=== PATIENT | male | born 1950 | race Caucasian/White ===

== ENCOUNTER 2017-02-09 13:36 | Inpatient (IN) | payer OTHER ==
[~2017-02-09] VITALS: Ht 177.8 cm; Wt 126.1 kg
[~2017-02-09 13:36] MED LIST changes: -ALBU2.5V4 IH; -AMLO10TA2 PO; -AZIT250T5 PO; -BENZ100C23 PO; -BUDE10.2 IH; -CYAN10006 PO; -DEXA0.5T PO; -FAMO20TA5 PO; -FLUT1DIS26 IH; -GUAI473L29 PO; -HYDR-3584 PO; -HYDR473S34 PO; -LORA10TA7 PO; -MONT10TA24 PO; -UMEC62.5 IH
[2017-02-09] MEDS ORDERED: RT-BUDESONIDE NEBS 0.5 MG/2ML (PULMICORT) AMP INH SCH (13:45)
[2017-02-09] MEDS ORDERED: inSUlin ASPART (NovoLOG) 1 UNIT/0.01 ML (CHARGE PER UNIT) SC PRN (13:45)
[2017-02-09] MEDS ORDERED: guaiFENesin/CODEINE (ROBITUSSIN AC) 10ML UDC PO PRN (13:45)
[2017-02-09] MEDS ORDERED: RT-ALBUTEROL/IPRATROPIUM 3 ML (DUONEB) VIAL INH SCH ×2 (13:45→21:00)
[2017-02-09] MEDS ORDERED: AMLO10TA2 PO (15:20)
[2017-02-09] MEDS ORDERED: MONT10TA24 PO (15:20)
[2017-02-09] MEDS ORDERED: CYAN10006 PO (15:20)
[2017-02-09] MEDS ORDERED: PRD10T PO (15:39)
[2017-02-09] MEDS ORDERED: GUAI473L29 PO (15:39)
[2017-02-09] MEDS ORDERED: ALBU2.5V4 IH (15:41)
[2017-02-09] MEDS ORDERED: FLUT1DIS26 IH (15:41)
[2017-02-09 15:44] VITALS: BP 174/80
[2017-02-09] MEDS ORDERED: IOHEXOL 350 MG/ML 150 ML (OMNIPAQUE 350) VIAL IV ONE (15:45)
[2017-02-09] MEDS ORDERED: NS 100 ML (IVPB) BAG IV ONE (15:45)
[2017-02-09] MEDS ORDERED: CATHETER FLUSH 10 ML SYR IV PRN (15:45)
[2017-02-09 16:11] LABS: BASOPHILS # (AUTO) 0.1 10^3/uL (0.0-0.1); BASOPHILS % (AUTO) 1 % (0-10); EOSINOPHILS % (AUTO) 0 % (0-10); LYMPHOCYTES % (AUTO) 15 % (12-44); MEAN CORPUSCULAR HEMOGLOBIN 32 PG (25-34); MEAN CORPUSCULAR HGB CONC 35 G/DL (32-36); MEAN CORPUSCULAR VOLUME 92 FL (80-99); MEAN PLATELET VOLUME 9.8 FL (7.4-10.4); MONOCYTES # (AUTO) 1.3 X 10^3 (0.0-1.0); MONOCYTES % (AUTO) 10 % (0-12); NEUTROPHILS # (AUTO) 9.8 X 10^3 (1.8-7.8); NEUTROPHILS % (AUTO) 75 % (42-75); PLATELET COUNT 269 10^3/uL (130-400); RED BLOOD COUNT 4.39 10^6/uL (4.35-5.85); RED CELL DISTRIBUTION WIDTH 12.9 % (10.0-14.5); WHITE BLOOD COUNT 13.1 10^3/uL (4.3-11.0)
--- NOTE | 2017-02-09 16:15 | Diagnostic Imaging Report ---
PROCEDURE: CT angiography of the chest with contrast. TECHNIQUE: Multiple contiguous axial images were obtained through the chest after uneventful bolus administration of intravenous contrast. Reconstructed CTA MIP acquisitions were also performed. INDICATION: Wheezing. Cough. 125 mL of Omnipaque 350 is administered intravenously. FINDINGS: The pulmonary arteries demonstrate moderate opacification with no filling defects to suggest pulmonary embolism. The thoracic aorta is normal in caliber. No mediastinal, hilar or axillary significantly enlarged lymph nodes are seen. The cardiac size is normal. No pericardial or pleural effusion seen. There are subcentimeter nodular densities with groundglass opacities noted in the left lower lobe. These are favored to be related to pneumonitis or atelectasis. No significant consolidation. No lung mass or suspicious dominant nodule. Low density 6 mm nodule is also seen in the posterior mid aspect of the left upper lobe, image 53. Sections in the upper abdomen demonstrate cholecystectomy clips. The adrenal glands appear unremarkable. Posterior fusion hardware in the upper lumbar and lower thoracic spine is seen. Mild degenerative changes in the thoracic spine noted. IMPRESSION: 1. No evidence of pulmonary embolism or aortic dissection. 2. A few nonspecific subcentimeter nodular densities mostly in the left lower lobe is favored to be related to pneumonitis or atelectasis. No significant consolidation or suspicious nodule. A followup study in 4 months with a low-dose unenhanced CT chest to document resolution is recommended. Dictated by: Dictated on workstation # [id number]
[2017-02-09] MEDS: ENOXAPARIN 40 MG/0.4 ML (LOVENOX) SYR SC SCH (16:27)
[2017-02-09] MEDS: inSUlin ASPART (NovoLOG) 1 UNIT/0.01 ML (CHARGE PER UNIT) SC SCH ×2 (16:27→22:07)
[2017-02-09] MEDS: cefTRIAXone INJECTION 1,000 MG in NS (IVPB) 50 ML IV SCH (16:28)
[2017-02-09] MEDS: methylPREDNISolone 40 MG/ML (Solu-MEDROL) VIAL IV SCH (16:28)
[2017-02-09 16:29] LABS: ALANINE AMINOTRANSFERASE 59 U/L (0-55); ALBUMIN 3.8 G/DL (3.2-4.5); ANION GAP 11 MMOL/L (5-14); ASPARTATE AMINO TRANSFERASE 43 U/L (5-34); BILIRUBIN,TOTAL 0.5 MG/DL (0.1-1.0); BLOOD UREA NITROGEN 24 MG/DL (7-18); BUN/CREATININE RATIO 20; CALCIUM 8.9 MG/DL (8.5-10.1); CARBON DIOXIDE 23 MMOL/L (21-32); CHLORIDE 104 MMOL/L (98-107); CREATININE SERUM 1.19 MG/DL (0.60-1.30); GFR ESTIMATED > 60; GLUCOSE 184 MG/DL (70-105); POTASSIUM 3.8 MMOL/L (3.6-5.0); SODIUM 138 MMOL/L (135-145); TOTAL PROTEIN 6.9 G/DL (6.4-8.2)
[2017-02-09] MEDS ORDERED: RT-ALBUTEROL/IPRATROPIUM 3 ML (DUONEB) VIAL INH PRN (17:00)
[2017-02-09] MEDS ORDERED: hydrALAZINE (APRESOLINE) 25 MG TAB PO PRN (17:30)
[2017-02-09] MEDS: RT-BUDESONIDE NEBS 0.5 MG/2ML (PULMICORT) AMP INH SCH (18:37)
[2017-02-09] MEDS: RT-ALBUTEROL/IPRATROPIUM 3 ML (DUONEB) VIAL INH SCH (18:37)
[2017-02-09 20:03] VITALS: BP 126/74
[2017-02-09] MEDS: CATHETER FLUSH 10 ML SYR IV SCH (20:21)
[2017-02-09] MEDS: BENZONATATE 100 MG (TESSALON) CAPSULE PO SCH (20:21)
[2017-02-09] MEDS: MONTELUKAST 10 MG (SINGULAIR) TAB PO SCH (20:21)
[2017-02-09 23:49] VITALS: BP 130/65
[2017-02-10] MEDS: methylPREDNISolone 40 MG/ML (Solu-MEDROL) VIAL IV SCH ×5 (00:09→23:50)
[2017-02-10 04:05] VITALS: BP 145/72
[2017-02-10 05:01] LABS: BASOPHILS % (AUTO) 0 % (0-10); EOSINOPHILS % (AUTO) 0 % (0-10); LYMPHOCYTES % (AUTO) 12 % (12-44); MEAN CORPUSCULAR HEMOGLOBIN 32 PG (25-34); MEAN CORPUSCULAR HGB CONC 35 G/DL (32-36); MEAN CORPUSCULAR VOLUME 92 FL (80-99); MONOCYTES # (AUTO) 0.5 X 10^3 (0.0-1.0); MONOCYTES % (AUTO) 3 % (0-12); NEUTROPHILS # (AUTO) 14.3 X 10^3 (1.8-7.8); NEUTROPHILS % (AUTO) 85 % (42-75); PLATELET COUNT 248 10^3/uL (130-400); RED BLOOD COUNT 4.46 10^6/uL (4.35-5.85); RED CELL DISTRIBUTION WIDTH 12.6 % (10.0-14.5); WHITE BLOOD COUNT 16.7 10^3/uL (4.3-11.0)
[2017-02-10 05:22] LABS: ALANINE AMINOTRANSFERASE 57 U/L (0-55); ANION GAP 14 MMOL/L (5-14); ASPARTATE AMINO TRANSFERASE 32 U/L (5-34); BILIRUBIN,TOTAL 0.4 MG/DL (0.1-1.0); BLOOD UREA NITROGEN 25 MG/DL (7-18); BUN/CREATININE RATIO 23; CALCIUM 9.2 MG/DL (8.5-10.1); CARBON DIOXIDE 19 MMOL/L (21-32); CHLORIDE 105 MMOL/L (98-107); GFR ESTIMATED > 60; GLUCOSE 170 MG/DL (70-105); POTASSIUM 4.3 MMOL/L (3.6-5.0); SODIUM 138 MMOL/L (135-145); TOTAL PROTEIN 7.1 G/DL (6.4-8.2)
[2017-02-10] MEDS: CATHETER FLUSH 10 ML SYR IV SCH ×3 (05:44→20:32)
[2017-02-10] MEDS: inSUlin ASPART (NovoLOG) 1 UNIT/0.01 ML (CHARGE PER UNIT) SC SCH ×3 (05:46→16:12)
[2017-02-10] MEDS: RT-BUDESONIDE NEBS 0.5 MG/2ML (PULMICORT) AMP INH SCH ×2 (07:24→20:03)
[2017-02-10] MEDS: RT-ALBUTEROL/IPRATROPIUM 3 ML (DUONEB) VIAL INH SCH ×4 (07:24→20:03)
[2017-02-10 08:00] VITALS: BP 144/83
[2017-02-10] MEDS: ASPIRIN E.C. 81 MG (ECOTRIN) TAB PO SCH (08:46)
[2017-02-10] MEDS: BENZONATATE 100 MG (TESSALON) CAPSULE PO SCH ×3 (08:46→20:30)
[2017-02-10] MEDS: amLODIPine 10 MG (NORVASC) TAB PO SCH (08:46)
[2017-02-10] MEDS: LOSARTAN 50 MG (COZAAR) TAB PO SCH (08:46)
--- NOTE | 2017-02-10 10:19 | History & Physical-Hospitalist ---
HPI History of Present Illness: HPI/Chief Complaint CC: Wheezing HPI: This is a 66yoWM clinic pt of mine for past 10 yrs with hx of HTN, HLP and DEBORAH noncompliant with CPAP that presents with the 3rd episode of wheezing and SOB unresolved with antibiotics and prednisone regimen, so he was admitted for IV steroids and further workup. CT angio of chest showed no PE but resolving remnants of pneumonia. Dr. Bowman has set up out-pt clinic appointment for pulmonary management. WBC 16 due to steroids CMP normal Patient Interview: Dr. Cassidy discusses pts lab and CT results with pt. Pt states that he feels well today, but feels similar to how he did yesterday. Pt feels that he could safely DC. Pt still has breathing treatment supplies. Dr. Cassidy discusses plans for long-term steroid taper, and informs pt that symptoms may persist for some time. Pt states that current cough syrup does not seem to help. Physical exam reveals wheezing. Dr. Cassidy also discusses staying an additional day to continue IV treatment. Pt agrees with this plan and would like to stay. Pt would also like his heart to be checked by Dr. Pryor. Scribed by Remberto Petty under the direct supervision of Dr. Cassidy. Source: patient Exam Limitations: no limitations Date Seen 02/10/17 Attending Physician Betzaida Cassidy DO PCP Betzaida Cassidy DO Referring Physician Date of Admission Feb 09, 2017 at 15:10 Home Medications & Allergies Home Medications Reviewed patient Home Medication Reconciliation Form Allergies Allergies Coded Allergies desipramine (Verified Allergy, Mild, RASH, 02/09/17) Past Eztgtvl-Diesdu-Ynkkxe Hx Patient Social History Marrital Status: single Employed/Student: employed ([employer]) Alcohol Use: Denies Use Recreational Drug Use: No Smoking Status: Never a Smoker Physical Abuse Screen: No Sexual Abuse: No Recent Foreign Travel: No Contact w/other who traveled: No Recent Hopitalizations: Yes (CHOLY, TONSILLECTOMY, 5 BACK SURGERIES, 2 CARPAL TUNNEL SURGERIES) Recent Infectious Disease Expo: No Immunizations Up To Date Date of Influenza Vaccine: Sep 20, 2016 Seasonal Allergies Seasonal Allergies: No Surgeries HX Surgeries: Yes Surgeries: Adenoidectomy, Cardiac, Coronary Stent, Eye Surgery, Gallbladder, Neurological, Orthopedic, Renal, Tonsillectomy Respiratory Hx Respiratory Disorders: Yes Respiratory Disorders: Sleep Apnea (Non-compliant with CPAP) Cardiovascular Hx Cardiovascular Disorders: Yes (HEART CATH/STENTS X2 2010) Cardiac Disorders: Chronic Edema/Swelling, Coronary Artery Disease, Hypertension Neurological Hx Neurological Disorders: Yes (BILATERAL PERIPHERAL NEUROPATHY) Neurological Disorders: Neuropathy Reproductive System Hx Reproductive Disorders: No Sexually Transmitted Disease: No HIV/AIDS: No Genitourinary Hx Genitourinary Disorders: Yes (LEFT URETERAL STONE) Genitourinary Disorders: Benign Prostatic Hyperpl Gastrointestinal Hx Gastrointestinal Disorders: No Musculoskeletal Hx Musculoskeletal Disorders: Yes Musculoskeletal Disorders: Degenerate Disk Disease, Chronic Back Pain Endocrine Hx Endocrine Disorders: No HEENT HX ENT Disorders: Yes HEENT Disorders: Cataract Loss of Vision: Denies Hearing Impairment: Denies Cancer Hx Cancer: No Psychosocial Hx Psychiatric Problems: No Integumentary HX Skin/Integumentary Disorder: No Blood Transfusions Hx Blood Disorders: No Review of Systems Constitutional: see HPI EENTM: no symptoms reported Respiratory: cough, dyspnea on exertion, short of breath, wheezing Cardiovascular: chest pain Gastrointestinal: no symptoms reported Genitourinary: no symptoms reported Musculoskeletal: back pain Skin: no symptoms reported Psychiatric/Neurological: Depressed All Other Systems Reviewed Negative Unless Noted: Yes Physical Exam Physical Exam Vital Signs Vital Sign - Last 12Hours 02/09/17 02/09/17 15:30 15:44 Temp 99.4 Pulse 94 Resp 20 B/P (MAP) 174/80 Pulse Ox 95 O2 Delivery Room Air Capillary Refill : Less Than 3 Seconds General Appearance: No Apparent Distress, WD/WN, Chronically ill, Obese Eyes: Bilateral Eye Normal Inspection, Bilateral Eye PERRL HEENT: PERRL/EOMI, Normal ENT Inspection, Pharynx Normal Neck: Full Range of Motion, Normal Inspection, Non Tender, Supple, Carotid Bruit Respiratory: Chest Non Tender, No Accessory Muscle Use, No Respiratory Distress , Decreased Breath Sounds, Wheezing Cardiovascular: Regular Rate, Rhythm, No Edema, No Gallop, No JVD, No Murmur, Normal Peripheral Pulses Gastrointestinal: Normal Bowel Sounds, No Organomegaly, No Pulsatile Mass, Non Tender, Soft Back: Normal Inspection, No CVA Tenderness, No Vertebral Tenderness Extremity: Normal Capillary Refill, Normal Inspection, Normal Range of Motion, Non Tender, No Calf Tenderness, No Pedal Edema Neurologic/Psychiatric: Alert, Oriented x3, No Motor/Sensory Deficits, Normal Mood/Affect Skin: Normal Color, Warm/Dry Lymphatic: No Adenopathy Results Results/Procedures Lab Laboratory Tests 02/09/17 16:00 02/10/17 04:40 Assessment/Plan Admission Diagnosis Assessment: Recurrent wheezing unresolved with 2 rounds of antibiotics and steroid tapers with residual of early pneumonia treated [address] angiogram no evidence of PE History of CAD previous stents placed by Dr. Schulte evaluating echocardiogram and BNP for source of wheezing and overall subtle chest pain but is occurred on occasion Hypertension Hyperlipidemia Hyperglycemia chronic in nature but elevated due to steroids Obstructive sleep apnea noncompliant with CPAP Chronic muscle and joint pain etiology unknown after extensive workup in the past Leukocytosis likely due to steroid effect Mild elevation in liver enzymes likely due to PERSAUD Assessment and Plan Plan: Case management review to switch to in-pt status Overnight O2 sat eval Maintain IV antibiotics and steroids Switch to Hydrocodone cough syrup Consult Dr. Pryor Consult Dr. Bowman Check BNP Check Troponin Check EKG Check Echo Likely DC tomorrow with close pulmonary follow-up with Dr. Bowman and long steroid taper Clinical Quality Measures DVT/VTE Risk/Contraindication: Risk Factor Score Per Nursin RFS Level Per Nursing on Admit: 4+=Very High BETZAIDA CASSIDY DO Feb 10, 2017 10:19
[2017-02-10] MEDS: HYDROCODONE/CHLOR 10MG/5 ML (TUSSIONEX SUSP) 5ML UDC PO SCH ×2 (10:37→20:30)
[2017-02-10 12:00] VITALS: BP 152/74
--- NOTE | 2017-02-10 13:35 | Consultation-Cardiology ---
HPI-Cardiology Cardiology Consultation: Date of Consultation 02/10/17 Date of Admission 02-09-17 Attending Physician Betzaida Cassidy DO Admitting Physician Betzaida Cassidy DO Consulting Physician Lucius Pryor MD FACP [facility] HPI: Chief Complaint: Wheezing Dyspnea Mr. Bobo is a 66 year old male admitted to [facility]. He states he has been having increasing shortness of breath with associated wheezing and cough. He states he has had 2 rounds of antibiotics and steroids and continued to feel unwell. He states he is feeling better at this moment. He does not report any chest pain, palpitations, syncope or near syncope. He reports chronic intermittent bilat LE edema which is least upon awakening in the morning and worse as the day goes on. He states he wears compression stockings. He states he has increasing shortness of breath with fatigue over the last week. Review of Systems-Cardiology Review of Systems Constitutional: As described under HPI Eyes: No blurred vision, No drainage, No pain, No vision change Ears/Nose/Throat: No ear discharge, No ear pain, No nasal drainage, No ulcerations Respiratory: As described under HPI Cardiovascular: As described under HPI Gastrointestinal: No constipation, No diarrhea, No nausea, No vomiting, No stool coloration changes Genitourinary: No dysuria, No discharge, No frequency, No hematuria, No urgency Skin: No rash, No skin related problems, No ulcerations Psychiatric/Neurological: No anxiety, No depression, No focal weakness, No seizure, No syncope Hematologic: No bleeding abnormalities All Other Systems Reviewed Negative Unless Noted: Yes MLV-Sympxa-Kvgsyx Hx Patient Social History Marrital Status: single Employed/Student: employed ([employer]) Alcohol Use: Denies Use Recreational Drug Use: No Smoking Status: Never a Smoker Recent Foreign Travel: No Recent Infectious Disease Expo: No Hospitalization with Isolation: Denies Physical Abuse Screen: No Sexual Abuse: No Immunizations Up To Date Date of Influenza Vaccine: Sep 20, 2016 Past Medical History PMH As described under Assessment. Allergies and Home Medications Allergies Coded Allergies: desipramine (Verified Allergy, Mild, RASH, 02/09/17) Home Medications Albuterol Sulfate 2.5 Mg/3 Ml Vial.neb, 2.5 MG IH TID, (Reported) Amlodipine Besylate 10 Mg Tablet, 10 MG PO DAILY, (Reported) Aspirin 81 Mg Tabec, 81 MG PO DAILY, (Reported) Cyanocobalamin (Vitamin B-12) 1,000 Mcg Tablet, 1,000 MCG PO DAILY, (Reported) Fluticasone/Salmeterol 1 Each Blst.w.dev, 1 PUFF IH BID, (Reported) Guaifenesin/Codeine Phosphate 473 Ml Liquid, 5 ML PO Q4H PRN for COUGH, ( Reported) Lisinopril 20 Mg Tablet, 20 MG PO DAILY, (Reported) LAST FILLED 11/27/16 #30 Losartan Potassium 100 Mg Tablet, 100 MG PO DAILY, (Reported) Montelukast Sodium 10 Mg Tablet, 10 MG PO HS, (Reported) Prednisone 10 Mg Tab, PO UD, (Reported) FILLED 02/06/17 #30 FOR A TAPER DOSING 4 TABS PO QD X 3 DAYS 3 TABS PO QD X 3 DAYS 2 TABS PO QD X 2 DAYS 1 TAB PO QD X 1 DAY Triamterene/Hydrochlorothiazid 1 Each Capsule, 1 TAB PO DAILY, (Reported) LAST FILLED 11/27/16 #30 Physical Exam-Cardiology Physical Exam Vital Signs/I&O Vital Sign - Last 12Hours 02/10/17 02/10/17 02/10/17 02/10/17 04:05 07:24 07:24 08:00 Temp 96.3 97.4 Pulse 74 102 Resp 14 20 B/P (MAP) 145/72 144/83 Pulse Ox 94 93 93 93 O2 Delivery Room Air Room Air 02/10/17 02/10/17 08:20 12:00 Temp 98.6 Pulse 92 Resp 20 B/P (MAP) 152/74 Pulse Ox 93 O2 Delivery Room Air Room Air Intake and Output 02/10/17 00:00 Intake Total 850 ml Balance 850 ml Capillary Refill : Less Than 3 Seconds Constitutional: appears stated age, No apparent distress, well-developed, well- nourished HEENT: PERRL, No discharge, hearing is well preserved, oral hygience is good, No ulceration, No xanthelasmas are seen Neck: No carotid bruit, carotid pulses are 2 + bilaterally Respiratory: No accessory muscle use, No respiratory distress, chest expansion is symmetric, wheezing (scattered over large airways), other (diminished bases bilat) Cardiovascular: regular rate-rhythm, No JVD, S1 and S2 Gastrointestinal: No tender, soft, round, No spleenomegaly Extremities: No clubbing, No cyanosis, No significant edema Neurologic/Psychiatric: alert, oriented x 3, power is 5/5 both on sides Skin: No rash, No ulcerations Data Review Labs Laboratory Tests 02/09/17 15:54: Glucometer 196H 02/09/17 16:00: White Blood Count 13.1H, Red Blood Count 4.39, Hemoglobin 14.2, Hematocrit 40, Mean Corpuscular Volume 92, Mean Corpuscular Hemoglobin 32, Mean Corpuscular Hemoglobin Concent 35, Red Cell Distribution Width 12.9, Platelet Count 269, Mean Platelet Volume 9.8, Neutrophils (%) (Auto) 75, Lymphocytes (%) (Auto) 15, Monocytes (%) (Auto) 10, Eosinophils (%) (Auto) 0, Basophils (%) (Auto) 1, Neutrophils # (Auto) 9.8H, Lymphocytes # (Auto) 2.0, Monocytes # (Auto) 1.3H, Eosinophils # (Auto) 0.0, Basophils # (Auto) 0.1, Sodium Level 138, Potassium Level 3.8, Chloride Level 104, Carbon Dioxide Level 23, Anion Gap 11, Blood Urea Nitrogen 24H, Creatinine 1.19, Estimat Glomerular Filtration Rate > 60, BUN /Creatinine Ratio 20, Glucose Level 184H, Calcium Level 8.9, Total Bilirubin 0.5 , Aspartate Amino Transf (AST/SGOT) 43H, Alanine Aminotransferase (ALT/SGPT) 59H , Alkaline Phosphatase 61, B-Type Natriuretic Peptide 14.5, Total Protein 6.9, Albumin 3.8 02/09/17 21:20: Glucometer 266H 02/10/17 04:40: White Blood Count 16.7H, Red Blood Count 4.46, Hemoglobin 14.4, Hematocrit 41, Mean Corpuscular Volume 92, Mean Corpuscular Hemoglobin 32, Mean Corpuscular Hemoglobin Concent 35, Red Cell Distribution Width 12.6, Platelet Count 248, Mean Platelet Volume 10.0, Neutrophils (%) (Auto) 85H, Lymphocytes (%) (Auto) 12 , Monocytes (%) (Auto) 3, Eosinophils (%) (Auto) 0, Basophils (%) (Auto) 0, Neutrophils # (Auto) 14.3H, Lymphocytes # (Auto) 2.0, Monocytes # (Auto) 0.5, Eosinophils # (Auto) 0.0, Basophils # (Auto) 0.0, Sodium Level 138, Potassium Level 4.3, Chloride Level 105, Carbon Dioxide Level 19L, Anion Gap 14, Blood Urea Nitrogen 25H, Creatinine 1.10, Estimat Glomerular Filtration Rate > 60, BUN /Creatinine Ratio 23, Glucose Level 170H, Calcium Level 9.2, Total Bilirubin 0.4 , Aspartate Amino Transf (AST/SGOT) 32, Alanine Aminotransferase (ALT/SGPT) 57H , Alkaline Phosphatase 56, Total Protein 7.1, Albumin 4.0 02/10/17 05:46: Glucometer 155H 02/10/17 09:55: Troponin I < 0.30, B-Type Natriuretic Peptide 22.5 02/10/17 11:01: Glucometer 238H Radiology NAME: NAUN BOBO [facility] REC#: [id number] PT STATUS: ADM Poppy : 1950 PHYSICIAN: BETZAIDA CASSIDY DO ADMIT DATE: 02/09/17 Signed Date of Exam: 02/09/17 CT ANGIO CHEST W PROCEDURE: CT angiography of the chest with contrast. TECHNIQUE: Multiple contiguous axial images were obtained through the chest after uneventful bolus administration of intravenous contrast. Reconstructed CTA MIP acquisitions were also performed. INDICATION: Wheezing. Cough. 125 mL of Omnipaque 350 is administered intravenously. FINDINGS: The pulmonary arteries demonstrate moderate opacification with no filling defects to suggest pulmonary embolism. The thoracic aorta is normal in caliber. No mediastinal, hilar or axillary significantly enlarged lymph nodes are seen. The cardiac size is normal. No pericardial or pleural effusion seen. There are subcentimeter nodular densities with groundglass opacities noted in the left lower lobe. These are favored to be related to pneumonitis or atelectasis. No significant consolidation. No lung mass or suspicious dominant nodule. Low density 6 mm nodule is also seen in the posterior mid aspect of the left upper lobe, image 53. Sections in the upper abdomen demonstrate cholecystectomy clips. The adrenal glands appear unremarkable. Posterior fusion hardware in the upper lumbar and lower thoracic spine is seen. Mild degenerative changes in the thoracic spine noted. IMPRESSION: 1. No evidence of pulmonary embolism or aortic dissection. 2. A few nonspecific subcentimeter nodular densities mostly in the left lower lobe is favored to be related to pneumonitis or atelectasis. No significant consolidation or suspicious nodule. A followup study in 4 months with a low-dose unenhanced CT chest to document resolution is recommended. Dictated by: Dictated on workstation # [id number] Dict: 02/09/17 1601 Trans: 02/09/17 1659 STEFANIE [id number] Interpreted by: AMARI NOLAND MD Electronically signed by:AMARI NOLAND MD 02/09/17 1659 ECG Impression ECG Initial ECG Rhythm: Normal Sinus A/P-Cardiology Assessment/Admission Diagnosis Dyspnea likely secondary to pneumonia Pneumonia - management per medical and pulmonary services Echo on 02/10/17: LVEF 65%, no RWMA, mild conc LVH, mild diastolic dysfunction of LV, no significant valvular regurg or stenosis Coronary artery disease with a history of stenting of the proximal and mid left circumflex artery in April 2010 (Promus 2.5 x 23-mm taken to 2.8 mm). Most recently, on 07/15/10 he underwent stenting of the left anterior descending artery (Promus 3.0 x 12-mm taken to 3.4 mm diameter). The previously placed stent, at the time of cardiac catheterization of June 2010 was free of significant disease. The patient has 50 to 60% mid right coronary artery disease, which was not intervened on. Normal global left ventricular systolic function with an ejection fraction of 60 to 65% and mild to moderate elevation of left ventricular end-diastolic pressure on cardiac catheterization of 05/15/10. Myocardial perfusion imaging from 06/27/11 showed no evidence of any significant myocardial ischemia or infarction. Normal global left ventricular systolic function with an ejection fraction of 62%. Hypertension, currently controlled. Degenerative joint disease and inflammatory arthritis. Prednisone therapy for inflammatory arthritis. Hyperlipidemia which is followed by Dr. Cassidy. Hypothyroidism. Chronic insomnia. History of cholecystectomy. History of carpal tunnel surgery and back fusion. Obesity mass index of approximately 40. Diabetes mellitus being managed by Dr. Cassidy. DEBORAH for which he is non-compliant with sleep apnea treatment - followed by Dr. Bowman Discussion and Recomendations Dyspnea is likely d/t exacerbation of pneumonia which is being managed by medical and pulmonary services. Echocardiogram to evaluate structure and LVEF has been done. No clinical evidence of CHF. Continue current regimen including ASA and ARB. His home medication list is showing that he is on LUPE and ARB. Advise discontinuation of LUPE and continuation of ARB. He is not on statin tx. Will check lipid panel. Monitor lab. Coronary risk stratification advised since it has been more than 5 years since last stent placement. We will see as an outpatient once he has recovered from this acute illness. We would like to thank Dr. Cassidy for this consult. Further recommendations will be based on his hospital course. This consult is being scribed by Tomasa Parker APRN on behalf of Dr. Pryor after discussion regarding plan of care. Clinical Quality Measures DVT/VTE Risk/Contraindication: Risk Factor Score Per Nursin RFS Level Per Nursing on Admit: 4+=Very High Physician Assessment Physician Assessment Lungs: fair to good bilat air entry, some exp wheezes Cor: reg A&R * As documented in our note above that updated and amended at the time of this writing * I had a detailed discussion with him regarding his CV issues * I reviewed his lab work, his ECG from today, and also his echo that was done today * I discussed cardiac risk factor modification with him REJI PARKER Feb 10, 2017 13:35 LUCIUS PRYOR MD FACP [facility] Feb 10, 2017 15:55
[2017-02-10 15:50] VITALS: BP 131/72
[2017-02-10] MEDS: ENOXAPARIN 40 MG/0.4 ML (LOVENOX) SYR SC SCH (16:12)
[2017-02-10] MEDS: cefTRIAXone INJECTION 1,000 MG in NS (IVPB) 50 ML IV SCH (16:13)
--- NOTE | 2017-02-10 17:50 | Pulmonary Consultation ---
History of Present Illness History of Present Illness Date of Consultation 02/10/17 17:48 Date of Admission History of Present Illness 66 year old male admitted secondary to increasing shortness of breath with associated wheezing and cough. failed out patient tx with steroids and Abx. He states he is feeling better at this moment. no chest pain, palpitations, syncope or near syncope. increasing shortness of breath with fatigue over the last week. Allergies and Home Medications Allergies Coded Allergies: desipramine (Verified Allergy, Mild, RASH, 02/09/17) Home Medications Albuterol Sulfate 2.5 Mg/3 Ml Vial.neb, 2.5 MG IH TID, (Reported) Amlodipine Besylate 10 Mg Tablet, 10 MG PO DAILY, (Reported) Aspirin 81 Mg Tabec, 81 MG PO DAILY, (Reported) Azithromycin 250 Mg Tablet, 500 MG PO DAILY, #4 Prescribed by: RAIMUNDO CASSIDY on 02/13/17829 Benzonatate 100 Mg Capsule, 200 MG PO TID, #30 Prescribed by: RAIMUNDO CASSIDY on 02/13/17829 Budesonide/Formoterol Fumarate 10.2 Gm Hfa.aer.ad, 2 PUFF IH BID, #1 Prescribed by: RAIMUNDO CASSIDY on 02/13/17829 Cyanocobalamin (Vitamin B-12) 1,000 Mcg Tablet, 1,000 MCG PO DAILY, (Reported) Dexamethasone 0.5 Mg Tablet, 0.5 MG PO Q12H, #14 Prescribed by: RAIMUNDO CASSIDY on 02/13/17829 Famotidine 20 Mg Tablet, 20 MG PO BID, #60 Prescribed by: RAIMUNDO CASSIDY on 02/13/17829 Hydrocodone/Chlorphen P-Stirex 473 Ml Kathi.er.12h, 5 ML PO Q12HR, #6 Prescribed by: RAIMUNDO CASSIDY on 02/13/17829 Hydroxyzine HCl 10 Mg Tablet, 10 MG PO TID, #60 Prescribed by: RAIMUNDO CASSIDY on 02/13/17829 Loratadine 10 Mg Tablet, 10 MG PO BID, #60 Prescribed by: RAIMUNDO CASSIDY on 02/13/17829 Losartan Potassium 100 Mg Tablet, 100 MG PO DAILY, (Reported) Montelukast Sodium 10 Mg Tablet, 10 MG PO HS, (Reported) Triamterene/Hydrochlorothiazid 1 Each Capsule, 1 TAB PO DAILY, (Reported) LAST FILLED 11/27/16 #30 Umeclidinium [place] 62.5 Mcg Blst.w.dev, 0 INH IH DAILY@0800, #30 Prescribed by: RAIMUNDO CASSIDY on 02/13/17 0830 Past Bpeukdi-Ookzlz-Lirkuy Hx Patient Social History Alcohol Use: Denies Use Recreational Drug Use: No Smoking Status: Never a Smoker Recent Foreign Travel: No Contact w/Someone Who Travel: No Recent Infectious Disease Expo: No Recent Hopitalizations: Yes (CHOLY, TONSILLECTOMY, 5 BACK SURGERIES, 2 CARPAL TUNNEL SURGERIES) Physical Abuse Screen: No Sexual Abuse: No Immunizations Up To Date Date of Influenza Vaccine: Sep 20, 2016 Seasonal Allergies Seasonal Allergies: No Surgeries HX Surgeries: Yes Surgeries: Adenoidectomy, Cardiac, Coronary Stent, Eye Surgery, Gallbladder, Neurological, Orthopedic, Renal, Tonsillectomy Respiratory Hx Respiratory Disorders: Yes Cardiovascular Hx Cardiac Disorders: Yes (HEART CATH/STENTS X2 2009) Cardiac Disorders: Chronic Edema/Swelling, Coronary Artery Disease, Hypertension Neurological Hx Neurological Disorders: Yes (BILATERAL PERIPHERAL NEUROPATHY) Neurological Disorders: Neuropathy Reproductive System Hx Reproductive Disorders: No Sexually Transmitted Disease: No HIV/AIDS: No Genitourinary Hx Genitourinary Disorders: Yes (LEFT URETERAL STONE) Genitourinary Disorders: Benign Prostatic Hyperpl Gastrointestinal Hx Gastrointestinal Disorders: No Musculoskeletal Hx Musculoskeletal Disorders: Yes Musculoskeletal Disorders: Degenerate Disk Disease, Chronic Back Pain Endocrine Hx Endocrine Disorders: No HEENT HX ENT Disorders: Yes HEENT Disorders: Cataract Loss of Vision: Denies Hearing Impairment: Denies Cancer Hx Cancer: No Psychosocial Hx Psychiatric Problems: No Integumentary HX Skin/Integumentary Disorder: No Blood Transfusions Hx Blood Disorders: No Exam Exam Vital Signs Date Time Temp Pulse Resp B/P (MAP) Pulse Ox O2 Delivery O2 Flow Rate FiO2 02/10/17 15:50 98.5 97 20 131/72 94 Room Air 02/10/17 12:00 98.6 92 20 152/74 93 Room Air 02/10/17 08:20 Room Air 02/10/17 08:00 97.4 102 20 144/83 93 Room Air 02/10/17 07:24 93 02/10/17 07:24 93 02/10/17 04:05 96.3 74 14 145/72 94 Room Air 02/09/17 23:49 97.1 86 14 130/65 95 Room Air 02/09/17 21:00 Room Air 02/09/17 20:03 98.8 96 20 126/74 96 Room Air 02/09/17 18:37 95 I & O 02/10/17 07:00 Intake Total 1350 ml Balance 1350 ml General Appearance: No Apparent Distress, WD/WN, Chronically ill, Obese HEENT: PERRL/EOMI, Normal ENT Inspection, Pharynx Normal Neck: Full Range of Motion, Normal Inspection, Non Tender, Supple, Carotid Bruit Respiratory: Chest Non Tender, No Accessory Muscle Use, No Respiratory Distress , Decreased Breath Sounds, Wheezing Cardiovascular: Regular Rate, Rhythm, No Edema, No Gallop, No JVD, No Murmur, Normal Peripheral Pulses Extremity: Normal Capillary Refill, Normal Inspection, Normal Range of Motion, Non Tender, No Calf Tenderness, No Pedal Edema Neurologic/Psychiatric: Alert, Oriented x3, No Motor/Sensory Deficits, Normal Mood/Affect Skin: Normal Color, Warm/Dry Lymphatic: No Adenopathy Results Lab Laboratory Tests 02/09/17 16:00 02/10/17 04:40 Assessment/Plan Assessment/Plan Acute bronchitis r/o asthma -Solumedrol -SVNs\ -Singulair CAD DEBORAH - non compliant with CPAP therapy Clinical Quality Measures DVT/VTE Risk/Contraindication: Risk Factor Score Per Nursin RFS Level Per Nursing on Admit: 4+=Very High FREDA SIDDIQUI DO Feb 10, 2017 17:50
[2017-02-10 20:25] VITALS: BP 149/69
[2017-02-10] MEDS: MONTELUKAST 10 MG (SINGULAIR) TAB PO SCH (20:30)
[2017-02-11] VITALS: BP 107/60
[2017-02-11 04:00] VITALS: BP 151/75
[2017-02-11 04:40] LABS: BASOPHILS % (AUTO) 0 % (0-10); EOSINOPHILS % (AUTO) 0 % (0-10); LYMPHOCYTES # (AUTO) 2.2 X 10^3 (1.0-4.0); LYMPHOCYTES % (AUTO) 9 % (12-44); MEAN CORPUSCULAR HEMOGLOBIN 32 PG (25-34); MEAN CORPUSCULAR HGB CONC 34 G/DL (32-36); MEAN CORPUSCULAR VOLUME 94 FL (80-99); MONOCYTES # (AUTO) 1.6 X 10^3 (0.0-1.0); MONOCYTES % (AUTO) 6 % (0-12); NEUTROPHILS # (AUTO) 21.3 X 10^3 (1.8-7.8); NEUTROPHILS % (AUTO) 85 % (42-75); PLATELET COUNT 287 10^3/uL (130-400); RED BLOOD COUNT 4.28 10^6/uL (4.35-5.85); RED CELL DISTRIBUTION WIDTH 12.9 % (10.0-14.5); WHITE BLOOD COUNT 25.1 10^3/uL (4.3-11.0)
[2017-02-11 05:16] LABS: ALANINE AMINOTRANSFERASE 44 U/L (0-55); ALBUMIN 3.8 G/DL (3.2-4.5); ANION GAP 12 MMOL/L (5-14); ASPARTATE AMINO TRANSFERASE 22 U/L (5-34); BILIRUBIN,TOTAL 0.3 MG/DL (0.1-1.0); BLOOD UREA NITROGEN 30 MG/DL (7-18); BUN/CREATININE RATIO 26; CALCIUM 8.8 MG/DL (8.5-10.1); CARBON DIOXIDE 19 MMOL/L (21-32); CHLORIDE 106 MMOL/L (98-107); CHOLESTEROL 194 MG/DL (< 200); CREATININE SERUM 1.15 MG/DL (0.60-1.30); DIRECT LDL 136 MG/DL (1-129); GFR ESTIMATED > 60; GLUCOSE 232 MG/DL (70-105); MAGNESIUM 2.5 MG/DL (1.8-2.4); POTASSIUM 4.4 MMOL/L (3.6-5.0); SODIUM 137 MMOL/L (135-145); TOTAL PROTEIN 6.8 G/DL (6.4-8.2); TRIGLYCERIDES 222 MG/DL (<150); VLDL CHOLESTEROL 44 MG/DL (5-40)
[2017-02-11 05:23] LABS: BAND NEUTROPHILS 7 %; LYMPHOCYTES % (MANUAL) 13 %; NEUTROPHILS % (MANUAL) 74 %
[2017-02-11] MEDS: methylPREDNISolone 40 MG/ML (Solu-MEDROL) VIAL IV SCH (06:25)
[2017-02-11] MEDS: CATHETER FLUSH 10 ML SYR IV SCH ×3 (06:26→22:08)
[2017-02-11] MEDS: RT-ALBUTEROL/IPRATROPIUM 3 ML (DUONEB) VIAL INH SCH ×4 (07:15→19:10)
[2017-02-11] MEDS: RT-BUDESONIDE NEBS 0.5 MG/2ML (PULMICORT) AMP INH SCH (07:16)
[2017-02-11 08:00] VITALS: BP 118/65
[2017-02-11] MEDS: HYDROCODONE/CHLOR 10MG/5 ML (TUSSIONEX SUSP) 5ML UDC PO SCH ×2 (08:13→20:28)
[2017-02-11] MEDS: inSUlin ASPART (NovoLOG) 1 UNIT/0.01 ML (CHARGE PER UNIT) SC SCH ×3 (08:13→15:43)
[2017-02-11] MEDS: LOSARTAN 50 MG (COZAAR) TAB PO SCH (08:13)
[2017-02-11] MEDS: amLODIPine 10 MG (NORVASC) TAB PO SCH (08:14)
[2017-02-11] MEDS: ASPIRIN E.C. 81 MG (ECOTRIN) TAB PO SCH (08:14)
[2017-02-11] MEDS: BENZONATATE 100 MG (TESSALON) CAPSULE PO SCH ×3 (08:14→20:27)
--- NOTE | 2017-02-11 09:01 | ECHOCARDIOGRAPHY REPORT ---
PROCEDURE PHYSICIAN: MILENA PRYOR DATE OF PROCEDURE: 02/10/2017 TWO DIMENSIONAL ECHOCARDIOGRAM REPORT PRIMARY PHYSICIAN: Dr. Adames OTHER PHYSICIAN: Dr. Pryor REFERRING PHYSICIAN: ORDERING PHYSICIAN: Dr. Adames INDICATION FOR THE PROCEDURE: Shortness of breath MEASUREMENTS DERIVED VALUES LV DIAMETER (LAX) NORMALS NORMALS Diastolic 4.8 (3.6-5.2) Eject. Fract. (60%+/-6%) Systolic (2.3-3.9) Diastolic Vol. % Shortening (0.22-0.42) Systolic Vol. Aortic Root 3.8 IVS THICKNESS Diastolic 1.4 (0.6-1.1) LVPW THICKNESS Diastolic 1.4 (0.6-1.1) LA DIAMETER Systolic 3.8 (2.1-3.7) DESCRIPTION: Two-dimensional echocardiography shows normal global left ventricular systolic function with normal regional wall motion. No significant pericardial effusion. There is mild concentric left ventricular hypertrophy. No distinct regional wall motion abnormalities are seen. Aortic, mitral and tricuspid valve leaflets show good excursion. Doppler imaging does not indicate any significant valvular stenosis. It appears to be trivial tricuspid regurgitation. Pulmonary artery systolic pressure is estimated to be within normal limits. Mitral inflow is consistent with grade 1 diastolic dysfunction of the left ventricle. There is no evidence of any significant intracardiac shunt on this transthoracic echocardiographic study. Inferior vena cava does not appear to be significantly dilated. CONCLUSION: 1. Normal global left ventricular systolic function with an ejection fraction of 65 to 70%. 2. Trivial tricuspid regurgitation. 3. Pulmonary artery systolic pressure is estimated to be within normal limits. 4. Mild concentric left ventricular hypertrophy. 5. Mild diastolic dysfunction of the left ventricle. Job ID: [id number] Dictated Date: 02/10/2017 15:11:45 [employer] Date: 02/11/2017 08:56:04 / camila
[2017-02-11] MEDS: TIOTROPIUM BROMIDE (SPIRIVA) 5'S INHALER IH SCH (10:45)
[2017-02-11] MEDS: RT-ADVAIR HFA 115/21 MCG PER PUFF IH SCH ×2 (10:55→19:10)
--- NOTE | 2017-02-11 10:55 | Progress Note-Hospitalist ---
Progress Note HPI/CC on Admission CC: Wheezing HPI: This is a 66yoWM clinic pt of [facility] for past 10 yrs with hx of HTN, HLP and DEBORAH noncompliant with CPAP that presents with the 3rd episode of wheezing and SOB unresolved with antibiotics and prednisone regimen, so he was admitted for IV steroids and further workup. CT angio of chest showed no PE but resolving remnants of pneumonia. Dr. Bowman has set up out-pt clinic appointment for pulmonary management. WBC 16 due to steroids CMP normal Patient Interview: Dr. Cassidy discusses pts lab and CT results with pt. Pt states that he feels well today, but feels similar to how he did yesterday. Pt feels that he could safely DC. Pt still has breathing treatment supplies. Dr. Cassidy discusses plans for long-term steroid taper, and informs pt that symptoms may persist for some time. Pt states that current cough syrup does not seem to help. Physical exam reveals wheezing. Dr. Cassidy also discusses staying an additional day to continue IV treatment. Pt agrees with this plan and would like to stay. Pt would also like his heart to be checked by Dr. Pryor. Scribed by Remberto Petty under the direct supervision of Dr. Cassidy. Progress Notes/Assess & Plan Date Seen 02/11/17 Admission Dx/Process Assessment: Recurrent wheezing unresolved with 2 rounds of antibiotics and steroid tapers with residual of early pneumonia treated [address] angiogram no evidence of PE History of CAD previous stents placed by Dr. Schulte evaluating echocardiogram and BNP for source of wheezing and overall subtle chest pain but is occurred on occasion Hypertension Hyperlipidemia Hyperglycemia chronic in nature but elevated due to steroids Obstructive sleep apnea noncompliant with CPAP Chronic muscle and joint pain etiology unknown after extensive workup in the past Leukocytosis likely due to steroid effect Mild elevation in liver enzymes likely due to PERSAUD Diagonsis/Assessment & Plan Patient doing well except the cough has increased and wheezing is noted on exam Updated patient on the plantar overhaul medication and will add multiple meds to help with the cough Patient didn't cough a lot last night but once he got up and around it was a problem Bowel movement normal and urinating normal Blood sugars elevated due to steroids No pain is reported Appreciate cardiology and pulmonology workup. No fever, vital signs stable, pleasant, oriented 3, in chair Regular rate and rhythm, wheezing throughout all gandara on end expiratory phase especially but no tachypnea No edema Laboratory Tests 02/11/17 04:15 Assessment: Recurrent wheezing unresolved with 2 rounds of antibiotics and steroid tapers with residual of early pneumonia treated [address] angiogram no evidence of PE now w/severe cough so will add Zmax IV and add multiple meds anticholinergic to help resolve the disturbing cough History of CAD previous stents placed by Dr. Pryor evaluating echocardiogram and BNP for source of wheezing and overall subtle chest pain but is occurred on occasion and negative w/u and Dr Pryor's advice appreciated Hypertension Hyperlipidemia Hyperglycemia chronic in nature but elevated due to steroids Obstructive sleep apnea noncompliant with CPAP Chronic muscle and joint pain etiology unknown after extensive workup in the past Leukocytosis likely due to steroid effect Mild elevation in liver enzymes likely due to PERSAUD Plan: Overhaul the meds for the cough by adding Zmax, Spiriva, Hydroxyzine for anti- cholinergic effect for cough and changing to Decadron from Solu-medrol Give scheduled insulin before meals Check labs tomorrow Scheduled codeine Difficult case RAIMUNDO CASSIDY DO Feb 11, 2017 10:55
[2017-02-11] MEDS: hydrOXYzine (ATARAX) 10 MG TAB PO SCH ×3 (11:16→20:27)
[2017-02-11] MEDS: AZITHROMYCIN INJECTION 500 MG in NS (IVPB) 250 ML IV SCH (11:16)
[2017-02-11] MEDS: DEXAMETHASONE 4 MG/ML SDV (DECADRON) IV SCH ×3 (11:17→22:08)
[2017-02-11] MEDS: FAMOTIDINE 20 MG (PEPCID) TABLET PO SCH ×2 (11:19→20:27)
[2017-02-11] MEDS: LORATADINE (CLARITIN) 10 MG TAB PO SCH ×2 (11:19→20:27)
[2017-02-11 12:00] VITALS: BP 133/75
[2017-02-11] MEDS: guaiFENesin/CODEINE (ROBITUSSIN AC) 10ML UDC PO SCH ×3 (13:48→22:08)
[2017-02-11] MEDS: UMECLIDINIUM BROMIDE (INCRUSE ELLIPTA) 7'S IH SCH (14:47)
[2017-02-11] MEDS: ENOXAPARIN 40 MG/0.4 ML (LOVENOX) SYR SC SCH (15:44)
[2017-02-11] MEDS: cefTRIAXone INJECTION 1,000 MG in NS (IVPB) 50 ML IV SCH (15:44)
--- NOTE | 2017-02-11 15:45 | Progress Note-Cardiology ---
Cardiology SOAP Progress Note Subjective: Still feels short of breath and congested in the chest. Has a cough, mostly dry. Denies cp or palp or syncope Objective: I&O/Vital Signs Vital Sign - Last 12Hours 02/11/17 02/11/17 02/11/17 02/11/17 04:00 07:15 07:16 08:00 Temp 97.2 98.0 Pulse 87 114 Resp 20 20 B/P (MAP) 151/75 118/65 Pulse Ox 94 95 95 94 O2 Delivery Room Air Room Air 02/11/17 02/11/17 02/11/17 02/11/17 08:00 10:47 10:55 12:00 Temp 98.1 Pulse 101 Resp 20 B/P (MAP) 133/75 Pulse Ox 94 94 94 93 O2 Delivery Room Air Room Air 02/11/17 14:51 Pulse Ox 94 Intake and Output 02/11/17 00:00 Intake Total 3110 ml Balance 3110 ml Weight (Pounds): 278 Weight (Ounces): 0.0 Weight (Calculated Kilograms): [phone] Constitutional: appears stated age, No apparent distress, well-developed, well- nourished Respiratory: No accessory muscle use, No respiratory distress, chest expansion is symmetric, wheezing (scattered over large airways), other (diminished bases bilat) Cardiovascular: regular rate-rhythm, No JVD, S1 and S2 Gastrointestional: No tender, soft, round, No spleenomegaly Extremities: No clubbing, No cyanosis, No significant edema Neurologic/Psychiatric: alert, oriented x 3, power is 5/5 both on sides Skin: No rash, No ulcerations Results/Procedures: Labs Laboratory Tests 02/10/17 16:02: Glucometer 250H 02/10/17 21:18: Glucometer 335H 02/11/17 04:15: White Blood Count 25.1H, Red Blood Count 4.28L, Hemoglobin 13.7, Hematocrit 40, Mean Corpuscular Volume 94, Mean Corpuscular Hemoglobin 32, Mean Corpuscular Hemoglobin Concent 34, Red Cell Distribution Width 12.9, Platelet Count 287, Mean Platelet Volume 10.0, Neutrophils (%) (Auto) 85H, Lymphocytes (%) (Auto) 9L , Monocytes (%) (Auto) 6, Eosinophils (%) (Auto) 0, Basophils (%) (Auto) 0, Neutrophils # (Auto) 21.3H, Lymphocytes # (Auto) 2.2, Monocytes # (Auto) 1.6H, Eosinophils # (Auto) 0.0, Basophils # (Auto) 0.0, Neutrophils % (Manual) 74, Lymphocytes % (Manual) 13, Monocytes % (Manual) 6, Band Neutrophils 7, Blood Morphology Comment NORMAL, Sodium Level 137, Potassium Level 4.4, Chloride Level 106, Carbon Dioxide Level 19L, Anion Gap 12, Blood Urea Nitrogen 30H, Creatinine 1.15, Estimat Glomerular Filtration Rate > 60, BUN/Creatinine Ratio 26, Glucose Level 232H, Calcium Level 8.8, Magnesium Level 2.5H, Total Bilirubin 0.3, Aspartate Amino Transf (AST/SGOT) 22, Alanine Aminotransferase ( ALT/SGPT) 44, Alkaline Phosphatase 59, Total Protein 6.8, Albumin 3.8, Triglycerides Level 222H, Cholesterol Level 194, LDL Cholesterol Direct 136H, VLDL Cholesterol 44H, HDL Cholesterol 37L 02/11/17 10:51: Glucometer 293H Laboratory Tests 02/09/17 16:00 02/10/17 04:40 02/11/17 04:15 A/P: Assessment: Dyspnea likely secondary to pneumonia Pneumonia - management per medical and pulmonary services Echo on 02/10/17: LVEF 65%, no RWMA, mild conc LVH, mild diastolic dysfunction of LV, no significant valvular regurg or stenosis Coronary artery disease with a history of stenting of the proximal and mid left circumflex artery in April 2010 (Promus 2.5 x 23-mm taken to 2.8 mm). Most recently, on 07/15/10 he underwent stenting of the left anterior descending artery (Promus 3.0 x 12-mm taken to 3.4 mm diameter). The previously placed stent, at the time of cardiac catheterization of June 2010 was free of significant disease. The patient has 50 to 60% mid right coronary artery disease, which was not intervened on. Normal global left ventricular systolic function with an ejection fraction of 60 to 65% and mild to moderate elevation of left ventricular end-diastolic pressure on cardiac catheterization of 05/15/10. Myocardial perfusion imaging from 06/27/11 showed no evidence of any significant myocardial ischemia or infarction. Normal global left ventricular systolic function with an ejection fraction of 62%. Hypertension, currently controlled. Degenerative joint disease and inflammatory arthritis. Prednisone therapy for inflammatory arthritis. Hyperlipidemia which is followed by Dr. Adames. Hypothyroidism. Chronic insomnia. History of cholecystectomy. History of carpal tunnel surgery and back fusion. Obesity mass index of approximately 40. Diabetes mellitus being managed by Dr. Adames. DEBORAH for which he is non-compliant with sleep apnea treatment - followed by Dr. Bowman Plan: Dyspnea is likely d/t exacerbation of pneumonia which is being managed by medical and pulmonary services Continue current regimen I spoke with him and answered CV-related questions MILENA DAVIDSON MD FACP FACC CCDS Feb 11, 2017 15:45
[2017-02-11 16:44] VITALS: BP 140/69
[2017-02-11] MEDS: MONTELUKAST 10 MG (SINGULAIR) TAB PO SCH (20:27)
[2017-02-11] MEDS ORDERED: methylPREDNISolone 40 MG/ML (Solu-MEDROL) VIAL IV SCH (21:00)
[2017-02-12 00:04] VITALS: BP 163/73
[2017-02-12] MEDS: guaiFENesin/CODEINE (ROBITUSSIN AC) 10ML UDC PO SCH ×6 (02:07→22:21)
[2017-02-12 04:56] LABS: BASOPHILS % (AUTO) 0 % (0-10); EOSINOPHILS % (AUTO) 0 % (0-10); LYMPHOCYTES # (AUTO) 2.2 X 10^3 (1.0-4.0); LYMPHOCYTES % (AUTO) 11 % (12-44); MEAN CORPUSCULAR HEMOGLOBIN 32 PG (25-34); MEAN CORPUSCULAR HGB CONC 34 G/DL (32-36); MEAN CORPUSCULAR VOLUME 94 FL (80-99); MONOCYTES % (AUTO) 9 % (0-12); NEUTROPHILS # (AUTO) 16.6 X 10^3 (1.8-7.8); NEUTROPHILS % (AUTO) 80 % (42-75); PLATELET COUNT 256 10^3/uL (130-400); RED BLOOD COUNT 4.01 10^6/uL (4.35-5.85); RED CELL DISTRIBUTION WIDTH 12.7 % (10.0-14.5); WHITE BLOOD COUNT 20.8 10^3/uL (4.3-11.0)
[2017-02-12 05:16] LABS: ALANINE AMINOTRANSFERASE 37 U/L (0-55); ALBUMIN 3.6 G/DL (3.2-4.5); ANION GAP 11 MMOL/L (5-14); ASPARTATE AMINO TRANSFERASE 20 U/L (5-34); BILIRUBIN,TOTAL 0.4 MG/DL (0.1-1.0); BLOOD UREA NITROGEN 25 MG/DL (7-18); BUN/CREATININE RATIO 26; CALCIUM 8.3 MG/DL (8.5-10.1); CARBON DIOXIDE 22 MMOL/L (21-32); CHLORIDE 106 MMOL/L (98-107); CREATININE SERUM 0.98 MG/DL (0.60-1.30); GFR ESTIMATED > 60; GLUCOSE 159 MG/DL (70-105); SODIUM 139 MMOL/L (135-145); TOTAL PROTEIN 6.3 G/DL (6.4-8.2)
[2017-02-12] MEDS: CATHETER FLUSH 10 ML SYR IV SCH ×3 (06:27→22:22)
[2017-02-12] MEDS: DEXAMETHASONE 4 MG/ML SDV (DECADRON) IV SCH ×3 (06:27→22:22)
[2017-02-12] MEDS: inSUlin ASPART (NovoLOG) 1 UNIT/0.01 ML (CHARGE PER UNIT) SC SCH ×3 (06:31→16:57)
[2017-02-12] MEDS: RT-ADVAIR HFA 115/21 MCG PER PUFF IH SCH ×2 (07:07→19:44)
[2017-02-12] MEDS: RT-ALBUTEROL/IPRATROPIUM 3 ML (DUONEB) VIAL INH SCH (07:07)
[2017-02-12] MEDS: UMECLIDINIUM BROMIDE (INCRUSE ELLIPTA) 7'S IH SCH (07:08)
[2017-02-12] MEDS: RT-ALBUTEROL SULF 2.5 MG/3 ML PRE-MIX VIAL IH SCH ×3 (07:09→19:44)
[2017-02-12] MEDS ORDERED: RT-ALBUTEROL SULF 2.5 MG/3 ML PRE-MIX VIAL IH PRN (07:45)
[2017-02-12 08:00] VITALS: BP 151/80
[2017-02-12] MEDS: BENZONATATE 100 MG (TESSALON) CAPSULE PO SCH ×3 (08:13→20:40)
[2017-02-12] MEDS: LOSARTAN 50 MG (COZAAR) TAB PO SCH (08:13)
[2017-02-12] MEDS: LORATADINE (CLARITIN) 10 MG TAB PO SCH ×2 (08:13→20:40)
[2017-02-12] MEDS: ASPIRIN E.C. 81 MG (ECOTRIN) TAB PO SCH (08:13)
[2017-02-12] MEDS: hydrOXYzine (ATARAX) 10 MG TAB PO SCH ×3 (08:13→20:40)
[2017-02-12] MEDS: HYDROCODONE/CHLOR 10MG/5 ML (TUSSIONEX SUSP) 5ML UDC PO SCH ×2 (08:14→20:40)
[2017-02-12] MEDS: amLODIPine 10 MG (NORVASC) TAB PO SCH (08:14)
[2017-02-12] MEDS: FAMOTIDINE 20 MG (PEPCID) TABLET PO SCH ×2 (08:14→20:40)
[2017-02-12] MEDS: AZITHROMYCIN INJECTION 500 MG in NS (IVPB) 250 ML IV SCH (08:22)
--- OUTSIDE RECORDS SUMMARY | 2017-02-12 10:12 | XMS REPORT | Clinical Summary ---
Author Author User, OMAR Organization [facility] Address Unknown Phone Allergies, Adverse Reactions, Alerts Allergy Name Reaction Description Start Date Severity Status Provider PERCOCET itch Critical Active Betzaida Adames Conditions or Problems Problem Name Problem Code Onset Date Status Entry Date Provider Comment Standard Description Annotate MUSCLE PAIN 729.1 Resolved Betzaida Adames Myalgia and myositis, unspecified HYPERCHOLESTEROLEMIA 272.0 Active Betzaida Adames Pure hypercholesterolemia BACK PAIN 724.5 Resolved Betzaida Adames Backache, unspecified HYPERGLYCEMIA, MILD 790.6 Resolved Betzaida Adames Other abnormal blood chemistry ANEMIA NOS 285.9 Resolved Betzaida Adames Anemia, unspecified MUSCLE CRAMPS 729.82 Resolved Betzaida Adames Cramp of limb NEUROPATHY, IDIOPATHIC PERIPHERAL 356.9 Active Betzaida Adames Unspecified idiopathic peripheral neuropathy HYPERTENSION 401.1 Active Betzaida Adames Benign essential hypertension METABOLIC SYNDROME X 277.7 Resolved Betzaida Adames Dysmetabolic syndrome X GLUCOSE INTOLERANCE 271.3 Resolved Betzaida Adames Intestinal disaccharidase deficiencies and disaccharide malabsorption ELBOW PAIN 719.42 Resolved Betzaida Adames Pain in joint involving upper arm HIP PAIN 719.45 Resolved Betzaida Adames Pain in joint involving pelvic region and thigh UNSTABLE ANGINA 411.1 Resolved Betzaida Adames Intermediate coronary syndrome CORONARY ATHEROSCLEROSIS, [place] VESSEL 414.01 Active Betzaida Adames Coronary atherosclerosis of [place] coronary artery POSTSURG PERCUT TRANSLUMINAL COR ANGPLSTY STS V45.82 Resolved Betzaida Adames Percutaneous transluminal coronary angioplasty, postsurgical status DIABETES MELLITUS, NONINSULIN DEPENDENT (NIDDM) 250.02 Active Betzaida Adames Diabetes mellitus without mention of complication, type II or unspecified type, uncontrolled UNSPECIFIED DEMYELINATING DISEASE CNTRL NERV SYS 341.9 Resolved Betzaida Adames Demyelinating disease of central nervous system, unspecified WHEEZING 786.07 Resolved Betzaida Adames Wheezing BRONCHITIS 490 Resolved Betzaida Adames Bronchitis, not specified as acute or chronic SHOULDER PAIN 719.41 Resolved Betzaida Adames Pain in joint involving shoulder region Right COUGH 786.2 Resolved Betzaida Adames Cough CELLULITIS 682.9 Resolved Betzaida Adames Cellulitis and abscess of unspecified sites SQUAMOUS CELL CARCINOMA OF SKIN SITE UNSPECIFIED 173.92 Resolved Betzaida Adames Squamous cell carcinoma of skin, site unspecified DRY EYE SYNDROME 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 Betzaida Adames Tear film insufficiency, unspecified SICK SINUS SYNDROME 427.81 Resolved Betzaida Adames Sinoatrial node dysfunction HEALTH SCREENING V70.0 Inactive Betzaida Adames Routine general medical examination at a health care facility HEALTH SCREENING V70.0 Active Betzaida Adames Routine general medical examination at a health care facility Medication List Medication Instructions Start Date Stop Date Generic Name NDC Status Provider Patient Instruction BACLOF 2%, CYCLOBENAZ 2%,LIDOCAINE 2%,DICLOF 2%,GABAPENT 6% APPLY Q 6HRS PRN BACLOF 2%, CYCLOBENAZ 2%,LIDOCAINE 2%,DICLOF 2%,GABAPENT 6% Active Betzaidagypsy Adames LISINOPRIL 20 MG TABS 1 po daily LISINOPRIL 70785870579 Active Deena Magallanes COZAAR 100 MG TAB 1 PO daily LOSARTAN POTASSIUM 54317304849 No Longer Active Betzaida Wendy Adames DYAZIDE 37.5-25 MG CAP 1 po daily TRIAMTERENE-HCTZ 88707658705 Active Betzaida Wendy Adames NORVASC 10 MG TAB 1 PO QD AMLODIPINE BESYLATE 46733035907 Active Betzaida Wendy Adames MOBIC 15 MG TABS 1 PO daily MELOXICAM 82163346318 No Longer Active Betzaidagypsy Adames AMITRIPTYLINE HCL 50 MG TABS 1 PO QHS AMITRIPTYLINE HCL 63915968038 No Longer Active Betzaidagypsy Adames PREDNISONE 10 MG TAB 2 po daily for 3 days then 1 po daily for 3 days PREDNISONE 53892889154 No Longer Active Monica Vaughn HYDROCODONE-ACETAMINOPHEN 10-325 MG TABS 1 PO BID prn HYDROCODONE- ACETAMINOPHEN 58571720298 Active Betzaida Wendy Adames VITAMIN B-12 1000 MCG TABS 1 PO daily CYANOCOBALAMIN 26984047012 Active Betzaidagypsy Adames VALIUM 2 MG TAB 1-2 PO one hour before MRI and may repeat if necassary 08/23 DIAZEPAM 69134184255 No Longer Active Betzaida Wendy Adames PERCOCET 10-325 MG TABS 1 PO Q6hrs prn OXYCODONE- ACETAMINOPHEN 05278518317 No Longer Active Betzaida Wendy Adames UROCIT-K 10 10 MEQ (1080 MG) CR-TABS 1 PO TID POTASSIUM CITRATE 65912546114 No Longer Active Betzaida Wendy Adames HYDROCHLOROTHIAZIDE 25 MG TAB 1 PO QD HYDROCHLOROTHIAZIDE 27926798586 No Longer Active Betzaida Wendy Adames ALLOPURINOL 100 MG TAB 1 PO daily ALLOPURINOL 16354076813 No Longer Active Betzaida Wendy Adames NOVA MAX PLUS TEST STRIPS TEST BS BID DX: DIABETES NOVA MAX PLUS TEST STRIPS No Longer Active Betzaida Wendy Adames FLEXERIL 10 MG TAB 2 PO QHS CYCLOBENZAPRINE HCL 64046782894 No Longer Active Betzaida Wendy Adames LOTRISONE 0.05-1 % CREAM Apply to affected area twice daily for 7 days then prn. CLOTRIMAZOLE-BETAMETHASONE 01633759542 No Longer Active Betzaida Wendy Adames LASIX 20 MG TAB 1 PO every day prn swelling FUROSEMIDE 55250807716 No Longer Active Betzaida Wendy Adames PREDNISONE 10 MG TAB 1 PO BID PREDNISONE 42909791051 No Longer Active Betzaida Wendy Adames FISH OIL 1000 MG CAPS 2 PO daily OMEGA-3 FATTY ACIDS 77504294012 No Longer Active Betzaida Wendy Adames MULTIVITAMINS TABS 1 po daily MULTIPLE VITAMIN 89560317293 No Longer Active Betzaida Wendy Adames K-TABS 10 MEQ TBCR 1 PO BID POTASSIUM CHLORIDE 57702310245 No Longer Active Betzaida Wendy Adames MAGNESIUM OXIDE 400 MG CAPS 1 PO BID MAGNESIUM OXIDE 48484687155 No Longer Active Betzaida Wendy Adames SPORANOX 100 MG CAPS 1 po daily ITRACONAZOLE 82897031644 No Longer Active Betzaida Wendy Adames LEVOTHYROXINE SODIUM 50 MCG TABS 1 po daily LEVOTHYROXINE SODIUM 83865797354 No Longer Active Betzaida Wendy Adames COZAAR 100 MG TAB 1 PO daily LOSARTAN POTASSIUM 21190715196 No Longer Active Betzaida Wendy Adames TOPROL XL 25 MG TB24 1 PO daily METOPROLOL SUCCINATE 45561946974 No Longer Active Betzaida Wendy Adames ZOCOR 40 MG TABS 1 PO daily SIMVASTATIN 07166226607 No Longer Active Betzaida Wendy Adames METFORMIN HCL 1000 MG TABS 1 PO BID METFORMIN HCL 17095127991 No Longer Active Betzaida Wendy Adames DIABETA 2.5 MG TABS 1 PO BID GLYBURIDE 02823227926 No Longer Active Betzaida Wendy Adames ZOSTAVAX 71938 UNT/0.65ML SOLR 1 injection once to prevent Shingles ZOSTER VACCINE LIVE 18755637118 No Longer Active Betzaida Wendy Adames HYDROCODONE-ACETAMINOPHEN 10-325 MG TABS 1 PO Q6hrs prn pain 2011 HYDROCODONE-ACETAMINOPHEN 61035543652 No Longer Active Betzaida Wendy Adames PLAVIX 75 MG TABS 1 PO every other day CLOPIDOGREL BISULFATE 13886177224 No Longer Active Betzaida Wendy Adames KEFLEX 500 MG CAP 1 PO BID CEPHALEXIN 45510972842 No Longer Active Betzaida Wendy Adames BIAXIN XL PAC 500 MG TB24 2 pills at same time daily for 7 days CLARITHROMYCIN 53478721660 No Longer Active Betzaida Wendy Adames ASPIRIN 81 MG TAB 1 PO daily ASPIRIN 80458726151 Active Betzaida Wendy Adames AEROCHAMBER MAX W/FLOW-VU MISC use with ProAir inhaler SPACER/AERO-HOLDING CHAMBERS 46213416679 No Longer Active Betzaida Wendy Adames PROAIR HFA 108 (90 BASE) MCG/ACT AERS 2 puff Q4 hrs prn wheezing ALBUTEROL SULFATE 39328367233 No Longer Active Betzaida Wendy Zacarias ADVAIR DISKUS 100-50 MCG/DOSE MISC 1 puff BID FLUTICASONE-SALMETEROL 35986092076 No Longer Active Betzaida Wendy Adames CYMBALTA 30 MG CPEP 1 PO daily DULOXETINE HCL 35433199907 No Longer Active Betzaida Wendy Zacarias LYRICA 150 MG CAPS 1 PO BID PREGABALIN 55350739201 No Longer Active Betzaida Wendy Adames ATARAX 25 MG TAB 1 PO Q6hrs prn HYDROXYZINE HCL No Longer Active Betzaida Wendy Adames VOLTAREN 75 MG TBEC 1 PO BID DICLOFENAC SODIUM 65392581533 No Longer Active Betzaida Wendy Adames PREDNISONE 10 MG TAB 1 PO BID PREDNISONE 75844574981 No Longer Active Betzaida Wendy Adames ULTRAM 50 MG TAB 2 PO Q6hrs prn TRAMADOL HCL 12155362399 Active Betzaida Wendy Adames DESIPRAMINE HCL 50 MG TABS 1-2 PO QHS prn DESIPRAMINE HCL 23686294748 No Longer Active Betzaida Wendy Adames TRIAMTERENE-HCTZ 75-50 MG TABS 1 po daily TRIAMTERENE -HCTZ 10244097191 No Longer Active Betzaida Wendy Adames ROZEREM 8 MG TABS 1 tab nightly RAMELTEON 33750123574 No Longer Active Betzaida Wendy Adames POTASSIUM 99 MG TABS 1 po QID POTASSIUM 37633365794 No Longer Active Betzaida Wendy Adames MAGNESIUM 300 MG CAPS 1 po BID MAGNESIUM 66337473736 No Longer Active Betzaida Wendy Adames MICARDIS 80 MG TABS 1 po daily TELMISARTAN 40263433862 No Longer Active Betzaida Wendy Zacarias Immunizations Vaccine Administration Date Value Standard Description Influenza vaccine given done influenza virus vaccine, unspecified formulation Influenza vaccine given Done influenza virus vaccine, unspecified formulation Vital Signs Date Name Value Unit Range Description blood pressure, diastolic - 8462-4 86 mm[Hg] BP hooker blood pressure, systolic - 8480-6 154 mm[Hg] BP sys pulse rate E&M - 8867-4 68 /min Heart rate respiratory rate E&M - 9279-1 14 /min Resp rate weight E&M - 3141-9 157 [lb_av] Weight Measured blood pressure, diastolic - 8462-4 112 mm[Hg] BP hooker blood pressure, systolic - 8480-6 218 mm[Hg] BP sys pulse rate E&M - 8867-4 88 /min Heart rate respiratory rate E&M - 9279-1 14 /min Resp rate weight E&M - 3141-9 250 [lb_av] Weight Measured Diagnostic Results Date Name Value Unit Range Description Clinical Lists Update: CBC,CMP,FLP,HGA1C,MICROALBUMIN - Chemistry albumin, serum 4.3 g/dL LDL cholesterol, serum 107 mg/dL alkaline phosphatase, serum 52 U/L glucose, plasma fasting 106 mg/dL urea nitrogen, blood 18 mg/dL cholesterol/HDL ratio, serum, percent 4.5 calcium, serum 9.3 mg/dL sodium, serum 139 mmol/L chloride, serum 101 mmol/L triglyceride, serum, fasting 297 mg/dL cholesterol, serum 214 mg/dL bilirubin, serum, total 0.7 mg/dL carbon dioxide, venous blood 27 mmol/L alanine aminotransferase (SGPT), serum 23 U/L creatinine, serum 1.16 mg/dL aspartate aminotransferase (SGOT), serum 27 U/L HDL cholesterol, serum 46 mg/dL protein, total, serum 7.1 g/dL hemoglobin A1C, blood, as % of total hemoglobin 5.6 % potassium, serum 4.0 mmol/L Estimated Glomerular Filtration Rate (calc) 67 mL/min/1.73m2 Clinical Lists Update: CBC,CMP,FLP,HGA1C,MICROALBUMIN - Hematology hematocrit, blood 45.3 % hemoglobin, blood 15.3 g/dL platelet count 223 10*3/mm3 erythrocyte (RBC) count 4.82 10*6/mm3 leukocyte count, blood 8.0 10*3/mm3 mean corpuscular volume, RBC 94.1 fL red blood cell distribution width 13.2 % Clinical Lists Update: CBC,CMP,FLP,HGA1C,MICROALBUMIN - Urinalysis microalbumin, urine, semiquantitative 3.8 mg/dL Clinical Lists Update: CMP,FLP,HgA1c - Chemistry LDL cholesterol, serum 128 mg/dL cholesterol, serum 215 mg/dL bilirubin, serum, total 0.8 mg/dL chloride, serum 104 mmol/L triglyceride, serum, fasting 185 mg/dL calcium, serum 9.2 mg/dL sodium, serum 141 mmol/L urea nitrogen, blood 16 mg/dL cholesterol/HDL ratio, serum, percent 4.3 alkaline phosphatase, serum 60 U/L glucose, plasma fasting 107 mg/dL albumin, serum 4.7 g/dL Estimated Glomerular Filtration Rate (calc) 82 mL/min/1.73m2 aspartate aminotransferase (SGOT), serum 24 U/L creatinine, serum 0.98 mg/dL protein, total, serum 7.4 g/dL HDL cholesterol, serum 50 mg/dL potassium, serum 3.6 mmol/L hemoglobin A1C, blood, as % of total hemoglobin 5.5 % carbon dioxide, venous blood 30 mmol/L alanine aminotransferase (SGPT), serum 24 U/L Encounters Code Encounter Date Provider Facility CPT-05901 Ofc Vst, Est Level IV 16:47:00 CDT Betzaidagypsy Adames, DO, FACP CPT-19735 Ofc Vst, Est Level IV 19:21:25 CDT Betzaida Adames, DO, FACP CPT-36243 Ofc Vst, Est Level III 14:57:25 CDT Betzaida Adames DO, FACP CPT-50673 Ofc Vst, Est Level IV 10:28:02 CDT Betzaidagypsy Adames, DO, FACP CPT-00912 Ofc Vst, Est Level IV 10:51:47 CDT Betzaida Adames, DO, FACP CPT-87935 Ofc Vst, Est Level IV 10:39:03 [employer]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 Betzaida Adames, DO, FACP CPT-14601 Ofc Vst, Est Level III 11:02:29 CO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 Betzaida Adames, DO, FACP CPT-61873 Ofc Vst, Est Level IV 11:33:13 CO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 Betzaida Adames, DO, FACP CPT-77776 Ofc Vst, Est Level IV 14:17:55 CDT Betzaida Adames [facility] CPT-77278 Ofc Vst, Est Level IV 16:02:24 CDT Betzaida Adames [facility] CPT-05608 Ofc Vst, Est Level IV 14:01:17 CO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 Betzaida Adames [facility] CPT-55821 Ofc Vst, Est Level IV 13:42:46 CO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 Betzaida Boateng Zacarias, DO, FACP CPT-31572 Ofc Vst, Est Level V 15:52:20 CO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 Betzaida Adames [facility] CPT-66684 Ofc Vst, Est Level V 10:29:09 CO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 Betzaida Boateng Zacarias, DO, FACP CPT-30657 Ofc Vst, Est Level V 10:56:53 CDT Monica Boateng Zacarias, DO, FACP CPT-60980 Ofc Vst, Est Level IV 16:06:31 CDT Betzaida Boatneg Zacarias, DO, FACP CPT-43216 Ofc Vst, Est Level V 14:26:13 CDT Betzaida Boateng Zacarias, DO, FACP CPT-73669 Ofc Vst, Est Level V 15:15:25 CO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 Monica Boateng Zacarias, DO, FACP CPT-67327 Ofc Vst, Est Level IV 11:54:11 CDT Betzaida Boateng Zacarias, DO, FACP CPT-87240 Ofc Vst, New Level IV 18:22:36 CDT Betzaida Adames [facility] Procedures Code Procedure Name Date Entry Date Standard Description CPT-33429 Preventive, Est, (40-64) 17:53:37 CO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 CPT-56291 Preventive, Est, (40-64) 15:10:44 CO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
--- OUTSIDE RECORDS SUMMARY | 2017-02-12 10:12 | XMS REPORT | Clinical Summary ---
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 Betzaida Adames UNSPECIFIED HEREDITARY AND IDIOPATHIC PERIPHERAL NEUROPATHY HYPERTENSION 401.1 Active Betzaida Adames ESSENTIAL HYPERTENSION, BENIGN CORONARY ATHEROSCLEROSIS, [place] VESSEL 414.01 Active Betzaida Adames CORONARY ATHEROSCLEROSIS OF [place] CORONARY ARTERY DIABETES MELLITUS, NONINSULIN DEPENDENT (NIDDM) 250.02 Active Betzaida Adames DIABETES MELLITUS WITHOUT MENTION OF COMPLICATION, TYPE II OR UNSPECIFIED TYPE, UNCONTROLLED Medication List Medication Instructions Start Date Stop Date Generic Name NDC Status Provider Patient Instruction ULTRAM 50 MG TAB 2 PO Q6hrs prn TRAMADOL HCL 71170690829 Active Betzaida Adames ASPIRIN 81 MG TAB 1 PO daily ASPIRIN 70446933052 Active Betzaida Adames NORVASC 5 MG TAB 1 PO QD AMLODIPINE BESYLATE 19936908311 Active Betzaida Adames VITAMIN B-12 1000 MCG TABS 1 PO daily CYANOCOBALAMIN 77318500214 Active Betzaida Adames HYDROCODONE-ACETAMINOPHEN 10-325 MG TABS 1 PO BID prn HYDROCODONE- ACETAMINOPHEN 60361525933 Active Betzaida Adames AMITRIPTYLINE HCL 50 MG TABS 1 PO QHS AMITRIPTYLINE HCL 63842124614 Active Betzaida Nguyen Adames MOBIC 15 MG TABS 1 PO daily MELOXICAM 40565063598 Active Betzaida Adames Immunizations Vaccine Administration Date Value Standard Description Influenza vaccine Done influenza virus vaccine, unspecified formulation Vital Signs Date Name Value Unit Range Description blood pressure, diastolic 80 mm[Hg] BP hooker blood pressure, systolic 150 mm[Hg] BP sys pulse rate E&M 80 /min Heart rate respiratory rate E&M 14 /min Respiratory rate weight E&M 250 [lb_av] Weight Measured blood pressure, diastolic 98 mm[Hg] BP hooker blood pressure, systolic 154 mm[Hg] BP sys pulse rate E&M 80 /min Heart rate respiratory rate E&M 14 /min Respiratory rate weight E&M 252 [lb_av] Weight Measured Diagnostic Results Date Name Value Unit Range Description Clinical Lists Update: CBC,CMP,FLP,HgA1c - Chemistry LDL cholesterol, serum 102 mg/dL bilirubin, serum, total 0.8 mg/dL glucose, plasma fasting 130 mg/dL urea nitrogen, blood 13 mg/dL potassium, serum 3.5 mmol/L calcium, serum 9.1 mg/dL triglyceride, serum, fasting 127 mg/dL chloride, serum 107 mmol/L protein, total, serum 7.1 g/dL cholesterol, serum 178 mg/dL cholesterol/HDL ratio, serum 3.5 carbon dioxide, venous blood 27 mmol/L aspartate aminotransferase (SGOT), serum 40 U/L creatinine, serum 0.94 mg/dL sodium, serum 142 mmol/L alanine aminotransferase (SGPT), serum 38 U/L HDL cholesterol, serum 51 mg/dL albumin, serum 4.5 g/dL hemoglobin A1C, blood, as % of total hemoglobin 5.6 % Estimated Glomerular Filtration Rate (calc) 87 mL/min/1.73m2 alkaline phosphatase, serum 63 U/L Clinical Lists Update: CBC,CMP,FLP,TSH,Free T4,HgA1c,Microalbumin - Chemistry alkaline phosphatase, serum 63 U/L albumin, serum 4.6 g/dL urea nitrogen, blood 14 mg/dL calcium, serum 8.8 mg/dL chloride, serum 102 mmol/L cholesterol, serum 218 mg/dL carbon dioxide, venous blood 30.0 mmol/L creatinine, serum 1.0 mg/dL thyroxine, serum, free 0.69 ng/dL hemoglobin A1C, blood, as % of total hemoglobin 5.4 % thyroid stimulating hormone, serum 1.19 u[iU]/mL LDL cholesterol, serum 139 mg/dL potassium, serum 3.4 mmol/L protein, total, serum 6.8 g/dL aspartate aminotransferase (SGOT), serum 24 U/L alanine aminotransferase (SGPT), serum 20 U/L bilirubin, serum, total 0.7 mg/dL triglyceride, serum, fasting 164 mg/dL sodium, serum 140 mmol/L anion gap, serum 11 cholesterol/HDL ratio, serum 4.7 glucose, plasma fasting 117 mg/dL Estimated Glomerular Filtration Rate (calc) 85 mL/min/1.73m2 HDL cholesterol, serum 46.0 mg/dL Clinical Lists Update: CBC,CMP,FLP,TSH,Free T4,HgA1c,Microalbumin - Hematology red blood cell distribution width 13.6 % mean corpuscular volume, RBC 97 fL leukocyte count, blood 7.1 10*3/mm3 erythrocyte (RBC) count 5.12 10*6/mm3 platelet count 243 10*3/mm3 hemoglobin, blood 16.4 g/dL hematocrit, blood 49 % Clinical Lists Update: CBC,CMP,FLP,TSH,Free T4,HgA1c,Microalbumin - Urinalysis microalbumin, urine, semiquantitative 47.1 mg/dL
--- OUTSIDE RECORDS SUMMARY | 2017-02-12 10:12 | XMS REPORT | Clinical Summary ---
Author Author User, OMAR Andressa [facility] Address Unknown Phone Allergies, Adverse Reactions, [...] and thigh UNSTABLE ANGINA 411.1 Resolved Betzaida Admaes Intermediate coronary syndrome CORONARY ATHEROSCLEROSIS, [place] VESSEL 414.01 Active Betzaida Adames Coronary atherosclerosis of [place] coronary artery POSTSURG PERCUT TRANSLUMINAL COR ANGPLSTY [...] 20 MG TABS 1 po daily LISINOPRIL 47189362958 Active Deena Magallanes COZAAR 100 MG TAB 1 PO daily [place] POTASSIUM 61628333986 No Longer Active Betzaida Wendy Adames DYAZIDE 37.5-25 MG CAP 1 po daily TRIAMTERENE-HCTZ 36290449428 Active Betzaida Wendy Adames NORVASC 10 MG TAB 1 PO QD AMLODIPINE BESYLATE 47922993868 Active Betzaida Wendy Adames MOBIC 15 MG TABS 1 PO daily MELOXICAM 37154169632 No Longer Active Betzaidagypsy Adames AMITRIPTYLINE HCL 50 MG TABS 1 PO QHS AMITRIPTYLINE HCL 13463535593 No Longer Active Betzaidagypsy Adames PREDNISONE 10 MG TAB 2 po daily for 3 days then 1 po daily for 3 days PREDNISONE 84635819936 No Longer Active Monica Vaughn HYDROCODONE-ACETAMINOPHEN 10-325 MG TABS 1 PO BID prn HYDROCODONE- ACETAMINOPHEN 81174198036 Active Betzaida Wendy Adames VITAMIN B-12 1000 MCG TABS 1 PO daily CYANOCOBALAMIN 66949215207 Active Betzaidagypsy Adames VALIUM 2 MG TAB 1-2 PO one hour before MRI and may repeat if necassary 08/23 DIAZEPAM 86517300897 No Longer Active Betzaida Wendy Adames PERCOCET 10-325 MG TABS 1 PO Q6hrs prn OXYCODONE- ACETAMINOPHEN 98205017088 No Longer Active Betzaida Wendy Adames UROCIT-K 10 10 MEQ (1080 MG) CR-TABS 1 PO TID POTASSIUM CITRATE 92586634943 No Longer Active Betzaida Wendy Adames HYDROCHLOROTHIAZIDE 25 MG TAB 1 PO QD HYDROCHLOROTHIAZIDE 71402744582 No Longer Active Betzaida Wendy Adames ALLOPURINOL 100 MG TAB 1 PO daily ALLOPURINOL 19517183347 No Longer Active Betzaida Wendy Adames NOVA MAX PLUS TEST STRIPS TEST BS BID DX: DIABETES NOVA MAX PLUS TEST STRIPS No Longer Active Betzaida Wendy Adames FLEXERIL 10 MG TAB 2 PO QHS CYCLOBENZAPRINE HCL 31904041485 No Longer Active Betzaida Wendy Adames LOTRISONE 0.05-1 % CREAM Apply to affected area twice daily for 7 days then prn. CLOTRIMAZOLE-BETAMETHASONE 20227372187 No Longer Active Betzaida Wendy Adames LASIX 20 MG TAB 1 PO every day prn swelling FUROSEMIDE 02926588388 No Longer Active Betzaida Wendy Adames PREDNISONE 10 MG TAB 1 PO BID PREDNISONE 41312857535 No Longer Active Betzaida Wendy Adames FISH OIL 1000 MG CAPS 2 PO daily OMEGA-3 FATTY ACIDS 57827102883 No Longer Active Betzaida Wendy Adames MULTIVITAMINS TABS 1 po daily MULTIPLE VITAMIN 48797605711 No Longer Active Betzaida Wendy Adames K-TABS 10 MEQ TBCR 1 PO BID POTASSIUM CHLORIDE 43493143693 No Longer Active Betzaida Wendy Adames MAGNESIUM OXIDE 400 MG CAPS 1 PO BID MAGNESIUM OXIDE 57811730437 No Longer Active Betzaida Wendy Adames SPORANOX 100 MG CAPS 1 po daily ITRACONAZOLE 83345619042 No Longer Active Betzaida Wendy Adames LEVOTHYROXINE SODIUM 50 MCG TABS 1 po daily LEVOTHYROXINE SODIUM 03328861640 No Longer Active Betzaida Wendy Adames COZAAR 100 MG TAB 1 PO daily [place] POTASSIUM 25972289198 No Longer Active Betzaida Wendy Adames TOPROL XL 25 MG TB24 1 PO daily METOPROLOL SUCCINATE 84488863820 No Longer Active Betzaida Wendy Adames ZOCOR 40 MG TABS 1 PO daily SIMVASTATIN 12271174296 No Longer Active Betzaida Wendy Adames METFORMIN HCL 1000 MG TABS 1 PO BID METFORMIN HCL 14517492640 No Longer Active Betzaida Wendy Adames DIABETA 2.5 MG TABS 1 PO BID GLYBURIDE 34314829937 No Longer Active Betzaida Wendy Adames ZOSTAVAX 52970 UNT/0.65ML SOLR 1 injection once to prevent Shingles ZOSTER VACCINE LIVE 81540872037 No Longer Active Betzaidagypsy Adames HYDROCODONE-ACETAMINOPHEN 10-325 MG TABS 1 PO Q6hrs prn pain 2011 HYDROCODONE-ACETAMINOPHEN 00211798975 No Longer Active Betzaida Wendy Adames PLAVIX 75 MG TABS 1 PO every other day CLOPIDOGREL BISULFATE 70830663234 No Longer Active Betzaidagypsy Adames KEFLEX 500 MG CAP 1 PO BID CEPHALEXIN 95361310649 No Longer Active Betzaida Wendy Adames BIAXIN XL PAC 500 MG TB24 2 pills at same time daily for 7 days CLARITHROMYCIN 86515118528 No Longer Active Betzaida Wendy Adames ASPIRIN 81 MG TAB 1 PO daily ASPIRIN 22369658313 Active Betzaida Wendy Adames AEROCHAMBER MAX W/FLOW-VU MISC use with ProAir inhaler SPACER/AERO-HOLDING CHAMBERS 06094345232 No Longer Active Betzaida Wendy Adames PROAIR HFA 108 (90 BASE) MCG/ACT AERS 2 puff Q4 hrs prn wheezing ALBUTEROL SULFATE 41223388254 No Longer Active Betzaida Wendy Zacarias ADVAIR DISKUS 100-50 MCG/DOSE MISC 1 puff BID FLUTICASONE-SALMETEROL 27372252972 No Longer Active Betzaida Wendy Adames CYMBALTA 30 MG CPEP 1 PO daily DULOXETINE HCL 15112814770 No Longer Active Betzaida Wendy Zacarias LYRICA 150 MG CAPS 1 PO BID PREGABALIN 18001239326 No Longer Active Betzaida Wendy Adames ATARAX 25 MG TAB 1 PO Q6hrs prn HYDROXYZINE HCL No Longer Active Betzaida Wendy Adames VOLTAREN 75 MG TBEC 1 PO BID DICLOFENAC SODIUM 95734465072 No Longer Active Betzaida Wendy Adames PREDNISONE 10 MG TAB 1 PO BID PREDNISONE 39626488829 No Longer Active Betzaida Wendy Adames ULTRAM 50 MG TAB 2 PO Q6hrs prn TRAMADOL HCL 72828544788 Active Betzaida Wendy Adames DESIPRAMINE HCL 50 MG TABS 1-2 PO QHS prn DESIPRAMINE HCL 77315137377 No Longer Active Betzaida Wendy Adames TRIAMTERENE-HCTZ 75-50 MG TABS 1 po daily TRIAMTERENE -HCTZ 06504222071 No Longer Active Betzaida Wendy Adames ROZEREM 8 MG TABS 1 tab nightly RAMELTEON 69566859141 No Longer Active Betzaida Wendy Adames POTASSIUM 99 MG TABS 1 po QID POTASSIUM 33765006346 No Longer Active Betzaida Wendy Adames MAGNESIUM 300 MG CAPS 1 po BID MAGNESIUM 02579845078 No Longer Active Betzaida Wendy Adames MICARDIS 80 MG TABS 1 po daily TELMISARTAN 75142731639 No Longer Active Betzaida Wendy Zacarias Immunizations [...] U/L Encounters Code Encounter Date Provider Facility CPT-44553 Ofc Vst, Est Level IV 16:47:00 CDT Betazidagypsy Adames, DO, FACP CPT-06449 Ofc Vst, Est Level IV 19:21:25 CDT Betzaida Adames DO, FACP CPT-23444 Ofc Vst, Est Level III 14:57:25 CDT Betzaida Adames DO, FACP CPT-26726 Ofc Vst, Est Level IV 10:28:02 CDT Betzaidagypsy Adames DO, FACP CPT-93768 Ofc Vst, Est Level IV 10:51:47 CDT Betzaida Adames, DO, FACP CPT-05487 Ofc Vst, Est Level IV 10:39:03 [employer] Betzaida Adames DO, FACP CPT-56874 Ofc Vst, Est Level III 11:02:29 [employer] Betzaida Adames, DO, FACP CPT-41813 Ofc Vst, Est Level IV 11:33:13 [employer] Betzaida Adames, DO, FACP CPT-52614 Ofc Vst, Est Level IV 14:17:55 CDT Betzaida Adames [facility] CPT-88935 Ofc Vst, Est Level IV 16:02:24 CDT Betzaida Adames [facility] CPT-64898 Ofc Vst, Est Level IV 14:01:17 [employer]GER [employer] Betzaida Adames [facility] CPT-67646 Ofc Vst, Est Level IV 13:42:46 [employer]NAGER [employer]EL[employer] Betzaida Boateng Zacarias, DO, FACP CPT-21896 Ofc Vst, Est Level V 15:52:20 [employer]NAGER [employer] Betzaida Adames [facility] CPT-54297 Ofc Vst, Est Level V 10:29:09 [employer]NAGER [employer]EL[employer]MENT Betzaida Boateng Zacarias, DO, FACP CPT-87424 Ofc Vst, Est Level V 10:56:53 CDT Monica Boateng Zacarias, DO, FACP CPT-57400 Ofc Vst, Est Level IV 16:06:31 CDT Betzaida Boateng Zacarias, DO, FACP CPT-92150 Ofc Vst, Est Level V 14:26:13 CDT Betzaida Boateng Zacarias, DO, FACP CPT-83577 Ofc Vst, Est Level V 15:15:25 [employer]NAGER [employer]ELOP[employer] Monica Boateng Zacarias, DO, FACP CPT-69155 Ofc Vst, Est Level IV 11:54:11 CDT Betzaida Boateng Zacarias, DO, FACP CPT-93324 Ofc Vst, New Level IV 18:22:36 CDT Betzaida Adames [facility] Procedures Code Procedure Name Date Entry Date Standard Description CPT-27353 Preventive, Est, (40-64) 17:53:37 MANAGER SOFTWARE DEVELOPMENT CPT-31938 Preventive, Est, (40-64) 15:10:44 MANAGER SOFTWARE DEVELOPMENT
--- OUTSIDE RECORDS SUMMARY | 2017-02-12 10:13 | XMS REPORT | Clinical Summary ---
Author Author louis escobedo [place] [address] Phone Unavailable Allergies, Adverse Reactions, Alerts Allergy [...] Betzaida Adames ESSENTIAL HYPERTENSION, BENIGN CORONARY ATHEROSCLEROSIS, [place] VESSEL 414.01 Active Betzaida Adames CORONARY ATHEROSCLEROSIS OF [place] CORONARY ARTERY DIABETES MELLITUS, NONINSULIN DEPENDENT (NIDDM) 250.02 Active Betzaida Adames DIABETES MELLITUS WITHOUT MENTION OF COMPLICATION, TYPE II OR UNSPECIFIED TYPE, UNCONTROLLED Medication List Medication Instructions Start Date Stop Date Generic Name NDC Status Provider Patient Instruction ULTRAM 50 MG TAB 2 PO Q6hrs prn TRAMADOL HCL 23234203544 Active Betzaida Adames ASPIRIN 81 MG TAB 1 PO daily ASPIRIN 53851044981 Active Betzaida Adames VITAMIN B-12 1000 MCG TABS 1 PO daily CYANOCOBALAMIN 69668180854 Active Betzaida Adames HYDROCODONE-ACETAMINOPHEN 10-325 MG TABS 1 PO BID prn HYDROCODONE- ACETAMINOPHEN 21354446881 Active Betzaida Adames COZAAR 100 MG TAB 1 PO daily [place] POTASSIUM 62044303303 Active Betzaida Adames NORVASC 10 MG TAB 1 PO QD AMLODIPINE BESYLATE 45259070842 Active Betzaida Nguyen Adames DYAZIDE 37.5-25 MG CAP 1 po daily TRIAMTERENE-HCTZ 11449499105 Active Betzaida Nguyen Zacarias Immunizations Vaccine Administration Date Value Standard Description Influenza vaccine done influenza virus vaccine, unspecified formulation Influenza vaccine Done influenza virus vaccine, unspecified formulation Vital Signs Date Name Value Unit Range Description blood pressure, diastolic 112 mm[Hg] BP hooker blood pressure, systolic 218 mm[Hg] BP sys pulse rate E&M 88 /min Heart rate respiratory rate E&M 14 /min Resp rate weight E&M 250 [lb_av] Weight Measured blood pressure, diastolic 80 mm[Hg] BP hooker blood pressure, systolic 150 mm[Hg] BP sys pulse rate E&M 80 /min Heart rate respiratory rate E&M 14 /min Resp rate weight E&M 250 [lb_av] Weight Measured blood pressure, diastolic 98 mm[Hg] BP hooker blood pressure, systolic 154 mm[Hg] BP sys pulse rate E&M 80 /min Heart rate respiratory rate E&M 14 /min Resp rate weight E&M 252 [lb_av] Weight Measured Diagnostic Results Date Name Value Unit Range Description Clinical Lists Update: CBC,CMP,FLP,HgA1c - Chemistry Estimated Glomerular Filtration Rate (calc) 87 mL/min/1.73m2 albumin, serum 4.5 g/dL alkaline phosphatase, serum 63 U/L urea nitrogen, blood 13 mg/dL calcium, serum 9.1 mg/dL chloride, serum 107 mmol/L cholesterol, serum 178 mg/dL carbon dioxide, venous blood 27 mmol/L creatinine, serum 0.94 mg/dL HDL cholesterol, serum 51 mg/dL hemoglobin A1C, blood, as % of total hemoglobin 5.6 % LDL cholesterol, serum 102 mg/dL potassium, serum 3.5 mmol/L protein, total, serum 7.1 g/dL aspartate aminotransferase (SGOT), serum 40 U/L alanine aminotransferase (SGPT), serum 38 U/L bilirubin, serum, total 0.8 mg/dL triglyceride, serum, fasting 127 mg/dL sodium, serum 142 mmol/L cholesterol/HDL ratio, serum 3.5 glucose, plasma fasting 130 mg/dL Clinical Lists Update: CBC,CMP,FLP,TSH,Free T4,HgA1c,Microalbumin - Chemistry HDL cholesterol, serum 46.0 mg/dL sodium, serum 140 mmol/L carbon dioxide, venous blood 30.0 mmol/L cholesterol/HDL ratio, serum 4.7 alkaline phosphatase, serum 63 U/L anion gap, serum 11 LDL cholesterol, serum 139 mg/dL thyroxine, serum, free 0.69 ng/dL creatinine, serum 1.0 mg/dL albumin, serum 4.6 g/dL urea nitrogen, blood 14 mg/dL potassium, serum 3.4 mmol/L Estimated Glomerular Filtration Rate (calc) 85 mL/min/1.73m2 protein, total, serum 6.8 g/dL calcium, serum 8.8 mg/dL aspartate aminotransferase (SGOT), serum 24 U/L thyroid stimulating hormone, serum 1.19 u[iU]/mL alanine aminotransferase (SGPT), serum 20 U/L chloride, serum 102 mmol/L bilirubin, serum, total 0.7 mg/dL hemoglobin A1C, blood, as % of total hemoglobin 5.4 % triglyceride, serum, fasting 164 mg/dL cholesterol, serum 218 mg/dL glucose, plasma fasting 117 mg/dL Clinical Lists Update: CBC,CMP,FLP,TSH,Free T4,HgA1c,Microalbumin - Hematology hematocrit, blood 49 % hemoglobin, blood 16.4 g/dL red blood cell distribution width 13.6 % mean corpuscular volume, RBC 97 fL leukocyte count, blood 7.1 10*3/mm3 platelet count 243 10*3/mm3 erythrocyte (RBC) count 5.12 10*6/mm3 Clinical Lists Update: CBC,CMP,FLP,TSH,Free T4,HgA1c,Microalbumin - Urinalysis microalbumin, urine, semiquantitative 47.1 mg/dL Clinical Lists Update: CMP,FLP,HgA1c - Chemistry Estimated Glomerular Filtration Rate (calc) 82 mL/min/1.73m2 albumin, serum 4.7 g/dL cholesterol/HDL ratio, serum 4.3 sodium, serum 141 mmol/L triglyceride, serum, fasting 185 mg/dL bilirubin, serum, total 0.8 mg/dL alanine aminotransferase (SGPT), serum 24 U/L aspartate aminotransferase (SGOT), serum 24 U/L protein, total, serum 7.4 g/dL potassium, serum 3.6 mmol/L LDL cholesterol, serum 128 mg/dL hemoglobin A1C, blood, as % of total hemoglobin 5.5 % HDL cholesterol, serum 50 mg/dL creatinine, serum 0.98 mg/dL carbon dioxide, venous blood 30 mmol/L cholesterol, serum 215 mg/dL chloride, serum 104 mmol/L calcium, serum 9.2 mg/dL urea nitrogen, blood 16 mg/dL alkaline phosphatase, serum 60 U/L glucose, plasma fasting 107 mg/dL
--- OUTSIDE RECORDS SUMMARY | 2017-02-12 10:13 | XMS REPORT | Continuity of Care Document ---
Author Author [facility] Organization [facility] Address Unknown Phone Unavailable Allergies Active Description Code Type Severity Reaction Onset Reported/Identified Relationship to Patient Clinical Status Yes desipramine [id number] Drug Allergy Mild RASH 05/15/2010 Medications Problems Date Dx Coded Attending Type Code Diagnosis Diagnosed By 01/10/2012 Ot 244.9 HYPOTHYROIDISM NOS 01/10/2012 Ot 250.00 DIAB JESSICA WO COMPL, TYPE II OR UNSPEC TY 01/10/2012 Ot 272.4 HYPERLIPIDEMIA NEC/NOS 01/10/2012 Ot 401.9 HYPERTENSION NOS 01/10/2012 Ot 429.9 HEART DISEASE NOS 01/10/2012 Ot 590.80 PYELONEPHRITIS NOS 01/10/2012 Ot 592.1 CALCULUS OF URETER 01/10/2012 Ot V17.3 FAM HX-ISCHEM HEART DIS 01/10/2012 Ot V45.82 PERCUTANEOUS TRANSLUM CORON ANGIOPLASTY 01/18/2012 Ot 244.9 HYPOTHYROIDISM NOS 01/18/2012 Ot 250.60 DIAB W NEURO MANIFEST, TYPE II OR UNSPEC 01/18/2012 Ot 272.4 HYPERLIPIDEMIA NEC/NOS 01/18/2012 Ot 357.2 NEUROPATHY IN DIABETES 01/18/2012 Ot 401.9 HYPERTENSION NOS 01/18/2012 Ot 414.01 CORONARY ATHEROSCLEROSIS OF [place] CORON 01/18/2012 Ot 592.1 CALCULUS OF URETER 01/18/2012 Ot 715.90 OSTEOARTHROS NOS-UNSPEC 01/18/2012 Ot V58.69 OTH MED,LT,CURRENT USE 03/26/2012 Ot V58.30 ENCOUNTER FOR CHANGE OR REMOVAL OF NONSU 04/25/2012 Ot 592.0 CALCULUS OF KIDNEY 06/15/2016 Ot 414.00 CORON ATHEROSCLER NOS TYPE VESSEL, NATIV 06/15/2016 Ot 592.0 CALCULUS OF KIDNEY 06/15/2016 Ot 592.1 CALCULUS OF URETER 06/15/2016 Ot V72.63 PRE-PROCEDURAL LABORATORY EXAMINATION 06/15/2016 Ot V72.81 [id number] CARDIOVASCULAR 06/15/2016 Ot 592.1 CALCULUS OF URETER 06/15/2016 Ot 593.9 RENAL URETERAL DIS NOS 06/15/2016 Ot V58.30 ENCOUNTER FOR CHANGE OR REMOVAL OF NONSU 06/15/2016 Ot 592.0 CALCULUS OF KIDNEY 06/16/2016 MANJIT UMAÑA DO Ot M25.551 PAIN IN RIGHT HIP 06/16/2016 MANJIT UMAÑA DO Ot M54.41 LUMBAGO WITH SCIATICA, RIGHT SIDE 06/16/2016 Ot 414.00 CORON ATHEROSCLER NOS TYPE VESSEL, NATIV 06/16/2016 Ot 592.0 CALCULUS OF KIDNEY 06/16/2016 Ot 592.1 CALCULUS OF URETER 06/16/2016 Ot V72.63 PRE-PROCEDURAL LABORATORY EXAMINATION 06/16/2016 Ot V72.81 [id number]-[id number]-[id number] CARDIOVASCULAR 06/16/2016 Ot 592.1 CALCULUS OF URETER 06/16/2016 Ot 593.9 RENAL URETERAL DIS NOS 06/16/2016 Ot V58.30 ENCOUNTER FOR CHANGE OR REMOVAL OF NONSU 06/16/2016 Ot 592.0 CALCULUS OF KIDNEY 06/16/2016 MANJIT UMAÑA DO Ot M25.551 PAIN IN RIGHT HIP 06/16/2016 MANJIT UMAÑA DO Ot M54.41 LUMBAGO WITH SCIATICA, RIGHT SIDE 07/13/2016 MANJIT UMAÑA DO Ot M25.551 PAIN IN RIGHT HIP 07/13/2016 MANJIT UMAÑA DO Ot M54.41 LUMBAGO WITH SCIATICA, RIGHT SIDE Procedures Results Test Result Range Capillary blood glucose measurement by glucometer (mass/volume) - 02/09/17 15: 54 Capillary blood glucose measurement by glucometer (mass/volume) 196 mg/dL 70-110 Complete blood count (CBC) with automated white blood cell (WBC) differential - 02/09/17 16:00 Blood leukocytes automated count (number/volume) 13.1 10*3/ uL 4.3-11.0 Blood erythrocytes automated count (number/volume) 4.39 10*6 /uL 4.35-5.85 Venous blood hemoglobin measurement (mass/volume) 14.2 g/dL 13.3-17.7 Blood hematocrit (volume fraction) 40 % 40-54 Automated erythrocyte mean corpuscular volume 92 [foz_us] 80-99 Automated erythrocyte mean corpuscular hemoglobin (mass per erythrocyte) 32 pg 25-34 Automated erythrocyte mean corpuscular hemoglobin concentration measurement ( mass/volume) 35 g/dL 32-36 Automated erythrocyte distribution width ratio 12.9 % 10.0-14.5 Automated blood platelet count (count/volume) 269 10*3/uL 130-400 Automated blood platelet mean volume measurement 9.8 [[facility] ] 7.4-10.4 Automated blood neutrophils/100 leukocytes 75 % 42-75 Automated blood lymphocytes/100 leukocytes 15 % 12-44 Blood monocytes/100 leukocytes 10 % 0-12 Automated blood eosinophils/100 leukocytes 0 % 0-10 Automated blood basophils/100 leukocytes 1 % 0-10 Blood neutrophils automated count (number/volume) 9.8 10*3 1.8-7.8 Blood lymphocytes automated count (number/volume) 2.0 10*3 1.0-4.0 Blood monocytes automated count (number/volume) 1.3 10*3 0.0-1.0 Automated eosinophil count 0.0 10*3/uL 0.0-0.3 Automated blood basophil count (count/volume) 0.1 10*3/uL 0.0-0.1 Comprehensive metabolic panel - 02/09/17 16:00 Serum or plasma sodium measurement (moles/volume) 138 mmol/ L 135-145 Serum or plasma potassium measurement (moles/volume) 3.8 mmol/L 3.6-5.0 Serum or plasma chloride measurement (moles/volume) 104 mmol /L 98-107 Carbon dioxide 23 mmol/L 21-32 Serum or plasma anion gap determination (moles/volume) 11 mmol/L 5-14 Serum or plasma urea nitrogen measurement (mass/volume) 24 mg/dL 7-18 Serum or plasma creatinine measurement (mass/volume) 1.19 mg /dL 0.60-1.30 Serum or plasma urea nitrogen/creatinine mass ratio 20 NRG Serum or plasma creatinine measurement with calculation of estimated glomerular filtration rate > NRG Serum or plasma glucose measurement (mass/volume) 184 mg/dL 70-105 Serum or plasma calcium measurement (mass/volume) 8.9 mg/dL 8.5-10.1 Serum or plasma total bilirubin measurement (mass/volume) 0.5 mg/dL 0.1-1.0 Serum or plasma alkaline phosphatase measurement (enzymatic activity/volume) 61 U/L 40-136 Serum or plasma aspartate aminotransferase measurement (enzymatic activity/ volume) 43 U/L 5-34 Serum or plasma alanine aminotransferase measurement (enzymatic activity/volume ) 59 U/L 0-55 Serum or plasma protein measurement (mass/volume) 6.9 g/dL 6.4-8.2 Serum or plasma albumin measurement (mass/volume) 3.8 g/dL 3.2-4.5 Serum or plasma lithium measurement (moles/volume) - 02/09/17 16:00 BNP level 14.5 pg/mL <100.0 Capillary blood glucose measurement by glucometer (mass/volume) - 02/09/17 21: 20 Capillary blood glucose measurement by glucometer (mass/volume) 266 mg/dL 70-110 Complete blood count (CBC) with automated white blood cell (WBC) differential - 02/10/17 04:40 Blood leukocytes automated count (number/volume) 16.7 10*3/ uL 4.3-11.0 Blood erythrocytes automated count (number/volume) 4.46 10*6 /uL 4.35-5.85 Venous blood hemoglobin measurement (mass/volume) 14.4 g/dL 13.3-17.7 Blood hematocrit (volume fraction) 41 % 40-54 Automated erythrocyte mean corpuscular volume 92 [foz_us] 80-99 Automated erythrocyte mean corpuscular hemoglobin (mass per erythrocyte) 32 pg 25-34 Automated erythrocyte mean corpuscular hemoglobin concentration measurement ( mass/volume) 35 g/dL 32-36 Automated erythrocyte distribution width ratio 12.6 % 10.0-14.5 Automated blood platelet count (count/volume) 248 10*3/uL 130-400 Automated blood platelet mean volume measurement 10.0 [foz_ [place]] 7.4-10.4 Automated blood neutrophils/100 leukocytes 85 % 42-75 Automated blood lymphocytes/100 leukocytes 12 % 12-44 Blood monocytes/100 leukocytes 3 % 0-12 Automated blood eosinophils/100 leukocytes 0 % 0-10 Automated blood basophils/100 leukocytes 0 % 0-10 Blood neutrophils automated count (number/volume) 14.3 10*3 1.8-7.8 Blood lymphocytes automated count (number/volume) 2.0 10*3 1.0-4.0 Blood monocytes automated count (number/volume) 0.5 10*3 0.0-1.0 Automated eosinophil count 0.0 10*3/uL 0.0-0.3 Automated blood basophil count (count/volume) 0.0 10*3/uL 0.0-0.1 Comprehensive metabolic panel - 02/10/17 04:40 Serum or plasma sodium measurement (moles/volume) 138 mmol/ L 135-145 Serum or plasma potassium measurement (moles/volume) 4.3 mmol/L 3.6-5.0 Serum or plasma chloride measurement (moles/volume) 105 mmol /L 98-107 Carbon dioxide 19 mmol/L 21-32 Serum or plasma anion gap determination (moles/volume) 14 mmol/L 5-14 Serum or plasma urea nitrogen measurement (mass/volume) 25 mg/dL 7-18 Serum or plasma creatinine measurement (mass/volume) 1.10 mg /dL 0.60-1.30 Serum or plasma urea nitrogen/creatinine mass ratio 23 NRG Serum or plasma creatinine measurement with calculation of estimated glomerular filtration rate > NRG Serum or plasma glucose measurement (mass/volume) 170 mg/dL 70-105 Serum or plasma calcium measurement (mass/volume) 9.2 mg/dL 8.5-10.1 Serum or plasma total bilirubin measurement (mass/volume) 0.4 mg/dL 0.1-1.0 Serum or plasma alkaline phosphatase measurement (enzymatic activity/volume) 56 U/L 40-136 Serum or plasma aspartate aminotransferase measurement (enzymatic activity/ volume) 32 U/L 5-34 Serum or plasma alanine aminotransferase measurement (enzymatic activity/volume ) 57 U/L 0-55 Serum or plasma protein measurement (mass/volume) 7.1 g/dL 6.4-8.2 Serum or plasma albumin measurement (mass/volume) 4.0 g/dL 3.2-4.5 Capillary blood glucose measurement by glucometer (mass/volume) - 02/10/17 05: 46 Capillary blood glucose measurement by glucometer (mass/volume) 155 mg/dL 70-110 Serum or plasma lithium measurement (moles/volume) - 02/10/17 09:55 BNP level 22.5 pg/mL <100.0 Serum or plasma troponin i.cardiac measurement (mass/volume) - 02/10/17 09:55 Serum or plasma troponin i.cardiac measurement (mass/volume) < ng/mL <0.30 Capillary blood glucose measurement by glucometer (mass/volume) - 02/10/17 11: 01 Capillary blood glucose measurement by glucometer (mass/volume) 238 mg/dL 70-110 Capillary blood glucose measurement by glucometer (mass/volume) - 02/10/17 16: 02 Capillary blood glucose measurement by glucometer (mass/volume) 250 mg/dL 70-110 Capillary blood glucose measurement by glucometer (mass/volume) - 02/10/17 21: 18 Capillary blood glucose measurement by glucometer (mass/volume) 335 mg/dL 70-110 Complete blood count (CBC) with automated white blood cell (WBC) differential - 02/11/17 04:15 Blood leukocytes automated count (number/volume) 25.1 10*3/ uL 4.3-11.0 Blood erythrocytes automated count (number/volume) 4.28 10*6 /uL 4.35-5.85 Venous blood hemoglobin measurement (mass/volume) 13.7 g/dL 13.3-17.7 Blood hematocrit (volume fraction) 40 % 40-54 Automated erythrocyte mean corpuscular volume 94 [foz_us] 80-99 Automated erythrocyte mean corpuscular hemoglobin (mass per erythrocyte) 32 pg 25-34 Automated erythrocyte mean corpuscular hemoglobin concentration measurement ( mass/volume) 34 g/dL 32-36 Automated erythrocyte distribution width ratio 12.9 % 10.0-14.5 Automated blood platelet count (count/volume) 287 10*3/uL 130-400 Automated blood platelet mean volume measurement 10.0 [foz_ [place]] 7.4-10.4 Automated blood neutrophils/100 leukocytes 85 % 42-75 Automated blood lymphocytes/100 leukocytes 9 % 12-44 Blood monocytes/100 leukocytes 6 % 0-12 Automated blood eosinophils/100 leukocytes 0 % 0-10 Automated blood basophils/100 leukocytes 0 % 0-10 Blood neutrophils automated count (number/volume) 21.3 10*3 1.8-7.8 Blood lymphocytes automated count (number/volume) 2.2 10*3 1.0-4.0 Blood monocytes automated count (number/volume) 1.6 10*3 0.0-1.0 Automated eosinophil count 0.0 10*3/uL 0.0-0.3 Automated blood basophil count (count/volume) 0.0 10*3/uL 0.0-0.1 Encounters ACCT No. Visit Date/Time Discharge Status Pt. Type Provider Facility Loc./Unit Complaint [id number] 06/15/2016 23:26:00 2015 00:53:00 DIS Emergency LEEROYMEHRDAD Warner DOA Rodríguez [facility] ER SHOOTING PAIN ON RT SIDEDOWN INTO LEG [id number] 04/01/2014 12:11:00 2013 23:59:59 CLS Outpatient [id number] 02/09/2017 16:01:00 Document Registration [id number] 04/26/2012 00:00:00 Document Registration [id number] 03/27/2012 00:00:00 Document Registration [id number] 02/13/2012 08:08:00 Document Registration [id number] 01/28/2012 07:29:00 Document Registration [id number] 01/18/2012 06:00:00 Document Registration [id number] 01/17/2012 14:37:00 Document Registration [id number] 01/17/2012 09:40:00 Document Registration [id number] 01/09/2012 20:53:00 Document Registration [id number] 01/03/2012 08:30:00 Document Registration [id number] 06/27/2011 11:00:00 Document Registration
--- OUTSIDE RECORDS SUMMARY | 2017-02-12 10:13 | XMS REPORT | Clinical Summary ---
Author Author User, [facility] Address Unknown Phone Allergies, Adverse Reactions, [...] Betzaida Adames Intermediate coronary syndrome CORONARY ATHEROSCLEROSIS, [place] VESSEL 414.01 Active Betzaida Adames Coronary atherosclerosis of [place] coronary artery POSTSURG PERCUT TRANSLUMINAL COR ANGPLSTY [...] 20 MG TABS 1 po daily LISINOPRIL 88972436498 Active Deena Magallanes COZAAR 100 MG TAB 1 PO daily [place]ARTAN POTASSIUM 70732714581 No Longer Active Betzaida Wendy Adames DYAZIDE 37.5-25 MG CAP 1 po daily TRIAMTERENE-HCTZ 43032696903 Active Betzaida Wendy Adames NORVASC 10 MG TAB 1 PO QD AMLODIPINE BESYLATE 22984556962 Active Betzaida Wendy Adames MOBIC 15 MG TABS 1 PO daily MELOXICAM 95235361707 No Longer Active Betzaidagypsy Adames AMITRIPTYLINE HCL 50 MG TABS 1 PO QHS AMITRIPTYLINE HCL 57709020152 No Longer Active Betzaidagypsy Adames PREDNISONE 10 MG TAB 2 po daily for 3 days then 1 po daily for 3 days PREDNISONE 03927342764 No Longer Active Monica Vaughn HYDROCODONE-ACETAMINOPHEN 10-325 MG TABS 1 PO BID prn HYDROCODONE- ACETAMINOPHEN 81946730978 Active Betzaida Wendy Adames VITAMIN B-12 1000 MCG TABS 1 PO daily CYANOCOBALAMIN 03896195376 Active Betzaidagypsy Adames VALIUM 2 MG TAB 1-2 PO one hour before MRI and may repeat if necassary 08/23 DIAZEPAM 05037863006 No Longer Active Betzaida Wendy Adames PERCOCET 10-325 MG TABS 1 PO Q6hrs prn OXYCODONE- ACETAMINOPHEN 78572945470 No Longer Active Betzaida Wendy Adames UROCIT-K 10 10 MEQ (1080 MG) CR-TABS 1 PO TID POTASSIUM CITRATE 16482446699 No Longer Active Betzaida Wendy Adames HYDROCHLOROTHIAZIDE 25 MG TAB 1 PO QD HYDROCHLOROTHIAZIDE 89665899538 No Longer Active Betzaida Wendy Adames ALLOPURINOL 100 MG TAB 1 PO daily ALLOPURINOL 08653298756 No Longer Active Betzaida Wendy Adames NOVA MAX PLUS TEST STRIPS TEST BS BID DX: DIABETES NOVA MAX PLUS TEST STRIPS No Longer Active Betzaida Wendy Adames FLEXERIL 10 MG TAB 2 PO QHS CYCLOBENZAPRINE HCL 50688356659 No Longer Active Betzaida Wendy Adames LOTRISONE 0.05-1 % CREAM Apply to affected area twice daily for 7 days then prn. CLOTRIMAZOLE-BETAMETHASONE 86134227203 No Longer Active Betzaida Wendy Adames LASIX 20 MG TAB 1 PO every day prn swelling FUROSEMIDE 84360587571 No Longer Active Betzaida Wendy Adames PREDNISONE 10 MG TAB 1 PO BID PREDNISONE 14326508994 No Longer Active Betzaida Wendy Adames FISH OIL 1000 MG CAPS 2 PO daily OMEGA-3 FATTY ACIDS 41281619632 No Longer Active Betzaida Wendy Adames MULTIVITAMINS TABS 1 po daily MULTIPLE VITAMIN 26818743075 No Longer Active Betzaida Wendy Adames K-TABS 10 MEQ TBCR 1 PO BID POTASSIUM CHLORIDE 04400631966 No Longer Active Betzaida Wendy Adames MAGNESIUM OXIDE 400 MG CAPS 1 PO BID MAGNESIUM OXIDE 24767369534 No Longer Active Betzaida Wendy Adames SPORANOX 100 MG CAPS 1 po daily ITRACONAZOLE 11235577809 No Longer Active Betzaida Wendy Adames LEVOTHYROXINE SODIUM 50 MCG TABS 1 po daily LEVOTHYROXINE SODIUM 73954299673 No Longer Active Betzaida Wendy Adames COZAAR 100 MG TAB 1 PO daily [place]ARTAN POTASSIUM 42941370054 No Longer Active Betzaida Wendy Adames TOPROL XL 25 MG TB24 1 PO daily METOPROLOL SUCCINATE 81643657100 No Longer Active Betzaida Wendy Adames ZOCOR 40 MG TABS 1 PO daily SIMVASTATIN 23856876561 No Longer Active Betzaida Wendy Adames METFORMIN HCL 1000 MG TABS 1 PO BID METFORMIN HCL 37454519788 No Longer Active Betzaida Wendy Adames DIABETA 2.5 MG TABS 1 PO BID GLYBURIDE 18768286767 No Longer Active Betzaida Wendy Adames ZOSTAVAX 05632 UNT/0.65ML SOLR 1 injection once to prevent Shingles ZOSTER VACCINE LIVE 95673184213 No Longer Active Betzaidagypsy Adames HYDROCODONE-ACETAMINOPHEN 10-325 MG TABS 1 PO Q6hrs prn pain 2011 HYDROCODONE-ACETAMINOPHEN 07104004538 No Longer Active Betzaida Wendy Adames PLAVIX 75 MG TABS 1 PO every other day CLOPIDOGREL BISULFATE 38421572445 No Longer Active Betzaidagypsy Adames KEFLEX 500 MG CAP 1 PO BID CEPHALEXIN 30341161698 No Longer Active Betzaida Wendy Adames BIAXIN XL PAC 500 MG TB24 2 pills at same time daily for 7 days CLARITHROMYCIN 58374582022 No Longer Active Betzaida Wendy Adames ASPIRIN 81 MG TAB 1 PO daily ASPIRIN 88611692962 Active Betzaida Wendy Adames AEROCHAMBER MAX W/FLOW-VU MISC use with ProAir inhaler SPACER/AERO-HOLDING CHAMBERS 97754004934 No Longer Active Betzaida Wendy Adames PROAIR HFA 108 (90 BASE) MCG/ACT AERS 2 puff Q4 hrs prn wheezing ALBUTEROL SULFATE 22173914958 No Longer Active Betzaida Wendy Zacarias ADVAIR DISKUS 100-50 MCG/DOSE MISC 1 puff BID FLUTICASONE-SALMETEROL 40145913335 No Longer Active Betzaida Wendy Adames CYMBALTA 30 MG CPEP 1 PO daily DULOXETINE HCL 03276936723 No Longer Active Betzaida Wendy Zacarias LYRICA 150 MG CAPS 1 PO BID PREGABALIN 09128687587 No Longer Active Betzaida Wendy Adames ATARAX 25 MG TAB 1 PO Q6hrs prn HYDROXYZINE HCL No Longer Active Betzaida Wendy Adames VOLTAREN 75 MG TBEC 1 PO BID DICLOFENAC SODIUM 22211021096 No Longer Active Betzaida Wendy Adames PREDNISONE 10 MG TAB 1 PO BID PREDNISONE 52418705845 No Longer Active Betzaida Wendy Adames ULTRAM 50 MG TAB 2 PO Q6hrs prn TRAMADOL HCL 52348251652 Active Betzaida Wendy Adames DESIPRAMINE HCL 50 MG TABS 1-2 PO QHS prn DESIPRAMINE HCL 39809509286 No Longer Active Betzaida Wendy Adames TRIAMTERENE-HCTZ 75-50 MG TABS 1 po daily TRIAMTERENE -HCTZ 54203468079 No Longer Active Betzaida Wendy Adames ROZEREM 8 MG TABS 1 tab nightly RAMELTEON 11066710253 No Longer Active Betzaida Wendy Adames POTASSIUM 99 MG TABS 1 po QID POTASSIUM 22633281776 No Longer Active Betzaida Wendy Adames MAGNESIUM 300 MG CAPS 1 po BID MAGNESIUM 81416474454 No Longer Active Betzaida Wendy Adames MICARDIS 80 MG TABS 1 po daily TELMISARTAN 09072887390 No Longer Active Betzaida Wendy Zacarias Immunizations [...] U/L Encounters Code Encounter Date Provider Facility CPT-14366 Ofc Vst, Est Level IV 16:47:00 CDT Betzaidagypsy Adames, DO, FACP CPT-98688 Ofc Vst, Est Level IV 19:21:25 CDT Betzaida Adames DO, FACP CPT-34724 Ofc Vst, Est Level III 14:57:25 CDT Betzaida Adames DO, FACP CPT-36753 Ofc Vst, Est Level IV 10:28:02 CDT Betzaidagypsy Adames DO, FACP CPT-12643 Ofc Vst, Est Level IV 10:51:47 CDT Betzaida Adames, DO, FACP CPT-94803 Ofc Vst, Est Level IV 10:39:03 [employer] Betzaida Adames DO, FACP CPT-14676 Ofc Vst, Est Level III 11:02:29 [employer] Betzaida Adames, DO, FACP CPT-26181 Ofc Vst, Est Level IV 11:33:13 [employer] Betzaida Adames, DO, FACP CPT-70581 Ofc Vst, Est Level IV 14:17:55 CDT Betzaida Adames [facility] CPT-83841 Ofc Vst, Est Level IV 16:02:24 CDT Betzaida Adames [facility] CPT-15688 Ofc Vst, Est Level IV 14:01:17 [employer] Betzaida Adames [facility] CPT-94877 Ofc Vst, Est Level IV 13:42:46 [employer]PECT[employer] Betzaida Boateng Zacarias, DO, FACP CPT-13606 Ofc Vst, Est Level V 15:52:20 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 [employer] Betzaida Adames [facility] CPT-49948 Ofc Vst, Est Level V 10:29:09 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 [employer] Betzaida Boateng Zacarias, DO, FACP CPT-71114 Ofc Vst, Est Level V 10:56:53 CDT Monica Boateng Zacarias, DO, FACP CPT-79776 Ofc Vst, Est Level IV 16:06:31 CDT Betzaida Boateng Zacarias, DO, FACP CPT-03378 Ofc Vst, Est Level V 14:26:13 CDT Betzaida Boateng Zacarias, DO, FACP CPT-62117 Ofc Vst, Est Level V 15:15:25 [employer]PECT[employer] Monica Boateng Zacarias, DO, FACP CPT-11170 Ofc Vst, Est Level IV 11:54:11 CDT Betzaida Boateng Zacarias, DO, FACP CPT-42293 Ofc Vst, New Level IV 18:22:36 CDT Betzaida Adames [facility] Procedures Code Procedure Name Date Entry Date Standard Description CPT-67709 Preventive, Est, (40-64) 17:53:37 INSPECTOR [employer] CPT-01149 Preventive, Est, (40-64) 15:10:44 INSPECTOR CON[employer]
--- OUTSIDE RECORDS SUMMARY | 2017-02-12 10:14 | XMS REPORT | Clinical Summary ---
Author Author louis escobedo [facility] [place] [address] Phone Unavailable Allergies, Adverse Reactions, Alerts Allergy [...] Betzaida Adames ESSENTIAL HYPERTENSION, BENIGN CORONARY ATHEROSCLEROSIS, [place] VESSEL 414.01 Active Betzaida Adames CORONARY ATHEROSCLEROSIS OF [place] CORONARY ARTERY DIABETES MELLITUS, NONINSULIN DEPENDENT (NIDDM) 250.02 Active Betzaida Adames DIABETES MELLITUS WITHOUT MENTION OF COMPLICATION, TYPE II OR UNSPECIFIED TYPE, UNCONTROLLED Medication List Medication Instructions Start Date Stop Date Generic Name NDC Status Provider Patient Instruction ULTRAM 50 MG TAB 2 PO Q6hrs prn TRAMADOL HCL 85947353213 Active Betazida Adames ASPIRIN 81 MG TAB 1 PO daily ASPIRIN 56133411826 Active Betzaida Adames VITAMIN B-12 1000 MCG TABS 1 PO daily CYANOCOBALAMIN 31880218114 Active Betzaida Adames HYDROCODONE-ACETAMINOPHEN 10-325 MG TABS 1 PO BID prn HYDROCODONE- ACETAMINOPHEN 81377674702 Active Betzaida Adames COZAAR 100 MG TAB 1 PO daily [place] POTASSIUM 56590091889 Active Betzaida Adames NORVASC 10 MG TAB 1 PO QD AMLODIPINE BESYLATE 96605170668 Active Betzaida Nguyen Adames DYAZIDE 37.5-25 MG CAP 1 po daily TRIAMTERENE-HCTZ 66976433483 Active Betzaida Nguyen Zacarias Immunizations Vaccine Administration [...]
--- OUTSIDE RECORDS SUMMARY | 2017-02-12 10:14 | XMS REPORT | Clinical Summary ---
Author Author User, OMAR Organization [facility] Address Unknown Phone Allergies, Adverse Reactions, [...] Betzaida Adames Intermediate coronary syndrome CORONARY ATHEROSCLEROSIS, [place] VESSEL 414.01 Active Betzaida Adames Coronary atherosclerosis of [place] coronary artery POSTSURG PERCUT TRANSLUMINAL COR ANGPLSTY [...] 20 MG TABS 1 po daily LISINOPRIL 73126211262 Active Deena Magallanes COZAAR 100 MG TAB 1 PO daily [place] POTASSIUM 19117682684 No Longer Active Betzaida Wendy Adames DYAZIDE 37.5-25 MG CAP 1 po daily TRIAMTERENE-HCTZ 75828178771 Active Betzaida Wendy Adames NORVASC 10 MG TAB 1 PO QD AMLODIPINE BESYLATE 82882786273 Active Betzaida Wendy Adames MOBIC 15 MG TABS 1 PO daily MELOXICAM 17891374362 No Longer Active Betzaidagypsy Adames AMITRIPTYLINE HCL 50 MG TABS 1 PO QHS AMITRIPTYLINE HCL 55637162644 No Longer Active Betzaidagypsy Adames PREDNISONE 10 MG TAB 2 po daily for 3 days then 1 po daily for 3 days PREDNISONE 33876685852 No Longer Active Monica Vaughn HYDROCODONE-ACETAMINOPHEN 10-325 MG TABS 1 PO BID prn HYDROCODONE- ACETAMINOPHEN 78983248242 Active Betzaida Wendy Adames VITAMIN B-12 1000 MCG TABS 1 PO daily CYANOCOBALAMIN 33073728219 Active Betzaidagypsy Adames VALIUM 2 MG TAB 1-2 PO one hour before MRI and may repeat if necassary 08/23 DIAZEPAM 39229644791 No Longer Active Betzaida Wendy Adames PERCOCET 10-325 MG TABS 1 PO Q6hrs prn OXYCODONE- ACETAMINOPHEN 29989629990 No Longer Active Betzaida Wendy Adames UROCIT-K 10 10 MEQ (1080 MG) CR-TABS 1 PO TID POTASSIUM CITRATE 87627914960 No Longer Active Betzaida Wendy Adames HYDROCHLOROTHIAZIDE 25 MG TAB 1 PO QD HYDROCHLOROTHIAZIDE 20407799819 No Longer Active Betzaida Wendy Adames ALLOPURINOL 100 MG TAB 1 PO daily ALLOPURINOL 82267706236 No Longer Active Betzaida Wendy Adames NOVA MAX PLUS TEST STRIPS TEST BS BID DX: DIABETES NOVA MAX PLUS TEST STRIPS No Longer Active Betzaida Wendy Adames FLEXERIL 10 MG TAB 2 PO QHS CYCLOBENZAPRINE HCL 26812964596 No Longer Active Betzaida Wendy Adames LOTRISONE 0.05-1 % CREAM Apply to affected area twice daily for 7 days then prn. CLOTRIMAZOLE-BETAMETHASONE 76820281996 No Longer Active Betzaida Wendy Adames LASIX 20 MG TAB 1 PO every day prn swelling FUROSEMIDE 34344341467 No Longer Active Betzaida Wendy Adames PREDNISONE 10 MG TAB 1 PO BID PREDNISONE 69073542474 No Longer Active Betzaida Wendy Adames FISH OIL 1000 MG CAPS 2 PO daily OMEGA-3 FATTY ACIDS 11822537552 No Longer Active Betzaida Wendy Adames MULTIVITAMINS TABS 1 po daily MULTIPLE VITAMIN 18782464096 No Longer Active Betzaida Wendy Adames K-TABS 10 MEQ TBCR 1 PO BID POTASSIUM CHLORIDE 54115611662 No Longer Active Betzaida Wendy Adames MAGNESIUM OXIDE 400 MG CAPS 1 PO BID MAGNESIUM OXIDE 98648310724 No Longer Active Betzaida Wenyd Adames SPORANOX 100 MG CAPS 1 po daily ITRACONAZOLE 79220860223 No Longer Active Betzaida Wendy Adames LEVOTHYROXINE SODIUM 50 MCG TABS 1 po daily LEVOTHYROXINE SODIUM 22278060510 No Longer Active Betzaida Wendy Adames COZAAR 100 MG TAB 1 PO daily [place] POTASSIUM 59327280414 No Longer Active Betzaida Wendy Adames TOPROL XL 25 MG TB24 1 PO daily METOPROLOL SUCCINATE 85626023163 No Longer Active Betzaida Wendy Adames ZOCOR 40 MG TABS 1 PO daily SIMVASTATIN 47011953859 No Longer Active Betzaida Wendy Adames METFORMIN HCL 1000 MG TABS 1 PO BID METFORMIN HCL 63273767715 No Longer Active Betzaida Wendy Adames DIABETA 2.5 MG TABS 1 PO BID GLYBURIDE 63062915751 No Longer Active Betzaida Wendy Adames ZOSTAVAX 16045 UNT/0.65ML SOLR 1 injection once to prevent Shingles ZOSTER VACCINE LIVE 30750090091 No Longer Active Betzaida Wendy Adames HYDROCODONE-ACETAMINOPHEN 10-325 MG TABS 1 PO Q6hrs prn pain 2011 HYDROCODONE-ACETAMINOPHEN 31070284662 No Longer Active Betzaida Wendy Adames PLAVIX 75 MG TABS 1 PO every other day CLOPIDOGREL BISULFATE 49300071512 No Longer Active Betzaida Wendy Adames KEFLEX 500 MG CAP 1 PO BID CEPHALEXIN 39366192803 No Longer Active Betzaida Wendy Adames BIAXIN XL PAC 500 MG TB24 2 pills at same time daily for 7 days CLARITHROMYCIN 17129519883 No Longer Active Betzaida Wendy Adames ASPIRIN 81 MG TAB 1 PO daily ASPIRIN 44569179427 Active Betzaida Wendy Adames AEROCHAMBER MAX W/FLOW-VU MISC use with ProAir inhaler SPACER/AERO-HOLDING CHAMBERS 04703979489 No Longer Active Betzaida Wendy Adames PROAIR HFA 108 (90 BASE) MCG/ACT AERS 2 puff Q4 hrs prn wheezing ALBUTEROL SULFATE 80365618698 No Longer Active Betzaida Wendy Zacarias ADVAIR DISKUS 100-50 MCG/DOSE MISC 1 puff BID FLUTICASONE-SALMETEROL 22457858561 No Longer Active Betzaida Wendy Adames CYMBALTA 30 MG CPEP 1 PO daily DULOXETINE HCL 33923162030 No Longer Active Betzaida Wendy Zacarias LYRICA 150 MG CAPS 1 PO BID PREGABALIN 23455604478 No Longer Active Betzaida Wendy Adames ATARAX 25 MG TAB 1 PO Q6hrs prn HYDROXYZINE HCL No Longer Active Betzaida Wendy Adames VOLTAREN 75 MG TBEC 1 PO BID DICLOFENAC SODIUM 29997394405 No Longer Active Betzaida Wendy Adames PREDNISONE 10 MG TAB 1 PO BID PREDNISONE 69734602644 No Longer Active Betzaida Wendy Adames ULTRAM 50 MG TAB 2 PO Q6hrs prn TRAMADOL HCL 63390848850 Active Betzaida Wendy Adames DESIPRAMINE HCL 50 MG TABS 1-2 PO QHS prn DESIPRAMINE HCL 41849526290 No Longer Active Betzaida Wendy Adames TRIAMTERENE-HCTZ 75-50 MG TABS 1 po daily TRIAMTERENE -HCTZ 11950209848 No Longer Active Betzaida Wendy Adames ROZEREM 8 MG TABS 1 tab nightly RAMELTEON 98658655686 No Longer Active Betzaida Wendy Adames POTASSIUM 99 MG TABS 1 po QID POTASSIUM 39132754957 No Longer Active Betzaida Wendy Adames MAGNESIUM 300 MG CAPS 1 po BID MAGNESIUM 28220308789 No Longer Active Betzaida Wendy Adames MICARDIS 80 MG TABS 1 po daily TELMISARTAN 11704232884 No Longer Active Betzaida Wendy Zacarias Immunizations [...] U/L Encounters Code Encounter Date Provider Facility CPT-10842 Ofc Vst, Est Level IV 16:47:00 CDT Betzaidagypsy Adames, DO, FACP CPT-67292 Ofc Vst, Est Level IV 19:21:25 CDT Betzaida Adames, DO, FACP CPT-91586 Ofc Vst, Est Level III 14:57:25 CDT Betzaida Adames DO, FACP CPT-96721 Ofc Vst, Est Level IV 10:28:02 CDT Betzaidagypsy Adames, DO, FACP CPT-54729 Ofc Vst, Est Level IV 10:51:47 CDT Betzaida Adames, DO, FACP CPT-40807 Ofc Vst, Est Level IV 10:39:03 CORPORATE STRATEGIST Betzaida Adames, DO, FACP CPT-13701 Ofc Vst, Est Level III 11:02:29 CORPORATE STRATEGIST Betzaida Adames, DO, FACP CPT-43326 Ofc Vst, Est Level IV 11:33:13 CORPORATE STRATEGIST Betzaida Adames, DO, FACP CPT-35125 Ofc Vst, Est Level IV 14:17:55 CDT Betzaida Adames [facility] CPT-58527 Ofc Vst, Est Level IV 16:02:24 CDT Betzaida Adames [facility] CPT-24231 Ofc Vst, Est Level IV 14:01:17 CORPORATE STRATEGIST Betzaida Adames [facility] CPT-45307 Ofc Vst, Est Level IV 13:42:46 CORPORATE STRATEGIST Betzaida Boateng Zacarias, DO, FACP CPT-55629 Ofc Vst, Est Level V 15:52:20 CORPORATE STRATEGIST Betzaida Adames [facility] CPT-66008 Ofc Vst, Est Level V 10:29:09 CORPORATE STRATEGIST Betzaida Boateng Zacarias, DO, FACP CPT-14979 Ofc Vst, Est Level V 10:56:53 CDT Monica Boateng Zacarias, DO, FACP CPT-35957 Ofc Vst, Est Level IV 16:06:31 CDT Betzaida Boateng Zacarias, DO, FACP CPT-34833 Ofc Vst, Est Level V 14:26:13 CDT Betzaida Boateng Zacarias, DO, FACP CPT-78745 Ofc Vst, Est Level V 15:15:25 CORPORATE STRATEGIST Monica Boateng Zacarias, DO, FACP CPT-01509 Ofc Vst, Est Level IV 11:54:11 CDT Betzaida Boateng Zacarias, DO, FACP CPT-53047 Ofc Vst, New Level IV 18:22:36 CDT Betzaida Adames [facility] Procedures Code Procedure Name Date Entry Date Standard Description CPT-76412 Preventive, Est, (40-64) 17:53:37 CORPORATE STRATEGIST CPT-50063 Preventive, Est, (40-64) 15:10:44 CORPORATE STRATEGIST
--- OUTSIDE RECORDS SUMMARY | 2017-02-12 10:14 | XMS REPORT | Clinical Summary ---
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 Betzaida Adames DIABETES MELLITUS WITHOUT MENTION OF COMPLICATION, TYPE II OR UNSPECIFIED TYPE, UNCONTROLLED Medication List Medication Instructions Start Date Stop Date Generic Name NDC Status Provider Patient Instruction ULTRAM 50 MG TAB 2 PO Q6hrs prn TRAMADOL HCL 36313640361 Active Betzaida Adames ASPIRIN 81 MG TAB 1 PO daily ASPIRIN 01082072085 Active Betzaida Adames NORVASC 5 MG TAB 1 PO QD AMLODIPINE BESYLATE 51701679929 Active Betzaida Adames VITAMIN B-12 1000 MCG TABS 1 PO daily CYANOCOBALAMIN 63907038404 Active Betzaida Adames HYDROCODONE-ACETAMINOPHEN 10-325 MG TABS 1 PO BID prn HYDROCODONE- ACETAMINOPHEN 88217714691 Active Betzaida Adames AMITRIPTYLINE HCL 50 MG TABS 1 PO QHS AMITRIPTYLINE HCL 42038503350 Active Betzaida Adames MOBIC 15 MG TABS 1 PO daily MELOXICAM 74258001392 Active Betzaida Adames PREDNISONE 10 MG TAB 2 po daily for 3 days then 1 po daily for 3 days PREDNISONE 32132009733 Active Monica Vaughn Immunizations Vaccine Administration Date Value Standard Description [...]
--- OUTSIDE RECORDS SUMMARY | 2017-02-12 10:15 | XMS REPORT | Clinical Summary ---
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 Active Betzaida Adames DIABETES MELLITUS WITHOUT MENTION OF COMPLICATION, TYPE II OR UNSPECIFIED TYPE, UNCONTROLLED Medication List Medication Instructions Start Date Stop Date Generic Name NDC Status Provider Patient Instruction ULTRAM 50 MG TAB 2 PO Q6hrs prn TRAMADOL HCL 34559412892 Active Betzaida Adames ASPIRIN 81 MG TAB 1 PO daily ASPIRIN 47628580028 Active Betzaida Adames VITAMIN B-12 1000 MCG TABS 1 PO daily CYANOCOBALAMIN 26972338817 Active Betzaida Adaems HYDROCODONE-ACETAMINOPHEN 10-325 MG TABS 1 PO BID prn HYDROCODONE- ACETAMINOPHEN 08588541979 Active Betzaida Adames COZAAR 100 MG TAB 1 PO daily [place] POTASSIUM 92722913373 Active Betzaida Adames NORVASC 10 MG TAB 1 PO QD AMLODIPINE BESYLATE 13360930225 Active Betzaida Nguyen Adames DYAZIDE 37.5-25 MG CAP 1 po daily TRIAMTERENE-HCTZ 95839488508 Active Betzaida Nguyen Zacarias Immunizations Vaccine Administration [...]
--- OUTSIDE RECORDS SUMMARY | 2017-02-12 10:15 | XMS REPORT | Clinical Summary ---
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 Betzaida Adames DIABETES MELLITUS WITHOUT MENTION OF COMPLICATION, TYPE II OR UNSPECIFIED TYPE, UNCONTROLLED Medication List Medication Instructions Start Date Stop Date Generic Name NDC Status Provider Patient Instruction ULTRAM 50 MG TAB 2 PO Q6hrs prn TRAMADOL HCL 02976522070 Active Aaron Garcia ASPIRIN 81 MG TAB 1 PO daily ASPIRIN 50917430995 Active Betzaida Adames NORVASC 5 MG TAB 1 PO QD AMLODIPINE BESYLATE 97480910764 Active Betzaida Adames VITAMIN B-12 1000 MCG TABS 1 PO daily CYANOCOBALAMIN 70957235463 Active Betzaida Adames HYDROCODONE-ACETAMINOPHEN 10-325 MG TABS 1 PO BID prn HYDROCODONE- ACETAMINOPHEN 73999596559 Active Monica Vaughn MELOXICAM 7.5 MG TABS 1 PO BID w/ food MELOXICAM 11437863928 Active Betzaida Adames AMITRIPTYLINE HCL 50 MG TABS 1 PO QHS AMITRIPTYLINE HCL 58792954120 Active Betzaida Adames Immunizations Vaccine Administration Date Value Standard Description Influenza vaccine Done influenza virus vaccine, unspecified formulation Vital Signs Date Name Value Unit Range Description blood pressure, diastolic 98 mm[Hg] BP hooker [...]
--- OUTSIDE RECORDS SUMMARY | 2017-02-12 10:15 | XMS REPORT | Clinical Summary ---
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 Betzaida Adames DIABETES MELLITUS WITHOUT MENTION OF COMPLICATION, TYPE II OR UNSPECIFIED TYPE, UNCONTROLLED Medication List Medication Instructions Start Date Stop Date Generic Name NDC Status Provider Patient Instruction ULTRAM 50 MG TAB 2 PO Q6hrs prn TRAMADOL HCL 28503051457 Active Betzaida Adames ASPIRIN 81 MG TAB 1 PO daily ASPIRIN 75916393142 Active Betzaida Adames VITAMIN B-12 1000 MCG TABS 1 PO daily CYANOCOBALAMIN 97533720085 Active Betzaida Adames HYDROCODONE-ACETAMINOPHEN 10-325 MG TABS 1 PO BID prn HYDROCODONE- ACETAMINOPHEN 54148868618 Active Betzaida Adames COZAAR 100 MG TAB 1 PO daily [place] POTASSIUM 14198778507 Active Betzaida Adames NORVASC 10 MG TAB 1 PO QD AMLODIPINE BESYLATE 14430842187 Active Betzaida Wendy Zacarias DYAZIDE 37.5-25 MG CAP 1 po daily TRIAMTERENE-HCTZ 87644528813 Active Betzaidagypsy Shawe Zacarias Immunizations Vaccine Administration Date Value Standard [...]
--- OUTSIDE RECORDS SUMMARY | 2017-02-12 10:16 | XMS REPORT | Clinical Summary ---
Author Author User, OMAR Organization [facility] Address Unknown Phone Allergies, Adverse Reactions, [...] upper arm HIP PAIN 719.45 Resolved Betzaida dAames Pain in joint involving pelvic region and thigh UNSTABLE ANGINA 411.1 Resolved Betzaida Adames Intermediate coronary syndrome CORONARY ATHEROSCLEROSIS, [place] VESSEL 414.01 Active Betzaida Adames Coronary atherosclerosis of [place] coronary artery POSTSURG PERCUT TRANSLUMINAL COR ANGPLSTY [...] 20 MG TABS 1 po daily LISINOPRIL 71751647098 Active Deena Magallanes COZAAR 100 MG TAB 1 PO daily [place] POTASSIUM 97260165785 No Longer Active Betzaida Wendy Adames DYAZIDE 37.5-25 MG CAP 1 po daily TRIAMTERENE-HCTZ 25748381734 Active Betzaida Wendy Adames NORVASC 10 MG TAB 1 PO QD AMLODIPINE BESYLATE 34758946000 Active Betzaida Wendy Adames MOBIC 15 MG TABS 1 PO daily MELOXICAM 68387314381 No Longer Active Betzaidagypsy Adamse AMITRIPTYLINE HCL 50 MG TABS 1 PO QHS AMITRIPTYLINE HCL 77092586126 No Longer Active Betzaidagypsy Adames PREDNISONE 10 MG TAB 2 po daily for 3 days then 1 po daily for 3 days PREDNISONE 52178872552 No Longer Active Monica Vaughn HYDROCODONE-ACETAMINOPHEN 10-325 MG TABS 1 PO BID prn HYDROCODONE- ACETAMINOPHEN 16851800216 Active Betzaida Wendy Adames VITAMIN B-12 1000 MCG TABS 1 PO daily CYANOCOBALAMIN 49297039192 Active Betzaidagypsy Adames VALIUM 2 MG TAB 1-2 PO one hour before MRI and may repeat if necassary 08/23 DIAZEPAM 71025694716 No Longer Active Betzaida Wendy Adames PERCOCET 10-325 MG TABS 1 PO Q6hrs prn OXYCODONE- ACETAMINOPHEN 34872910213 No Longer Active Betzaida Wendy Adames UROCIT-K 10 10 MEQ (1080 MG) CR-TABS 1 PO TID POTASSIUM CITRATE 82784827359 No Longer Active Betzaida Wendy Adames HYDROCHLOROTHIAZIDE 25 MG TAB 1 PO QD HYDROCHLOROTHIAZIDE 81409449412 No Longer Active Betzaida Wendy Adames ALLOPURINOL 100 MG TAB 1 PO daily ALLOPURINOL 56408691060 No Longer Active Betzaida Wendy Adames NOVA MAX PLUS TEST STRIPS TEST BS BID DX: DIABETES NOVA MAX PLUS TEST STRIPS No Longer Active Betzaida Wendy Adames FLEXERIL 10 MG TAB 2 PO QHS CYCLOBENZAPRINE HCL 30849762681 No Longer Active Betzaida Wendy Adames LOTRISONE 0.05-1 % CREAM Apply to affected area twice daily for 7 days then prn. CLOTRIMAZOLE-BETAMETHASONE 00335904230 No Longer Active Betzaida Wendy Adames LASIX 20 MG TAB 1 PO every day prn swelling FUROSEMIDE 80190409193 No Longer Active Betzaida Wendy Adames PREDNISONE 10 MG TAB 1 PO BID PREDNISONE 53790644936 No Longer Active Betzaida Wendy Adames FISH OIL 1000 MG CAPS 2 PO daily OMEGA-3 FATTY ACIDS 12862080337 No Longer Active Betzaida Wendy Adames MULTIVITAMINS TABS 1 po daily MULTIPLE VITAMIN 48132854257 No Longer Active Betzaida Wendy Adames K-TABS 10 MEQ TBCR 1 PO BID POTASSIUM CHLORIDE 64420300250 No Longer Active Betzaida Wendy Adames MAGNESIUM OXIDE 400 MG CAPS 1 PO BID MAGNESIUM OXIDE 41272747761 No Longer Active Betzaida Wendy Adames SPORANOX 100 MG CAPS 1 po daily ITRACONAZOLE 29950459498 No Longer Active Betzaida Wendy Adames LEVOTHYROXINE SODIUM 50 MCG TABS 1 po daily LEVOTHYROXINE SODIUM 21720966254 No Longer Active Betzaida Wendy Adames COZAAR 100 MG TAB 1 PO daily [place] POTASSIUM 40779621871 No Longer Active Betzaida Wendy Adames TOPROL XL 25 MG TB24 1 PO daily METOPROLOL SUCCINATE 63647082283 No Longer Active Betzaida Wenyd Adames ZOCOR 40 MG TABS 1 PO daily SIMVASTATIN 03124237205 No Longer Active Betzaida Wendy Adames METFORMIN HCL 1000 MG TABS 1 PO BID METFORMIN HCL 67762781328 No Longer Active Betzaida Wendy Adames DIABETA 2.5 MG TABS 1 PO BID GLYBURIDE 12566486133 No Longer Active Betzaida Wendy Adames ZOSTAVAX 87415 UNT/0.65ML SOLR 1 injection once to prevent Shingles ZOSTER VACCINE LIVE 08492359211 No Longer Active Betzaida Wendy Adames HYDROCODONE-ACETAMINOPHEN 10-325 MG TABS 1 PO Q6hrs prn pain 2011 HYDROCODONE-ACETAMINOPHEN 85424955858 No Longer Active Betzaida Wendy Adames PLAVIX 75 MG TABS 1 PO every other day CLOPIDOGREL BISULFATE 09618427925 No Longer Active Betzaida Wendy Adames KEFLEX 500 MG CAP 1 PO BID CEPHALEXIN 52280751510 No Longer Active Betzaida Wendy Adames BIAXIN XL PAC 500 MG TB24 2 pills at same time daily for 7 days CLARITHROMYCIN 88016797227 No Longer Active Betzaida Wendy Adames ASPIRIN 81 MG TAB 1 PO daily ASPIRIN 55855359513 Active Betzaida Wendy Adames AEROCHAMBER MAX W/FLOW-VU MISC use with ProAir inhaler SPACER/AERO-HOLDING CHAMBERS 65347443532 No Longer Active Betzaida Wendy Adames PROAIR HFA 108 (90 BASE) MCG/ACT AERS 2 puff Q4 hrs prn wheezing ALBUTEROL SULFATE 85642775397 No Longer Active Betzaida Wendy Zacarias ADVAIR DISKUS 100-50 MCG/DOSE MISC 1 puff BID FLUTICASONE-SALMETEROL 01913760185 No Longer Active Betzaida Wendy Adames CYMBALTA 30 MG CPEP 1 PO daily DULOXETINE HCL 12293366912 No Longer Active Betzaida Wendy Zacarias LYRICA 150 MG CAPS 1 PO BID PREGABALIN 15867012958 No Longer Active Betzaida Wendy Adames ATARAX 25 MG TAB 1 PO Q6hrs prn HYDROXYZINE HCL No Longer Active Betzaida Wendy Adames VOLTAREN 75 MG TBEC 1 PO BID DICLOFENAC SODIUM 86402217726 No Longer Active Betzaida Wendy Adames PREDNISONE 10 MG TAB 1 PO BID PREDNISONE 44906043573 No Longer Active Betzaida Wendy Adames ULTRAM 50 MG TAB 2 PO Q6hrs prn TRAMADOL HCL 21926339263 Active Betzaida Wendy Adames DESIPRAMINE HCL 50 MG TABS 1-2 PO QHS prn DESIPRAMINE HCL 16806543677 No Longer Active Betzaida Wendy Adames TRIAMTERENE-HCTZ 75-50 MG TABS 1 po daily TRIAMTERENE -HCTZ 40868648152 No Longer Active Betzaida Wendy Adames ROZEREM 8 MG TABS 1 tab nightly RAMELTEON 21919080350 No Longer Active Betzaida Wendy Adames POTASSIUM 99 MG TABS 1 po QID POTASSIUM 64718005192 No Longer Active Betzaida Wendy Adames MAGNESIUM 300 MG CAPS 1 po BID MAGNESIUM 85540230023 No Longer Active Betzaida Wendy Adames MICARDIS 80 MG TABS 1 po daily TELMISARTAN 41349453306 No Longer Active Betzaida Wendy Zacarias Immunizations [...] U/L Encounters Code Encounter Date Provider Facility CPT-41218 Ofc Vst, Est Level IV 16:47:00 CDT Betzaidagypsy Adames, DO, FACP CPT-74752 Ofc Vst, Est Level IV 19:21:25 CDT Betzaida Adames, DO, FACP CPT-01005 Ofc Vst, Est Level III 14:57:25 CDT Betzaida Adames DO, FACP CPT-39832 Ofc Vst, Est Level IV 10:28:02 CDT Betzaidagypsy Adames, DO, FACP CPT-69466 Ofc Vst, Est Level IV 10:51:47 CDT Betzaida Adames, DO, FACP CPT-23724 Ofc Vst, Est Level IV 10:39:03 TAXATION INSPECTOR Betzaida Adames, DO, FACP CPT-43959 Ofc Vst, Est Level III 11:02:29 TAXATION INSPECTOR Betzaida Adames, DO, FACP CPT-78924 Ofc Vst, Est Level IV 11:33:13 TAXATION INSPECTOR Betzaida Adames, DO, FACP CPT-46294 Ofc Vst, Est Level IV 14:17:55 CDT Betzaida Adames [facility] CPT-45000 Ofc Vst, Est Level IV 16:02:24 CDT Betzaida Adames [facility] CPT-19918 Ofc Vst, Est Level IV 14:01:17 TAXATION INSPECTOR Betzaida Adames [facility] CPT-96724 Ofc Vst, Est Level IV 13:42:46 TAXATION INSPECTOR Betzaida Boateng Zacarias, DO, FACP CPT-52645 Ofc Vst, Est Level V 15:52:20 TAXATION INSPECTOR Betzaida Adames [facility] CPT-13631 Ofc Vst, Est Level V 10:29:09 TAXATION INSPECTOR Betzaida Boateng Zacarias, DO, FACP CPT-44886 Ofc Vst, Est Level V 10:56:53 CDT Monica Boateng Zacarias, DO, FACP CPT-48066 Ofc Vst, Est Level IV 16:06:31 CDT Betzaida Boateng Zacarias, DO, FACP CPT-02028 Ofc Vst, Est Level V 14:26:13 CDT Betzaida Boateng Zacarias, DO, FACP CPT-10658 Ofc Vst, Est Level V 15:15:25 TAXATION INSPECTOR Monica Boateng Zacarias, DO, FACP CPT-18781 Ofc Vst, Est Level IV 11:54:11 CDT Betzaida Boateng Zacarias, DO, FACP CPT-57342 Ofc Vst, New Level IV 18:22:36 CDT Betzaida Aadmes [facility] Procedures Code Procedure Name Date Entry Date Standard Description CPT-23839 Preventive, Est, (40-64) 17:53:37 TAXATION INSPECTOR CPT-83935 Preventive, Est, (40-64) 15:10:44 TAXATION INSPECTOR
--- OUTSIDE RECORDS SUMMARY | 2017-02-12 10:16 | XMS REPORT | Clinical Summary ---
Author Author louis escobedo [facility] [place] [address] Phone Unavailable Allergies, Adverse Reactions, Alerts Allergy [...] Betzaida Adames ESSENTIAL HYPERTENSION, BENIGN CORONARY ATHEROSCLEROSIS, [place] VESSEL 414.01 Active Betzaida Adames CORONARY ATHEROSCLEROSIS OF [place] CORONARY ARTERY DIABETES MELLITUS, NONINSULIN DEPENDENT (NIDDM) 250.02 Active Betzaida Adames DIABETES MELLITUS WITHOUT MENTION OF COMPLICATION, TYPE II OR UNSPECIFIED TYPE, UNCONTROLLED Medication List Medication Instructions Start Date Stop Date Generic Name NDC Status Provider Patient Instruction ULTRAM 50 MG TAB 2 PO Q6hrs prn TRAMADOL HCL 88757108074 Active Betzaida Adames ASPIRIN 81 MG TAB 1 PO daily ASPIRIN 80357843277 Active Betzaida Adames VITAMIN B-12 1000 MCG TABS 1 PO daily CYANOCOBALAMIN 45828081797 Active Betzaida Adames HYDROCODONE-ACETAMINOPHEN 10-325 MG TABS 1 PO BID prn HYDROCODONE- ACETAMINOPHEN 46449659774 Active Betzaida Adames COZAAR 100 MG TAB 1 PO daily LOSARTAN POTASSIUM 40227971557 Active Betzaida Adames NORVASC 10 MG TAB 1 PO QD AMLODIPINE BESYLATE 96034710994 Active Betzaida Nguyen Adames DYAZIDE 37.5-25 MG CAP 1 po daily TRIAMTERENE-HCTZ 65310690622 Active Betzaidagypsy Shawe Zacarias Immunizations Vaccine Administration [...] Description Clinical Lists Update: CBC,CMP,FLP,HgA1c - Chemistry sodium, serum 142 mmol/L albumin, serum 4.5 g/dL glucose, plasma fasting 130 mg/dL Estimated Glomerular Filtration Rate (calc) 87 mL/min/1.73m2 triglyceride, serum, fasting 127 mg/dL bilirubin, serum, total 0.8 mg/dL alanine aminotransferase (SGPT), serum 38 U/L aspartate aminotransferase (SGOT), serum 40 U/L protein, total, serum 7.1 g/dL potassium, serum 3.5 mmol/L LDL cholesterol, serum 102 mg/dL hemoglobin A1C, blood, as % of total hemoglobin 5.6 % HDL cholesterol, serum 51 mg/dL creatinine, serum 0.94 mg/dL carbon dioxide, venous blood 27 mmol/L cholesterol, serum 178 mg/dL chloride, serum 107 mmol/L calcium, serum 9.1 mg/dL urea nitrogen, blood 13 mg/dL alkaline phosphatase, serum 63 U/L cholesterol/HDL ratio, serum 3.5 Clinical Lists Update: CBC,CMP,FLP,TSH,Free T4,HgA1c,Microalbumin - Chemistry anion gap, serum 11 cholesterol/HDL ratio, serum 4.7 glucose, plasma fasting 117 mg/dL Estimated Glomerular Filtration Rate (calc) 85 mL/min/1.73m2 sodium, serum 140 mmol/L albumin, serum 4.6 g/dL alkaline phosphatase, serum 63 U/L urea nitrogen, blood 14 mg/dL calcium, serum 8.8 mg/dL chloride, serum 102 mmol/L cholesterol, serum 218 mg/dL triglyceride, serum, fasting 164 mg/dL bilirubin, serum, total 0.7 mg/dL alanine aminotransferase (SGPT), serum 20 U/L aspartate aminotransferase (SGOT), serum 24 U/L protein, total, serum 6.8 g/dL potassium, serum 3.4 mmol/L LDL cholesterol, serum 139 mg/dL thyroid stimulating hormone, serum 1.19 u[iU]/mL hemoglobin A1C, blood, as % of total hemoglobin 5.4 % HDL cholesterol, serum 46.0 mg/dL thyroxine, serum, free 0.69 ng/dL creatinine, serum 1.0 mg/dL carbon dioxide, venous blood 30.0 mmol/L Clinical Lists Update: CBC,CMP,FLP,TSH,Free T4,HgA1c,Microalbumin - Hematology platelet count 243 10*3/mm3 erythrocyte (RBC) count 5.12 10*6/mm3 leukocyte count, blood 7.1 10*3/mm3 mean corpuscular volume, RBC 97 fL red blood cell distribution width 13.6 % hemoglobin, blood 16.4 g/dL hematocrit, blood 49 [...]
--- NOTE | 2017-02-12 11:29 | Progress Note-Hospitalist ---
Progress Note HPI/CC on Admission CC: Wheezing HPI: This is a 66yoWM clinic pt of [facility] for past 10 yrs with hx of HTN, HLP and DEBORAH noncompliant with CPAP that presents with the 3rd episode of wheezing and SOB unresolved with antibiotics and prednisone regimen, so he was admitted for IV steroids and further workup. CT angio of chest showed no PE but resolving remnants of pneumonia. Dr. Bowman has set up out-pt clinic appointment for pulmonary management. WBC 16 due to steroids CMP normal Patient Interview: Dr. Cassidy discusses pts lab and CT results with pt. Pt states that he feels well today, but feels similar to how he did yesterday. Pt feels that he could safely DC. Pt still has breathing treatment supplies. Dr. Cassidy discusses plans for long-term steroid taper, and informs pt that symptoms may persist for some time. Pt states that current cough syrup does not seem to help. Physical exam reveals wheezing. Dr. Cassidy also discusses staying an additional day to continue IV treatment. Pt agrees with this plan and would like to stay. Pt would also like his heart to be checked by Dr. Pryor. Scribed by Remberto Petty under the direct supervision of Dr. Cassidy. Progress Notes/Assess & Plan Date Seen 02/12/17 Admission Dx/Process Assessment: Recurrent wheezing unresolved with 2 rounds of antibiotics and steroid tapers with residual of early pneumonia treated [address] angiogram no evidence of PE History of CAD previous stents placed by Dr. Schulte evaluating echocardiogram and BNP for source of wheezing and overall subtle chest pain but is occurred on occasion Hypertension Hyperlipidemia Hyperglycemia chronic in nature but elevated due to steroids Obstructive sleep apnea noncompliant with CPAP Chronic muscle and joint pain etiology unknown after extensive workup in the past Leukocytosis likely due to steroid effect Mild elevation in liver enzymes likely due to PERSAUD Diagonsis/Assessment & Plan much better on overhauled medication treatment plan after adding azithromycin IV in addition to changing steroid regimen to Decadron from Solu-Medrol. Patient feels much better and slept last night very well and cough is minimal Eating well and bowel function normal along with urination normal. Likely will discharge tomorrow considering on exam much improved but still has wheezing and I don't want her risk bouncing back to the hospital if he fails outpatient again. No fever, vital signs stable, pleasant, oriented 3, in chair Regular rate and rhythm, wheezing much improved now only in the right upper lobe No edema Laboratory Tests 02/12/17 04:20 Assessment: Recurrent wheezing unresolved with 2 rounds of antibiotics and steroid tapers with residual of early pneumonia treated [address] angiogram no evidence of PE now w/severe cough s/p added Zmax IV and added multiple meds anticholinergic to help resolve the disturbing cough along with changed steroids to Decadron now much improved and has turned the corner on recovery History of CAD previous stents placed by Dr. Pryor s/p normal echocardiogram and BNP so ruled out cardiac as the source of wheezing and overall subtle chest pain. Dr Pryor's advice appreciated Hypertension Hyperlipidemia Hyperglycemia chronic in nature but elevated due to steroids Obstructive sleep apnea noncompliant with CPAP Chronic muscle and joint pain etiology unknown after extensive workup in the past Leukocytosis likely due to steroid effect improved from 25k to 20k Mild elevation in liver enzymes likely due to PERSAUD Plan: Maintain the overhaul of meds for the cough with Zmax, Spiriva, Hydroxyzine for anti-cholinergic effect for cough and changing to Decadron from Solu-medrol since much improved on this very resistant case Give scheduled insulin before meals Check labs tomorrow Difficult case but now much improved. DC likely tomorrow. RAIMUNDO CASSIDY DO Feb 12, 2017 11:29
--- NOTE | 2017-02-12 16:26 | Progress Note-Cardiology ---
Cardiology SOAP Progress Note Subjective: Feels better today Less short of breath No cp or palp or syncope Objective: I&O/Vital Signs Vital Sign - Last 12Hours 02/12/17 02/12/17 02/12/17 02/12/17 07:09 07:31 08:00 08:00 Temp 97.0 Pulse 88 Resp 20 B/P (MAP) 151/80 Pulse Ox 95 95 91 91 O2 Delivery Nasal Cannula Room Air Intake and Output 02/12/17 00:00 Intake Total 2860 ml Balance 2860 ml Weight (Pounds): 278 Weight (Ounces): 0.0 Weight (Calculated Kilograms): 126.069456 Constitutional: appears stated age, No apparent distress, well-developed, well- nourished Respiratory: No accessory muscle use, No respiratory distress, chest expansion is symmetric, wheezing (scattered over large airways), other (diminished bases bilat) Cardiovascular: regular rate-rhythm, No JVD, S1 and S2 Gastrointestional: No tender, soft, round, No spleenomegaly Extremities: No clubbing, No cyanosis, No significant edema Neurologic/Psychiatric: alert, oriented x 3, power is 5/5 both on sides Skin: No rash, No ulcerations Results/Procedures: Labs Laboratory Tests 02/11/17 16:40: Glucometer 228H 02/11/17 21:29: Glucometer 234H 02/12/17 04:20: White Blood Count 20.8H, Red Blood Count 4.01L, Hemoglobin 13.0L, Hematocrit 38L , Mean Corpuscular Volume 94, Mean Corpuscular Hemoglobin 32, Mean Corpuscular Hemoglobin Concent 34, Red Cell Distribution Width 12.7, Platelet Count 256, Mean Platelet Volume 10.0, Neutrophils (%) (Auto) 80H, Lymphocytes (%) (Auto) 11L, Monocytes (%) (Auto) 9, Eosinophils (%) (Auto) 0, Basophils (%) (Auto) 0, Neutrophils # (Auto) 16.6H, Lymphocytes # (Auto) 2.2, Monocytes # (Auto) 2.0H, Eosinophils # (Auto) 0.0, Basophils # (Auto) 0.0, Sodium Level 139, Potassium Level 4.0, Chloride Level 106, Carbon Dioxide Level 22, Anion Gap 11, Blood Urea Nitrogen 25H, Creatinine 0.98, Estimat Glomerular Filtration Rate > 60, BUN /Creatinine Ratio 26, Glucose Level 159H, Calcium Level 8.3L, Total Bilirubin 0.4, Aspartate Amino Transf (AST/SGOT) 20, Alanine Aminotransferase (ALT/SGPT) 37, Alkaline Phosphatase 48, Total Protein 6.3L, Albumin 3.6 02/12/17 10:49: Glucometer 320H Laboratory Tests 02/11/17 04:15 02/12/17 04:20 A/P: Assessment: Dyspnea secondary to pneumonia Pneumonia - management per medical and pulmonary services Echo on 02/10/17: LVEF 65%, no RWMA, mild conc LVH, mild diastolic dysfunction of LV, no significant valvular regurg or stenosis Coronary artery disease with a history of stenting of the proximal and mid left circumflex artery in April 2010 (Promus 2.5 x 23-mm taken to 2.8 mm). Most recently, on 07/15/10 he underwent stenting of the left anterior descending artery (Promus 3.0 x 12-mm taken to 3.4 mm diameter). The previously placed stent, at the time of cardiac catheterization of June 2010 was free of significant disease. The patient has 50 to 60% mid right coronary artery disease, which was not intervened on. Normal global left ventricular systolic function with an ejection fraction of 60 to 65% and mild to moderate elevation of left ventricular end-diastolic pressure on cardiac catheterization of 05/15/10. Myocardial perfusion imaging from 06/27/11 showed no evidence of any significant myocardial ischemia or infarction. Normal global left ventricular systolic function with an ejection fraction of 62%. Hypertension, currently controlled. Degenerative joint disease and inflammatory arthritis. Prednisone therapy for inflammatory arthritis. Hyperlipidemia which is followed by Dr. Adames. Hypothyroidism. Chronic insomnia. History of cholecystectomy. History of carpal tunnel surgery and back fusion. Obesity mass index of approximately 40. Diabetes mellitus being managed by Dr. Adames. DEBORAH for which he is non-compliant with sleep apnea treatment - followed by Dr. Bowman Plan: Dyspnea is likely d/t exacerbation of pneumonia which is being managed by medical and pulmonary services Continue current regimen I spoke with him and answered CV-related questions MILENA DAVIDSON MD [facility] Feb 12, 2017 16:26
[2017-02-12 16:55] VITALS: BP 194/93
[2017-02-12] MEDS: ENOXAPARIN 40 MG/0.4 ML (LOVENOX) SYR SC SCH (16:57)
[2017-02-12] MEDS: cefTRIAXone INJECTION 1,000 MG in NS (IVPB) 50 ML IV SCH (16:57)
[2017-02-12] MEDS: MONTELUKAST 10 MG (SINGULAIR) TAB PO SCH (20:40)
[2017-02-12 23:19] VITALS: BP 160/71
[2017-02-13] MEDS: guaiFENesin/CODEINE (ROBITUSSIN AC) 10ML UDC PO SCH ×3 (02:09→09:01)
[2017-02-13 05:01] LABS: BASOPHILS # (AUTO) 0.1 10^3/uL (0.0-0.1); BASOPHILS % (AUTO) 0 % (0-10); EOSINOPHILS % (AUTO) 0 % (0-10); LYMPHOCYTES # (AUTO) 2.3 X 10^3 (1.0-4.0); LYMPHOCYTES % (AUTO) 14 % (12-44); MEAN CORPUSCULAR HEMOGLOBIN 32 PG (25-34); MEAN CORPUSCULAR HGB CONC 34 G/DL (32-36); MEAN CORPUSCULAR VOLUME 93 FL (80-99); MONOCYTES # (AUTO) 1.7 X 10^3 (0.0-1.0); MONOCYTES % (AUTO) 10 % (0-12); NEUTROPHILS # (AUTO) 12.8 X 10^3 (1.8-7.8); NEUTROPHILS % (AUTO) 76 % (42-75); PLATELET COUNT 248 10^3/uL (130-400); RED BLOOD COUNT 4.27 10^6/uL (4.35-5.85); RED CELL DISTRIBUTION WIDTH 12.7 % (10.0-14.5); WHITE BLOOD COUNT 16.8 10^3/uL (4.3-11.0)
[2017-02-13 05:26] LABS: ALANINE AMINOTRANSFERASE 41 U/L (0-55); ALBUMIN 3.7 G/DL (3.2-4.5); ANION GAP 11 MMOL/L (5-14); ASPARTATE AMINO TRANSFERASE 24 U/L (5-34); BILIRUBIN,TOTAL 0.4 MG/DL (0.1-1.0); BLOOD UREA NITROGEN 22 MG/DL (7-18); BUN/CREATININE RATIO 23; CALCIUM 8.3 MG/DL (8.5-10.1); CARBON DIOXIDE 22 MMOL/L (21-32); CHLORIDE 107 MMOL/L (98-107); CREATININE SERUM 0.94 MG/DL (0.60-1.30); GFR ESTIMATED > 60; GLUCOSE 168 MG/DL (70-105); POTASSIUM 3.9 MMOL/L (3.6-5.0); SODIUM 140 MMOL/L (135-145); TOTAL PROTEIN 6.4 G/DL (6.4-8.2)
[2017-02-13] MEDS: CATHETER FLUSH 10 ML SYR IV SCH (05:49)
[2017-02-13] MEDS: DEXAMETHASONE 4 MG/ML SDV (DECADRON) IV SCH (05:49)
[2017-02-13] MEDS: RT-ALBUTEROL SULF 2.5 MG/3 ML PRE-MIX VIAL IH SCH (06:45)
[2017-02-13] MEDS: UMECLIDINIUM BROMIDE (INCRUSE ELLIPTA) 7'S IH SCH (06:47)
[2017-02-13] MEDS: RT-ADVAIR HFA 115/21 MCG PER PUFF IH SCH (06:48)
--- NOTE | 2017-02-13 07:19 | Pulmonary Progress Note ---
Subjective Subjective/Events-last exam Pt feels improved. No complications noted. Exam Exam Vital Signs Date Time Temp Pulse Resp B/P (MAP) Pulse Ox O2 Delivery O2 Flow Rate FiO2 02/13/17 06:50 93 02/12/17 23:19 97.8 88 22 160/71 98 Room Air 02/12/17 20:48 Room Air 02/12/17 19:44 96 02/12/17 16:55 97.5 89 20 194/93 94 Room Air 02/12/17 08:00 97.0 88 20 151/80 91 Room Air 02/12/17 08:00 91 Nasal Cannula 02/12/17 07:31 95 I & O 02/13/17 07:00 Intake Total 3030 ml Balance 3030 ml General Appearance: No Apparent Distress, WD/WN, Chronically ill, Obese HEENT: PERRL/EOMI, Normal ENT Inspection, Pharynx Normal Neck: Full Range of Motion, Normal Inspection, Non Tender, Supple, Carotid Bruit Respiratory: Chest Non Tender, No Accessory Muscle Use, No Respiratory Distress , Decreased Breath Sounds, Wheezing Cardiovascular: Regular Rate, Rhythm, No Edema, No Gallop, No JVD, No Murmur, Normal Peripheral Pulses Extremity: Normal Capillary Refill, Normal Inspection, Normal Range of Motion, Non Tender, No Calf Tenderness, No Pedal Edema Neurologic/Psychiatric: Alert, Oriented x3, No Motor/Sensory Deficits, Normal Mood/Affect Skin: Normal Color, Warm/Dry Lymphatic: No Adenopathy Results Lab Laboratory Tests 02/12/17 04:20 02/13/17 04:23 Assessment/Plan Assessment/Plan Acute bronchitis r/o asthma -SVNs -Singulair -Advair CAD DEBORAH - non compliant with CPAP therapy Will f/u as out patient. Pt is ok for discharge from pulmonary standpoint Clinical Quality Measures DVT/VTE Risk/Contraindication: Risk Factor Score Per Nursin RFS Level Per Nursing on Admit: 4+=Very High FREDA SIDDIQUI DO Feb 13, 2017 07:19
[2017-02-13 08:00] VITALS: BP 145/80
[2017-02-13] MEDS ORDERED: BUDE10.2 IH (08:30)
[2017-02-13] MEDS ORDERED: LORA10TA7 PO (08:30)
[2017-02-13] MEDS ORDERED: DEXA0.5T PO (08:30)
[2017-02-13] MEDS ORDERED: BENZ100C23 PO (08:30)
[2017-02-13] MEDS ORDERED: UMEC62.5 IH (08:30)
[2017-02-13] MEDS ORDERED: HYDR473S34 PO (08:30)
[2017-02-13] MEDS ORDERED: HYDR-3584 PO (08:30)
[2017-02-13] MEDS ORDERED: FAMO20TA5 PO (08:30)
[2017-02-13] MEDS ORDERED: AZIT250T5 PO (08:30)
--- NOTE | 2017-02-13 08:36 | Discharge Instructions ---
Discharge Instructions Discharge Medications New, Converted or Re-Newed RX: Transmitted to Pharmacy New Medications: Budesonide/Formoterol Fumarate (Symbicort 160-4.5 Mcg Inhaler) 10.2 Gm Hfa.aer.ad 2 PUFF IH BID, #1 INHALER Dexamethasone (Dexamethasone) 0.5 Mg Tablet 0.5 MG PO Q12H, #14 TAB Azithromycin (Azithromycin) 250 Mg Tablet 500 MG PO DAILY, #4 TAB Benzonatate (Benzonatate) 100 Mg Capsule 200 MG PO TID, #30 CAP Famotidine (Famotidine) 20 Mg Tablet 20 MG PO BID, #60 TAB Hydrocodone/Chlorphen P-Stirex (Hydrocodone-Chlorphen ER Susp) 473 Ml Kathi.er.12h 5 ML PO Q12HR, #6 ML Hydroxyzine HCl (Hydroxyzine HCl) 10 Mg Tablet 10 MG PO TID, #60 TAB Loratadine (Loratadine) 10 Mg Tablet 10 MG PO BID, #60 TAB Umeclidinium [place] (Incruse Ellipta) 62.5 Mcg Blst.w.dev 0 INH IH DAILY@0800, #30 EACH Continued Medications: Albuterol Sulfate (Albuterol Sulfate) 2.5 Mg/3 Ml Vial.neb 2.5 MG IH TID, EA Amlodipine Besylate (Amlodipine Besylate) 10 Mg Tablet 10 MG PO DAILY Aspirin (Aspirin Ec 81 Mg) 81 Mg Tabec 81 MG PO DAILY Cyanocobalamin (Vitamin B-12) (Vitamin B-12) 1,000 Mcg Tablet 1000 MCG PO DAILY, TAB Losartan Potassium (Losartan Potassium) 100 Mg Tablet 100 MG PO DAILY Montelukast Sodium (Montelukast Sodium) 10 Mg Tablet 10 MG PO HS, TAB Triamterene/Hydrochlorothiazid (Triamterene-Hctz 37.5-25 mg Cp) 1 Each Capsule 1 TAB PO DAILY LAST FILLED 11/27/16 #30 Discontinued Medications: Fluticasone/Salmeterol (Advair 250-50 Diskus) 1 Each Blst.w.dev 1 PUFF IH BID Guaifenesin/Codeine Phosphate (Guaifenesin AC Cough Syrup) 473 Ml Liquid 5 ML PO Q4H PRN for COUGH, EA Lisinopril (Lisinopril) 20 Mg Tablet 20 MG PO DAILY LAST FILLED 11/27/16 #30 Prednisone (Prednisone) 10 Mg Tab PO UD, TAB FILLED 02/06/17 #30 FOR A TAPER DOSING 4 TABS PO QD X 3 DAYS 3 TABS PO QD X 3 DAYS 2 TABS PO QD X 2 DAYS 1 TAB PO QD X 1 DAY Patient Instructions Goal/Follow Up Appt: Dr Adames [facility] on , 02/16/17 at 2:30pm Activity & Diet Discharge Diet: ADA RAIMUNDO Joyce DO Feb 13, 2017 08:36
--- NOTE | 2017-02-13 08:38 | Discharge Summary-Hospitalist ---
Diagnosis/Chief Complaint Date of Admission Feb 10, 2017 at 10:37 Date of Discharge Discharge Date: Feb 13, 2017 Admission Diagnosis Assessment: Recurrent wheezing unresolved with 2 rounds of antibiotics and steroid tapers with residual of early pneumonia treated [address] angiogram no evidence of PE History of CAD previous stents placed by Dr. Schulte evaluating echocardiogram and BNP for source of wheezing and overall subtle chest pain but is occurred on occasion Hypertension Hyperlipidemia Hyperglycemia chronic in nature but elevated due to steroids Obstructive sleep apnea noncompliant with CPAP Chronic muscle and joint pain etiology unknown after extensive workup in the past Leukocytosis likely due to steroid effect Mild elevation in liver enzymes likely due to PERSAUD Discharge Diagnosis Assessment: Recurrent wheezing unresolved with 2 rounds of antibiotics and steroid tapers with residual of early pneumonia treated [address] angiogram no evidence of PE now w/severe cough s/p added Zmax IV and added multiple meds anticholinergic to help resolve the disturbing cough along with changed steroids to Decadron now much improved and has turned the corner on recovery History of CAD previous stents placed by Dr. Pryor s/p normal echocardiogram and BNP so ruled out cardiac as the source of wheezing and overall subtle chest pain. Dr Pryor's advice appreciated Hypertension Hyperlipidemia Hyperglycemia chronic in nature but elevated due to steroids Obstructive sleep apnea noncompliant with CPAP Chronic muscle and joint pain etiology unknown after extensive workup in the past Leukocytosis likely due to steroid effect improved from 25k to 20k Mild elevation in liver enzymes likely due to PERSAUD much better on overhauled medication treatment plan after adding azithromycin IV in addition to changing steroid regimen to Decadron from Solu-Medrol. Patient feels much better and slept last night very well and cough is minimal Eating well and bowel function normal along with urination normal. Likely will discharge tomorrow considering on exam much improved but still has wheezing and I don't want her risk bouncing back to the hospital if he fails outpatient again. No fever, vital signs stable, pleasant, oriented 3, in chair Regular rate and rhythm, wheezing much improved now only in the right upper lobe No edema Laboratory Tests 02/12/17 04:20 Assessment: Recurrent wheezing unresolved with 2 rounds of antibiotics and steroid tapers with residual of early pneumonia treated [address] angiogram no evidence of PE now w/severe cough s/p added Zmax IV and added multiple meds anticholinergic to help resolve the disturbing cough along with changed steroids to Decadron now much improved and has turned the corner on recovery History of CAD previous stents placed by Dr. Pryor s/p normal echocardiogram and BNP so ruled out cardiac as the source of wheezing and overall subtle chest pain. Dr Pryor's advice appreciated Hypertension Hyperlipidemia Hyperglycemia chronic in nature but elevated due to steroids Obstructive sleep apnea noncompliant with CPAP Chronic muscle and joint pain etiology unknown after extensive workup in the past Leukocytosis likely due to steroid effect improved from 25k to 20k Mild elevation in liver enzymes likely due to PERSAUD Plan: Maintain the overhaul of meds for the cough with Zmax, Spiriva, Hydroxyzine for anti-cholinergic effect for cough and changing to Decadron from Solu-medrol since much improved on this very resistant case Give scheduled insulin before meals Check labs tomorrow Difficult case but now much improved. DC likely tomorrow. Reason Hospital Visit/Course CC: Wheezing HPI: This is a 66yoWM clinic pt of [facility] for past 10 yrs with hx of HTN, HLP and DEBORAH noncompliant with CPAP that presents with the 3rd episode of wheezing and SOB unresolved with antibiotics and prednisone regimen, so he was admitted for IV steroids and further workup. CT angio of chest showed no PE but resolving remnants of pneumonia. Dr. Bowman has set up out-pt clinic appointment for pulmonary management. WBC 16 due to steroids CMP normal Patient Interview: Dr. Adames discusses pts lab and CT results with pt. Pt states that he feels well today, but feels similar to how he did yesterday. Pt feels that he could safely DC. Pt still has breathing treatment supplies. Dr. Adames discusses plans for long-term steroid taper, and informs pt that symptoms may persist for some time. Pt states that current cough syrup does not seem to help. Physical exam reveals wheezing. Dr. Adames also discusses staying an additional day to continue IV treatment. Pt agrees with this plan and would like to stay. Pt would also like his heart to be checked by Dr. Pryor. Scribed by Remberto Petty under the direct supervision of Dr. Adames. Note from 02/13/17: Patient much better the cough remains but much improved and slept well last night I did not hear any wheezing on exam today and overall he appears to be much improved Ready for discharge Blood sugars noted and blood pressures noted Hospital course: Patient required a lengthy hospital course due to the severity of his cough and wheezing and high risk for hypoxia and respiratory insufficiency. Cardiology was consulted echocardiogram showed preserved systolic function and overall laboratory and chest x-ray were monitored closely. Dr. Bowman saw the patient due to noncompliance with C Pap therapy and overall he felt that IV steroids nebulizer treatments and oxygen supplementation was to be maintained at current orders. 3 days before discharge I overhauled medications adding azithromycin for anti-inflammatory effect and coverage for atypical type of upper respiratory illness in addition change Solu-Medrol to Decadron and initiated hydroxyzine 10 mg 3 times a day for anticholinergic effect along with ipratropium inhaler and Advair and he improved immensely on the new regimen. Overall he will of close follow-up with me to see me in clinic this prior to the weekend and hydrocodone cough syrup was ordered to help with any type or residual cough. Discharge Summary Discharge Physical Examination Allergies: Coded Allergies: desipramine (Verified Allergy, Mild, RASH, 02/09/17) Vitals & I&Os Vital Signs Date Time Temp Pulse Resp B/P (MAP) Pulse Ox O2 Delivery O2 Flow Rate FiO2 02/13/17 08:00 97.6 77 20 145/80 96 Room Air Hospital Course Labs (last 24 hrs) Laboratory Tests 02/12/17 10:49: Glucometer 320H 02/12/17 16:25: Glucometer 132H 02/12/17 21:03: Glucometer 267H 02/13/17 04:23: White Blood Count 16.8H, Red Blood Count 4.27L, Hemoglobin 13.7, Hematocrit 40, Mean Corpuscular Volume 93, Mean Corpuscular Hemoglobin 32, Mean Corpuscular Hemoglobin Concent 34, Red Cell Distribution Width 12.7, Platelet Count 248, Mean Platelet Volume 10.0, Neutrophils (%) (Auto) 76H, Lymphocytes (%) (Auto) 14 , Monocytes (%) (Auto) 10, Eosinophils (%) (Auto) 0, Basophils (%) (Auto) 0, Neutrophils # (Auto) 12.8H, Lymphocytes # (Auto) 2.3, Monocytes # (Auto) 1.7H, Eosinophils # (Auto) 0.0, Basophils # (Auto) 0.1, Sodium Level 140, Potassium Level 3.9, Chloride Level 107, Carbon Dioxide Level 22, Anion Gap 11, Blood Urea Nitrogen 22H, Creatinine 0.94, Estimat Glomerular Filtration Rate > 60, BUN /Creatinine Ratio 23, Glucose Level 168H, Calcium Level 8.3L, Total Bilirubin 0.4, Aspartate Amino Transf (AST/SGOT) 24, Alanine Aminotransferase (ALT/SGPT) 41, Alkaline Phosphatase 55, Total Protein 6.4, Albumin 3.7 Pending Labs Laboratory Tests 02/13/17 04:23: White Blood Count 16.8, Red Blood Count 4.27, Hemoglobin 13.7, Hematocrit 40, Mean Corpuscular Volume 93, Mean Corpuscular Hemoglobin 32, Mean Corpuscular Hemoglobin Concent 34, Red Cell Distribution Width 12.7, Platelet Count 248, Mean Platelet Volume 10.0, Neutrophils (%) (Auto) 76, Lymphocytes (%) (Auto) 14 , Monocytes (%) (Auto) 10, Eosinophils (%) (Auto) 0, Basophils (%) (Auto) 0, Neutrophils # (Auto) 12.8, Lymphocytes # (Auto) 2.3, Monocytes # (Auto) 1.7, Eosinophils # (Auto) 0.0, Basophils # (Auto) 0.1, Sodium Level 140, Potassium Level 3.9, Chloride Level 107, Carbon Dioxide Level 22, Anion Gap 11, Blood Urea Nitrogen 22, Creatinine 0.94, Estimat Glomerular Filtration Rate > 60, BUN/ Creatinine Ratio 23, Glucose Level 168, Calcium Level 8.3, Total Bilirubin 0.4, Aspartate Amino Transf (AST/SGOT) 24, Alanine Aminotransferase (ALT/SGPT) 41, Alkaline Phosphatase 55, Total Protein 6.4, Albumin 3.7 Discharge Home Medications: Active Scripts Active Dexamethasone 0.5 Mg Tablet 0.5 Mg PO Q12H Symbicort 160-4.5 Mcg Inhaler (Budesonide/Formoterol Fumarate) 10.2 Gm Hfa.aer.ad 2 Puff IH BID Famotidine 20 Mg Tablet 20 Mg PO BID Hydrocodone-Chlorphen ER Susp (Hydrocodone/Chlorphen P-Stirex) 473 Ml Kathi.er.12h 5 Ml PO Q12HR Benzonatate 100 Mg Capsule 200 Mg PO TID Hydroxyzine HCl 10 Mg Tablet 10 Mg PO TID Incruse Ellipta (Umeclidinium Cantil) 62.5 Mcg Blst.w.dev 0 Inh IH DAILY@0800 Loratadine 10 Mg Tablet 10 Mg PO BID Azithromycin 250 Mg Tablet 500 Mg PO DAILY Reported Albuterol Sulfate 2.5 Mg/3 Ml Vial.neb 2.5 Mg IH TID Advair 250-50 Diskus (Fluticasone/Salmeterol) 1 Each Blst.w.dev 1 Puff IH BID Prednisone 10 Mg Tab PO UD FILLED 02/06/17 #30 FOR A TAPER DOSING 4 TABS PO QD X 3 DAYS 3 TABS PO QD X 3 DAYS 2 TABS PO QD X 2 DAYS 1 TAB PO QD X 1 DAY Guaifenesin AC Cough Syrup (Guaifenesin/Codeine Phosphate) 473 Ml Liquid 5 Ml PO Q4H PRN Montelukast Sodium 10 Mg Tablet 10 Mg PO HS Amlodipine Besylate 10 Mg Tablet 10 Mg PO DAILY Vitamin B-12 (Cyanocobalamin (Vitamin B-12)) 1,000 Mcg Tablet 1,000 Mcg PO DAILY Lisinopril 20 Mg Tablet 20 Mg PO DAILY LAST FILLED 11/27/16 #30 Triamterene-Hctz 37.5-25 mg Cp (Triamterene/Hydrochlorothiazid) 1 Each Capsule 1 Tab PO DAILY LAST FILLED 11/27/16 #30 Losartan Potassium 100 Mg Tablet 100 Mg PO DAILY Aspirin Ec 81 Mg (Aspirin) 81 Mg Tabec 81 Mg PO DAILY Instructions to patient/family Please see electonic discharge instructions given to patient. Clinical Quality Measures DVT/VTE Risk/Contraindication: Risk Factor Score Per Nursin RFS Level Per Nursing on Admit: 4+=Very High RAIMUNDO ADAMES DO Feb 13, 2017 08:38
[2017-02-13] MEDS: BENZONATATE 100 MG (TESSALON) CAPSULE PO SCH (08:40)
[2017-02-13] MEDS: LOSARTAN 50 MG (COZAAR) TAB PO SCH (08:40)
[2017-02-13] MEDS: amLODIPine 10 MG (NORVASC) TAB PO SCH (08:40)
[2017-02-13] MEDS: FAMOTIDINE 20 MG (PEPCID) TABLET PO SCH (08:40)
[2017-02-13] MEDS: hydrOXYzine (ATARAX) 10 MG TAB PO SCH (08:40)
[2017-02-13] MEDS: ASPIRIN E.C. 81 MG (ECOTRIN) TAB PO SCH (08:40)
[2017-02-13] MEDS: LORATADINE (CLARITIN) 10 MG TAB PO SCH (08:40)
[2017-02-13] MEDS: inSUlin ASPART (NovoLOG) 1 UNIT/0.01 ML (CHARGE PER UNIT) SC SCH (08:45)
--- NOTE | 2017-02-13 08:56 | Progress Note-Cardiology ---
Cardiology SOAP Progress Note Subjective: Sitting up in a chair at the bedside. States he feels his breathing is much better today. No c/o CP, palpitations, syncope or near syncope. No c/o LE edema. Wants to go home. Objective: I&O/Vital Signs Vital Sign - Last 12Hours 02/12/17 02/13/17 02/13/17 23:19 06:50 08:00 Temp 97.8 97.6 Pulse 88 77 Resp 22 20 B/P (MAP) 160/71 145/80 Pulse Ox 98 93 96 O2 Delivery Room Air Room Air Intake and Output 02/13/17 00:00 Intake Total 2130 ml Balance 2130 ml Weight (Pounds): 278 Weight (Ounces): 0.0 Weight (Calculated Kilograms): 126.146135 Constitutional: appears stated age, No apparent distress, well-developed, well- nourished Respiratory: No accessory muscle use, No respiratory distress, chest expansion is symmetric, other (diminished bases bilat) Cardiovascular: regular rate-rhythm, No JVD, S1 and S2 Gastrointestional: No tender, soft, round, No spleenomegaly Extremities: No clubbing, No cyanosis, No significant edema Neurologic/Psychiatric: alert, oriented x 3, power is 5/5 both on sides Skin: No rash, No ulcerations Results/Procedures: Labs Laboratory Tests 02/12/17 10:49: Glucometer 320H 02/12/17 16:25: Glucometer 132H 02/12/17 21:03: Glucometer 267H 02/13/17 04:23: White Blood Count 16.8H, Red Blood Count 4.27L, Hemoglobin 13.7, Hematocrit 40, Mean Corpuscular Volume 93, Mean Corpuscular Hemoglobin 32, Mean Corpuscular Hemoglobin Concent 34, Red Cell Distribution Width 12.7, Platelet Count 248, Mean Platelet Volume 10.0, Neutrophils (%) (Auto) 76H, Lymphocytes (%) (Auto) 14 , Monocytes (%) (Auto) 10, Eosinophils (%) (Auto) 0, Basophils (%) (Auto) 0, Neutrophils # (Auto) 12.8H, Lymphocytes # (Auto) 2.3, Monocytes # (Auto) 1.7H, Eosinophils # (Auto) 0.0, Basophils # (Auto) 0.1, Sodium Level 140, Potassium Level 3.9, Chloride Level 107, Carbon Dioxide Level 22, Anion Gap 11, Blood Urea Nitrogen 22H, Creatinine 0.94, Estimat Glomerular Filtration Rate > 60, BUN /Creatinine Ratio 23, Glucose Level 168H, Calcium Level 8.3L, Total Bilirubin 0.4, Aspartate Amino Transf (AST/SGOT) 24, Alanine Aminotransferase (ALT/SGPT) 41, Alkaline Phosphatase 55, Total Protein 6.4, Albumin 3.7 A/P: Assessment: Dyspnea secondary to pneumonia Pneumonia - management per medical and pulmonary services Echo on 02/10/17: LVEF 65%, no RWMA, mild conc LVH, mild diastolic dysfunction of LV, no significant valvular regurg or stenosis Coronary artery disease with a history of stenting of the proximal and mid left circumflex artery in April 2010 (Promus 2.5 x 23-mm taken to 2.8 mm). Most recently, on 07/15/10 he underwent stenting of the left anterior descending artery (Promus 3.0 x 12-mm taken to 3.4 mm diameter). The previously placed stent, at the time of cardiac catheterization of June 2010 was free of significant disease. The patient has 50 to 60% mid right coronary artery disease, which was not intervened on. Normal global left ventricular systolic function with an ejection fraction of 60 to 65% and mild to moderate elevation of left ventricular end-diastolic pressure on cardiac catheterization of 05/15/10. Myocardial perfusion imaging from 06/27/11 showed no evidence of any significant myocardial ischemia or infarction. Normal global left ventricular systolic function with an ejection fraction of 62%. Hypertension, currently controlled. Degenerative joint disease and inflammatory arthritis. Prednisone therapy for inflammatory arthritis. Hyperlipidemia which is followed by Dr. Adames. Hypothyroidism. Chronic insomnia. History of cholecystectomy. History of carpal tunnel surgery and back fusion. Obesity mass index of approximately 40. Diabetes mellitus being managed by Dr. Adames. DEBORAH for which he is non-compliant with sleep apnea treatment - followed by Dr. Bowman Plan: Dyspnea is likely d/t exacerbation of pneumonia which is being managed by medical and pulmonary services Continue current regimen We spoke with him and answered CV-related questions OK to discharge home today Outpt f/u in 2 weeks Physician Assessment Physician Assessment Lungs: good bilat air entry; some exp wheezes Cor: reg A&R * As documented in our note above REJI VAIL 27, 2017 08:56 MILENA DAVIDSON MD FACP FAC CCDS Feb 13, 2017 09:16
[2017-02-13] MEDS ORDERED: AZITHROMYCIN 250 MG TAB (ZITHROMAX) PO SCH (09:00)
[2017-02-13] MEDS: HYDROCODONE/CHLOR 10MG/5 ML (TUSSIONEX SUSP) 5ML UDC PO SCH (09:01)
[2017-02-13 10:20] VITALS: BP 145/80
== END 2017-02-13 10:15 | disposition home or self-care (01) | DRG 194 ==
LOC: DELPENDDIS → 4TH 15:10 → INTOOBSV 02-10 10:37 → OBSVTOIN 02-10 10:37 → UNDODISIN 02-13 10:15
PROVIDERS: ADMIT Internal Medicine; ATTEND Internal Medicine
DX: J18.9 Pneumonia, unspecified organism (principal); Z68.41 Body mass index [BMI] 40.0-44.9, adult; J20.9 Acute bronchitis, unspecified; R06.2 Wheezing; I25.10 Atherosclerotic heart disease of native coronary artery without angina pectoris; Z95.5 Presence of coronary angioplasty implant and graft; I10 Essential (primary) hypertension; E78.5 Hyperlipidemia, unspecified; G47.33 Obstructive sleep apnea (adult) (pediatric); Z91.19 Patient's noncompliance with other medical treatment and regimen; D72.829 Elevated white blood cell count, unspecified; K75.81 Nonalcoholic steatohepatitis (NASH); M79.1 Myalgia; M19.90 Unspecified osteoarthritis, unspecified site; E03.9 Hypothyroidism, unspecified; G47.00 Insomnia, unspecified; E11.65 Type 2 diabetes mellitus with hyperglycemia; E66.9 Obesity, unspecified
CPT/HCPCS: 36415; 71275; 80053; 80061; 82962; 83735; 83880; 84484; 85007; 85025; 85027; 93005; 93306; 94640; 94664; 94760; 94761; 94762; 99211; G0378

== ENCOUNTER → 2017-02-09 | Outpatient (CLI) | payer OTHER ==
[~2017-02-09] MED LIST: ALBU2.5V4 IH; AMLO10TA2 PO; AMLO10TA82 PO; ASP325T PO; ASP81TEC PO; AZIT250T5 PO; BENZ100C23 PO; BP PILL; BUDE10.2 IH; CLC500CT PO; CLOP75TA PO; CPR500T PO; CYAN10006 PO; CYAN250010 PO; CYCL10TA9 PO; DEXA0.5T PO; DICL75TA2 PO; DULO30CA PO; FAMO20TA5 PO; FLUT1DIS26 IH; FURO20TA4 PO; GLYB2.5T4 PO; GUAI473L29 PO; Glucophage; HYDR-2856 PO; HYDR-2889 PO; HYDR-3584 PO; HYDR473S34 PO; HYOS0.1216 PO; ITRA100C PO; KCL10CCR PO; KLOR CON PO; LISI-552 PO; LORA10TA7 PO; LOSA100T7 PO; LVT.05T PO; MAGN100T3 PO; MAGN400T6 PO; METF-380 PO; METO25TA PO; MONT10TA24 PO; MULT1CAP27 PO; OMG1KC PO; PHEN200T27 PO; PRD10T PO; SIMV20TA3 PO; TELM80TA3 PO; TRAM50TA2 PO; TRIA1CAP4 PO; TRIA1TAB5 PO; UMEC62.5 IH
--- NOTE | 2017-02-09 09:51 | Diagnostic Imaging Report ---
INDICATION: Cough and congestion. PA and lateral views of the chest are obtained. Comparison is made study of 01/17/2012. FINDINGS: Heart size and pulmonary vascularity are within normal limits. There is no evidence of pneumothorax or consolidation. Postoperative changes are again noted in the cervical spine with interval performance of lower thoracic spinal fusion. IMPRESSION: No acute abnormalities identified. Dictated by: Dictated on workstation # [id number]
== END ==
LOC: RAD 09:00
PROVIDERS: ATTEND Internal Medicine
DX: J20.9 Acute bronchitis, unspecified (principal)
CPT/HCPCS: 71020

== ENCOUNTER → 2017-03-14 | Outpatient (CLI) | payer OTHER ==
[~2017-03-14] VITALS: Ht 177.8 cm; Wt 126.1 kg
[~2017-03-14] MED LIST changes: +ALBU2.5V4 IH; +AMLO10TA2 PO; +AZIT250T5 PO; +BENZ100C23 PO; +BUDE10.2 IH; +CATHETER FLUSH 10 ML SYR IV PRN; +CYAN10006 PO; +DEXA0.5T PO; +FAMO20TA5 PO; +FLUT1DIS26 IH; +GUAI473L29 PO; +HYDR-3584 PO; +HYDR473S34 PO; +LORA10TA7 PO; +MONT10TA24 PO; +REGADENOSON 0.4 MG/5 ML SYR (LEXISCAN) IV ONE; +UMEC62.5 IH
[2017-03-14 09:45] VITALS: BP 141/85
--- NOTE | 2017-03-15 12:23 | STRESS TEST ---
DATE OF SERVICE: 03/14/2017 RESTING AND POST REGADENOSON TECHNETIUM 99M TETROFOSMIN SPECT CT IMAGING ORDERING PHYSICIAN: Keisha Parker APRN. PRIMARY PHYSICIAN: Dr. Adames. OTHER PHYSICIAN: Dr. Davidson. CLINICAL DIAGNOSIS: Chest discomfort, coronary artery disease. Baseline images were carried out after injection of 10.29 mCi of [id number]. This was followed by 0.4 mg regadenoson and 10.29 mCi of technetium 99m-tetrofosmin. Stress imaging was then obtained. He tolerated the procedure well and did not report symptoms. The electrocardiogram showed sinus rhythm without any significant changes during the study. Review of images at rest and following stress indicates diminished count uptake in the basal inferior wall, both at rest and following regadenoson infusion. This appears to be diaphragmatic attenuation. Gaited images show normal global left ventricular systolic function with normal regional wall motion, including the basal inferior wall. Left ventricular ejection fraction is calculated to be 65%. Left ventricular end diastolic volume is 70 mL. CONCLUSIONS: 1. No evidence of significant myocardial ischemia or infarction on this study. 2. Normal regional wall motion. 3. Normal global left ventricular systolic function with a calculated ejection fraction of 65%. Job ID: [id number] DocumentID: [id number] Dictated Date: 03/14/2017 16:14:06 Brand Recorder Date: 03/15/2017 08:14:11 Dictated By: MILENA DAVIDSON MD, MA, FACP, FACC,
== END ==
LOC: CARD 08:26
PROVIDERS: ATTEND Nurse Practitioner Family
DX: I10 Essential (primary) hypertension (principal); R07.89 Other chest pain; I25.10 Atherosclerotic heart disease of native coronary artery without angina pectoris; I73.9 Peripheral vascular disease, unspecified; E78.4 Other hyperlipidemia
CPT/HCPCS: 78452; 93017

== ENCOUNTER → 2017-10-06 | Outpatient (CLI) | payer MEDICARE, OTHER ==
[~2017-10-06] MED LIST changes: +AZIT250T12 PO; -AZIT250T5 PO; +BENZ-36 PO; -BENZ100C23 PO; -CATHETER FLUSH 10 ML SYR IV PRN; -REGADENOSON 0.4 MG/5 ML SYR (LEXISCAN) IV ONE
--- NOTE | 2017-10-06 14:30 | Diagnostic Imaging Report ---
EXAMINATION: Magnetic resonance imaging of the right knee without intravenous contrast. DATE: October 06, 2017. COMPARISON: None. INDICATION: 67-year-old male, twisting injury of the right knee 5 weeks ago. Right medial knee pain. TECHNIQUE: Multiplanar, multisequence non contrast enhanced MR imaging was accomplished. FINDINGS: MENISCI: There is a complex oblique tear with superior and inferior surface extension involving the body and posterior horn of the medial meniscus extending into the posterior root attachment. There is no pronounced medial meniscal extrusion. There is a small free-edge tear involving the body of the lateral meniscus best illustrated on coronal proton density sequence image 16. LIGAMENTS AND TENDONS: The anterior and posterior cruciate ligaments are intact. The medial collateral ligament is intact. The iliotibial band, mid third lateral capsular ligament, fibular collateral ligament, biceps femoris tendon and conjoined tendon are intact. The quadriceps tendon and patella ligament are intact. JOINT: There is approximately 25% cartilage thinning over a 6 x 8 mm segment of the mid to posterior weightbearing portion of the medial femoral condyle. The additional articular cartilage is intact. There is a small knee joint effusion. There is no intra-articular body or prominent synovitis. BONE: There is a bone infarct in the distal femoral metaphysis. There is no acute fracture. There is no bone contusion. BURSAE AND SOFT TISSUES: There is anterior and lateral as well as posterior subcutaneous edema which is nonspecific. IMPRESSION: 1. Complex oblique tear involving the body and posterior horn of the medial meniscus extending into the posterior root attachment without current medial meniscal extrusion. 2. Small free-edge tear involving the body of the lateral meniscus. 3. Intact anterior and posterior cruciate ligaments. 4. Focal 25% thickness cartilage defect of the mid to posterior weightbearing portion of the medial femoral condyle. Small knee joint effusion. No identified intra-articular body. 5. 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 6. No acute fracture. Dictated by: Dictated on workstation # [id number]
== END ==
LOC: RAD 13:16
PROVIDERS: ATTEND Orthopaedic Surgery
DX: S83.241A Other tear of medial meniscus, current injury, right knee, initial encounter (principal); S83.281A Other tear of lateral meniscus, current injury, right knee, initial encounter; M25.461 Effusion, right knee; M85.851 Other specified disorders of bone density and structure, right thigh; X58.XXXA Exposure to other specified factors, initial encounter; Y99.8 Other external cause status
CPT/HCPCS: 73721

== ENCOUNTER 2019-01-01 17:51 | Observation (INO) | payer MEDICARE, OTHER ==
[~2019-01-01] VITALS: Ht 177.8 cm; Wt 123.5 kg
[~2019-01-01 17:51] MED LIST changes: -AMLO10TA2 PO; +AMLO10TA7 PO
[2019-01-01] MEDS ORDERED: ASPIRIN 81 MG CHEW (CHILDREN'S ASA) PO ONE (18:15)
[2019-01-01] MEDS ORDERED: NITROGLYCERIN 0.4 MG SL TABS BTL 25'S SL PRN ×2 (18:15→23:45)
[2019-01-01 18:25] LABS: BASOPHILS % (AUTO) 0 % (0-10); EOSINOPHILS # (AUTO) 0.2 10^3/uL (0.0-0.3); EOSINOPHILS % (AUTO) 2 % (0-10); HEMATOCRIT 46 % (40-54); HEMOGLOBIN 16.4 G/DL (13.3-17.7); LYMPHOCYTES # (AUTO) 2.7 X 10^3 (1.0-4.0); LYMPHOCYTES % (AUTO) 29 % (12-44); MEAN CORPUSCULAR HEMOGLOBIN 32 PG (25-34); MEAN CORPUSCULAR HGB CONC 36 G/DL (32-36); MEAN CORPUSCULAR VOLUME 91 FL (80-99); MEAN PLATELET VOLUME 10.3 FL (7.4-10.4); MONOCYTES % (AUTO) 11 % (0-12); NEUTROPHILS # (AUTO) 5.4 X 10^3 (1.8-7.8); NEUTROPHILS % (AUTO) 58 % (42-75); PLATELET COUNT 218 10^3/uL (130-400); RED CELL DISTRIBUTION WIDTH 13.2 % (10.0-14.5); WHITE BLOOD COUNT 9.4 10^3/uL (4.3-11.0)
--- NOTE | 2019-01-01 18:25 | ED Chest Pain ---
General Chief Complaint: Chest Pain Stated Complaint: CHEST PAINS Source: patient Exam Limitations: no limitations History of Present Illness Date Seen by Provider: Jan 01, 2019 Time Seen by Provider: 18:15 Initial Comments PT ARRIVES VIA POV FROM HOME C/O LEFT CHEST PAIN FOR 3 DAYS "FEELS LIKE MY HEART IS HURTING" RATES PAIN 4/10 NOTHING WORSENS OR IMPROVES PAIN PAIN IS A LITTLE WORSE TODAY HAS NOT TAKEN ANYTHING FOR PAIN SLIGHT SHORTNESS OF BREATH, BUT IS NOT ANY DIFFERENT THAN NORMAL FOR HIM C/O SLIGHT NAUSEA OFF AND ON C/O MILD SWEATS OFF AND ON PT HAS HAD 2 CARDIAC STENTS, NO MD. STATES THIS PAIN IS SIMILAR TO PAIN HE WAS HAVING PRIOR TO HIS STENTS, ONLY THIS IS WORSE HAS HISTORY OF HTN, DENIES ANY MISSED DOSES OR CHANGES IN HIS MEDICATIONS. PCP: DR. CASSIDY, LAST VISIT WAS SEVERAL MONTHS AGO MANAGER OF PRODUCTION: DR. DAVIDSON--HAS NOT SEEN IN OVER A YEAR Allergies and Home Medications Allergies Coded Allergies: desipramine (Verified Allergy, Mild, RASH, 02/09/17) Home Medications Albuterol Sulfate 2.5 Mg/3 Ml Vial.neb, 2.5 MG IH TID, (Reported) Amlodipine Besylate 10 Mg Tablet, 10 MG PO DAILY, (Reported) Aspirin 81 Mg Tabec, 81 MG PO DAILY, (Reported) Azithromycin 250 Mg Tablet, 500 MG PO DAILY Prescribed by: RAIMUNDO CASSIDY on 02/13/17829 Benzonatate 100 Mg Capsule, 200 MG PO TID Prescribed by: RAIMUNDO CASSIDY on 02/13/17829 Budesonide/Formoterol Fumarate 10.2 Gm Hfa.aer.ad, 2 PUFF IH BID Prescribed by: RAIMUNDO CASSIDY on 02/13/17829 Cyanocobalamin (Vitamin B-12) 1,000 Mcg Tablet, 1,000 MCG PO DAILY, (Reported) Dexamethasone 0.5 Mg Tablet, 0.5 MG PO Q12H Prescribed by: RAIMUNDO CASSIDY on 02/13/17829 Famotidine 20 Mg Tablet, 20 MG PO BID Prescribed by: RAIMUNDO CASSIDY on 02/13/17829 Hydrocodone/Chlorphen P-Stirex 473 Ml Kathi.er.12h, 5 ML PO Q12HR Prescribed by: RAIMUNDO CASSIDY on 02/13/17829 Hydroxyzine HCl 10 Mg Tablet, 10 MG PO TID Prescribed by: RAIMUNDO CASSIDY on 02/13/17829 Loratadine 10 Mg Tablet, 10 MG PO BID Prescribed by: RAIMUNDO CASSIDY on 02/13/17829 Losartan Potassium 100 Mg Tablet, 100 MG PO DAILY, (Reported) Montelukast Sodium 10 Mg Tablet, 10 MG PO HS, (Reported) Triamterene/Hydrochlorothiazid 1 Each Capsule, 1 TAB PO DAILY, (Reported) LAST FILLED 11/27/16 #30 Umeclidinium [place] 62.5 Mcg Blst.w.dev, 0 INH IH DAILY@0800 Prescribed by: RAIMUNDO ACSSIDY on 02/13/17829 Patient Home Medication List Home Medication List Reviewed: Yes Review of Systems Review of Systems Constitutional: see HPI, diaphoresis; No dizziness EENTM: No Symptoms Reported Respiratory: See HPI Cardiovascular: See HPI, Chest Pain Gastrointestinal: See HPI; Denies Abdominal Pain; Nausea; Denies Vomiting Genitourinary: No Symptoms Reported Musculoskeletal: back pain (CHRONIC/STABLE) Skin: no symptoms reported Endocrine: No Symptoms Reported Hematologic/Lymphatic: No Symptoms Reported Past Basbzgw-Buudhi-Mmyvzy Hx Patient Social History Alcohol Use: Occasionally Uses Number of Drinks Today: Alcohol Beverage of Choice: Wine Recreational Drug Use: No Smoking Status: Never a Smoker Recent Hopitalizations: Yes (CHOLY, TONSILLECTOMY, 5 BACK SURGERIES, 2 CARPAL TUNNEL SURGERIES) Immunizations Up To Date Date of Influenza Vaccine: Sep 20, 2016 Seasonal Allergies Seasonal Allergies: No Past Medical History Surgeries: Yes (CARDIAC CATHS--STENTS X 2 ; 6 BACK SURGERIES--2 ON UPPER BACK, 4 ON LOWER BACK--WITH HARDWARE IN PLACE;BILATERAL CARPAL TUNNEL SURGERY; BILATERAL CATARACT SURGERY; KIDNEY STONE REMOVAL; SKIN LESION REMOVAL FROM LEG) Adenoidectomy, Cardiac, Coronary Stent, Eye Surgery, Gallbladder, Neurological, Orthopedic, Renal, Tonsillectomy Respiratory: Yes Pneumonia, Sleep Apnea Currently Using CPAP: No Currently Using BIPAP: No Cardiac: Yes (HEART CATH/STENTS X2 2009) Chronic Edema/Swelling, Coronary Artery Disease, High Cholesterol, Hypertension Neurological: Yes (BILATERAL PERIPHERAL NEUROPATHY) Neuropathy Reproductive Disorders: No Sexually Transmitted Disease: No HIV/AIDS: No Genitourinary: Yes Benign Prostatic Hyperpl, Kidney Stones Gastrointestinal: Yes (S/P MARITZA) Gall Bladder Disease Musculoskeletal: Yes (CHRONIC BACK PAIN AND GENERALIZED PAIN; S/P BACK SURGERIES X 6; BILATERAL CARPAL TUNNEL) Degenerate Disk Disease, Chronic Back Pain Endocrine: No HEENT: Yes Cataract Loss of Vision: Denies Hearing Impairment: Denies Cancer: No Psychosocial: No Integumentary: No Blood Disorders: No Physical Exam Vital Signs Vital Signs - First Documented 01/01/19 18:06 Temp 99.0 Pulse 87 Resp 18 B/P (MAP) 244/108 (153) Pulse Ox 98 O2 Delivery Room Air Capillary Refill : Height, Weight, BMI Height: 5'10.00" Weight: 278lbs. 0.0oz. [phone]; 39.9 BMI Method:Stated General Appearance: No Apparent Distress, Obese HEENT: PERRL/EOMI Neck: Full Range of Motion, Normal Inspection, Non Tender, Supple; No Carotid Bruit, No JVD Respiratory: Chest Non Tender, Normal Breath Sounds, No Accessory Muscle Use, No Respiratory Distress Cardiovascular: Regular Rate, Rhythm, No Edema, No JVD, No Murmur, Normal Peripheral Pulses Gastrointestinal: Normal Bowel Sounds, No Organomegaly, No Pulsatile Mass, Non Tender, Soft Extremity: Normal Capillary Refill, Normal Range of Motion, No Calf Tenderness , Pedal Edema (1+ BILATERALLY) Neurologic/Psychiatric: Alert, Oriented x3, No Motor/Sensory Deficits, Normal Mood/Affect, return clerk II-XII Norm as Tested Skin: Normal Color, Warm/Dry; No Rash Progress/Results/Core Measures Results/Orders Lab Results Laboratory Tests Test 01/01/19 18:18 Range/Units White Blood Count 9.4 4.3-11.0 10^3/uL Red Blood Count 5.06 4.35-5.85 10^6/uL Hemoglobin 16.4 13.3-17.7 G/DL Hematocrit 46 40-54 % Mean Corpuscular Volume 91 80-99 FL Mean Corpuscular Hemoglobin 32 25-34 PG Mean Corpuscular Hemoglobin Concent 36 32-36 G/DL Red Cell Distribution Width 13.2 10.0-14.5 % Platelet Count 218 130-400 10^3/uL Mean Platelet Volume 10.3 7.4-10.4 FL Neutrophils (%) (Auto) 58 42-75 % Lymphocytes (%) (Auto) 29 12-44 % Monocytes (%) (Auto) 11 0-12 % Eosinophils (%) (Auto) 2 0-10 % Basophils (%) (Auto) 0 0-10 % Neutrophils # (Auto) 5.4 1.8-7.8 X 10^3 Lymphocytes # (Auto) 2.7 1.0-4.0 X 10^3 Monocytes # (Auto) 1.0 0.0-1.0 X 10^3 Eosinophils # (Auto) 0.2 0.0-0.3 10^3/uL Basophils # (Auto) 0.0 0.0-0.1 10^3/uL Prothrombin Time 12.9 12.2-14.7 SEC INR Comment 1.0 0.8-1.4 Activated Partial Thromboplast Time 30 24-35 SEC Sodium Level 143 135-145 MMOL/L Potassium Level 3.4 L 3.6-5.0 MMOL/L Chloride Level 106 98-107 MMOL/L Carbon Dioxide Level 26 21-32 MMOL/L Anion Gap 11 5-14 MMOL/L Blood Urea Nitrogen 18 7-18 MG/DL Creatinine 1.08 0.60-1.30 MG/DL Estimat Glomerular Filtration Rate > 60 BUN/Creatinine Ratio 17 Glucose Level 113 H 70-105 MG/DL Calcium Level 9.9 8.5-10.1 MG/DL Corrected Calcium 8.5-10.1 MG/DL Magnesium Level 2.4 1.8-2.4 MG/DL Total Bilirubin 0.4 0.1-1.0 MG/DL Aspartate Amino Transf (AST/SGOT) 29 5-34 U/L Alanine Aminotransferase (ALT/SGPT) 30 0-55 U/L Alkaline Phosphatase 69 40-136 U/L Total Creatine Kinase 405 H 30-200 U/L Creatine Kinase MB 3.9 <6.6 NG/ML Myoglobin 132.6 H 10.0-92.0 NG/ML Troponin I < 0.028 <0.028 NG/ML B-Type Natriuretic Peptide 28.2 <100.0 PG/ML Total Protein 8.0 6.4-8.2 GM/DL Albumin 4.7 H 3.2-4.5 GM/DL Amylase Level 45 25-125 U/L Lipase 37 8-78 U/L My Orders Orders - MANJIT UMAÑA DO Cbc With Automated Diff (01/01/19 18:13) Magnesium (01/01/19 18:13) Chest 1 View, Ap/Pa Only (01/01/19 18:13) Cardiac Profile 1 (01/01/19 18:13) Comprehensive Metabolic Panel (01/01/19 18:13) Myoglobin Serum (01/01/19 18:13) Protime With Inr (01/01/19 18:13) Partial Thromboplastin Time (01/01/19 18:13) O2 (01/01/19 18:13) Monitor-Rhythm Ecg Trace Only (01/01/19 18:13) Aspirin Chewable Tablet (Baby Aspirin Ch (01/01/19 18:15) Nitroglycerin 0.4 Mg Btl 25's (Nitrostat (01/01/19 18:15) Saline Lock/Iv-Start (01/01/19 18:13) Creatine Kinase (01/01/19 18:13) Creatine Kinase Mb (01/01/19 18:13) Lipase (01/01/19 18:13) Amylase (01/01/19 18:13) BNP (01/01/19 18:13) Nitroglycerin Ointment (Nitrobid Ointme (01/01/19 18:30) Hydralazine Injection (Apresoline Inject (01/01/19 20:00) Morphine Injection (Morphine Injection (01/01/19 19:51) Vital Signs/I&O 01/01/19 18:06 Temp 99.0 Pulse 87 Resp 18 B/P (MAP) 244/108 (153) Pulse Ox 98 O2 Delivery Room Air Progress Progress Note : Progress Note BLOOD PRESSURE DOWN WITH MEDICATIONS, AND PT IS ALMOST PAIN FREE AT TIME OF ADMIT. Initial ECG Impression Date: Jan 01, 2019 Initial ECG Impression Time: 18:05 Initial ECG Rate: 83 Initial ECG Rhythm: Normal Sinus Initial ECG Impression: Nonspecific Changes Initial ECG Comparisson: Unchanged Diagnostic Imaging Comments CXR--NO ACUTE PROCESS, PER RADIOLOGIST REPORT Reviewed: Reviewed by Me Departure Communication (Admissions) 1956--DR. CASSIDY CONTACTED VIA TEXT ( HER PREFERENCE SHE HAS LARYNGITIS) ACCEPTS PT FOR ADMIT. 1958--SPOKE WITH DR. WAY FOR CARDIOLOGY CONSULT. WILL CONSULT DR. DAVIDSON IN AM. Impression Primary Impression: Chest pain Additional Impressions: Uncontrolled hypertension HX OF CAD WITH STENTS Disposition: ADMITTED INPATIENT Condition: Improved Admissions Decision to Admit Reason: Admit from ER (General) Decision to Admit/Date: Jan 01, 2019 Time/Decision to Admit Time: 20:00 Departure-Patient Inst. Referrals: RAIMUNDO CASSIDY DO (PCP/Family) Primary Care Physician MANJIT UMAÑA DO Jan 01, 2019 18:25
[2019-01-01] MEDS ORDERED: NITROGLYCERIN 2% OINT 1 GM UNIT DOSE PACKET TOP ONE (18:30)
[2019-01-01 18:42] LABS: PROTHROMBIN TIME PATIENT 12.9 SEC (12.2-14.7)
[2019-01-01 18:50] LABS: ALANINE AMINOTRANSFERASE 30 U/L (0-55); ALBUMIN 4.7 GM/DL (3.2-4.5); ALKALINE PHOSPHATASE 69 U/L (40-136); AMYLASE 45 U/L (25-125); BILIRUBIN,TOTAL 0.4 MG/DL (0.1-1.0); BUN/CREATININE RATIO 17; CALCIUM 9.9 MG/DL (8.5-10.1); CARBON DIOXIDE 26 MMOL/L (21-32); CHLORIDE 106 MMOL/L (98-107); CREATINE KINASE 405 U/L (30-200); CREATININE SERUM 1.08 MG/DL (0.60-1.30); GFR ESTIMATED > 60; GLUCOSE 113 MG/DL (70-105); LIPASE 37 U/L (8-78); MAGNESIUM 2.4 MG/DL (1.8-2.4); POTASSIUM 3.4 MMOL/L (3.6-5.0); SODIUM 143 MMOL/L (135-145)
[2019-01-01 18:57] LABS: CREATINE KINASE MB 3.9 NG/ML (<6.6); MYOGLOBIN SERUM 132.6 NG/ML (10.0-92.0)
[2019-01-01] MEDS ORDERED: morphine INJ 10 MG/ML 1ML (SYR OR VIAL) IVP STA (19:51)
--- NOTE | 2019-01-01 19:55 | Diagnostic Imaging Report ---
EXAMINATION: Chest radiograph, portable AP view. DATE: January 01, 2019 at 1930 hours. INDICATION: 68-year-old male, chest pain. COMPARISON: February 09, 2017. FINDINGS: There is cervical spinal hardware noted. Stable overall appearance of the cardiomediastinal silhouette. There is partially visualized thoracolumbar hardware. There is no identified pneumothorax. There is no large pleural effusion. There is no identified focal airspace consolidation. IMPRESSION: No identified acute cardiopulmonary abnormality. Dictated by: Dictated on workstation # [id number]
[2019-01-01] MEDS ORDERED: hydrALAZINE (APESOLINE) 20 MG/ML VIAL IV ONE ×2 (20:00→21:15)
--- OUTSIDE RECORDS SUMMARY | 2019-01-01 20:47 | XMS REPORT | Continuity of Care Document ---
Author Author [facility] Organization [facility] Address Unknown Phone Unavailable Allergies Active Description Code Type Severity Reaction Onset Reported/Identified Relationship to Patient Clinical Status Yes desipramine [id number] Drug Allergy Mild RASH 02/09/2017 Medications There is no data. 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 01/10/2012 Ot V45.82 PERCUTANEOUS TRANSLUM CORON ANGIOPLASTY 01/18/2012 Ot 244.9 HYPOTHYROIDISM NOS 01/18/2012 Ot 250.60 DIAB W NEURO MANIFEST, TYPE II OR UNSPEC 01/18/2012 Ot 272.4 HYPERLIPIDEMIA NEC/NOS 01/18/2012 Ot 357.2 NEUROPATHY IN DIABETES 01/18/2012 Ot 401.9 HYPERTENSION NOS 01/18/2012 Ot 414.01 CORONARY ATHEROSCLEROSIS OF [place] CORON 01/18/2012 Ot 592.1 CALCULUS OF URE[place] 01/18/2012 Ot 715.90 OSTEOARTHROS NOS-UNSPEC 01/18/2012 Ot V58.69 OTH MED,LT, CURRENT USE 03/26/2012 Ot V58.30 ENCOUNTER FOR CHANGE OR REMOVAL OF NONSU 04/25/2012 Ot 592.0 CALCULUS OF KIDNEY 06/15/2016 Ot 414.00 CORON ATHEROSCLER NOS TYPE VESSEL, NATIV 06/15/2016 Ot 592.0 CALCULUS OF KIDNEY 06/15/2016 Ot 592.1 CALCULUS OF [place] 06/15/2016 Ot V72.63 PRE- PROCEDURAL LABORATORY EXAMINATION 06/15/2016 Ot V72.81 EXAM-PRE- OPERATIVE CARDIOVASCULAR 06/15/2016 Ot 592.1 CALCULUS OF URETER [...] 592.1 CALCULUS OF URETER 06/16/2016 Ot V72.63 PRE- PROCEDURAL LABORATORY EXAMINATION 06/16/2016 Ot V72.81 EXAM-PRE- OPERATIVE CARDIOVASCULAR 06/16/2016 Ot 592.1 CALCULUS OF URETER 06/16/2016 Ot 593.9 RENAL URETERAL DIS NOS 06/16/2016 Ot V58.30 ENCOUNTER FOR CHANGE OR REMOVAL OF NONSU 06/16/2016 Ot 592.0 CALCULUS OF KIDNEY 06/16/2016 MANJIT UMAÑA DO Ot M25.551 PAIN IN RIGHT HIP 06/16/2016 MANJIT UMAÑA DO Ot M54.41 LUMBAGO WITH SCIATICA, RIGHT SIDE 07/13/2016 MANJIT UMAÑA DO Ot M25.551 PAIN IN RIGHT HIP 07/13/2016 LEEROY MANJIT CHILDS Ot M54.41 LUMBAGO WITH SCIATICA, RIGHT SIDE 02/09/2017 Ot V58.30 ENCOUNTER FOR CHANGE OR REMOVAL OF NONSU 02/09/2017 Ot 592.0 CALCULUS OF KIDNEY 02/09/2017 RAIMUNDO CASSIDY DO Ot J20.9 ACUTE BRONCHITIS, UNSPECIFIED 02/13/2017 RAIMUNDO CASSIDY DO Ot D72.829 ELEVATED WHITE BLOOD CELL COUNT, UNSPECI 02/13/2017 RAIMUNDO CASSIDY DO Ot E03.9 HYPOTHYROIDISM, UNSPECIFIED 02/13/2017 RAIMUNDO CASSIDY DO Ot E11.65 TYPE 2 DIABETES MELLITUS WITH HYPERGLYCE 02/13/2017 RAIMUNDO CASSIDY DO Ot E66.9 OBESITY, UNSPECIFIED 02/13/2017 RAIMUNDO CASSIDY DO Ot E78.5 HYPERLIPIDEMIA, UNSPECIFIED 02/13/2017 CASSIDY DO RAIMUNDO Ot G47.00 INSOMNIA, UNSPECIFIED 02/13/2017 CASSIDY DO RAIMUNDO Ot G47.33 OBSTRUCTIVE SLEEP APNEA (ADULT) (PEDIATR 02/13/2017 CASSIDY DO RAIMUNDO Ot I10 ESSENTIAL (PRIMARY) HYPERTENSION 02/13/2017 ANGE DO RAIMUNDO Ot I25.10 ATHSCL HEART DISEASE OF [place] CORONARY 02/13/2017 ANGE CHILDS RAIMUNDO Ot J18.9 PNEUMONIA, UNSPECIFIED ORGANISM 02/13/2017 CASSIDY DO RAIMUNDO Ot J20.9 ACUTE BRONCHITIS, UNSPECIFIED 02/13/2017 CASSIDY DO RAIMUNDO Ot K75.81 NONALCOHOLIC STEATOHEPATITIS (PERSAUD) 02/13/2017 ANGE DO RAIMUNDO Ot M19.90 UNSPECIFIED OSTEOARTHRITIS, UNSPECIFIED 02/13/2017 ANGE DO RAIMUNDO Ot M79.1 MYALGIA 02/13/2017 ANGE CHILDS RAIMUNDO Ot R06.2 WHEEZING 02/13/2017 ANGE CHILDS RAIMUNDO Ot Z68.41 BODY MASS INDEX (BMI) 40.0-44.9, ADULT 02/13/2017 ANGE CHILDS RAIMUNDO Ot Z91.19 PATIENT'S NONCOMPLIANCE W [facility] MEDICAL TR 02/13/2017 ANGE CHILDS RAIMUNDO Ot Z95.5 PRESENCE OF CORONARY ANGIOPLASTY IMPLANT 02/15/2017 ANGE CHILDS RAIMUNDO Ot D72.829 ELEVATED WHITE BLOOD CELL COUNT, UNSPECI 02/15/2017 ANGE CHILDS RAIMUNDO Ot E03.9 HYPOTHYROIDISM, UNSPECIFIED 02/15/2017 ANGE CHILDS RAIMUNDO Ot E11.65 TYPE 2 DIABETES MELLITUS WITH HYPERGLYCE 02/15/2017 ANGE DO RAIMUNDO Ot E66.9 OBESITY, UNSPECIFIED 02/15/2017 CASSIDY DO RAIMUNDO Ot E78.5 HYPERLIPIDEMIA, UNSPECIFIED 02/15/2017 ANGE DO RAIMUNDO Ot G47.00 INSOMNIA, UNSPECIFIED 02/15/2017 ANGE DO RAIMUNDO Ot G47.33 OBSTRUCTIVE SLEEP APNEA (ADULT) (PEDIATR 02/15/2017 CASSIDY DO RAIMUNDO Ot I10 ESSENTIAL (PRIMARY) HYPERTENSION 02/15/2017 ANGE CHILDS RAIMUNDO Ot I25.10 ATHSCL HEART DISEASE OF [place] CORONARY 02/15/2017 ANGE CHILDS RAIMUNDO Ot J18.9 PNEUMONIA, UNSPECIFIED ORGANISM 02/15/2017 MICHAEL CASSIDY DOI Ot J20.9 ACUTE BRONCHITIS, UNSPECIFIED 02/15/2017 MICHAEL CASSIDY DOI Ot K75.81 NONALCOHOLIC STEATOHEPATITIS (PERSAUD) 02/15/2017 ANGE CHILDS RAIMUNDO Ot M19.90 UNSPECIFIED OSTEOARTHRITIS, UNSPECIFIED 02/15/2017 ANGE CHILDS RAIMUNDO Ot M79.1 MYALGIA 02/15/2017 ANGE CHILDS RAIMUNDO Ot R06.2 WHEEZING 02/15/2017 MICHAEL CASSIDY DOI Ot Z68.41 BODY MASS INDEX (BMI) 40.0-44.9, ADULT 02/15/2017 MICHAEL CASSIDY DOI Ot Z91.19 PATIENT'S NONCOMPLIANCE W [facility] MEDICAL TR 02/15/2017 MICHAEL CASSIDY DOI Ot Z95.5 PRESENCE OF CORONARY ANGIOPLASTY IMPLANT 02/15/2017 MICHAEL CASSIDY DOI Ot D72.829 ELEVATED WHITE BLOOD CELL COUNT, UNSPECI 02/15/2017 MICHAEL CASSIDY DOI Ot E03.9 HYPOTHYROIDISM, UNSPECIFIED 02/15/2017 ANGE CHILDS RAIMUNDO Ot E11.65 TYPE 2 DIABETES MELLITUS WITH HYPERGLYCE 02/15/2017 ANGE CHILDS RAIMUNDO Ot E66.9 OBESITY, UNSPECIFIED 02/15/2017 ANGE CHILDS RAIMUNDO Ot E78.5 HYPERLIPIDEMIA, UNSPECIFIED 02/15/2017 ANGE CHILDS RAIMUNDO Ot G47.00 INSOMNIA, UNSPECIFIED 02/15/2017 ANGE CHILDS RAIMUNDO Ot G47.33 OBSTRUCTIVE SLEEP APNEA (ADULT) (PEDIATR 02/15/2017 ANGE CHILDS RAIMUNDO Ot I10 ESSENTIAL (PRIMARY) HYPERTENSION 02/15/2017 ANGE CHILDS RAIMUNDO Ot I25.10 ATHSCL HEART DISEASE OF [place] CORONARY 02/15/2017 MICHAEL CASSIDY DOI Ot J18.9 PNEUMONIA, UNSPECIFIED ORGANISM 02/15/2017 MICHAEL CASSIDY DOI Ot J20.9 ACUTE BRONCHITIS, UNSPECIFIED 02/15/2017 ANGE CHILDS RAIMUNDO Ot K75.81 NONALCOHOLIC STEATOHEPATITIS (PERSAUD) 02/15/2017 ANGE CHILDS RAIMUNDO Ot M19.90 UNSPECIFIED OSTEOARTHRITIS, UNSPECIFIED 02/15/2017 MICHAEL CASSIDY DOI Ot M79.1 MYALGIA 02/15/2017 RAIMUNDO CASSIDY DO Ot R06.2 WHEEZING 02/15/2017 RAIMUNDO CASSIDY DO Ot Z68.41 BODY MASS INDEX (BMI) 40.0-44.9, ADULT 02/15/2017 RAIMUNDO CASSIDY DO Ot Z91.19 PATIENT'S NONCOMPLIANCE W [facility] MEDICAL TR 02/15/2017 RAIMUNDO CASSIDY DO Ot Z95.5 PRESENCE OF CORONARY ANGIOPLASTY IMPLANT 02/22/2017 RAIMUNDO CASSIDY DO Ot J20.9 ACUTE BRONCHITIS, UNSPECIFIED 03/20/2017 BAIMA, REJI L FUR DRY CLEANER Ot E78.4 OTHER HYPERLIPIDEMIA 03/20/2017 BAIMA, REJI L FUR DRY CLEANER Ot I10 ESSENTIAL (PRIMARY) HYPERTENSION 03/20/2017 BAIMA, REJI L FUR DRY CLEANER Ot I25.10 ATHSCL HEART DISEASE OF [place] CORONARY 03/20/2017 BAIMA, REJI L FUR DRY CLEANER Ot I73.9 PERIPHERAL VASCULAR DISEASE, UNSPECIFIED 03/20/2017 BAIMA, REJI L FUR DRY CLEANER Ot R07.89 OTHER CHEST PAIN 04/06/2017 BAIMA, REJI L FUR DRY CLEANER Ot E78.4 OTHER HYPERLIPIDEMIA 04/06/2017 BAIMA, REJI L FUR DRY CLEANER Ot I10 ESSENTIAL (PRIMARY) HYPERTENSION 04/06/2017 BAIMA, REJI L FUR DRY CLEANER Ot I25.10 ATHSCL HEART DISEASE OF [place] CORONARY 04/06/2017 BAIMA, REJI L FUR DRY CLEANER Ot I73.9 PERIPHERAL VASCULAR DISEASE, UNSPECIFIED 04/06/2017 BAIMA, REJI L FUR DRY CLEANER Ot R07.89 OTHER CHEST PAIN 04/17/2017 Ot 592.0 CALCULUS OF KIDNEY 04/17/2017 Ot 592.1 CALCULUS OF [place] 04/17/2017 Ot V72.63 PRE- PROCEDURAL LABORATORY EXAMINATION 04/17/2017 Ot V72.81 EXAM-PRE- OPERATIVE CARDIOVASCULAR 04/17/2017 Ot 592.1 CALCULUS OF [place] 04/17/2017 Ot 593.9 RENAL URETERAL DIS NOS 04/17/2017 Ot V58.30 ENCOUNTER FOR CHANGE OR REMOVAL OF NONSU 04/17/2017 Ot 592.0 CALCULUS OF KIDNEY 04/17/2017 RAIMUNDO CASSIDY DO Ot J20.9 ACUTE BRONCHITIS, UNSPECIFIED 04/17/2017 BAIMA, REJI L FUR DRY CLEANER Ot E78.4 OTHER HYPERLIPIDEMIA 04/17/2017 BAIMA, REJI L FUR DRY CLEANER Ot I10 ESSENTIAL (PRIMARY) HYPERTENSION 04/17/2017 REJI VAIL FUR DRY CLEANER Ot I25.10 ATHSCL HEART DISEASE OF [place] CORONARY 04/17/2017 REJI VAIL FUR DRY CLEANER Ot I73.9 PERIPHERAL VASCULAR DISEASE, UNSPECIFIED 04/17/2017 REJI VAIL FUR DRY CLEANER Ot R07.89 OTHER CHEST PAIN 10/12/2017 FARSHAD DO, YAMILKA Franklin Ot M25.461 EFFUSION, RIGHT KNEE 10/12/2017 FARSHAD DO, YAMILKA F Ot M85.851 OTH DISRD OF BONE DENSITY AND STRUCTURE, 10/12/2017 FARSHAD DO, YAMILKA Rigoberto Ot S83.241A OTH TEAR OF MEDIAL MENISCUS, CURRENT INJ 10/12/2017 FARSHAD DO YAMILKA Franklin Ot S83.281A OTH TEAR OF LAT MENSC, CURRENT INJURY, R 10/12/2017 FARSHAD DO YAMILKA Rigoberto Ot X58.XXXA EXPOSURE TO OTHER SPECIFIED FACTORS, INI 10/12/2017 FARSHAD DO YAMILKA Franklin Ot Y99.8 OTHER EXTERNAL CAUSE STATUS 10/24/2017 FARSHAD DO, YAMILKA Rigoberto Ot M25.461 EFFUSION, RIGHT KNEE 10/24/2017 FARSHAD DO, YAMILKA F Ot M85.851 OTH DISRD OF BONE DENSITY AND STRUCTURE, 10/24/2017 FARSHAD DO YAMILKA Rigoberto Ot S83.241A OTH TEAR OF MEDIAL MENISCUS, CURRENT INJ 10/24/2017 FARSHAD DO YAMILKA F Ot S83.281A OTH TEAR OF LAT MENSC, CURRENT INJURY, R 10/24/2017 FARSHAD DO YAMILKA Rigoberto Ot X58.XXXA EXPOSURE TO OTHER SPECIFIED FACTORS, INI 10/24/2017 FARSHAD DO YAMILKA F Ot Y99.8 OTHER EXTERNAL CAUSE STATUS 10/31/2017 FARSHAD DO, YAMILKA F Ot M25.461 EFFUSION, RIGHT KNEE 10/31/2017 FARSHAD DO YAMILKA F Ot M85.851 OTH DISRD OF BONE DENSITY AND STRUCTURE, 10/31/2017 FARSHAD DO YAMILKA F Ot S83.241A OTH TEAR OF MEDIAL MENISCUS, CURRENT INJ 10/31/2017 FARSHAD DO, YAMILKA F Ot S83.281A OTH TEAR OF LAT MENSC, CURRENT INJURY, R 10/31/2017 FARSHAD DO YAMILKA F Ot X58.XXXA EXPOSURE TO OTHER SPECIFIED FACTORS, INI 10/31/2017 FARSHAD DO, YAMILKA Franklin Ot Y99.8 OTHER EXTERNAL CAUSE STATUS 11/14/2017 FARSHAD , YAMILKA Franklin Ot M25.461 EFFUSION, RIGHT KNEE 11/14/2017 FARSHAD DO, YAMILKA Franklin Ot M85.851 OTH DISRD OF BONE DENSITY AND STRUCTURE, 11/14/2017 FARSHAD , YAMILKA Franklin Ot S83.241A OTH TEAR OF MEDIAL MENISCUS, CURRENT INJ 11/14/2017 FARSHAD DO, YAMILKA Franklin Ot S83.281A OTH TEAR OF LAT MENSC, CURRENT INJURY, R 11/14/2017 FARSHAD DO, YAMILKA Franklin Ot X58.XXXA EXPOSURE TO OTHER SPECIFIED FACTORS, INI 11/14/2017 FARSHAD CHILDS, YAMILKA Franklin Ot Y99.8 OTHER EXTERNAL CAUSE STATUS 01/01/2019 FARSHAD CHILDS, YAMILKA Franklin Ot M25.461 EFFUSION, RIGHT KNEE 01/01/2019 FARSHAD DO, YAMILKA Franklin Ot M85.851 OTH DISRD OF BONE DENSITY AND STRUCTURE, 01/01/2019 FARSHAD CHILDS, YAMILKA Franklin Ot S83.241A OTH TEAR OF MEDIAL MENISCUS, CURRENT INJ 01/01/2019 FARSHAD DO, YAMILKA Franklin Ot S83.281A OTH TEAR OF LAT MENSC, CURRENT INJURY, R 01/01/2019 FARSHAD CHILDS, YAMILKA Franklin Ot X58.XXXA EXPOSURE TO OTHER SPECIFIED FACTORS, INI 01/01/2019 FARSHAD CHILDS, YAMILKA Franklin Ot Y99.8 OTHER EXTERNAL CAUSE STATUS Procedures There is no data. Results Test Result Range Capillary blood glucose measurement by glucometer (mass/volume) - 02/09/17 15: 54 Capillary blood glucose measurement by glucometer (mass/volume) 196 mg/dL 70-110 Complete blood count (CBC) with automated white blood cell (WBC) differential - 02/09/17 16:00 Blood leukocytes automated count (number/volume) 13.1 10*3/uL 4.3-11.0 Blood erythrocytes automated count (number/volume) 4.39 10*6/uL 4.35-5.85 Venous blood hemoglobin measurement (mass/volume) 14.2 [...] Automated blood platelet mean volume measurement 9.8 [foz_us] 7.4-10.4 Automated blood neutrophils/100 leukocytes 75 % [...] Serum or plasma sodium measurement (moles/volume) 138 mmol/L 135-145 Serum or plasma potassium measurement (moles/volume) 3.8 mmol/L 3.6-5.0 Serum or plasma chloride measurement (moles/volume) 104 mmol/L 98-107 Carbon dioxide 23 mmol/L 21-32 Serum or plasma anion gap determination (moles/volume) 11 mmol/L 5-14 Serum or plasma urea nitrogen measurement (mass/volume) 24 mg/dL 7-18 Serum or plasma creatinine measurement (mass/volume) 1.19 mg/dL 0.60-1.30 Serum or plasma urea nitrogen/creatinine mass [...] 04:40 Blood leukocytes automated count (number/volume) 16.7 10*3/uL 4.3-11.0 Blood erythrocytes automated count (number/volume) 4.46 10*6/uL 4.35-5.85 Venous blood hemoglobin measurement (mass/volume) 14.4 [...] Automated blood platelet mean volume measurement 10.0 [foz_us] 7.4-10.4 Automated blood neutrophils/100 leukocytes 85 % [...] Serum or plasma sodium measurement (moles/volume) 138 mmol/L 135-145 Serum or plasma potassium measurement (moles/volume) 4.3 mmol/L 3.6-5.0 Serum or plasma chloride measurement (moles/volume) 105 mmol/L 98-107 Carbon dioxide 19 mmol/L 21-32 Serum or plasma anion gap determination (moles/volume) 14 mmol/L 5-14 Serum or plasma urea nitrogen measurement (mass/volume) 25 mg/dL 7-18 Serum or plasma creatinine measurement (mass/volume) 1.10 mg/dL 0.60-1.30 Serum or plasma urea nitrogen/creatinine mass [...] or plasma troponin i.cardiac measurement (mass/volume) < ng/ mL <0.30 Capillary blood glucose measurement by glucometer [...] 04:15 Blood leukocytes automated count (number/volume) 25.1 10*3/uL 4.3-11.0 Blood erythrocytes automated count (number/volume) 4.28 10*6/uL 4.35-5.85 Venous blood hemoglobin measurement (mass/volume) 13.7 [...] Automated blood platelet mean volume measurement 10.0 [foz_us] 7.4-10.4 Automated blood neutrophils/100 leukocytes 85 % [...] 0.0 10*3/uL 0.0-0.1 Comprehensive metabolic panel - 02/11/17 04:15 Serum or plasma sodium measurement (moles/volume) 137 mmol/L 135-145 Serum or plasma potassium measurement (moles/volume) 4.4 mmol/L 3.6-5.0 Serum or plasma chloride measurement (moles/volume) 106 mmol/L 98-107 Carbon dioxide 19 mmol/L 21-32 Serum or plasma anion gap determination (moles/volume) 12 mmol/L 5-14 Serum or plasma urea nitrogen measurement (mass/volume) 30 mg/dL 7-18 Serum or plasma creatinine measurement (mass/volume) 1.15 mg/dL 0.60-1.30 Serum or plasma urea nitrogen/creatinine mass ratio 26 NRG Serum or plasma creatinine measurement with calculation of estimated glomerular filtration rate > NRG Serum or plasma glucose measurement (mass/volume) 232 mg/dL 70-105 Serum or plasma calcium measurement (mass/volume) 8.8 mg/dL 8.5-10.1 Serum or plasma total bilirubin measurement (mass/volume) 0.3 mg/dL 0.1-1.0 Serum or plasma alkaline phosphatase measurement (enzymatic activity/volume) 59 U/L 40-136 Serum or plasma aspartate aminotransferase measurement (enzymatic activity/ volume) 22 U/L 5-34 Serum or plasma alanine aminotransferase measurement (enzymatic activity/volume ) 44 U/L 0-55 Serum or plasma protein measurement (mass/volume) 6.8 g/dL 6.4-8.2 Serum or plasma albumin measurement (mass/volume) 3.8 g/dL 3.2-4.5 Magnesium - 02/11/17 04:15 Magnesium 2.5 mg/dL 1.8-2.4 Lipid 1996 panel - 02/11/17 04:15 Serum or plasma triglyceride measurement (mass/volume) 222 mg/dL <150 Serum or plasma cholesterol measurement (mass/volume) 194 mg/dL < 200 Serum or plasma cholesterol in HDL measurement (mass/volume) 37 mg/ dL 40-60 Cholesterol in LDL [mass/volume] in serum or plasma by direct assay 136 mg/dL 1-129 Serum or plasma cholesterol in VLDL measurement (mass/volume) 44 mg/ dL 5-40 Blood manual differential performed detection - 02/11/17 04:15 Blood monocytes/100 leukocytes 6 % NRG Manual blood segmented neutrophils/100 leukocytes 74 % NRG Blood band neutrophils/100 leukocytes 7 % NRG Manual blood lymphocytes/100 leukocytes 13 % NRG Blood erythrocyte morphology finding identification NORMAL NRG Capillary blood glucose measurement by glucometer (mass/volume) - 02/11/17 10: 51 Capillary blood glucose measurement by glucometer (mass/volume) 293 mg/dL 70-110 Capillary blood glucose measurement by glucometer (mass/volume) - 02/11/17 16: 40 Capillary blood glucose measurement by glucometer (mass/volume) 228 mg/dL 70-110 Capillary blood glucose measurement by glucometer (mass/volume) - 02/11/17 21: 29 Capillary blood glucose measurement by glucometer (mass/volume) 234 mg/dL 70-110 Complete blood count (CBC) with automated white blood cell (WBC) differential - 02/12/17 04:20 Blood leukocytes automated count (number/volume) 20.8 10*3/uL 4.3-11.0 Blood erythrocytes automated count (number/volume) 4.01 10*6/uL 4.35-5.85 Venous blood hemoglobin measurement (mass/volume) 13.0 g/dL 13.3-17.7 Blood hematocrit (volume fraction) 38 % 40-54 Automated erythrocyte mean corpuscular volume 94 [foz_us] 80-99 Automated erythrocyte mean corpuscular hemoglobin (mass per erythrocyte) 32 pg 25-34 Automated erythrocyte mean corpuscular hemoglobin concentration measurement ( mass/volume) 34 g/dL 32-36 Automated erythrocyte distribution width ratio 12.7 % 10.0-14.5 Automated blood platelet count (count/volume) 256 10*3/uL 130-400 Automated blood platelet mean volume measurement 10.0 [foz_us] 7.4-10.4 Automated blood neutrophils/100 leukocytes 80 % 42-75 Automated blood lymphocytes/100 leukocytes 11 % 12-44 Blood monocytes/100 leukocytes 9 % 0-12 Automated blood eosinophils/100 leukocytes 0 % 0-10 Automated blood basophils/100 leukocytes 0 % 0-10 Blood neutrophils automated count (number/volume) 16.6 10*3 1.8-7.8 Blood lymphocytes automated count (number/volume) 2.2 10*3 1.0-4.0 Blood monocytes automated count (number/volume) 2.0 10*3 0.0-1.0 Automated eosinophil count 0.0 10*3/uL 0.0-0.3 Automated blood basophil count (count/volume) 0.0 10*3/uL 0.0-0.1 Comprehensive metabolic panel - 02/12/17 04:20 Serum or plasma sodium measurement (moles/volume) 139 mmol/L 135-145 Serum or plasma potassium measurement (moles/volume) 4.0 mmol/L 3.6-5.0 Serum or plasma chloride measurement (moles/volume) 106 mmol/L 98-107 Carbon dioxide 22 mmol/L 21-32 Serum or plasma anion gap determination (moles/volume) 11 mmol/L 5-14 Serum or plasma urea nitrogen measurement (mass/volume) 25 mg/dL 7-18 Serum or plasma creatinine measurement (mass/volume) 0.98 mg/dL 0.60-1.30 Serum or plasma urea nitrogen/creatinine mass ratio 26 NRG Serum or plasma creatinine measurement with calculation of estimated glomerular filtration rate > NRG Serum or plasma glucose measurement (mass/volume) 159 mg/dL 70-105 Serum or plasma calcium measurement (mass/volume) 8.3 mg/dL 8.5-10.1 Serum or plasma total bilirubin measurement (mass/volume) 0.4 mg/dL 0.1-1.0 Serum or plasma alkaline phosphatase measurement (enzymatic activity/volume) 48 U/L 40-136 Serum or plasma aspartate aminotransferase measurement (enzymatic activity/ volume) 20 U/L 5-34 Serum or plasma alanine aminotransferase measurement (enzymatic activity/volume ) 37 U/L 0-55 Serum or plasma protein measurement (mass/volume) 6.3 g/dL 6.4-8.2 Serum or plasma albumin measurement (mass/volume) 3.6 g/dL 3.2-4.5 Capillary blood glucose measurement by glucometer (mass/volume) - 02/12/17 10: 49 Capillary blood glucose measurement by glucometer (mass/volume) 320 mg/dL 70-110 Capillary blood glucose measurement by glucometer (mass/volume) - 02/12/17 16: 25 Capillary blood glucose measurement by glucometer (mass/volume) 132 mg/dL 70-110 Capillary blood glucose measurement by glucometer (mass/volume) - 02/12/17 21: 03 Capillary blood glucose measurement by glucometer (mass/volume) 267 mg/dL 70-110 Complete blood count (CBC) with automated white blood cell (WBC) differential - 02/13/17 04:23 Blood leukocytes automated count (number/volume) 16.8 10*3/uL 4.3-11.0 Blood erythrocytes automated count (number/volume) 4.27 10*6/uL 4.35-5.85 Venous blood hemoglobin measurement (mass/volume) 13.7 g/dL 13.3-17.7 Blood hematocrit (volume fraction) 40 % 40-54 Automated erythrocyte mean corpuscular volume 93 [foz_us] 80-99 Automated erythrocyte mean corpuscular hemoglobin (mass per erythrocyte) 32 pg 25-34 Automated erythrocyte mean corpuscular hemoglobin concentration measurement ( mass/volume) 34 g/dL 32-36 Automated erythrocyte distribution width ratio 12.7 % 10.0-14.5 Automated blood platelet count (count/volume) 248 10*3/uL 130-400 Automated blood platelet mean volume measurement 10.0 [foz_us] 7.4-10.4 Automated blood neutrophils/100 leukocytes 76 % 42-75 Automated blood lymphocytes/100 leukocytes 14 % 12-44 Blood monocytes/100 leukocytes 10 % 0-12 Automated blood eosinophils/100 leukocytes 0 % 0-10 Automated blood basophils/100 leukocytes 0 % 0-10 Blood neutrophils automated count (number/volume) 12.8 10*3 1.8-7.8 Blood lymphocytes automated count (number/volume) 2.3 10*3 1.0-4.0 Blood monocytes automated count (number/volume) 1.7 10*3 0.0-1.0 Automated eosinophil count 0.0 10*3/uL 0.0-0.3 Automated blood basophil count (count/volume) 0.1 10*3/uL 0.0-0.1 Comprehensive metabolic panel - 02/13/17 04:23 Serum or plasma sodium measurement (moles/volume) 140 mmol/L 135-145 Serum or plasma potassium measurement (moles/volume) 3.9 mmol/L 3.6-5.0 Serum or plasma chloride measurement (moles/volume) 107 mmol/L 98-107 Carbon dioxide 22 mmol/L 21-32 Serum or plasma anion gap determination (moles/volume) 11 mmol/L 5-14 Serum or plasma urea nitrogen measurement (mass/volume) 22 mg/dL 7-18 Serum or plasma creatinine measurement (mass/volume) 0.94 mg/dL 0.60-1.30 Serum or plasma urea nitrogen/creatinine mass ratio 23 NRG Serum or plasma creatinine measurement with calculation of estimated glomerular filtration rate > NRG Serum or plasma glucose measurement (mass/volume) 168 mg/dL 70-105 Serum or plasma calcium measurement (mass/volume) 8.3 mg/dL 8.5-10.1 Serum or plasma total bilirubin measurement (mass/volume) 0.4 mg/dL 0.1-1.0 Serum or plasma alkaline phosphatase measurement (enzymatic activity/volume) 55 U/L 40-136 Serum or plasma aspartate aminotransferase measurement (enzymatic activity/ volume) 24 U/L 5-34 Serum or plasma alanine aminotransferase measurement (enzymatic activity/volume ) 41 U/L 0-55 Serum or plasma protein measurement (mass/volume) 6.4 g/dL 6.4-8.2 Serum or plasma albumin measurement (mass/volume) 3.7 g/dL 3.2-4.5 Complete blood count (CBC) with automated white blood cell (WBC) differential - 01/01/19 18:18 Blood leukocytes automated count (number/volume) 9.4 10*3/uL 4.3-11.0 Blood erythrocytes automated count (number/volume) 5.06 10*6/uL 4.35-5.85 Venous blood hemoglobin measurement (mass/volume) 16.4 g/dL 13.3-17.7 Blood hematocrit (volume fraction) 46 % 40-54 Automated erythrocyte mean corpuscular volume 91 [foz_us] 80-99 Automated erythrocyte mean corpuscular hemoglobin (mass per erythrocyte) 32 pg 25-34 Automated erythrocyte mean corpuscular hemoglobin concentration measurement ( mass/volume) 36 g/dL 32-36 Automated erythrocyte distribution width ratio 13.2 % 10.0-14.5 Automated blood platelet count (count/volume) 218 10*3/uL 130-400 Automated blood platelet mean volume measurement 10.3 [foz_us] 7.4-10.4 Automated blood neutrophils/100 leukocytes 58 % 42-75 Automated blood lymphocytes/100 leukocytes 29 % 12-44 Blood monocytes/100 leukocytes 11 % 0-12 Automated blood eosinophils/100 leukocytes 2 % 0-10 Automated blood basophils/100 leukocytes 0 % 0-10 Blood neutrophils automated count (number/volume) 5.4 10*3 1.8-7.8 Blood lymphocytes automated count (number/volume) 2.7 10*3 1.0-4.0 Blood monocytes automated count (number/volume) 1.0 10*3 0.0-1.0 Automated eosinophil count 0.2 10*3/uL 0.0-0.3 Automated blood basophil count (count/volume) 0.0 10*3/uL 0.0-0.1 PT panel in platelet poor plasma by coagulation assay - 01/01/19 18:18 Prothrombin time (PT) in platelet poor plasma by coagulation assay 12.9 s 12.2-14.7 INR in platelet poor plasma or blood by coagulation assay 1.0 0.8-1.4 Activated partial thromboplastin time (aPTT) in platelet poor plasma bycoagulation assay - 01/01/19 18:18 Activated partial thromboplastin time (aPTT) in platelet poor plasma bycoagulation assay 30 s 24-35 Comprehensive metabolic panel - 01/01/19 18:18 Serum or plasma sodium measurement (moles/volume) 143 mmol/L 135-145 Serum or plasma potassium measurement (moles/volume) 3.4 mmol/L 3.6-5.0 Serum or plasma chloride measurement (moles/volume) 106 mmol/L 98-107 Carbon dioxide 26 mmol/L 21-32 Serum or plasma anion gap determination (moles/volume) 11 mmol/L 5-14 Serum or plasma urea nitrogen measurement (mass/volume) 18 mg/dL 7-18 Serum or plasma creatinine measurement (mass/volume) 1.08 mg/dL 0.60-1.30 Serum or plasma urea nitrogen/creatinine mass ratio 17 NRG Serum or plasma creatinine measurement with calculation of estimated glomerular filtration rate > NRG Serum or plasma glucose measurement (mass/volume) 113 mg/dL 70-105 Serum or plasma calcium measurement (mass/volume) 9.9 mg/dL 8.5-10.1 Serum or plasma total bilirubin measurement (mass/volume) 0.4 mg/dL 0.1-1.0 Serum or plasma alkaline phosphatase measurement (enzymatic activity/volume) 69 U/L 40-136 Serum or plasma aspartate aminotransferase measurement (enzymatic activity/ volume) 29 U/L 5-34 Serum or plasma alanine aminotransferase measurement (enzymatic activity/volume ) 30 U/L 0-55 Serum or plasma protein measurement (mass/volume) 8.0 g/dL 6.4-8.2 Serum or plasma albumin measurement (mass/volume) 4.7 g/dL 3.2-4.5 Magnesium - 01/01/19 18:18 Magnesium 2.4 mg/dL 1.8-2.4 Serum or plasma creatine kinase measurement (enzymatic activity/volume) - 01/01 18:18 Serum or plasma creatine kinase measurement (enzymatic activity/volume) 405 U/L 30-200 Serum or plasma creatine kinase MB measurement (enzymatic activity/volume) - 18:18 Serum or plasma creatine kinase MB measurement (enzymatic activity/volume) 3.9 ng/mL <6.6 Serum or plasma troponin i.cardiac measurement (mass/volume) - 01/01/19 18:18 Serum or plasma troponin i.cardiac measurement (mass/volume) < ng/ mL <0.028 Myoglobin, serum - 01/01/19 18:18 Myoglobin, serum 132.6 ng/mL 10.0-92.0 Serum or plasma amylase measurement (enzymatic activity/volume) - 01/01/19 18: 18 Serum or plasma amylase measurement (enzymatic activity/volume) 45 U /L 25-125 Lipase - 01/01/19 18:18 Lipase 37 U/L 8-78 Serum or plasma lithium measurement (moles/volume) - 01/01/19 18:18 BNP level 28.2 pg/mL <100.0 Encounters ACCT No. Visit Date/Time Discharge Status Pt. Type Provider Facility Loc./Unit Complaint [id number] 10/06/2017 13:16:00 10/06/2017 23:59:59 CLS Outpatient YAMILKA YEN DO F [facility] RAD RT KNEE PAIN [id number] 03/16/2017 11:53:00 03/16/2017 23:59:59 CLS Preadmit LESLY SANTIAGO APRN [facility] RAD J40,G47.33,R06.00, R93.8 [id number] 03/16/2017 11:51:00 03/16/2017 23:59:59 CLS Preadmit LESLY SANTIAGO APRN [facility] RT J40,R06.00,J45.909 [id number] 03/14/2017 08:26:00 03/14/2017 23:59:59 CLS Outpatient BAIMA, REJI L FUR DRY CLEANER [facility] CARD I10 [id number] 02/11/2017 00:00:00 02/13/2017 10:15:00 DIS Inpatient CASSIDYRAIMUNDO BOYD DO [facility] 4TH WHEEZING [id number] 02/09/2017 09:00:00 02/09/2017 23:59:59 CLS Outpatient MICHAEL CASSIDY DOI [facility] RAD ACUTE BRONCHITIS [id number] 06/15/2016 23:26:00 06/16/2016 00:53:00 DIS Emergency LEEROY MANJIT CHILDS [facility] ER SHOOTING PAIN ON RT SIDEDOWN INTO LEG [id number] 04/01/2014 12:11:00 04/01/2014 23:59:59 CLS Outpatient [id number] 01/01/2019 19:59:00 ACT Inpatient RAIMUNDO CASSIDY DO [facility] 4TH CHEST PAIN,UNCONTROLLED HTN [id number] 04/26/2012 00:00:00 Document Registration [id number] 03/27/2012 00:00:00 Document Registration [id number] 02/13/2012 08:08:00 Document Registration [id number] 01/28/2012 07:29:00 Document Registration [id number] 01/18/2012 06:00:00 Document Registration [id number] 01/17/2012 14:37:00 Document Registration [id number] 01/17/2012 09:40:00 Document Registration [id number] 01/09/2012 20:53:00 Document Registration [id number] 01/03/2012 08:30:00 Document Registration [id number] 06/27/2011 11:00:00 Document Registration
[2019-01-01] MEDS ORDERED: LABETALOL HCL 20 MG/4 ML VIAL IV ONE (22:15)
[2019-01-01 23:03] VITALS: BP 188/100
[2019-01-01 23:14] VITALS: BP 188/100
[2019-01-01 23:18] VITALS: BP 163/102
[2019-01-01 23:30] VITALS: BP 133/104
[2019-01-01 23:45] VITALS: BP 144/117
[2019-01-01] MEDS ORDERED: hydrALAZINE (APESOLINE) 20 MG/ML VIAL IV PRN (23:45)
[2019-01-01] MEDS ORDERED: ACETAMINOPHEN 500 MG TAB (TYLENOL) PO PRN (23:45)
[2019-01-01] MEDS ORDERED: ONDANSETRON 4 MG/2 ML (SDV) Z0FRAN IV PRN (23:45)
[2019-01-01] MEDS ORDERED: morphine INJ 4 MG/ML 1 ML (VIAL/SYRINGE) IV PRN (23:45)
[2019-01-02] VITALS (10 sets, daily range): BP systolic 127–177; BP diastolic 63–92
[2019-01-02] MEDS ORDERED: NITROGLYCERIN 2% OINT 1 GM UNIT DOSE PACKET TOP SCH (02:00)
[2019-01-02 03:42] LABS: BASOPHILS # (AUTO) 0.1 10^3/uL (0.0-0.1); BASOPHILS % (AUTO) 1 % (0-10); EOSINOPHILS # (AUTO) 0.2 10^3/uL (0.0-0.3); EOSINOPHILS % (AUTO) 2 % (0-10); HEMATOCRIT 43 % (40-54); HEMOGLOBIN 15.2 G/DL (13.3-17.7); LYMPHOCYTES # (AUTO) 2.7 X 10^3 (1.0-4.0); LYMPHOCYTES % (AUTO) 25 % (12-44); MEAN CORPUSCULAR HEMOGLOBIN 33 PG (25-34); MEAN CORPUSCULAR HGB CONC 36 G/DL (32-36); MEAN CORPUSCULAR VOLUME 92 FL (80-99); MEAN PLATELET VOLUME 10.4 FL (7.4-10.4); MONOCYTES # (AUTO) 1.3 X 10^3 (0.0-1.0); MONOCYTES % (AUTO) 12 % (0-12); NEUTROPHILS # (AUTO) 6.7 X 10^3 (1.8-7.8); NEUTROPHILS % (AUTO) 61 % (42-75); PLATELET COUNT 217 10^3/uL (130-400); RED CELL DISTRIBUTION WIDTH 13.2 % (10.0-14.5)
[2019-01-02 04:07] LABS: ALANINE AMINOTRANSFERASE 26 U/L (0-55); ALKALINE PHOSPHATASE 56 U/L (40-136); BILIRUBIN,TOTAL 0.5 MG/DL (0.1-1.0); BUN/CREATININE RATIO 18; CARBON DIOXIDE 23 MMOL/L (21-32); CHLORIDE 107 MMOL/L (98-107); CHOLESTEROL 196 MG/DL (< 200); CREATININE SERUM 0.96 MG/DL (0.60-1.30); GFR ESTIMATED > 60; GLUCOSE 113 MG/DL (70-105); HDL CHOLESTEROL 38 MG/DL (40-60); POTASSIUM 3.4 MMOL/L (3.6-5.0); SODIUM 141 MMOL/L (135-145); TOTAL PROTEIN 6.6 GM/DL (6.4-8.2); TRIGLYCERIDES 235 MG/DL (<150); VLDL CHOLESTEROL 47 MG/DL (5-40)
--- NOTE | 2019-01-02 08:33 | Consultation-Cardiology ---
HPI-Cardiology Cardiology Consultation: Date of Consultation 01/02/19 Time Seen by a Provider: 08:20 Date of Admission Attending Physician Betzaida Adames DO Admitting Physician Betzaida Adames DO Consulting Physician MILENA DAVIDSON MD, MA, FACP, FACC, FSCAI, CCDS HPI: Chief Complaint: CC: Chest discomfort HPI: 68 yo man with 4 days of continuous chest discomfort that is L parasternal, mild , pressure-like, continuous, nonradiating, not associated with other symptoms, and without aggravating or relieving factors Has chronic back and gen body pain More tired for the last 3-4 months Chronic mild to mod shortness of breath No recent leg swelling, palp, or syncope Review of Systems-Cardiology Review of Systems Constitutional: malaise, tiredness; No weight loss, No weight gain Eyes: No vision change Ears/Nose/Throat: No ear discharge, No nasal drainage, No recent hearing loss Respiratory: As described under HPI Cardiovascular: As described under HPI Gastrointestinal: No constipation, No diarrhea, No nausea, No vomiting Genitourinary: No dysuria, No hematuria, No urine frequency changes Musculoskeletal: As describe under HPI Skin: No rash, No ulcerations Psychiatric/Neurological: No seizure, No focal weakness, No syncope Hematologic: No bleeding abnormalities PYG-Grpzzi-Iftgef Hx Patient Social History Alcohol Use: Occasionally Uses Recreational Drug Use: No Smoking Status: Never a Smoker Recent Foreign Travel: No Recent Infectious Disease Expo: No Hospitalization with Isolation: Denies Immunizations Up To Date Date of Pneumonia Vaccine: Dec 21, 2018 Date of Influenza Vaccine: Sep 20, 2018 Past Medical History PMH As described under Assessment. Family Medical History Family Medical History: Does not report fam h/o early CAD or SCD Allergies and Home Medications Allergies Coded Allergies: desipramine (Verified Allergy, Mild, RASH, 02/09/17) Home Medications Albuterol Sulfate 2.5 Mg/3 Ml Vial.neb, 2.5 MG IH TID, (Reported) Amlodipine Besylate 10 Mg Tablet, 10 MG PO DAILY, (Reported) Aspirin 81 Mg Tabec, 81 MG PO DAILY, (Reported) Azithromycin 250 Mg Tablet, 500 MG PO DAILY Prescribed by: BETZAIDA ADAMES on 02/13/17829 Benzonatate 100 Mg Capsule, 200 MG PO TID Prescribed by: BETZAIDA ADAMES on 02/13/1730 Budesonide/Formoterol Fumarate 10.2 Gm Hfa.aer.ad, 2 PUFF IH BID Prescribed by: BETZAIDA ADAMES on 02/13/17829 Cyanocobalamin (Vitamin B-12) 1,000 Mcg Tablet, 1,000 MCG PO DAILY, (Reported) Dexamethasone 0.5 Mg Tablet, 0.5 MG PO Q12H Prescribed by: BETZAIDA ADAMES on 02/13/17829 Famotidine 20 Mg Tablet, 20 MG PO BID Prescribed by: BETZAIDA ADAMES on 02/13/17829 Hydrocodone/Chlorphen P-Stirex 473 Ml Kathi.er.12h, 5 ML PO Q12HR Prescribed by: BETZAIDA ADAMES on 02/13/17829 Hydroxyzine HCl 10 Mg Tablet, 10 MG PO TID Prescribed by: BETZAIDA ADAMES on 02/13/17829 Loratadine 10 Mg Tablet, 10 MG PO BID Prescribed by: BETZAIDA ADAMES on 02/13/17829 Losartan Potassium 100 Mg Tablet, 100 MG PO DAILY, (Reported) Montelukast Sodium 10 Mg Tablet, 10 MG PO HS, (Reported) Triamterene/Hydrochlorothiazid 1 Each Capsule, 1 TAB PO DAILY, (Reported) LAST FILLED 11/27/16 #30 Umeclidinium [place] 62.5 Mcg Blst.w.dev, 0 INH IH DAILY@0800 Prescribed by: BETZAIDA ADAMES on 02/13/17829 Patient Home Medication List Home Medication List Reviewed: Yes Physical Exam-Cardiology Physical Exam Vital Signs/I&O 01/01/19 01/01/19 01/01/19 01/01/19 22:55 23:00 23:02 23:03 Temp 98.7 98.7 Pulse 72 77 75 Resp 18 14 B/P (MAP) 149/81 (103) 188/100 (129) Pulse Ox 98 99 98 O2 Delivery Room Air Room Air Room Air 01/01/19 01/01/19 01/01/19 01/01/19 23:14 23:18 23:30 23:45 Temp 98.7 Pulse 75 77 83 87 Resp 14 19 13 21 B/P (MAP) 188/100 163/102 (122) 133/104 (114) 144/117 (126) Pulse Ox 98 98 98 97 O2 Delivery Room Air Room Air Room Air Room Air 01/02/19 01/02/19 01/02/19 01/02/19 00:00 00:00 01:00 01:00 Pulse 80 79 81 Resp 20 28 B/P (MAP) 165/82 (109) 136/63 (87) Pulse Ox 98 99 96 O2 Delivery Room Air Room Air Room Air 01/02/19 01/02/19 01/02/19 01/02/19 02:30 02:54 03:00 04:00 Temp 98.3 Pulse 75 73 Resp 15 13 B/P (MAP) 156/80 (105) 157/82 (107) Pulse Ox 95 93 O2 Delivery Room Air Room Air Room Air 01/02/19 04:00 Pulse 77 Resp 16 B/P (MAP) 127/77 (94) Pulse Ox 90 O2 Delivery Room Air Capillary Refill : Less Than 3 Seconds Constitutional: AAO x 3, well-developed, well-nourished HEENT: EOMI, hearing is well preserved; No xanthelasmas are seen Neck: carotid pulses are 2 + bilaterally, with good upstrokes Respiratory: No accessory muscle use; lungs clear to percussion, lungs clear to auscultation Cardiovascular: regular rate-rhythm, S1 and S2, systolic murmur (faint LONA at card base) Gastrointestinal: No tender; soft; No guarding, No rebound; audible bowel sounds Extremities: No clubbing, No cyanosis, No significant edema Neurologic/Psychiatric: oriented x 3, grossly intact, power is 5/5 both on sides Skin: No rash on exposed areas, No ulcerations on exposed areas Data Review Labs Laboratory Tests 01/01/19 18:18: White Blood Count 9.4, Red Blood Count 5.06, Hemoglobin 16.4, Hematocrit 46, Mean Corpuscular Volume 91, Mean Corpuscular Hemoglobin 32, Mean Corpuscular Hemoglobin Concent 36, Red Cell Distribution Width 13.2, Platelet Count 218, Mean Platelet Volume 10.3, Neutrophils (%) (Auto) 58, Lymphocytes (%) (Auto) 29 , Monocytes (%) (Auto) 11, Eosinophils (%) (Auto) 2, Basophils (%) (Auto) 0, Neutrophils # (Auto) 5.4, Lymphocytes # (Auto) 2.7, Monocytes # (Auto) 1.0, Eosinophils # (Auto) 0.2, Basophils # (Auto) 0.0, Prothrombin Time 12.9, INR Comment 1.0, Activated Partial Thromboplast Time 30, Sodium Level 143, Potassium Level 3.4L, Chloride Level 106, Carbon Dioxide Level 26, Anion Gap 11 , Blood Urea Nitrogen 18, Creatinine 1.08, Estimat Glomerular Filtration Rate > 60, BUN/Creatinine Ratio 17, Glucose Level 113H, Calcium Level 9.9, Corrected Calcium , Magnesium Level 2.4, Total Bilirubin 0.4, Aspartate Amino Transf (AST/ SGOT) 29, Alanine Aminotransferase (ALT/SGPT) 30, Alkaline Phosphatase 69, Total Creatine Kinase 405H, Creatine Kinase MB 3.9, Myoglobin 132.6H, Troponin I < 0.028, B-Type Natriuretic Peptide 28.2, Total Protein 8.0, Albumin 4.7H, Amylase Level 45, Lipase 37 01/02/19 03:20: White Blood Count 11.0, Red Blood Count 4.62, Hemoglobin 15.2, Hematocrit 43, Mean Corpuscular Volume 92, Mean Corpuscular Hemoglobin 33, Mean Corpuscular Hemoglobin Concent 36, Red Cell Distribution Width 13.2, Platelet Count 217, Mean Platelet Volume 10.4, Neutrophils (%) (Auto) 61, Lymphocytes (%) (Auto) 25 , Monocytes (%) (Auto) 12, Eosinophils (%) (Auto) 2, Basophils (%) (Auto) 1, Neutrophils # (Auto) 6.7, Lymphocytes # (Auto) 2.7, Monocytes # (Auto) 1.3H, Eosinophils # (Auto) 0.2, Basophils # (Auto) 0.1, Sodium Level 141, Potassium Level 3.4L, Chloride Level 107, Carbon Dioxide Level 23, Anion Gap 11, Blood Urea Nitrogen 17, Creatinine 0.96, Estimat Glomerular Filtration Rate > 60, BUN/ Creatinine Ratio 18, Glucose Level 113H, Calcium Level 9.0, Corrected Calcium 9.0, Total Bilirubin 0.5, Aspartate Amino Transf (AST/SGOT) 26, Alanine Aminotransferase (ALT/SGPT) 26, Alkaline Phosphatase 56, Troponin I < 0.028, Total Protein 6.6, Albumin 4.0, Triglycerides Level 235H, Cholesterol Level 196 , LDL Cholesterol Direct 137H, VLDL Cholesterol 47H, HDL Cholesterol 38L Laboratory Tests 01/01/19 18:18 01/02/19 03:20 A/P-Cardiology Assessment/Admission Diagnosis Chest discomfort of undetermined etiology. No evidence of ac OR Uncontrolled hypertension Echo on 02/10/17: LVEF 65%, no RWMA, mild conc LVH, mild diastolic dysfunction of LV, no significant valvular regurg or stenosis Coronary artery disease with a history of stenting of the proximal and mid left circumflex artery in April 2010 (Promus 2.5 x 23-mm taken to 2.8 mm). Most recently, on 07/15/10 he underwent stenting of the left anterior descending artery (Promus 3.0 x 12-mm taken to 3.4 mm diameter). The previously placed stent, at the time of cardiac catheterization of June 2010 was free of significant disease. The patient has 50 to 60% mid right coronary artery disease, which was not intervened on. Myocardial perfusion imaging of 03/14/27 showed no evidence of any significant myocardial ischemia or infarction. Normal global left ventricular systolic function with an ejection fraction of 65%. Chronic back and joint pain H/o hyperglycemia when on prednisone for joint pains in the past Hyperlipidemia which is followed by Dr. Adames. Hypothyroidism. Chronic insomnia. Surgeries: cholecystectomy, carpal tunnel surgery, and back fusion. Obesity mass index of approximately 39. DEBORAH for which he is non-compliant with sleep apnea treatment - followed by Dr. Bowman Discussion and Recomendations * D/c nitropaste * Beta-lyudmila and amlodipine for bp control * Continue ASA * Statin for hyperlipidemia * Replenish K * Echo * Monitor labs Clinical Quality Measures AMI/AHF: ASA po Prior to arrival: No DVT/VTE Risk/Contraindication: Risk Factor Score Per Nursin RFS Level Per Nursing on Admit: 3=High MILENA DAVIDSON MD FACP FAC CCDS Jan 02, 2019 08:33
[2019-01-02] MEDS ORDERED: KCL 20 MEQ TAB (K-DUR) PO NR (09:00)
[2019-01-02] MEDS ORDERED: amLODIPine 10 MG (NORVASC) TAB PO SCH (09:00)
[2019-01-02] MEDS ORDERED: LOSA100T57 PO (09:49)
[2019-01-02] MEDS ORDERED: DIAZ2TAB2 PO (09:49)
[2019-01-02] MEDS ORDERED: ASPI-983 PO (09:49)
[2019-01-02] MEDS ORDERED: HYDR-3923 PO (09:49)
[2019-01-02] MEDS ORDERED: AMLO5TAB9 PO (09:49)
[2019-01-02] MEDS ORDERED: IBUP-30 PO ×2 (09:49)
[2019-01-02] MEDS: meTOprolol SUCCINATE 100 MG (TOPROL XL) TAB PO SCH (09:53)
[2019-01-02] MEDS: ASPIRIN E.C. 81 MG (ECOTRIN) TAB PO SCH (09:54)
--- NOTE | 2019-01-02 10:38 | History & Physical-Hospitalist ---
History of Present Illness HPI/Chief Complaint Chief complaint: Chest pain HPI: This is a 68yoWM clinic Pt of mine with a known history of CAD, previous stents, maintain on aspirin, but poor follow-up with cardiology who presents to the hospital ER with chest pain. Dr. Pryor saw him in consultation and does not feel like it is hear related, but will transfer him to fourth floor with close monitoring and obtain further cardiac tests to evaluate. Pt presented with severe back pain in need of Dr. Chang referral, since she has done multiple surgeries on him and I will initiate hydrocodone for pain in the meantime. I did talk to him about narcotic dependency. Source: patient Exam Limitations: no limitations Date Seen 01/02/19 Time Seen by a Provider: 10:00 Attending Physician Betzaida Adames DO PCP Betzaida Adames DO Referring Physician Date of Admission Jan 01, 2019 at 19:59 Home Medications & Allergies Home Medications Reviewed patient Home Medication Reconciliation performed by pharmacy medication reconciliations technicians and trades workers and/or nursing. Patients Allergies have been reviewed. Allergies Allergies Coded Allergies desipramine (Verified Allergy, Mild, RASH, 02/09/17) Past Bqxirwb-Gedzax-Eeltmz Hx Past Med/Social Hx: Reviewed Nursing Past Med/Soc Hx, Reviewed and Corrections made Patient Social History Marrital Status: Employed/Student: employed Alcohol Use: Occasionally Uses Number of Drinks Today: Alcohol Beverage of Choice: Wine Recreational Drug Use: No Smoking Status: Never a Smoker Recent Foreign Travel: No Contact w/other who traveled: No Recent Hopitalizations: Yes (CHOLY, TONSILLECTOMY, 5 BACK SURGERIES, 2 CARPAL TUNNEL SURGERIES) Recent Infectious Disease Expo: No Immunizations Up To Date Date of Pneumonia Vaccine: Dec 21, 2018 Date of Influenza Vaccine: Sep 20, 2018 Seasonal Allergies Seasonal Allergies: No Past Medical History Surgeries: Adenoidectomy, Cardiac, Coronary Stent, Eye Surgery, Gallbladder, Neurological, Orthopedic, Renal, Tonsillectomy Respiratory: Pneumonia, Sleep Apnea Currently Using CPAP: No Currently Using BIPAP: No Cardiac: Chronic Edema/Swelling, Coronary Artery Disease, High Cholesterol, Hypertension Neurological: Neuropathy Reproductive: No Sexually Transmitted Disease: No HIV/AIDS: No Genitourinary: Benign Prostatic Hyperpl, Kidney Stones Gastrointestinal: Gall Bladder Disease Musculoskeletal: Degenerate Disk Disease, Chronic Back Pain HEENT: Cataract Loss of Vision: Denies Hearing Impairment: Denies History of Blood Disorders: No Review of Systems Constitutional: see HPI EENTM: no symptoms reported Respiratory: no symptoms reported Cardiovascular: chest pain Gastrointestinal: no symptoms reported Genitourinary: no symptoms reported Musculoskeletal: back pain Skin: no symptoms reported Psychiatric/Neurological: No Symptoms Reported All Other Systems Reviewed Negative Unless Noted: Yes Physical Exam Physical Exam Vital Signs Vital Signs - First Documented 01/01/19 18:06 Temp 99.0 Pulse 87 Resp 18 B/P (MAP) 244/108 (153) Pulse Ox 98 O2 Delivery Room Air Capillary Refill : Less Than 3 Seconds Height, Weight, BMI Height: 5'10.00" Weight: 272lbs. 4.0oz. 123.520451ns; 39.3 BMI Method:Stated General Appearance: No Apparent Distress, WD/WN, Chronically ill, Obese HEENT: PERRL/EOMI, Normal ENT Inspection, Pharynx Normal Respiratory: Chest Non Tender, Lungs Clear, Normal Breath Sounds, No Accessory Muscle Use Cardiovascular: Regular Rate, Rhythm, No Edema, No Gallop, No JVD Neurologic/Psychiatric: Alert, Oriented x3, No Motor/Sensory Deficits, Normal Mood/Affect, purse seining hand II-XII Norm as Tested Results Results/Procedures Labs Laboratory Tests 01/01/19 18:18 01/02/19 03:20 Patient resulted labs reviewed. Assessment/Plan Admission Diagnosis Assessment: Chest pain in known CAD patient s/p stents in past HTN HLP Chronic neuropathy Severe chronic back pain prior surgeries by Dr Chang in the past DEBORAH on CPAP Impaired fasting glucose Plan: Await Cardiology recs Monitor pain Monitor HTN Home meds Back pain management Admission Status: Observation Diagnosis/Problems Diagnosis/Problems (1) Chest pain Status: Acute Qualifiers: Chest pain type: unspecified Qualified Codes: R07.9 - Chest pain, unspecified (2) Uncontrolled hypertension Status: Acute (3) DEBORAH on CPAP Status: Chronic (4) Hyperlipemia Status: Chronic Qualifiers: Hyperlipidemia type: mixed hyperlipidemia Qualified Codes: E78.2 - Mixed hyperlipidemia (5) CAD (coronary artery disease) Status: Chronic Qualifiers: Coronary Disease-Associated Artery/Lesion type: [place] artery [place] vs. transplanted heart: [place] heart Associated angina: without angina Qualified Codes: I25.10 - Atherosclerotic heart disease of [place] coronary artery without angina pectoris (6) Presence of stent in coronary artery Status: Chronic (7) Obesity Status: Chronic Qualifiers: Obesity type: due to excess calories Obesity classification: adult class 2 (BMI 35 - 39.9) Serious obesity comorbidity presence: without serious comorbidity Body mass index: BMI 39.0-39.9 Qualified Codes: E66.09 - Other obesity due to excess calories; Z68.39 - Body mass index (bmi) 39.0-39.9, adult (8) Chronic back pain Status: Chronic Qualifiers: Back pain location: back pain in unspecified location Back pain laterality : unspecified Qualified Codes: M54.9 - Dorsalgia, unspecified; G89.29 - Other chronic pain Clinical Quality Measures AMI/AHF: ASA po Prior to arrival: No DVT/VTE Risk/Contraindication: Risk Factor Score Per Nursin RFS Level Per Nursing on Admit: 3=High BETZAIDA ADAMES DO Jan 02, 2019 10:38
--- NOTE | 2019-01-02 13:15 | NUR ---
Report given to VARSHA Monge on 4th floor.
--- NOTE | 2019-01-02 13:35 | NUR ---
Pt to room 433. Agree with previous RN's assessment.
[2019-01-02] MEDS: HYDROcodone/APAP 10 MG/325 MG (LORTAB) TAB PO PRN (14:01)
[2019-01-02] MEDS ORDERED: DIAZEPAM 2 MG (VALIUM) TAB PO SCH (21:00)
[2019-01-02] MEDS ORDERED: ATORVASTATIN 20 MG (LIPITOR) TABLET PO SCH (21:00)
[2019-01-02] MEDS ORDERED: CYANOCOBALAMIN 1,000 MCG (VITAMIN B-12) TABLET PO SCH (21:00)
[2019-01-02] MEDS: hydrALAZINE (APRESOLINE) 25 MG TAB PO SCH (21:14)
[2019-01-03] MEDS: HYDROcodone/APAP 10 MG/325 MG (LORTAB) TAB PO PRN (03:59)
[2019-01-03 04:00] VITALS: BP 141/84
[2019-01-03 04:22] LABS: BUN/CREATININE RATIO 18; CALCIUM 9.1 MG/DL (8.5-10.1); CARBON DIOXIDE 22 MMOL/L (21-32); CHLORIDE 107 MMOL/L (98-107); CREATININE SERUM 0.96 MG/DL (0.60-1.30); GFR ESTIMATED > 60; GLUCOSE 116 MG/DL (70-105); MAGNESIUM 2.5 MG/DL (1.8-2.4); POTASSIUM 3.6 MMOL/L (3.6-5.0); SODIUM 139 MMOL/L (135-145)
[2019-01-03 08:00] VITALS: BP 183/91
[2019-01-03] MEDS ORDERED: ASPIRIN E.C. 81 MG (ECOTRIN) TAB PO SCH (09:00)
[2019-01-03] MEDS ORDERED: amLODIPine 5 MG (NORVASC) TAB PO SCH (09:00)
[2019-01-03] MEDS ORDERED: MONTELUKAST 10 MG (SINGULAIR) TAB PO SCH (09:00)
[2019-01-03] MEDS ORDERED: LOSARTAN 100 MG (COZAAR) TABLET PO SCH (09:00)
--- NOTE | 2019-01-03 09:08 | Progress Note-Cardiology ---
Cardiology SOAP Progress Note Subjective: Still baseline, mild, L parasternal discomfort, as mentioned initial note No palp or syncope or shortness of breath at rest Chronic back pain Objective: I&O/Vital Signs 01/02/19 01/03/19 01/03/19 23:30 01:00 04:00 Temp 99.1 97.1 Pulse 75 68 69 Resp 16 16 B/P (MAP) 160/81 (107) 141/84 (103) Pulse Ox 95 94 O2 Delivery Room Air Room Air 01/03/19 00:00 Intake Total 1070 ml Output Total 675 ml Balance 395 ml Weight (Pounds): 272 Weight (Ounces): 4.0 Weight (Calculated Kilograms): 123.649651 Constitutional: AAO x 3, well-developed, well-nourished Respiratory: No accessory muscle use; lungs clear to percussion, lungs clear to auscultation Cardiovascular: regular rate-rhythm, S1 and S2, systolic murmur (faint LONA at card base) Gastrointestional: No tender; soft; No guarding, No rebound; audible bowel sounds Extremities: No clubbing, No cyanosis, No significant edema Neurologic/Psychiatric: oriented x 3, grossly intact, power is 5/5 both on sides Skin: No rash on exposed areas, No ulcerations on exposed areas Results/Procedures: Labs Laboratory Tests 01/03/19 03:50: Sodium Level 139, Potassium Level 3.6, Chloride Level 107, Carbon Dioxide Level 22, Anion Gap 10, Blood Urea Nitrogen 17, Creatinine 0.96, Estimat Glomerular Filtration Rate > 60, BUN/Creatinine Ratio 18, Glucose Level 116H, Calcium Level 9.1, Magnesium Level 2.5H, Thyroid Stimulating Hormone (TSH) 1.30 A/P: Assessment: Chest discomfort of undetermined etiology. No evidence of ac MO Hypertension with hypertensive CVD Echo on 01/02/19: LVEF 60-65%, no RWMA, mild bharat mod conc LVH, mild diastolic dysfunction of LV, no significant valvular regurg or stenosis Coronary artery disease with a history of stenting of the proximal and mid left circumflex artery in April 2010 (Promus 2.5 x 23-mm taken to 2.8 mm). Most recently, on 07/15/10 he underwent stenting of the left anterior descending artery (Promus 3.0 x 12-mm taken to 3.4 mm diameter). The previously placed stent, at the time of cardiac catheterization of June 2010 was free of significant disease. The patient has 50 to 60% mid right coronary artery disease, which was not intervened on. Myocardial perfusion imaging of 03/14/17 showed no evidence of any significant myocardial ischemia or infarction. Normal global left ventricular systolic function with an ejection fraction of 65%. Chronic back and joint pain H/o hyperglycemia when on prednisone for joint pains in the past Hyperlipidemia which is followed by Dr. Adames. Hypothyroidism. Chronic insomnia. Surgeries: cholecystectomy, carpal tunnel surgery, and back fusion. Obesity mass index of approximately 39. DEBORAH for which he is non-compliant with sleep apnea treatment - followed by Dr. Bowman Plan: * We discussed his CV w/u * We recommend continuation of current CV regimen * Focus of management is on risk factor mod. This was discussed in detail * We have advised close outpt f/u for now Clinical Quality Measures AMI/AHF: ASA po Prior to arrival: MILENA Bray MD FACP FAC CCDS Jan 03, 2019 09:08
[2019-01-03] MEDS: hydrALAZINE (APRESOLINE) 25 MG TAB PO SCH (09:13)
[2019-01-03] MEDS: ASPIRIN E.C. 81 MG (ECOTRIN) TAB PO SCH (09:13)
[2019-01-03] MEDS: meTOprolol SUCCINATE 100 MG (TOPROL XL) TAB PO SCH (09:13)
[2019-01-03] MEDS ORDERED: METO-395 PO (10:05)
[2019-01-03] MEDS ORDERED: ATOR20TA66 PO (10:05)
--- NOTE | 2019-01-03 12:20 | Discharge Summary-Hospitalist ---
Diagnosis/Chief Complaint Date of Admission Jan 01, 2019 at 19:59 Date of Discharge Jan 03, 2019 at 11:35 Discharge Date: Jan 03, 2019 Admission Diagnosis Assessment: Chest pain in known CAD patient s/p stents in past HTN HLP Chronic neuropathy Severe chronic back pain prior surgeries by Dr Chang in the past DEBORAH on CPAP Impaired fasting glucose Plan: Await Cardiology recs Monitor pain Monitor HTN Home meds Back pain management Discharge Diagnosis (1) Chest pain Status: Resolved (2) Uncontrolled hypertension Status: Resolved (3) DEBORAH on CPAP Status: Chronic (4) Hyperlipemia Status: Chronic (5) CAD (coronary artery disease) Status: Chronic (6) Presence of stent in coronary artery Status: Chronic (7) Obesity Status: Chronic (8) Chronic back pain Status: Chronic Discharge Summary Discharge Physical Exam Allergies: Coded Allergies: desipramine (Verified Allergy, Mild, RASH, 02/09/17) Vitals & I&Os Vital Signs Date Time Temp Pulse Resp B/P (MAP) Pulse Ox O2 Delivery O2 Flow Rate FiO2 01/03/19 11:20 01/03/19 08:00 98.1 70 22 96 Room Air General Appearance: No Apparent Distress, WD/WN, Chronically ill, Obese HEENT: PERRL/EOMI, Normal ENT Inspection, Pharynx Normal Respiratory: Chest Non Tender, Lungs Clear, Normal Breath Sounds, No Accessory Muscle Use Cardiovascular: Regular Rate, Rhythm, No Edema, No Gallop, No JVD Gastrointestinal: Normal Bowel Sounds, No Organomegaly, No Pulsatile Mass, Non Tender, Soft Extremity: Normal Capillary Refill, Normal Range of Motion, No Calf Tenderness , Pedal Edema (1+ BILATERALLY) Skin: Normal Color, Warm/Dry; No Rash Neurologic/Psychiatric: Alert, Oriented x3, No Motor/Sensory Deficits, Normal Mood/Affect, electrical troubleshooter II-XII Norm as Tested Hospital Course Was the Problem List Reviewed?: Yes Hospital course: patient was admitted and monitored closely due to CP and elevated HTN. Meds were changed and Cardiology was consulted. Patient deemed stable at time of DC on new BP meds and increased dose of BB and will have close f/u with me and Cardiology but back pain will be addressed with his back surgeon Dr Chang. Labs (last 24 hrs) Laboratory Tests 01/03/19 03:50: Sodium Level 139, Potassium Level 3.6, Chloride Level 107, Carbon Dioxide Level 22, Anion Gap 10, Blood Urea Nitrogen 17, Creatinine 0.96, Estimat Glomerular Filtration Rate > 60, BUN/Creatinine Ratio 18, Glucose Level 116H, Calcium Level 9.1, Magnesium Level 2.5H, Thyroid Stimulating Hormone (TSH) 1.30 Patient resulted labs reviewed. Discussion & Recommendations Discharge Planning: <30 minutes discharge planning Discharge Home Medications: Active Scripts Active Metoprolol Succinate 100 Mg Tab.er.24h 100 Mg PO DAILY Atorvastatin Calcium 20 Mg Tablet 20 Mg PO HS Reported Advil (Ibuprofen) 200 Mg Tablet 400 Mg PO BID PRN Advil (Ibuprofen) 200 Mg Tablet 800 Mg PO DAILY TAKES 4 (200MG) TABLETS Losartan Potassium 100 Mg Tablet 100 Mg PO DAILY Amlodipine Besylate 5 Mg Tablet 5 Mg PO DAILY Hydralazine HCl 25 Mg Tablet 25 Mg PO BID Diazepam 2 Mg Tablet 2 Mg PO HS Aspirin EC (Aspirin) 81 Mg Tablet.dr 81 Mg PO DAILY Montelukast Sodium 10 Mg Tablet 10 Mg PO DAILY Vitamin B-12 (Cyanocobalamin (Vitamin B-12)) 1,000 Mcg Tablet 1,000 Mcg PO HS Instructions to patient/family Please see electronic discharge instructions given to patient. Clinical Quality Measures AMI/AHF: ASA po Prior to arrival: No DVT/VTE Risk/Contraindication: Risk Factor Score Per Nursin RFS Level Per Nursing on Admit: 3=High Problem Qualifiers (1) Chest pain: Chest pain type: unspecified Qualified Codes: R07.9 - Chest pain, unspecified (2) Hyperlipemia: Hyperlipidemia type: mixed hyperlipidemia Qualified Codes: E78.2 - Mixed hyperlipidemia (3) CAD (coronary artery disease): Coronary Disease-Associated Artery/Lesion type: [place] artery [place] vs. transplanted heart: [place] heart Associated angina: without angina Qualified Codes: I25.10 - Atherosclerotic heart disease of [place] coronary artery without angina pectoris (4) Obesity: Obesity type: due to excess calories Obesity classification: adult class 2 ( BMI 35 - 39.9) Serious obesity comorbidity presence: without serious comorbidity Body mass index: BMI 39.0-39.9 Qualified Codes: E66.09 - Other obesity due to excess calories; Z68.39 - Body mass index (bmi) 39.0-39.9, adult (5) Chronic back pain: Back pain location: back pain in unspecified location Back pain laterality: unspecified Qualified Codes: M54.9 - Dorsalgia, unspecified; G89.29 - Other chronic pain RAIMUNDO CASSIDY DO Jan 03, 2019 12:20
== END 2019-01-03 11:05 | disposition home or self-care (01) ==
LOC: EDUNIT# 17:51 → ER 17:53 → 4TH 19:59 → UNDOADMOB 19:59 → ICU 21:23 → 4TH 21:23 → ICU 23:00 → 4TH 23:00 → ICU 01-02 13:35 → 4TH 01-02 13:35 → UNDODISOB 01-03 11:35
PROVIDERS: ADMIT Internal Medicine; ATTEND Internal Medicine
DX: R07.9 Chest pain, unspecified (principal); I11.9 Hypertensive heart disease without heart failure; I25.10 Atherosclerotic heart disease of native coronary artery without angina pectoris; Z95.5 Presence of coronary angioplasty implant and graft; E78.5 Hyperlipidemia, unspecified; E03.9 Hypothyroidism, unspecified; G47.00 Insomnia, unspecified; E66.9 Obesity, unspecified; Z68.39 Body mass index [BMI] 39.0-39.9, adult; G47.33 Obstructive sleep apnea (adult) (pediatric); Z91.19 Patient's noncompliance with other medical treatment and regimen; M54.9 Dorsalgia, unspecified; G89.29 Other chronic pain; R73.01 Impaired fasting glucose; Z79.899 Other long term (current) drug therapy
CPT/HCPCS: 36415; 71045; 80048; 80053; 80061; 82150; 82550; 82553; 83690; 83735; 83874; 83880; 84443; 84484; 85025; 85610; 85730; 93005; 93041; 93306; G0378

== ENCOUNTER 2019-01-08 08:57 | Day surgery (SDC) | payer MEDICARE, OTHER ==
[~2019-01-08] VITALS: Ht 177.8 cm; Wt 82.6 kg
[2019-01-08] VITALS (17 sets, daily range): BP systolic 145–199; BP diastolic 77–112
[~2019-01-08 08:57] MED LIST changes: +AMLO5TAB9 PO; +ASPI-983 PO; +ATOR20TA66 PO; +DIAZ2TAB2 PO; +HEParin (CATH LAB) 2,000 ML IV ONE; +HYDR-3923 PO; +IBUP-30 PO; +LIDOCAINE 1% INJ 20 ML 20 ML VIAL ONE; +LOSA100T57 PO; +METO-395 PO; +NS IV 1000 ML 1,000 ML ONE
[2019-01-08] MEDS ORDERED: NS IV 1000 ML 1,000 ML IV SCH (08:58)
[2019-01-08] MEDS ORDERED: METO-395 PO (09:17)
[2019-01-08] MEDS ORDERED: ATOR20TA66 PO (09:17)
[2019-01-08] MEDS ORDERED: CETI10TA20 PO (09:25)
[2019-01-08 09:30] LABS: HEMOGLOBIN 15.7 G/DL (13.3-17.7); MEAN PLATELET VOLUME 10.2 FL (7.4-10.4); RED CELL DISTRIBUTION WIDTH 13.1 % (10.0-14.5); WHITE BLOOD COUNT 8.4 10^3/uL (4.3-11.0)
[2019-01-08] MEDS ORDERED: HYDR-3820 PO (09:30)
[2019-01-08] MEDS ORDERED: TRAM50TA2 PO (09:30)
--- NOTE | 2019-01-08 09:33 | NUR ---
SPOKE WITH THE PATIENT ABOUT HIS MEDICATIONS. HE HAD A LIST WELL HIS BOTTLES. I ALSO COMPARED WITH THE EXT MED HX. IN ADDITION TO WHAT IS SHOWN ON THE EXT MED HX HE HAS THE FOLLOWING BOTTLES FROM [facility]: 01-03-19 METOPROLOL ER 100MG DAILY #30 01-03-19 ATORVASTATIN 20MG HS #30 01-02-19 TRAMADOL 50MG 1 Q6H PRN #30 01-02-19 HYDROCODONE 10-325MG 1 Q6H PRN #30 12-14-18 CETIRIZINE 10MG DAILY #30 HIS LIST STATES 10MG AMLODIPINE HOWEVER HIS BOTTLE IS FOR 5MG. I UPDATED HIS LIST COPY FOR HIM. HE TAKES THE FOLLOWING OTC: VITAMIN B 12 DAILY ASPIRIN 81MG DAILY
[2019-01-08 09:45] LABS: PROTHROMBIN TIME PATIENT 13.4 SEC (12.2-14.7)
[2019-01-08 09:51] LABS: ALANINE AMINOTRANSFERASE 33 U/L (0-55); ALBUMIN 4.5 GM/DL (3.2-4.5); ALKALINE PHOSPHATASE 57 U/L (40-136); BILIRUBIN,TOTAL 0.7 MG/DL (0.1-1.0); BUN/CREATININE RATIO 12; CALCIUM 9.2 MG/DL (8.5-10.1); CARBON DIOXIDE 25 MMOL/L (21-32); CHLORIDE 105 MMOL/L (98-107); CHOLESTEROL 136 MG/DL (< 200); GFR ESTIMATED > 60; GLUCOSE 127 MG/DL (70-105); HDL CHOLESTEROL 38 MG/DL (40-60); POTASSIUM 3.5 MMOL/L (3.6-5.0); SODIUM 142 MMOL/L (135-145); TOTAL PROTEIN 7.2 GM/DL (6.4-8.2); TRIGLYCERIDES 150 MG/DL (<150); VLDL CHOLESTEROL 30 MG/DL (5-40)
[2019-01-08] MEDS ORDERED: fentaNYL INJECTION 100 MCG/2 ML AMP ONE ×5 (11:04→16:09)
[2019-01-08] MEDS ORDERED: MIDAZOLAM 5 MG/5 ML (VERSED) VIAL ONE (11:04)
--- NOTE | 2019-01-08 11:15 | Cardiac Procedure Note-CS/ASA ---
Pre-Procedure Note Pre-Op Procedure Note H&P Reviewed The H&P was reviewed, patient examined and no changes noted. Date H&P Reviewed: Jan 08, 2019 Time H&P Reviewed: 11:15 Conscious Sedation Pre-Proced Time 11:15 ASA Score 3 For ASA 3 and 4: Consider anesthesia and medical clearance. Also, for patients with a history of failed moderate sedation consider anesthesia. Airway Lungs Heart ASA score ASA 1: a normal healthy patient ASA 2: a patient with a mild systemic disease (mid diabetes, controlled hypertension, obesity ASA 3: a patient with a severe systemic disease that limits activity (angina , COPD, prior Myocardial infarction) ASA 4: a patient with an incapacitating disease that is a constant threat to life (CHF, renal failure) ASA 5: a moribund patient not expected to survive 24 hrs. (ruptured aneurysm) ASA 6: a declared brain- patient whose organs are being harvested. For emergent operations, add the letter E after the classification Mallampati Classification Grade 2 Sedation Plan Analgesia, Amnesia, Plan communicated to team members, Discussed options with patient/fam, Discussed risks with patient/fam The patient is an appropriate candidate to undergo the planned procedure, sedation, and anesthesia. The patient immediately re-assessed prior to indication. MILENA DAVIDSON MD FACP FAC CCDS Jan 08, 2019 11:15
[2019-01-08] MEDS ORDERED: HEParin 1000 UNIT/ML (10ML VIAL) FOR BOLUS ONE (11:52)
[2019-01-08] MEDS ORDERED: EPTIFIBATIDE BOLUS 20 ML IV ONE (11:52)
[2019-01-08] MEDS ORDERED: NITRO DRIP 25000 MCG/D5W 0 ML IV ONE (11:52)
[2019-01-08] MEDS ORDERED: EPTIFIBATIDE BOLUS 10 ML IV ONE (11:57)
[2019-01-08] MEDS ORDERED: MIDAZOLAM 2 MG/2 ML (VERSED) VIAL ONE (12:09)
[2019-01-08] MEDS ORDERED: meTOprolol 5 MG/5 ML (LOPRESSOR) VIAL ONE (12:28)
[2019-01-08] MEDS ORDERED: ASPIRIN 81 MG CHEW (CHILDREN'S ASA) ONE (12:48)
[2019-01-08] MEDS ORDERED: CLOPIDOGREL 300 MG (PLAVIX) TABLET PO ONE (12:49)
[2019-01-08] MEDS ORDERED: PATIENT MAY USE OWN MEDS, ALL PO SCH (13:00)
[2019-01-08] MEDS ORDERED: HYDROcodone/APAP 10 MG/325 MG (LORTAB) TAB PO PRN (13:00)
[2019-01-08] MEDS ORDERED: HYDROmorphone 2 MG/ML VIAL (DILAUDID) ONE (13:11)
--- NOTE | 2019-01-08 13:32 | CARDIAC CATHETERIZATION ---
DATE OF SERVICE: 01/08/2019 CARDIAC CATHETERIZATION AND CORONARY INTERVENTION The patient is a 68-year-old man with known coronary artery disease who has had previous percutaneous interventions to the coronary arteries. He presents with chest discomfort that is suggestive of recurrent angina. He has been having frequent symptoms. Cardiac catheterization was carried out after having obtained an informed consent. DESCRIPTION OF PROCEDURE: He was brought to the cardiac catheterization laboratory in a fasting state after informed consent had been obtained for cardiac catheterization and possible ad hoc coronary intervention. The right groin was prepared and draped in the usual sterile fashion. Lidocaine 1% was used for local anesthesia. Modified Seldinger technique was used to advance a 5-Colombian sheath in the right femoral artery. A 5-Colombian JL4 catheter for left coronary angiography, 5-Colombian JR4 catheter for right coronary angiography. A 5-Colombian pigtail catheter was used for left heart catheterization, left ventricular angiography. PERCUTANEOUS INTERVENTION OF THE RIGHT CORONARY ARTERY: Following completion of the diagnostic procedure, we carried out percutaneous intervention of the proximal right coronary artery that was exhibiting of approximately 70% proximal stenosis. We exchanged the sheath over a wire for a 6-Colombian sheath. We gave 7000 units of intravenous heparin and a double bolus of Integrilin during the interventional procedure. We used a 6-Colombian JR4 guide catheter with side holes. We used a BMW wire that was advanced across the lesion and the tip was placed in the distal vessel and we then advanced Alpine Xience 3.0 x 12 mm stent to the lesion and the stent was deployed at 20 atmospheres. Full stent expansion was achieved. Subsequent angiography revealed 0% residual stenosis at the previous site of approximately 70% stenosis and flow throughout the vessel is normal. PERCUTANEOUS INTERVENTION OF THE LEFT ANTERIOR DESCENDING ARTERY: Following completion of the percutaneous intervention of the right coronary artery, we removed the right coronary guide catheter and the angioplasty equipment. We then advanced a 6-Colombian JL4 guide catheter to engage the left coronary artery to carry out percutaneous intervention to the mid left anterior descending artery that was exhibiting focal stenosis of approximately 90%. The patient has diffuse moderate disease with multiple focal stenoses but this appeared to be the most significant lesion and percutaneous intervention was carried out to this. We used a 6-Colombian JL4 guide catheter to engage the left coronary artery and a choice floppy wire to cross the lesion and the tip of the wire was placed in the distal vessel. We advanced Emerge 2.0 x 15 mm balloon to the lesion and the balloon was inflated to 10 atmospheres. The balloon was then deflated and removed. Subsequent angiography reveals less than 30% residual stenosis at the previous site of 90% stenosis. More distally, where the vessel is of a very small caliber, the patient had additional 70 to 80% stenosis, which was not intervened on because of small vessel caliber. The angioplasty equipment was removed. Angiography of the right femoral artery had been carried out through the sheath at the beginning of the procedure. At the end of the procedure, Mynx was used to achieve hemostasis. He tolerated the procedure well. HEMODYNAMICS: Left ventricular end-diastolic pressure following coronary angiography was 18 mmHg. There was no significant pressure gradient on pullback across the aortic valve. Ascending aortic pressure was 154/76 with a mean of 86 mmHg. CORONARY ANGIOGRAPHY: Diffuse coronary calcification is present. Left main coronary artery does not exhibit significant obstructive disease. Left anterior descending artery has a patent stent in its mid portion that is known to be Promus 3.0 x 12 mm. This is widely patent and free of significant disease. Distal to this lesion, in the mid to distal left anterior descending, there is 90% stenosis to which successful balloon angioplasty was carried out with a reduction of stenosis to 30%. There are multiple other focal stenosis of up to 50%, which were not intervened on. Very distally, where the vessel is of a small caliber, there is 70% to 80% stenosis that was not intervened on because of small vessel caliber. The left circumflex artery has diffuse mild to moderate disease. There is a patent stent in the mid left circumflex artery that is known to be Promus 2.5 x 23 mm. The right coronary artery is dominant. It had approximately 70% proximal stenosis, which was successfully stented today with Alpine Xience 3.0 x 12 mm stent. The mid left anterior descending artery has 30 to 40% stenoses which were not intervened on. LEFT VENTRICULAR ANGIOGRAPHY: Left ventricular angiography shows normal global left ventricular systolic function with normal regional wall motion. Left ventricular ejection fraction is estimated to be 55% to 60%. There does not appear to be significant mitral regurgitation. CONCLUSIONS: 1. Coronary artery disease. The left anterior descending artery had a 90% mid to distal vessel lesion to which successful balloon angioplasty was carried out, reducing the stenosis to less than 30%. The left anterior descending artery has a patent stent in its mid portion that is known to be Promus 3.0 x 12 mm and that does not exhibit any significant stent restenosis. The very distal left anterior descending artery has 70% to 80% stenosis but is not amenable to intervention because of small vessel caliber. The left circumflex artery has a patent stent in its mid portion that is known to be Promus 2.5 x 23 and this is widely patent and free of significant disease. The left circumflex artery has diffuse moderate disease. The right coronary artery had 70% proximal stenosis that was stented with Alpine Xience 3.0 x 12 mm stent. The mid right coronary artery has approximately 30 to 40% stenoses. 2. Normal global left ventricular systolic function with an ejection fraction of 55% to 60%. 3. Left ventricular end-diastolic pressure of approximately 18 mmHg. 4. No significant mitral regurgitation. DISCUSSION AND RECOMMENDATIONS: Dual antiplatelet therapy is being continued. He is being hospitalized for overnight observation. Risk factor modification has been reviewed. Job ID: [id number] DocumentID: [id number] Dictated Date: 01/08/2019 12:50:39 Soaking Pit Operator Date: 01/08/2019 13:30:53 Dictated By: MILENA DAVIDSON MD, MA, FACP, FACC,
[2019-01-08] MEDS: fentaNYL INJECTION 100 MCG/2 ML AMP IVP PRN ×2 (14:22→16:15)
--- NOTE | 2019-01-08 15:25 | NUR ---
DR. DAVIDSON AT BEDSIDE TO ACCESS STATUS OF HEMATOMA. NO FURTHER ORDERS AT THIS TIME.
[2019-01-08] MEDS: NS IV 1000 ML 1,000 ML IV SCH ×2 (15:46→23:57)
[2019-01-08] MEDS ORDERED: morphine INJ 4 MG/ML 1 ML (VIAL/SYRINGE) ONE (16:53)
--- NOTE | 2019-01-08 16:55 | NUR ---
THIS RN SPOKE TO DR DAVIDSON REGARDING PT C/O SEVERE BACK PAIN. THIS RN PREVIOUSLY GAVE PT IV PAIN MEDICATION AND TRIED TO REPOSITION PT IN BED WHILE KEEPING RIGHT GROIN STRAIGHT AND PT FLAT. NEW ORDERS RECEIVED FROM DR DAVIDSON.
[2019-01-08] MEDS: morphine INJ 4 MG/ML 1 ML (VIAL/SYRINGE) IVP PRN ×2 (17:00→19:47)
[2019-01-08] MEDS ORDERED: ATORVASTATIN 20 MG (LIPITOR) TABLET PO SCH (21:00)
[2019-01-08] MEDS ORDERED: NON-FORMULARY MEDICATION 1 EA EA (Hydralazine HCl 25 MG) PO SCH (21:00)
[2019-01-08] MEDS ORDERED: hydrALAZINE (APRESOLINE) 25 MG TAB PO SCH (21:00)
[2019-01-08] MEDS ORDERED: MONTELUKAST 10 MG (SINGULAIR) TAB PO SCH (21:00)
[2019-01-08] MEDS ORDERED: DIAZEPAM 2 MG (VALIUM) TAB PO SCH (21:00)
--- NOTE | 2019-01-08 21:21 | NUR ---
PT TOOK HIS OWN MEDS FOR HIS NIGHT TIME MEDS
[2019-01-09 03:27] LABS: HEMOGLOBIN 13.9 G/DL (13.3-17.7); MEAN PLATELET VOLUME 10.5 FL (7.4-10.4); RED CELL DISTRIBUTION WIDTH 12.8 % (10.0-14.5); WHITE BLOOD COUNT 10.2 10^3/uL (4.3-11.0)
[2019-01-09 04:00] VITALS: BP 160/90
[2019-01-09 04:23] LABS: BUN/CREATININE RATIO 16; CALCIUM 8.5 MG/DL (8.5-10.1); CARBON DIOXIDE 24 MMOL/L (21-32); CHLORIDE 106 MMOL/L (98-107); CREATININE SERUM 0.92 MG/DL (0.60-1.30); GFR ESTIMATED > 60; GLUCOSE 85 MG/DL (70-105); POTASSIUM 3.5 MMOL/L (3.6-5.0); SODIUM 139 MMOL/L (135-145)
[2019-01-09 08:15] VITALS: BP 171/82
[2019-01-09] MEDS ORDERED: KCL 20 MEQ TAB (K-DUR) PO NR (08:30)
[2019-01-09] MEDS ORDERED: CLOP75TA28 PO (08:35)
[2019-01-09] MEDS ORDERED: ASPI-999 PO (08:35)
--- NOTE | 2019-01-09 08:36 | Discharge Inst-Cardiology ---
Discharge Inst-Cardiac Discharge Medications New Medications: Aspirin (Aspirin) 81 Mg Tab.chew 81 MG PO DAILY, #90 TAB 3 Refills Clopidogrel Bisulfate (Clopidogrel) 75 Mg Tablet 75 MG PO DAILY for 90 Days, #90 TAB 3 Refills Continued Medications: Amlodipine Besylate (Amlodipine Besylate) 5 Mg Tablet 5 MG PO DAILY, TAB Atorvastatin Calcium (Atorvastatin Calcium) 20 Mg Tablet 20 MG PO HS, TAB Cetirizine HCl (Zyrtec) 10 Mg Tablet 10 MG PO DAILY, TAB Cyanocobalamin (Vitamin B-12) (Vitamin B-12) 1,000 Mcg Tablet 1000 MCG PO DAILY, TAB Diazepam (Diazepam) 2 Mg Tablet 2 MG PO HS, TAB Hydralazine HCl (Hydralazine HCl) 25 Mg Tablet 25 MG PO BID, TAB Hydrocodone/Acetaminophen (Hydrocodon-Acetaminophn 10-325) 1 Each Tablet 1 TAB PO Q6H PRN for PAIN-MODERATE, TAB Losartan Potassium (Losartan Potassium) 100 Mg Tablet 100 MG PO DAILY, TAB Metoprolol Succinate (Metoprolol Succinate) 100 Mg Tab.er.24h 100 MG PO DAILY, TAB Montelukast Sodium (Montelukast Sodium) 10 Mg Tablet 10 MG PO HS, TAB Tramadol HCl (Tramadol HCl) 50 Mg Tablet 50 MG PO Q6H PRN for PAIN-MODERATE, TAB Discontinued Medications: Aspirin (Aspirin EC) 81 Mg Tablet.dr 81 MG PO DAILY, TAB MILENA DAVIDSON MD FACP FAC CCDS Jan 09, 2019 08:36
--- NOTE | 2019-01-09 08:37 | Discharge Inst-Post CATH ---
Discharge Inst-CATH/EP Post Cardiac Cath/EP D/C Inst Follow Up/Plan F/u with Dr Pryor next week CARDIAC CATH DISCHARGE INSTRUCTIONS *Hold Metformin for 48 hours post heart cath. ACTIVITY * Go Home directly and rest. * Limit activity of the leg (or wrist if it was used) for 7 days including aerobics, swimming, jogging, bicycling, etc. * Restrict stair-climbing for 7 days if possible, if not, climb up with your non -cath leg, then bring together on the same step. * Avoid lifting, pushing, pulling or excessive movement of the affected extremity for 7 days. * Customary sexual activity may be resumed after 2 days-use caution not to use a position that strains or causes pain to the affected extremity. * No driving for 24 hours. * NO SMOKING. * Avoid straining for bowel movements for 7 days. * Gentle walking on level ground is allowed. * Returning to work will depend on the type of procedure and the results. Your doctor will discuss this with you. CALL YOUR DOCTOR FOR ANY OF THE FOLLOWING: *If bleeding from the puncture site occurs- Apply gentle pressure to site with clean cloth and call your doctor or EMS. * If a knot or lump forms under the skin, increases in size, or causes pain. * If bruising appears to be worsening or moving further down your leg instead of disappearing. * Temperature above 101 F. CARE OF YOUR GROIN INCISION; * Bruising or purple discoloration of the skin near the puncture site is common. * You may shower only, no bathtub bathing for 5 days. Be careful to avoid slipping as your leg may feel stiff. * If a closure device was used on your femoral artery, please see the attached guide regarding care of the device and your leg. * Leave the dressing on, until removed by office staff. CARE OF YOUR WRIST INCISION; * Bruising or purple discoloration of the skin near the puncture site is common. * You may shower. * DO NOT submerge wrist. * Leave dressing on, until removed by office staff.. MILENA PRYOR MD [facility] CCDS Jan 09, 2019 08:37
--- NOTE | 2019-01-09 08:43 | Progress Note-Cardiology ---
Cardiology SOAP Progress Note Subjective: No cp or palp or syncope Chronic low back pain is at usual baseline No abd pain No shortness of breath Feels well this am and wishes to go home Objective: I&O/Vital Signs 01/08/19 01/09/19 01/09/19 01/09/19 23:22 01:00 04:00 07:00 Temp 97.9 Pulse 72 69 69 74 B/P (MAP) 175/88 (117) 160/90 (113) O2 Delivery Room Air Room Air 01/09/19 08:15 Temp 97.4 Pulse 77 Resp 18 B/P (MAP) 171/82 (111) Pulse Ox 97 O2 Delivery Room Air Weight (Pounds): 182 Weight (Ounces): 0.0 Weight (Calculated Kilograms): 82.893915 Bruising: large amount of bruising Constitutional: AAO x 3, well-developed, well-nourished Respiratory: No accessory muscle use; lungs clear to percussion, lungs clear to auscultation Cardiovascular: regular rate-rhythm, S1 and S2, systolic murmur (soft LONA at card base) Gastrointestional: No tender; soft; No guarding, No rebound; audible bowel sounds Extremities: No clubbing, No cyanosis, No significant edema Neurologic/Psychiatric: oriented x 3, grossly intact, power is 5/5 both on sides Skin: No rash on exposed areas, No ulcerations on exposed areas; other (R groin bruising as noted above) Results/Procedures: Labs Laboratory Tests 01/08/19 09:20: White Blood Count 8.4, Red Blood Count 4.76, Hemoglobin 15.7, Hematocrit 44, Mean Corpuscular Volume 92, Mean Corpuscular Hemoglobin 33, Mean Corpuscular Hemoglobin Concent 36, Red Cell Distribution Width 13.1, Platelet Count 227, Mean Platelet Volume 10.2, Prothrombin Time 13.4, INR Comment 1.0, Activated Partial Thromboplast Time 29, Sodium Level 142, Potassium Level 3.5L, Chloride Level 105, Carbon Dioxide Level 25, Anion Gap 12, Blood Urea Nitrogen 13, Creatinine 1.10, Estimat Glomerular Filtration Rate > 60, BUN/Creatinine Ratio 12, Glucose Level 127H, Calcium Level 9.2, Corrected Calcium 8.8, Total Bilirubin 0.7, Aspartate Amino Transf (AST/SGOT) 32, Alanine Aminotransferase ( ALT/SGPT) 33, Alkaline Phosphatase 57, Total Protein 7.2, Albumin 4.5, Triglycerides Level 150H, Cholesterol Level 136, LDL Cholesterol Direct 82, VLDL Cholesterol 30, HDL Cholesterol 38L 01/09/19 03:05: White Blood Count 10.2, Red Blood Count 4.32L, Hemoglobin 13.9, Hematocrit 40, Mean Corpuscular Volume 93, Mean Corpuscular Hemoglobin 32, Mean Corpuscular Hemoglobin Concent 35, Red Cell Distribution Width 12.8, Platelet Count 193, Mean Platelet Volume 10.5H, Sodium Level 139, Potassium Level 3.5L, Chloride Level 106, Carbon Dioxide Level 24, Anion Gap 9, Blood Urea Nitrogen 15, Creatinine 0.92, Estimat Glomerular Filtration Rate > 60, BUN/Creatinine Ratio 16, Glucose Level 85, Calcium Level 8.5 Laboratory Tests 01/08/19 09:20 01/09/19 03:05 A/P: Assessment: Coronary artery disease. Last card cath on 01/08/19: the left anterior descending artery had a 90% mid to distal vessel lesion to which successful balloon angioplasty was carried out, reducing the stenosis to less than 30%. The left anterior descending artery has a patent stent in its mid portion that is known to be Promus 3.0 x 12 mm (placed in 2009) and that does not exhibit any significant stent restenosis. The very distal left anterior descending artery has 70% to 80% stenosis but is not amenable to intervention because of small vessel caliber. The left circumflex artery has a patent stent in its mid portion that is known to be Promus 2.5 x 23 (placed in 2009) and this is widely patent and free of significant disease. The left circumflex artery has diffuse moderate disease. The right coronary artery had 70% proximal stenosis that was stented with Alpine Xience 3.0 x 12 mm stent. The mid right coronary artery has approximately 30 to 40% stenoses. LVEF 55% to 60%. LVEDP 18 mmHg Post-cath R groin hematoma, stable/resolving Hypertension with hypertensive CVD Echo on 01/02/19: LVEF 60-65%, no RWMA, mild bharat mod conc LVH, mild diastolic dysfunction of LV, no significant valvular regurg or stenosis Chronic back and joint pain H/o hyperglycemia when on prednisone for joint pains in the past Hyperlipidemia, chronically treated with statin Hypothyroidism, managed by Dr Adames Chronic insomnia, managed by Dr Adames Surgeries: cholecystectomy, carpal tunnel surgery, and back fusion Obesity mass index of approximately 39 DEBORAH for which he is non-compliant with sleep apnea treatment - followed by Dr. Bowman Plan: * I had a detailed discussion with him regarding cath findings, interventions undertaken, and post-cath groin hematoma * Risk factor mod reviewed * Med compliance advised * Outpt f/u advised MILENA DAVIDSON MD FACP FAC CCDS Jan 09, 2019 08:43
[2019-01-09] MEDS ORDERED: NON-FORMULARY MEDICATION 1 EA EA (Amlodipine Besylate 5 MG) PO SCH (09:00)
[2019-01-09] MEDS ORDERED: meTOprolol SUCCINATE 100 MG (TOPROL XL) TAB PO SCH (09:00)
[2019-01-09] MEDS ORDERED: LORATADINE (CLARITIN) 10 MG TAB PO SCH (09:00)
[2019-01-09] MEDS ORDERED: CYANOCOBALAMIN 1,000 MCG (VITAMIN B-12) TABLET PO SCH (09:00)
[2019-01-09] MEDS ORDERED: amLODIPine 5 MG (NORVASC) TAB PO SCH (09:00)
[2019-01-09] MEDS ORDERED: ASPIRIN 81 MG CHEW (CHILDREN'S ASA) PO SCH (09:00)
[2019-01-09] MEDS ORDERED: NON-FORMULARY MEDICATION 1 EA EA (Cetirizine HCl (Zyrtec) 10 MG) PO SCH (09:00)
[2019-01-09] MEDS ORDERED: LOSARTAN 100 MG (COZAAR) TABLET PO SCH (09:00)
[2019-01-09] MEDS ORDERED: CLOPIDOGREL 75 MG (PLAVIX) TABLET PO SCH (09:00)
== END 2019-01-09 09:00 | disposition home or self-care (01) ==
LOC: CATH 08:57 → ICU 15:35 → CATH 01-09 09:00
PROVIDERS: ATTEND Internal Medicine Cardiovascular Disease
DX: I25.10 Atherosclerotic heart disease of native coronary artery without angina pectoris (principal); I97.630 Postprocedural hematoma of a circulatory system organ or structure following a cardiac catheterization; I11.9 Hypertensive heart disease without heart failure; E78.5 Hyperlipidemia, unspecified; E03.9 Hypothyroidism, unspecified; G47.33 Obstructive sleep apnea (adult) (pediatric); Z91.19 Patient's noncompliance with other medical treatment and regimen; Z95.5 Presence of coronary angioplasty implant and graft
CPT/HCPCS: 36415; 80048; 80053; 80061; 85027; 85610; 85730; 87081; 93005; 93458

== ENCOUNTER → 2019-01-14 | Outpatient (CLI) | payer MEDICARE, OTHER ==
[~2019-01-14] MED LIST changes: +ASPI-999 PO; +CETI10TA20 PO; +CLOP75TA28 PO; -HEParin (CATH LAB) 2,000 ML IV ONE; +HYDR-3820 PO; -LIDOCAINE 1% INJ 20 ML 20 ML VIAL ONE; -NS IV 1000 ML 1,000 ML ONE
--- NOTE | 2019-01-14 13:50 | Diagnostic Imaging Report ---
PROCEDURE: MRI lumbar spine. TECHNIQUE: Multiplanar, multisequence MRI of the lumbar spine was performed without contrast. INDICATION: Low back pain radiating into right lower extremity. History of lumbar spine surgeries. COMPARISON: None. FINDINGS: There are five lumbar type vertebral bodies for the purposes of this report. Grade I anterolisthesis of L4 on L5. Vertebral body heights are preserved. Bone marrow signal is grossly unremarkable. There are postoperative findings of bilateral hugo and pedicle screw fixation with laminectomies at T10 through L4. Interbody fusion at L2-L3. Susceptibility artifact from hardware limits the evaluation. There is no high-grade spinal canal narrowing evident at these levels. There is likely moderate neural foraminal narrowing on the right at L1 through L3. At L4-L5, posterior disc osteophyte complex, ligamentous hypertrophy and facet arthropathy all result in advanced spinal canal narrowing. There is also advanced bilateral neural foraminal narrowing at this level. At L5-S1, facet arthropathy contributes to moderate bilateral neural foraminal narrowing and right lateral recess narrowing. There is mild spinal canal and left lateral recess narrowing. The conus and cauda equina are not well seen. No acute findings in the visualized abdomen or pelvis. IMPRESSION: 1. Bilateral hugo and pedicle screw fixation with laminectomies spanning T10 through L4 with an interbody fusion at L2-L3. Susceptibility artifact from hardware limits evaluation. 2. Spondylotic changes result in advanced spinal canal narrowing at L4-L5. There is also advanced bilateral neural foraminal narrowing at this level. 3. Moderate bilateral neural foraminal narrowing and right lateral recess narrowing at L5-S1. Dictated by: Dictated on workstation # [id number]
== END ==
LOC: RAD 09:55
PROVIDERS: ATTEND Internal Medicine
DX: M47.816 Spondylosis without myelopathy or radiculopathy, lumbar region (principal); M48.061 Spinal stenosis, lumbar region without neurogenic claudication; Z98.1 Arthrodesis status
CPT/HCPCS: 72148

== ENCOUNTER → 2019-01-25 | Outpatient (CLI) | payer MEDICARE, OTHER ==
--- NOTE | 2019-01-25 14:08 | Diagnostic Imaging Report ---
INDICATION: History of previous thoracolumbar fusion. Back pain. COMPARISON: None. FINDINGS: Frontal and lateral radiographic views of the thoracic spine were obtained. Patient is status post previous thoracolumbar fusion. Interpedicular screws and posterior fusion rods are partially visualized. Included portions of the hardware are intact. No unexpected radiopaque foreign bodies are seen. Static alignment of the thoracic spine is maintained. There is no significant anteroretrolisthesis. There is no evidence of jumped facets. Vertebral body heights are maintained. There is no evidence of acute fracture. There is mild multilevel intervertebral disc height loss. Surrounding soft tissue structures are unremarkable. Included portions of the lungs are clear. IMPRESSION: 1. Mild multilevel degenerative changes of thoracic spine. 2. No new acute fracture or dislocation. 3. Partially visualized postsurgical changes of prior thoracolumbar fusion. Dictated by: Dictated on workstation # [id number]
--- NOTE | 2019-01-25 14:08 | Diagnostic Imaging Report ---
INDICATION: Previous thoracolumbar fusion. Back pain. COMPARISON: MR dated 01/14/2019. FINDINGS: Frontal and lateral radiographic views of the lumbar spine were obtained. Patient has transitional thoracolumbar anatomy. Small riblets at T12 are inconspicuous on this exam. Patient is status post previous posterior fusion of T10 through L4. Bilateral interpedicular screws are intact and appear appropriately positioned. Bilateral posterior fusion rods are intact as well. Flexion-extension views show moderate grade 1 anterolisthesis at L4-L5. This is not significantly changed between the flexion-extension. There is no evidence of jumped facets. Vertebral body heights are maintained. There is no evidence of acute fracture. There is multilevel intervertebral disc height loss, greatest at L4-L5. There is also anterior and posterior osteophyte formation with degenerative endplate sclerosis at L4-L5. No unexpected radiopaque foreign bodies are seen. Small bowel loops are nondistended. IMPRESSION: 1. Postsurgical changes of previous posterior fusion of T10 through L4. No evidence of hardware fracture failure. 2. 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 3. No evidence acute fracture or dislocation of the lumbar spine. Dictated by: Dictated on workstation # [id number]
== END ==
LOC: RAD 11:53
PROVIDERS: ATTEND Internal Medicine
DX: M47.816 Spondylosis without myelopathy or radiculopathy, lumbar region (principal); M47.814 Spondylosis without myelopathy or radiculopathy, thoracic region; Z98.1 Arthrodesis status
CPT/HCPCS: 72072; 72100

== ENCOUNTER 2019-07-18 20:07 | Outpatient (CLI) | payer MEDICARE, OTHER ==
[~2019-07-18 20:07] MED LIST changes: +CYAN-41 PO; -CYAN10006 PO
== END 2019-07-19 06:00 | disposition home or self-care (01) ==
LOC: SLEEP 20:07
PROVIDERS: ATTEND Otolaryngology Otolaryngology/Facial Plastic Surgery
DX: G47.33 Obstructive sleep apnea (adult) (pediatric) (principal)
CPT/HCPCS: 95810

== ENCOUNTER 2020-05-25 05:41 | Outpatient (RCR) | payer MEDICARE, OTHER ==
[~2020-05-25] VITALS: Ht 177 cm; Wt 110.0 kg
[~2020-05-25 05:41] MED LIST changes: +ACHYD1T PO; -CETI10TA20 PO; +CETI10TA21 PO; -HYDR-3820 PO; -HYDR473S34 PO; +HYDR473S61 PO; -METO-395 PO; -MONT10TA24 PO; +MONT10TA26 PO; +MTP100TCR PO; +TRIA1TAB3 PO; +TRM50T PO
== END 2020-05-25 14:15 | disposition home or self-care (01) ==
LOC: PREOP 05:41
PROVIDERS: ATTEND Surgery
DX: Z01.818 Encounter for other preprocedural examination (principal); Z20.828 Contact with and (suspected) exposure to other viral communicable diseases
CPT/HCPCS: 87635

== ENCOUNTER 2020-05-27 08:05 | Day surgery (SDC) | payer MEDICARE, OTHER ==
[2020-05-27] VITALS (8 sets, daily range): BP systolic 108–158; BP diastolic 51–68
[~2020-05-27] VITALS: Ht 177 cm; Wt 110.0 kg
[2020-05-27] MEDS ORDERED: LACTATED RINGERS 1,000 ML IV ONE (08:26)
[2020-05-27] MEDS ORDERED: LACTATED RINGERS 1,000 ML IV STA (08:29)
[2020-05-27] MEDS ORDERED: LIDOCAINE JELLY 2% 6 ML SYRINGE MM PRN (08:30)
--- OUTSIDE RECORDS SUMMARY | 2020-05-27 08:36 | XMS REPORT | Continuity of Care Document ---
Author Organization Unknown Address Unknown Phone Unavailable Allergies Active Description Code Type Severity Reaction Onset Reported/Identified Relationship to Patient Clinical Status Yes PERCOCET UNKNOWN UNKNOWN Yes desipramine [id number] Drug Aller gy Mild RASH 02/09/2017 Yes No Known Drug Allergies [id number] Drug Allergy Unknown N/A 05/20/2020 Medications Medication Packaging Start Date St op Date Route Dosage Sig ACETAMINOPHEN ORAL TABLET 325mg(Tylenol) MG 05/27/2019 06/26/2019 PRN EVERY 6 Hour INSULIN ASPART PEN INJ 100 U NITS/CC (NOVOLOG FLEXPEN) 05/27/2019 06/26/2019 ACHS&0630,1130,1630,2100 METOPROLOL-XL TAB 50 MG (TOPROL XL) Dose(s) 05/27/2019 05/27/2019 ONCE&1632 ALPRAZOLAM TAB 0.25 MG (XANAX) MG 05/27/2019 06/06/2019 PRN Q6H CLONIDINE TAB 0.1 MG (CATAPRES) MG 05/27/2019 06/03/2019 PRN Q6H GUAIFENESIN/CODEINE LIQ (ROBITUSSIN AC) ml 05/27/2019 06/03/2019 PRN Q4H ACETAMINOPHEN SUPPOS SUP 650 MG (TYLENOL) MG 05/27/2019 06/03/2019 PRN Q4H ONDANSETRON VIAL INJ 4 MG/2CC (ZOFRAN 2CC VIAL) MG 05/27/2019 06/03/2019 PRN Q4H CALCIUM CARBONATE TAB 500 MG (TUMS) MG 05/27/2019 06/03/2019 PRN Q6H DIPHENHYDRAMINE CAP 25 MG (BENADRYL) MG 05/27/2019 06/03/2019 PRN Q6H HYDROCODONE/APAP 10/325 TAB 10 /325 (IVA-TAB 10/325) TAB 05/27/2019 06/06/2019 PRN Q6H HYDROCODONE/APAP 5MG/325MG T AB 5 MG/325MG (IVA-TAB 5/325) TAB 05/27/2019 06/06/2019 PRN Q6H HYDROCODONE/APAP 7.5/325 VÍCTOR X LIQ 15 CC (LORTAB ELIX 7.5/325) ML 05/27/2019 06/06/2019 Q12H&0600,1800 ALUM/MAG/SIMETH 30CC LIQ (MYLANTA PLUS) cc 05/27/2019 06/06/2019 PRN Q4H GUAIFENESIN - DM LIQ (ROBITUSSIN DM) MLS 05/27/2019 06/03/2019 PRN Q4H METHYLPREDNISOLONE VIAL INJ 125 MG/2CC (SOLU-MEDROL VIAL) MG 05/27/2019 06/01/2019 Q6H&0200,0800,1400,2000 CEFDINIR CAP 300 MG (OMNICEF) MG 05/27/2019 06/06/2019 BID&0800,2000 METOPROLOL-XL TAB 50 MG (TOPROL XL) Dose(s) 05/27/2019 06/03/2019 BID&0800,2000 Docusate sodium 100mg oral capsule (COLACE ) 05/27/2019 06/26/2019 PRN BID SIMVASTATIN TAB 10 MG (ZOCOR) MG 05/27/2019 06/02/2019 QPM&2000 HYDRALAZINE TAB 25 MG (APRESOLINE) MG 05/27/2019 06/03/2019 BID&0800,2000 BUDESONIDE INHALATION SUSP A MP 0.5 MG/2CC (PULMICORT) MG 05/27/2019 06/03/2019 BID&0800,2000 Piperacillin-tazobactam 3.37 5 Gm IV recon soln (Zosyn) GM 05/27/2019 06/03/2019 Q8H&0400,1200,2000 FLUTICASONE/SALMETEROL 100 / 50MCG (ADVAIR DISKUS) 05/27/2019 06/03/2019 BID&0800,2000 LACTULOSE SYRUP LIQ 20 GM/30 CC (CHRONULAC SYRUP) GM 05/27/2019 06/26/2019 BID&0800,2000 MELATONIN TAB 3 MG (MELATONIN) MG 05/27/2019 06/02/2019 PRN QHS ALBUTEROL SVN 2.5MG/3CC LIQ 2.5 MG (PROVENTIL LILIAM 2.5MG/3CC) MG 05/27/2019 06/06/2019 QID&0600,1100,1600,2100 ALBUTEROL SVN 2.5MG/3CC LIQ 2.5 MG (PROVENTIL LILIAM 2.5MG/3CC) MG 05/27/2019 06/06/2019 PRN Q8H DIAZEPAM TAB 2 MG (VALIUM) M G 05/28/2019 05/28/2019 PRN ONCE AMLODIPINE TAB 5 MG (NORVASC) MG 05/28/2019 06/03/2019 Daily&0900 CLOPIDOGREL TAB 75 MG (PLAVIX) MG 05/28/2019 06/03/2019 Daily&0900 ASPIRIN ENTERIC COATED TAB 8 1 MG (BABY ASPIRIN EC) MG 05/28/2019 06/03/2019 Daily&0900 BISACODYL TAB 5 MG (DULCOLAX) MG 05/28/2019 06/03/2019 PRN Daily DIAZEPAM TAB 2 MG (VALIUM) M G 05/28/2019 06/04/2019 PRN Daily MONTELUKAST TAB 10 MG (SINGULAIR) MG 05/28/2019 06/26/2019 Daily&0900 CETIRIZINE TAB 10 MG (ZYRTEC) MG 05/28/2019 06/26/2019 Daily&0900 LOSARTAN TAB 100 MG (COZAAR) MG 05/28/2019 06/03/2019 Daily&0900 POLYETHYLENE GLYCOL POWDER U D PWD (MIRALAX 17GM UNIT DOSE PAKS) gm 05/28/2019 06/03/2019 Daily&0900 BISACODYL SUPPOS 10 MG (DULCOLAX SUPPOS) MG 05/28/2019 06/03/2019 PRN Daily CYANOCOBALAMIN TAB 1000 MCG (VIT B 12) Dose(s) 05/28/2019 06/03/2019 Daily&0900 MILK OF MAGNESIA LIQ ml 05/28/2019 06/26/2019 PRN Daily METHYLPREDNISOLONE VIAL INJ 125 MG/2CC (SOLU-MEDROL VIAL) MG 05/29/2019 06/03/2019 BID&0800,2000 Problems Date Dx Coded Attending Type Code Diagnosis Diagnosed By 12/25/2005 Ot 723.1 12/25/2005 Ot 729.5 01/10/2012 Ot 244.9 HYPO THYROIDISM NOS 01/10/2012 Ot 250.00 JHONATHAN B JESSICA WO COMPL, TYPE II OR UNSPEC TY 01/10/2012 Ot 272.4 HYPE RLIPIDEMIA NEC/NOS 01/10/2012 Ot 401.9 HYPE RTENSION NOS 01/10/2012 Ot 429.9 HEAR T DISEASE NOS 01/10/2012 Ot 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 01/10/2012 Ot 592.1 CALC ULUS OF [place]RE[place] 01/10/2012 Ot V17.3 FAM HX-ISCHEM HEART DIS 01/10/2012 Ot V45.82 PER CUTANEOUS TRANSLUM CORON ANGIOPLASTY 01/18/2012 Ot 244.9 HYPO THYROIDISM NOS 01/18/2012 Ot 250.60 JHONATHAN B W NEURO MANIFEST, TYPE II OR UNSPEC 01/18/2012 Ot 272.4 HYPE RLIPIDEMIA NEC/NOS 01/18/2012 Ot 357.2 NEUR OPATHY IN DIABETES 01/18/2012 Ot 401.9 HYPE RTENSION NOS 01/18/2012 Ot 414.01 COR ONARY ATHEROSCLEROSIS OF [place] CORON 01/18/2012 Ot 592.1 CALC ULUS OF [place] 01/18/2012 Ot 715.90 OST EOARTHROS NOS- UNSPEC 01/18/2012 Ot V58.69 OTH MED,LT,CURRENT USE 03/26/2012 Ot V58.30 ENC OUNTER FOR CHANGE OR REMOVAL OF NONSU 04/25/2012 Ot 592.0 CALC ULUS OF KIDNEY 06/15/2016 Ot 414.00 COR ON ATHEROSCLER NOS TYPE VESSEL, NATIV 06/15/2016 Ot 592.0 CALC ULUS OF KIDNEY 06/15/2016 Ot 592.1 CALC ULUS OF [place] 06/15/2016 Ot V72.63 PRE -PROCEDURAL LABORATORY EXAMINATION 06/15/2016 Ot V72.81 CDWC-FRI-LHJFUCZAV CARDIOVASCULAR 06/15/2016 Ot 592.1 CALC ULUS OF [place] 06/15/2016 Ot 593.9 JIMBO L URETERAL DIS NOS 06/15/2016 Ot V58.30 ENC OUNTER FOR CHANGE OR REMOVAL OF NONSU 06/15/2016 Ot 592.0 CALC ULUS OF KIDNEY 06/16/2016 MANJIT UMAÑA DO Ot M25.551 PAIN IN RIGHT HIP 06/16/2016 MANJIT UMAÑA DO Ot M54.41 LUMBAGO WITH SCIATICA, RIGHT SIDE 06/16/2016 Ot 414.00 COR ON ATHEROSCLER NOS TYPE VESSEL, NATIV 06/16/2016 Ot 592.0 CALC ULUS OF KIDNEY 06/16/2016 Ot 592.1 CALC ULUS OF [place] 06/16/2016 Ot V72.63 PRE -PROCEDURAL LABORATORY EXAMINATION 06/16/2016 Ot V72.81 FTAB-ANA-OREAAGJXF CARDIOVASCULAR 06/16/2016 Ot 592.1 CALC ULUS OF [place] 06/16/2016 Ot 593.9 JIMBO L URETERAL DIS NOS 06/16/2016 Ot V58.30 ENC OUNTER FOR CHANGE OR REMOVAL OF NONSU 06/16/2016 Ot 592.0 CALC ULUS OF KIDNEY 06/16/2016 LEEROYMANJIT Warner DO Ot M25.551 PAIN IN RIGHT HIP 06/16/2016 LEEROY DO, MANJIT K Ot M54.41 LUMBAGO WITH SCIATICA, RIGHT SIDE 07/13/2016 LEEROY DO, MANJIT K Ot M25.551 PAIN IN RIGHT HIP 07/13/2016 LEEROY DO, MANJIT K Ot M54.41 LUMBAGO WITH SCIATICA, RIGHT SIDE 02/09/2017 Ot V58.30 ENC OUNTER FOR CHANGE OR REMOVAL OF NONSU 02/09/2017 Ot 592.0 CALC ULUS OF KIDNEY 02/09/2017 RAIMUNDO CASSIDY DO Ot J20.9 ACUTE BRONCHITIS, UNSPECIFIED 02/13/2017 RAIMUNDO CASSIDY DO Ot D72.82 9 ELEVATED WHITE BLOOD CELL COUNT, UNSPECI 02/13/2017 RAIMUNDO CASSIDY DO Ot E03.9 HYPOTHYROIDISM, UNSPECIFIED 02/13/2017 RAIMUNDO CASSIDY DO Ot E11.65 TYPE 2 DIABETES MELLITUS WITH HYPERGLYCE 02/13/2017 RAIMUNDO CASSIDY DO Ot E66.9 OBESITY, UNSPECIFIED 02/13/2017 RAIMUNDO CASSIDY DO Ot E78.5 HYPERLIPIDEMIA, UNSPECIFIED 02/13/2017 RAIMUNDO CASSIDY DO Ot G47.00 INSOMNIA, UNSPECIFIED 02/13/2017 MICHAEL CASSIDY DOI Ot G47.33 OBSTRUCTIVE SLEEP APNEA (ADULT) (PEDIATR 02/13/2017 RAIMUNDO CASSIDY DO Ot I10 ESSENTIAL (PRIMARY) HYPERTENSION 02/13/2017 RAIMUNDO CASSIDY DO Ot I25.10 ATHSCL HEART DISEASE OF [place] CORONARY 02/13/2017 CASSIDY DO, RAIMUNDO Ot J18.9 PNEUMONIA, UNSPECIFIED ORGANISM 02/13/2017 ANGE CHILDS RAIMUNDO Ot J20.9 ACUTE BRONCHITIS, UNSPECIFIED 02/13/2017 ANGE CHILDS RAIMUNDO Ot K75.81 NONALCOHOLIC STEATOHEPATITIS (PERSAUD) 02/13/2017 ANGE CHILDS RAIMUNDO Ot M19.90 UNSPECIFIED OSTEOARTHRITIS, UNSPECIFIED 02/13/2017 ANGE CHILDS RAIMUNDO Ot M79.1 MYALGIA 02/13/2017 ANGE CHILDS RAIMUNDO Ot R06.2 WHEEZING 02/13/2017 ANGE CHILDS RAIMUNDO Ot Z68.41 BODY MASS INDEX (BMI) 40.0-44.9, ADULT 02/13/2017 ANGE CHILDS RAIMUNDO Ot Z91.19 PATIENT'S NONCOMPLIANCE W [facility] MEDICAL TR 02/13/2017 ANGE CHILDS RAIMUNDO Ot Z95.5 PRESENCE OF CORONARY ANGIOPLASTY IMPLANT 02/15/2017 ANGE CHILDS RAIMUNDO Ot D72.82 9 ELEVATED WHITE BLOOD CELL COUNT, UNSPECI 02/15/2017 [...] RAIMUNDO Ot I25.10 ATHSCL HEART DISEASE OF [place] CORONARY 02/15/2017 ANGE CHILDS RAIMUNDO Ot J18.9 PNEUMONIA, UNSPECIFIED ORGANISM 02/15/2017 ANGE CHILDS RAIMUNDO Ot J20.9 ACUTE BRONCHITIS, UNSPECIFIED 02/15/2017 ANGE CHILDS RAIMUNDO Ot K75.81 NONALCOHOLIC STEATOHEPATITIS (PERSAUD) 02/15/2017 AGNE CHILDS RAIMUNDO Ot M19.90 UNSPECIFIED OSTEOARTHRITIS, UNSPECIFIED 02/15/2017 ANGE CHILDS RAIMUNDO Ot M79.1 MYALGIA 02/15/2017 ANGE DO RAIMUNDO Ot R06.2 WHEEZING 02/15/2017 CASSIDY DO RAIMUNDO Ot Z68.41 BODY MASS INDEX (BMI) 40.0-44.9, ADULT 02/15/2017 CASSIDY DO RAIMUNDO Ot Z91.19 PATIENT'S NONCOMPLIANCE W [facility] MEDICAL TR 02/15/2017 CASSIDY DO RAIMUNDO Ot Z95.5 PRESENCE OF CORONARY ANGIOPLASTY IMPLANT 02/15/2017 ANGE CHILDS RAIMUNDO Ot D72.82 9 ELEVATED WHITE BLOOD CELL COUNT, UNSPECI 02/15/2017 CASSIDY DO RAIMUNDO Ot E03.9 HYPOTHYROIDISM, UNSPECIFIED 02/15/2017 CASSIDY DO RAIMUNDO Ot E11.65 TYPE 2 DIABETES MELLITUS WITH HYPERGLYCE 02/15/2017 ANGE DO RAIMUNDO Ot E66.9 OBESITY, UNSPECIFIED 02/15/2017 ANGE DO RAIMUNDO Ot E78.5 HYPERLIPIDEMIA, UNSPECIFIED 02/15/2017 ANGE DO RAIMUNDO Ot G47.00 INSOMNIA, UNSPECIFIED 02/15/2017 ANGE DO RAIMUNDO Ot G47.33 OBSTRUCTIVE SLEEP APNEA (ADULT) (PEDIATR 02/15/2017 ANGE DO RAIMUNDO Ot I10 ESSENTIAL (PRIMARY) HYPERTENSION 02/15/2017 ANGE DO RAIMUNDO Ot I25.10 ATHSCL HEART DISEASE OF [place] CORONARY 02/15/2017 ANGE CHILDS RAIMUNDO Ot J18.9 PNEUMONIA, UNSPECIFIED ORGANISM 02/15/2017 ANGE CHILDS RAIMUNDO Ot J20.9 ACUTE BRONCHITIS, UNSPECIFIED 02/15/2017 ANGE CHILDS RAIMUNDO Ot K75.81 NONALCOHOLIC STEATOHEPATITIS (PERSAUD) 02/15/2017 ANGE CHILDS RAIMUNDO Ot M19.90 UNSPECIFIED OSTEOARTHRITIS, UNSPECIFIED 02/15/2017 ANGE CHILDS RAIMUNDO Ot M79.1 MYALGIA 02/15/2017 ANGE CHILDS RAIMUNDO Ot R06.2 WHEEZING 02/15/2017 ANGE CHILDS RAIMUNDO Ot Z68.41 BODY MASS INDEX (BMI) 40.0-44.9, ADULT 02/15/2017 ANGE CHILDS RAIMUNDO Ot Z91.19 PATIENT'S NONCOMPLIANCE W [facility] MEDICAL TR 02/15/2017 ANGE CHILDS RAIMUNDO Ot Z95.5 PRESENCE OF CORONARY ANGIOPLASTY IMPLANT 02/22/2017 RAIMUNDO CASSIDY DO Ot J20.9 ACUTE BRONCHITIS, UNSPECIFIED 03/20/2017 BAIMA, REJI L MANUFACTURING ENGINEERING MANAGER Ot E78.4 OTHER HYPERLIPIDEMIA 03/20/2017 BAIMA, REJI L MANUFACTURING ENGINEERING MANAGER Ot I 10 ESSENTIAL (PRIMARY) HYPERTENSION 03/20/2017 BAIMA, REJI L MANUFACTURING ENGINEERING MANAGER Ot I25.10 ATHSCL HEART DISEASE OF [place] CORONARY 03/20/2017 BAIMA, REJI L MANUFACTURING ENGINEERING MANAGER Ot I73.9 PERIPHERAL VASCULAR DISEASE, UNSPECIFIED 03/20/2017 BAIMA, REJI L MANUFACTURING ENGINEERING MANAGER Ot R07.89 OTHER CHEST PAIN 04/06/2017 BAIMA, REJI L MANUFACTURING ENGINEERING MANAGER Ot E78.4 OTHER HYPERLIPIDEMIA 04/06/2017 BAIMA, REJI L MANUFACTURING ENGINEERING MANAGER Ot I 10 ESSENTIAL (PRIMARY) HYPERTENSION 04/06/2017 BAIMA, REJI L MANUFACTURING ENGINEERING MANAGER Ot I25.10 ATHSCL HEART DISEASE OF [place] CORONARY 04/06/2017 BAIMA, REJI L MANUFACTURING ENGINEERING MANAGER Ot I73.9 PERIPHERAL VASCULAR DISEASE, UNSPECIFIED 04/06/2017 BAIMA, REJI L MANUFACTURING ENGINEERING MANAGER Ot R07.89 OTHER CHEST PAIN 04/17/2017 Ot 592.0 CALC ULUS OF KIDNEY 04/17/2017 Ot 592.1 CALC ULUS OF URE[place] 04/17/2017 Ot V72.63 PRE -PROCEDURAL LABORATORY EXAMINATION 04/17/2017 Ot V72.81 PIIP-ACC-SMMWZGOEY CARDIOVASCULAR 04/17/2017 Ot 592.1 CALC ULUS OF URE[place] 04/17/2017 Ot 593.9 JIMBO L URETERAL DIS NOS 04/17/2017 Ot V58.30 ENC OUNTER FOR CHANGE OR REMOVAL OF NONSU 04/17/2017 Ot 592.0 CALC ULUS OF KIDNEY 04/17/2017 ANGE CHILDS RAIMUNDO Ot J20.9 ACUTE BRONCHITIS, UNSPECIFIED 04/17/2017 BAIMA, REJI L MANUFACTURING ENGINEERING MANAGER Ot E78.4 OTHER HYPERLIPIDEMIA 04/17/2017 BAIMA, REJI L MANUFACTURING ENGINEERING MANAGER Ot I 10 ESSENTIAL (PRIMARY) HYPERTENSION 04/17/2017 BAIMA, REJI L MANUFACTURING ENGINEERING MANAGER Ot I25.10 ATHSCL HEART DISEASE OF [place] CORONARY 04/17/2017 BAIMA, REJI L MANUFACTURING ENGINEERING MANAGER Ot I73.9 PERIPHERAL VASCULAR DISEASE, UNSPECIFIED 04/17/2017 BAIMA, REJI L MANUFACTURING ENGINEERING MANAGER Ot R07.89 OTHER CHEST PAIN 10/12/2017 FARSHAD CHILDS, YAMILKA Franklin Ot M25.461 EFFUSION, RIGHT KNEE 10/12/2017 FARSHAD DO, YAMILKA F Ot M85.851 OTH DISRD OF BONE DENSITY AND STRUCTURE, 10/12/2017 FARSHAD DO, YAMILKA Franklin Ot S83.241A OTH TEAR OF MEDIAL MENISCUS, CURRENT INJ 10/12/2017 FARSHAD DO, YAMILKA Franklin Ot S83.281A OTH TEAR OF LAT MENSC, CURRENT INJURY, R 10/12/2017 FARSHAD DO, YAMILKA Franklin Ot X58.XXXA EXPOSURE TO OTHER SPECIFIED FACTORS, INI 10/12/2017 FARSHAD DO, YAMILKA Franklin Ot Y99.8 OTHER EXTERNAL CAUSE STATUS 10/24/2017 FARSHAD DO, YAMILKA Franklin Ot M25.461 EFFUSION, RIGHT KNEE 10/24/2017 FARSHAD DO, YAMILKA Franklin Ot M85.851 OTH DISRD OF BONE DENSITY AND STRUCTURE, 10/24/2017 FARSHAD DO, YAMILKA Franklin Ot S83.241A OTH TEAR OF MEDIAL MENISCUS, CURRENT INJ 10/24/2017 FARSHAD DO, YAMILKA Franklin Ot S83.281A OTH TEAR OF LAT MENSC, CURRENT INJURY, R 10/24/2017 FARSHAD DO, YAMILKA Franklin Ot X58.XXXA EXPOSURE TO OTHER SPECIFIED FACTORS, INI 10/24/2017 FARSHAD , YAMILKA Franklin Ot Y99.8 OTHER EXTERNAL CAUSE STATUS 10/31/2017 FARSHAD DO, YAMILKA Franklin Ot M25.461 EFFUSION, RIGHT KNEE 10/31/2017 FARSHAD DO, YAMILKA Franklin Ot M85.851 OTH DISRD OF BONE DENSITY AND STRUCTURE, 10/31/2017 FARSHAD DO, YAMILKA Franklin Ot S83.241A OTH TEAR OF MEDIAL MENISCUS, CURRENT INJ 10/31/2017 FARSHAD DO, YAMILKA Franklin Ot S83.281A OTH TEAR OF LAT MENSC, CURRENT INJURY, R 10/31/2017 FARSHAD DO, YAMILKA Franklin Ot X58.XXXA EXPOSURE TO OTHER SPECIFIED FACTORS, INI 10/31/2017 FARSHAD , YAMILKA F Ot Y99.8 OTHER EXTERNAL CAUSE STATUS 11/14/2017 FARSHAD DO, YAMILKA Franklin Ot M25.461 EFFUSION, RIGHT KNEE 11/14/2017 FARSHAD DO, YAMILKA F Ot M85.851 OTH DISRD OF BONE DENSITY AND STRUCTURE, 11/14/2017 FARSHAD DO, YAMILKA Rigoberto Ot S83.241A OTH TEAR OF MEDIAL MENISCUS, CURRENT INJ 11/14/2017 FARSHAD DO, YAMILKA Rigoberto Ot S83.281A OTH TEAR OF LAT MENSC, CURRENT INJURY, R 11/14/2017 FARSHAD DO, YAMILKA Franklin Ot X58.XXXA EXPOSURE TO OTHER SPECIFIED FACTORS, INI 11/14/2017 FARSHAD DO, YAMILKA Franklin Ot Y99.8 OTHER EXTERNAL CAUSE STATUS 01/01/2019 FARSHAD DO, YAMILKA Franklin Ot M25.461 EFFUSION, RIGHT KNEE 01/01/2019 FARSHAD DO, YAMILKA F Ot M85.851 OTH DISRD OF BONE DENSITY AND STRUCTURE, 01/01/2019 FARSHAD DO, YAMILKA Franklni Ot S83.241A OTH TEAR OF MEDIAL MENISCUS, CURRENT INJ 01/01/2019 FARSHAD DO, YAMILKA Franklin Ot S83.281A OTH TEAR OF LAT MENSC, CURRENT INJURY, R 01/01/2019 FARSHAD DO, YAMILKA Franklin Ot X58.XXXA EXPOSURE TO OTHER SPECIFIED FACTORS, INI 01/01/2019 FARSHAD DO, YAMILKA Franklin Ot Y99.8 OTHER EXTERNAL CAUSE STATUS 01/01/2019 FARSHAD DO, YAMILKA Rigoberto Ot M25.461 EFFUSION, RIGHT KNEE 01/01/2019 FARSHAD DO, YAMILKA F Ot M85.851 OTH DISRD OF BONE DENSITY AND STRUCTURE, 01/01/2019 FARSHAD DO, YAMILKA Franklin Ot S83.241A OTH TEAR OF MEDIAL MENISCUS, CURRENT INJ 01/01/2019 FARSHAD DO, YAMILKA Franklin Ot S83.281A OTH TEAR OF LAT MENSC, CURRENT INJURY, R 01/01/2019 FARSHAD DO, YAMILKA Franklin Ot X58.XXXA EXPOSURE TO OTHER SPECIFIED FACTORS, INI 01/01/2019 FARSHAD DO, YAMILKA F Ot Y99.8 OTHER EXTERNAL CAUSE STATUS 01/03/2019 CASSIDY DO, RAIMUNDO Ot E03.9 HYPOTHYROIDISM, UNSPECIFIED 01/03/2019 CASSIDY DO, RAIMUNDO Ot E66.9 OBESITY, UNSPECIFIED 01/03/2019 CASSIDY DO, RAIMUNDO Ot E78.5 HYPERLIPIDEMIA, UNSPECIFIED 01/03/2019 CASSIDY DO, RAIMUNDO Ot G47.00 INSOMNIA, UNSPECIFIED 01/03/2019 CASSIDY DO, RAIMUNDO Ot G47.33 OBSTRUCTIVE SLEEP APNEA (ADULT) (PEDIATR 01/03/2019 CASSIDY DO, RAIMUNDO Ot G89.29 OTHER CHRONIC PAIN 01/03/2019 ANGE CHILDS RAIMUNDO Ot I11.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 01/03/2019 ANGE CHILDS RAIMUNDO Ot I25.10 ATHSCL HEART DISEASE OF [place] CORONARY 01/03/2019 ANGE CHILDS RAIMUNDO Ot M54.9 DORSALGIA, UNSPECIFIED 01/03/2019 ANGE CHILDS RAIMUNDO Ot R07.9 CHEST PAIN, UNSPECIFIED 01/03/2019 ANGE CHILDSRAIMUNDO Ot R73.01 IMPAIRED FASTING GLUCOSE 01/03/2019 ANGE CHILDS RAIMUNDO Ot Z68.39 BODY MASS INDEX (BMI) 39.0-39.9, ADULT 01/03/2019 ANGE CHILDS RAIMUNDO Ot Z79.89 9 OTHER [facility] (CURRENT) DRUG THERAPY 01/03/2019 ANGE CHILDSRAIMUNDO Ot Z91.19 PATIENT'S NONCOMPLIANCE W [facility] MEDICAL TR 01/03/2019 ANGE CHILDSRAIMUNDO Ot Z95.5 PRESENCE OF CORONARY ANGIOPLASTY IMPLANT 01/08/2019 YAMILKA YEN DO Ot M25.461 EFFUSION, RIGHT KNEE 01/08/2019 YAMILKA YEN DO Ot M85.851 OTH DISRD OF BONE DENSITY AND STRUCTURE, 01/08/2019 YAMILKA YEN DO Ot S83.241A OTH TEAR OF MEDIAL MENISCUS, CURRENT INJ 01/08/2019 YAMILKA YEN DO Ot S83.281A OTH TEAR OF LAT MENSC, CURRENT INJURY, R 01/08/2019 YAMILKA YEN DO Ot X58.XXXA EXPOSURE TO OTHER SPECIFIED FACTORS, INI 01/08/2019 YAMILKA YEN DO Ot Y99.8 OTHER EXTERNAL CAUSE STATUS 01/09/2019 STUART MCFARLAND FACC, ALI FACP CCDS Ot E03.9 HYPOTHYROIDISM, UNSPECIFIED 01/09/2019 STUART MCFARLAND FACC, ALI FACP CCDS Ot E78.5 HYPERLIPIDEMIA, UNSPECIFIED 01/09/2019 STUART MCFARLAND FACC, ALI FACP CCDS Ot G47.33 OBSTRUCTIVE SLEEP APNEA (ADULT) (PEDIATR 01/09/2019 STUART MCFARLAND FACC, ALI FACP CCDS Ot I11.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 01/09/2019 STUART MCFARLAND FACC, ALI FACP CCDS Ot I25.10 ATHSCL HEART DISEASE OF [place] CORONARY 01/09/2019 STUART MCFARLAND FACC, ALI FACP CCDS Ot 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 01/09/2019 STUART MCFARLAND FACC, ALI FACP CCDS Ot Z91.19 PATIENT'S NONCOMPLIANCE W [facility] MEDICAL TR 01/09/2019 STUART MCFARLAND FACC, ALI FACP CCDS Ot Z95.5 PRESENCE OF CORONARY ANGIOPLASTY IMPLANT 01/11/2019 STUART MCFARLAND FACC, ALI FACP CCDS Ot E03.9 HYPOTHYROIDISM, UNSPECIFIED 01/11/2019 STUART MCFARLAND FACC, ALI FACP CCDS Ot E78.5 HYPERLIPIDEMIA, UNSPECIFIED 01/11/2019 STUART MCFARLAND FACC, ALI FACP CCDS Ot G47.33 OBSTRUCTIVE SLEEP APNEA (ADULT) (PEDIATR 01/11/2019 STUART MCFARLAND FACC, ALI FACP CCDS Ot I11.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 01/11/2019 STUART MCFARLAND FACC, ALI FACP CCDS Ot I25.10 ATHSCL HEART DISEASE OF [place] CORONARY 01/11/2019 STUART MCFARLAND FACC, ALI FACP CCDS Ot 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 01/11/2019 STUART MCFARLAND FACC, ALI FACP CCDS Ot Z91.19 PATIENT'S NONCOMPLIANCE W [facility] MEDICAL TR 01/11/2019 STUART MCFARLAND FACC, MILENA FACP CCDS Ot Z95.5 PRESENCE OF CORONARY ANGIOPLASTY IMPLANT 01/15/2019 RAIMUNDO CASSIDY DO Ot 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 01/15/2019 RAIMUNDO CASSIDY DO Ot M48.06 1 SPINAL STENOSIS, LUMBAR REGION WITHOUT N 01/15/2019 RAIMUNDO CASSIDY DO Ot Z98.1 ARTHRODESIS STATUS 01/24/2019 YAMILKA YEN DO Ot M25.461 EFFUSION, RIGHT KNEE 01/24/2019 YAMILKA YEN DO Ot M85.851 OTH DISRD OF BONE DENSITY AND STRUCTURE, 01/24/2019 YAMILKA YEN DO Ot S83.241A OTH TEAR OF MEDIAL MENISCUS, CURRENT INJ 01/24/2019 YAMILKA YEN DO Ot S83.281A OTH TEAR OF LAT MENSC, CURRENT INJURY, R 01/24/2019 YAMILAK YEN DO Ot X58.XXXA EXPOSURE TO OTHER SPECIFIED FACTORS, INI 01/24/2019 FARSHAD CHILDS YAMILKA Franklin Ot Y99.8 OTHER EXTERNAL CAUSE STATUS 01/24/2019 RAIMUNDO CASSIDY DO Ot 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 01/24/2019 MICHAEL CASSIDY DOI Ot M48.06 1 SPINAL STENOSIS, LUMBAR REGION WITHOUT N 01/24/2019 RAIMUNDO CASSIDY DO Ot Z98.1 ARTHRODESIS STATUS 01/24/2019 Ot 244.9 01/24/2019 Ot 401.9 01/24/2019 Ot 574.20 01/24/2019 Ot V58.69 01/24/2019 Ot V72.83 01/24/2019 Ot 719.41 MEGAN NT PAIN-SHLDER 01/24/2019 Ot 719.45 MEGAN NT PAIN-PELVIS 01/24/2019 Ot 341.9 CUSTOMER ACCOUNT EXECUTIVE DEMYELINATION NOS 01/24/2019 MICHAEL CASSIDY DOI Ot J20.9 ACUTE BRONCHITIS, UNSPECIFIED 01/24/2019 REJI VAIL MANUFACTURING ENGINEERING MANAGER Ot E78.4 OTHER HYPERLIPIDEMIA 01/24/2019 REJI VAIL MANUFACTURING ENGINEERING MANAGER Ot I 10 ESSENTIAL (PRIMARY) HYPERTENSION 01/24/2019 REJI VAIL MANUFACTURING ENGINEERING MANAGER Ot I25.10 ATHSCL HEART DISEASE OF [place] CORONARY 01/24/2019 REJI VAIL MANUFACTURING ENGINEERING MANAGER Ot I73.9 PERIPHERAL VASCULAR DISEASE, UNSPECIFIED 01/24/2019 REJI VAIL MANUFACTURING ENGINEERING MANAGER Ot R07.89 OTHER CHEST PAIN 01/24/2019 FARSHAD DO YAMILKA Franklin Ot M25.461 EFFUSION, RIGHT KNEE 01/24/2019 FARSHAD CHILDS YAMILKA Franklin Ot M85.851 OTH DISRD OF BONE DENSITY AND STRUCTURE, 01/24/2019 FARSHAD CHILDS YAMILKA Franklin Ot S83.241A OTH TEAR OF MEDIAL MENISCUS, CURRENT INJ 01/24/2019 FARSHAD CHILDS YAMILKA Franklin Ot S83.281A OTH TEAR OF LAT MENSC, CURRENT INJURY, R 01/24/2019 FARSHAD CHILDS YAMILKA Franklin Ot X58.XXXA EXPOSURE TO OTHER SPECIFIED FACTORS, INI 01/24/2019 FARSHAD CHILDS YAMILKA Franklin Ot Y99.8 OTHER EXTERNAL CAUSE STATUS 01/25/2019 STUART MCFARLAND FACC, MILENA KEITAP CCDS Ot E03.9 HYPOTHYROIDISM, UNSPECIFIED 01/25/2019 STUART MCFARLAND FACC, ALI FACP CCDS Ot E78.5 HYPERLIPIDEMIA, UNSPECIFIED 01/25/2019 STUART MCFARLAND FACC, MILENA FACP CCDS Ot G47.33 OBSTRUCTIVE SLEEP APNEA (ADULT) (PEDIATR 01/25/2019 STUART MCFARLAND FACC, MILENA FACP CCDS Ot I11.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 01/25/2019 STUART MCFARLAND FACC, MILENA FACP CCDS Ot I25.10 ATHSCL HEART DISEASE OF [place] CORONARY 01/25/2019 STUART MCFARLAND FACC, MILENA FACP CCDS Ot 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 01/25/2019 STUART MCFARLAND FACC, MILENA FACP CCDS Ot Z91.19 PATIENT'S NONCOMPLIANCE W [facility] 01/25/2019 STUART MCFARLAND FACC, MILENA FACP CCDS Ot Z95.5 PRESENCE OF CORONARY ANGIOPLASTY IMPLANT 01/28/2019 RAIMUNDO CASSIDY DO Ot M47.81 4 SPONDYLOSIS W/O MYELOPATHY OR RADICULOPA 01/28/2019 MICHAEL CASSIDY DOI Ot 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 01/28/2019 MICHAEL CASSIDY DOI Ot Z98.1 ARTHRODESIS STATUS 01/30/2019 RAIMUNDO CASSIDY DO Ot M47.81 4 SPONDYLOSIS W/O MYELOPATHY OR RADICULOPA 01/30/2019 MICHAEL CASSIDY DOI Ot 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 01/30/2019 MICHAEL CASSIDY DOI Ot Z98.1 ARTHRODESIS STATUS 01/30/2019 MICHAEL CASSIDY DOI Ot M47.81 4 SPONDYLOSIS W/O MYELOPATHY OR RADICULOPA 01/30/2019 MICHAEL CASSIDY DOI Ot 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 01/30/2019 RAIMUNDO CASSIDY DO Ot Z98.1 ARTHRODESIS STATUS 01/31/2019 RAIMUNDO CASSIDY DO Ot M47.81 4 SPONDYLOSIS W/O MYELOPATHY OR RADICULOPA 01/31/2019 MICHAEL CASSIDY DOI Ot 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 01/31/2019 NAGE CHILDS RAIMUNDO Ot Z98.1 ARTHRODESIS STATUS 02/11/2019 ANGE CHILDS RAIMUNDO Ot 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 02/11/2019 ANGE CHILDS RAIMUNDO Ot M48.06 1 SPINAL STENOSIS, LUMBAR REGION WITHOUT N 02/11/2019 ANGE CHILDS RAIMUNDO Ot Z98.1 ARTHRODESIS STATUS 02/19/2019 FARSHAD DO YAMILKA Franklin Ot M25.461 EFFUSION, RIGHT KNEE 02/19/2019 FARSHAD , YAMILKA Franklin Ot M85.851 OTH DISRD OF BONE DENSITY AND STRUCTURE, 02/19/2019 FARSHAD CHILDS YAMILKA Franklin Ot S83.241A OTH TEAR OF MEDIAL MENISCUS, CURRENT INJ 02/19/2019 FARSHAD CHILDS YAMILKA Franklin Ot S83.281A OTH TEAR OF LAT MENSC, CURRENT INJURY, R 02/19/2019 FARSHAD CHILDS YAMILKA Franklin Ot X58.XXXA EXPOSURE TO OTHER SPECIFIED FACTORS, INI 02/19/2019 FARSHAD CHILDS YAMILKA Franklin Ot Y99.8 OTHER EXTERNAL CAUSE STATUS 02/19/2019 ANGE CHILDS RAIMUNDO Ot 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 02/19/2019 ANGE CHILDS RAIMUNDO Ot M48.06 1 SPINAL STENOSIS, LUMBAR REGION WITHOUT N 02/19/2019 ANGE CHILDS RAIMUNDO Ot Z98.1 ARTHRODESIS STATUS 02/19/2019 ANGE CHILDS RAIMUNDO Ot M47.81 4 SPONDYLOSIS W/O MYELOPATHY OR RADICULOPA 02/19/2019 ANGE CHILDS RAIMUNDO Ot 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 02/19/2019 ANGE CHILDS RAIMUNDO Ot Z98.1 ARTHRODESIS STATUS 03/19/2019 ANGE DO RAIMUNDO Ot 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 03/19/2019 ANGE CHILDS RAIMUNDO Ot M48.06 1 SPINAL STENOSIS, LUMBAR REGION WITHOUT N 03/19/2019 ANGE DO RAIMUNDO Ot Z98.1 ARTHRODESIS STATUS 03/19/2019 ANGE DO RAIMUNDO Ot 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 03/19/2019 RAIMUNDO CASSIDY DO Ot M48.06 1 SPINAL STENOSIS, LUMBAR REGION WITHOUT N 03/19/2019 RAIMUNDO CASSIDY DO Ot Z98.1 ARTHRODESIS STATUS 05/30/2019 Raimundo Cassidy W 250.00 DIABETES MELLITUS WITHOUT MENTION OF COMPLICATION, TYPE II OR UNSPECIFIED TYPE, NOT STATED UNCONTROLLED 05/30/2019 Raimundo Cassidy W 266.2 OTHER B-COMPLEX DEFICIENCIES 05/30/2019 Raimundo Cassidy W 272.4 OTHER AND UNSPECIFIED HYPERLIPIDEMIA 05/30/2019 Raimundo Cassidy W 333.94 RESTLESS LEGS SYNDROME (RLS) 05/30/2019 Raimundo Cassidy W 401.0 MALIGNANT ESSENTIAL HYPERTENSION 05/30/2019 Raimundo Cassidy W 414.01 CORONARY ATHEROSCLEROSIS OF [place] CORONARY ARTERY 05/30/2019 Raimundo Cassidy W 466.0 ACUTE BRONCHITIS 05/30/2019 Raimundo Cassidy W 493.90 ASTHMA, UNSPECIFIED 05/30/2019 Raimundo Cassidy W E11.9 TYPE 2 DIABETES MELLITUS WITHOUT COMPLICATIONS 05/30/2019 Raimundo Cassidy W E53.8 DEFICIENCY OF OTHER SPECIFIED B GROUP VITAMINS 05/30/2019 Raimundo Cassidy W E78.5 HYPERLIPIDEMIA, UNSPECIFIED 05/30/2019 Raimundo Cassidy W G25.81 RESTLESS LEGS SYNDROME 05/30/2019 Raimundo Cassidy W I10 ESSENTIAL (PRIMARY) HYPERTENSION 05/30/2019 Raimundo Cassidy W I25.10 ATHSCL HEART DISEASE OF [place] CORONARY ARTERY W/O ANG PCTRS 05/30/2019 Raimundo Cassidy W J20.9 ACUTE BRONCHITIS, UNSPECIFIED 05/30/2019 Raimundo Cassidy W J45.909 UNSPECIFIED ASTHMA, UNCOMPLICATED 06/14/2019 RAIMUNDO CASSIDY DO Ot 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 06/14/2019 RAIMUNDO CASSIDY DO Ot M48.06 1 SPINAL STENOSIS, LUMBAR REGION WITHOUT N 06/14/2019 RAIMUNDO CASSIDY DO Ot Z98.1 ARTHRODESIS STATUS 06/24/2019 RAIMUNDO CASSIDY DO Ot 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 06/24/2019 RAIMUNDO CASSIDY DO Ot M48.06 1 SPINAL STENOSIS, LUMBAR REGION WITHOUT N 06/24/2019 CASSIDY DO, RAIMUNDO Ot Z98.1 ARTHRODESIS STATUS 07/05/2019 CASSIDY DO, RAIMUNDO Ot 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 07/05/2019 CASSIDY DO, RAIMUNDO Ot M48.06 1 SPINAL STENOSIS, LUMBAR REGION WITHOUT N 07/05/2019 CASSIDY DO, RAIMUNDO Ot Z98.1 ARTHRODESIS STATUS 07/19/2019 CHRISTIN MCFARLAND, DIANNE Oliveira Ot G47.33 OBSTRUCTIVE SLEEP APNEA (ADULT) (PEDIATR 11/26/2019 CASSIDY DO, RAIMUNDO Ot M47.81 4 SPONDYLOSIS W/O MYELOPATHY OR RADICULOPA 11/26/2019 CASSIDY DO, RAIMUNDO Ot 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 11/26/2019 CASSIDY DO, RAIMUNDO Ot Z98.1 ARTHRODESIS STATUS 11/26/2019 CASSIDY DO, RAIMUNDO Ot M47.81 4 SPONDYLOSIS W/O MYELOPATHY OR RADICULOPA 11/26/2019 CASSIDY DO, RAIMUNDO Ot 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 11/26/2019 CASSIDY DO, RAIMUNDO Ot Z98.1 ARTHRODESIS STATUS 12/24/2019 CASSIDY DO, RAIMUNDO Ot M47.81 4 SPONDYLOSIS W/O MYELOPATHY OR RADICULOPA 12/24/2019 CASSIDY DO, RAIMUNDO Ot 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 12/24/2019 CASSIDY DO, RAIMUNDO Ot Z98.1 ARTHRODESIS STATUS 12/24/2019 CASSIDY DO, RAIMUNDO Ot M47.81 4 SPONDYLOSIS W/O MYELOPATHY OR RADICULOPA 12/24/2019 CASSIDY DO, RAIMUNDO Ot 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 12/24/2019 CASSIDY DO, RAIMUNDO Ot Z98.1 ARTHRODESIS STATUS 01/13/2020 YAMILKA YEN DO Ot M25.461 EFFUSION, RIGHT KNEE 01/13/2020 YAMILKA YEN DO Ot M85.851 OTH DISRD OF BONE DENSITY AND STRUCTURE, 01/13/2020 YAMILKA YEN DO Ot S83.241A OTH TEAR OF MEDIAL MENISCUS, CURRENT INJ 01/13/2020 YAMILKA YEN DO Ot S83.281A OTH TEAR OF LAT MENSC, CURRENT INJURY, R 01/13/2020 [place] DO, YAMILKA Franklin Ot X58.XXXA EXPOSURE TO OTHER SPECIFIED FACTORS, INI 01/13/2020 [place] DO, YAMILKA Franklin Ot Y99.8 OTHER EXTERNAL CAUSE STATUS 01/13/2020 CASSIDY DO, RAIMUNDO Ot 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 01/13/2020 CASSIDY DO, RAIMUNDO Ot M48.06 1 SPINAL STENOSIS, LUMBAR REGION WITHOUT N 01/13/2020 CASSIDY DO, RAIMUNDO Ot Z98.1 ARTHRODESIS STATUS 01/13/2020 CASSIDY DO, RAIMUNDO Ot M47.81 4 SPONDYLOSIS W/O MYELOPATHY OR RADICULOPA 01/13/2020 CASSIDY DO, RAIMUNDO Ot 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 01/13/2020 CASSIDY DO, RAIMUNDO Ot Z98.1 ARTHRODESIS STATUS 01/31/2020 CASSIDY DO, RAIMUNDO Ot M47.81 4 SPONDYLOSIS W/O MYELOPATHY OR RADICULOPA 01/31/2020 CASSIDY DO, RAIMUNDO Ot 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 01/31/2020 CASSIDY DO, RAIMUNDO Ot Z98.1 ARTHRODESIS STATUS 05/13/2020 [facility], YAMILKA Franklin Ot M25.461 EFFUSION, RIGHT KNEE 05/13/2020 [facility], YAMILKA Franklin Ot M85.851 OTH DISRD OF BONE DENSITY AND STRUCTURE, 05/13/2020 [facility], YAMILKA Franklin Ot S83.241A OTH TEAR OF MEDIAL MENISCUS, CURRENT INJ 05/13/2020 [facility], YAMILKA Franklin Ot S83.281A OTH TEAR OF LAT MENSC, CURRENT INJURY, R 05/13/2020 [facility], YAMILKA Franklin Ot X58.XXXA EXPOSURE TO OTHER SPECIFIED FACTORS, INI 05/13/2020 FARSHAD DO, YAMILKA Franklin Ot Y99.8 OTHER EXTERNAL CAUSE STATUS 05/13/2020 CASSIDY DO, RAIMUNDO Ot 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 05/13/2020 CASSIDY DO, RAIMUNDO Ot M48.06 1 SPINAL STENOSIS, LUMBAR REGION WITHOUT N 05/13/2020 CASSIDY DO, RAIMUNDO Ot Z98.1 ARTHRODESIS STATUS 05/13/2020 CASSIDY DO RAIMUNDO Ot M47.81 4 SPONDYLOSIS W/O MYELOPATHY OR RADICULOPA 05/13/2020 CASSIDY DO, RAIMUNDO Ot 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 05/13/2020 CASSIDY DO, RAIMUNDO Ot Z98.1 ARTHRODESIS STATUS 05/20/2020 FARSHAD , YAMILKA Franklin Ot M25.461 EFFUSION, RIGHT KNEE 05/20/2020 FARSHAD DO, YAMILKA Franklin Ot M85.851 OTH DISRD OF BONE DENSITY AND STRUCTURE, 05/20/2020 FARSHAD CHILDS, YAMILKA Franklin Ot S83.241A OTH TEAR OF MEDIAL MENISCUS, CURRENT INJ 05/20/2020 FARSHAD CHILDS, YAMILKA Franklin Ot S83.281A OTH TEAR OF LAT MENSC, CURRENT INJURY, R 05/20/2020 FARSHAD CHILDS, YAMILKA Franklin Ot X58.XXXA EXPOSURE TO OTHER SPECIFIED FACTORS, INI 05/20/2020 FARSHAD DO YAMILKA Franklin Ot Y99.8 OTHER EXTERNAL CAUSE STATUS 05/20/2020 CASSIDY DO RAIMUNDO Ot 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 05/20/2020 ANGE CHILDS RAIMUNDO Ot M48.06 1 SPINAL STENOSIS, LUMBAR REGION WITHOUT N 05/20/2020 ANGE CHILDS, RAIMUNDO Ot Z98.1 ARTHRODESIS STATUS 05/20/2020 ANGE CHILDS RAIMUNDO Ot M47.81 4 SPONDYLOSIS W/O MYELOPATHY OR RADICULOPA 05/20/2020 CASSIDY DO RAIMUNDO Ot 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 05/20/2020 CASSIDY DO, RAIMUNDO Ot Z98.1 ARTHRODESIS STATUS Procedures There is no data. Results Test Result Range Capillary blood glucose measurement by g lucometer (mass/volume) - 02/09/17 15:54 Capillary blood glucose measurement by glucometer (mas s/volume) 196 mg/dL 70-110 Complete blood count (CBC) with automate d white blood cell (WBC) differential - 02/09/17 16:00 Blood leukocytes automated count (number/volume) 13.1 10*3/uL 4.3-11.0 Blood erythrocytes automated count (number/volume) 4.39 10*6/uL 4.35-5.85 Venous blood hemoglobin measurement (mass/volume) 14.2 g/dL 13.3-17.7 Blood hematocrit (volume fraction) 40 % 40-54 Automated erythrocyte mean corpuscular volume 92 [ foz_us] 80-99 Automated erythrocyte mean corpuscular h emoglobin (mass per erythrocyte) 32 pg 25-34 Automated erythrocyte mean corpuscular h emoglobin concentration measurement (mass/volume) 35 g/dL 32-36 Automated erythrocyte distribution width ratio 12. 9 % 10.0- 14.5 Automated blood platelet count (count/volume) 269 10*3/uL [...] 10*3 1.0-4.0 Blood monocytes automated count (number/volume) 1. 3 10*3 0.0-1.0 Automated eosinophil count 0.0 10*3/uL 0 .0-0.3 Automated blood basophil count (count/volume) 0.1 10*3/uL 0.0-0.1 Comprehensive metabolic panel - 02/09/17 16:00 Serum or plasma sodium measurement (moles/volume) 138 mmol/L 135-145 Serum or plasma potassium measurement (moles/volume) 3.8 mmol/L 3.6-5.0 Serum or plasma chloride measurement (moles/volume) 104 mmol/L 98-107 Carbon dioxide 23 mmol/L 21-32 Serum or plasma anion gap determination (moles/volume) 11 mmol/L 5-14 Serum or plasma urea nitrogen measurement (mass/volume ) 24 mg/dL 7-18 Serum or plasma creatinine measurement (mass/volume) 1.19 mg/dL 0.60-1.30 Serum or plasma urea nitrogen/creatinine mass ratio 20 NRG Serum or plasma creatinine measurement w ith calculation of estimated glomerular filtration rate > NRG Serum or plasma glucose measurement (mass/volume) 184 mg/dL 70-105 Serum or plasma calcium measurement (mass/volume) 8.9 mg/dL 8.5-10.1 Serum or plasma total bilirubin measurement (mass/volu me) 0.5 mg/dL 0.1-1.0 Serum or plasma alkaline phosphatase trini surement (enzymatic activity/volume) 61 U/L 40-136 Serum or plasma aspartate aminotransfera se measurement (enzymatic activity/volume) 43 U/L 5-34 Serum or plasma alanine aminotransferase measurement (enzymatic activity/volume) 59 U/L 0-55 Serum or plasma protein measurement (mass/volume) 6.9 g/dL 6.4-8.2 Serum or plasma albumin measurement (mass/volume) 3.8 g/dL 3.2-4.5 Serum or plasma lithium measurement (mol es/volume) - 02/09/17 16:00 BNP level 14.5 pg/mL <100.0 Capillary blood glucose measurement by g lucometer (mass/volume) - 02/09/17 21:20 Capillary blood glucose measurement by glucometer (mas s/volume) 266 mg/dL 70-110 Complete blood count (CBC) with automate d white blood cell (WBC) differential - 02/10/17 04:40 Blood leukocytes automated count (number/volume) 16.7 10*3/uL 4.3-11.0 Blood erythrocytes automated count (number/volume) 4.46 10*6/uL 4.35-5.85 Venous blood hemoglobin measurement (mass/volume) 14.4 g/dL 13.3-17.7 Blood hematocrit (volume fraction) 41 % 40-54 Automated erythrocyte mean corpuscular volume 92 [ foz_us] 80-99 Automated erythrocyte mean corpuscular h emoglobin (mass per erythrocyte) 32 pg 25-34 Automated erythrocyte mean corpuscular h emoglobin concentration measurement (mass/volume) 35 g/dL 32-36 Automated erythrocyte distribution width ratio 12. 6 % 10.0- 14.5 Automated blood platelet count (count/volume) 248 10*3/uL [...] 10*3 1.0-4.0 Blood monocytes automated count (number/volume) 0. 5 10*3 0.0-1.0 Automated eosinophil count 0.0 10*3/uL 0 .0-0.3 Automated blood basophil count (count/volume) 0.0 10*3/uL 0.0-0.1 Comprehensive metabolic panel - 02/10/17 04:40 Serum or plasma sodium measurement (moles/volume) 138 mmol/L 135-145 Serum or plasma potassium measurement (moles/volume) 4.3 mmol/L 3.6-5.0 Serum or plasma chloride measurement (moles/volume) 105 mmol/L 98-107 Carbon dioxide 19 mmol/L 21-32 Serum or plasma anion gap determination (moles/volume) 14 mmol/L 5-14 Serum or plasma urea nitrogen measurement (mass/volume ) 25 mg/dL 7-18 Serum or plasma creatinine measurement (mass/volume) 1.10 mg/dL 0.60-1.30 Serum or plasma urea nitrogen/creatinine mass ratio 23 NRG Serum or plasma creatinine measurement w ith calculation of estimated glomerular filtration rate > NRG Serum or plasma glucose measurement (mass/volume) 170 mg/dL 70-105 Serum or plasma calcium measurement (mass/volume) 9.2 mg/dL 8.5-10.1 Serum or plasma total bilirubin measurement (mass/volu me) 0.4 mg/dL 0.1-1.0 Serum or plasma alkaline phosphatase trini surement (enzymatic activity/volume) 56 U/L 40-136 Serum or plasma aspartate aminotransfera se measurement (enzymatic activity/volume) 32 U/L 5-34 Serum or plasma alanine aminotransferase measurement (enzymatic activity/volume) 57 U/L 0-55 Serum or plasma protein measurement (mass/volume) 7.1 g/dL 6.4-8.2 Serum or plasma albumin measurement (mass/volume) 4.0 g/dL 3.2-4.5 Capillary blood glucose measurement by g lucometer (mass/volume) - 02/10/17 05:46 Capillary blood glucose measurement by glucometer (mas s/volume) 155 mg/dL 70-110 Serum or plasma lithium measurement (mol es/volume) - 02/10/17 09:55 BNP level 22.5 pg/mL <100.0 Serum or plasma troponin i.cardiac measu rement (mass/volume) - 02/10/17 09:55 Serum or plasma troponin i.cardiac measurement (mass/v olume) < ng/mL <0.30 Capillary blood glucose measurement by g lucometer (mass/volume) - 02/10/17 11:01 Capillary blood glucose measurement by glucometer (mas s/volume) 238 mg/dL 70-110 Capillary blood glucose measurement by g lucometer (mass/volume) - 02/10/17 16:02 Capillary blood glucose measurement by glucometer (mas s/volume) 250 mg/dL 70-110 Capillary blood glucose measurement by g lucometer (mass/volume) - 02/10/17 21:18 Capillary blood glucose measurement by glucometer (mas s/volume) 335 mg/dL 70-110 Complete blood count (CBC) with automate d white blood cell (WBC) differential - 02/11/17 04:15 Blood leukocytes automated count (number/volume) 25.1 10*3/uL 4.3-11.0 Blood erythrocytes automated count (number/volume) 4.28 10*6/uL 4.35-5.85 Venous blood hemoglobin measurement (mass/volume) 13.7 g/dL 13.3-17.7 Blood hematocrit (volume fraction) 40 % 40-54 Automated erythrocyte mean corpuscular volume 94 [ foz_us] 80-99 Automated erythrocyte mean corpuscular h emoglobin (mass per erythrocyte) 32 pg 25-34 Automated erythrocyte mean corpuscular h emoglobin concentration measurement (mass/volume) 34 g/dL 32-36 Automated erythrocyte distribution width ratio 12. 9 % 10.0- 14.5 Automated blood platelet count (count/volume) 287 10*3/uL [...] 10*3 1.0-4.0 Blood monocytes automated count (number/volume) 1. 6 10*3 0.0-1.0 Automated eosinophil count 0.0 10*3/uL 0 .0-0.3 Automated blood basophil count (count/volume) 0.0 10*3/uL 0.0-0.1 Comprehensive metabolic panel - 02/11/17 04:15 Serum or plasma sodium measurement (moles/volume) 137 mmol/L 135-145 Serum or plasma potassium measurement (moles/volume) 4.4 mmol/L 3.6-5.0 Serum or plasma chloride measurement (moles/volume) 106 mmol/L 98-107 Carbon dioxide 19 mmol/L 21-32 Serum or plasma anion gap determination (moles/volume) 12 mmol/L 5-14 Serum or plasma urea nitrogen measurement (mass/volume ) 30 mg/dL 7-18 Serum or plasma creatinine measurement (mass/volume) 1.15 mg/dL 0.60-1.30 Serum or plasma urea nitrogen/creatinine mass ratio 26 NRG Serum or plasma creatinine measurement w ith calculation of estimated glomerular filtration rate > NRG Serum or plasma glucose measurement (mass/volume) 232 mg/dL 70-105 Serum or plasma calcium measurement (mass/volume) 8.8 mg/dL 8.5-10.1 Serum or plasma total bilirubin measurement (mass/volu me) 0.3 mg/dL 0.1-1.0 Serum or plasma alkaline phosphatase trini surement (enzymatic activity/volume) 59 U/L 40-136 Serum or plasma aspartate aminotransfera se measurement (enzymatic activity/volume) 22 U/L 5-34 Serum or plasma alanine aminotransferase measurement (enzymatic activity/volume) 44 U/L 0-55 Serum or plasma protein measurement (mass/volume) 6.8 g/dL 6.4-8.2 Serum or plasma albumin measurement (mass/volume) 3.8 g/dL 3.2-4.5 Magnesium - 02/11/17 04:15 Magnesium 2.5 mg/dL 1.8-2.4 Lipid 1996 panel - 02/11/17 04:15 Serum or plasma triglyceride measurement (mass/volume) 222 mg/dL <150 Serum or plasma cholesterol measurement (mass/volume) 194 mg/dL < 200 Serum or plasma cholesterol in HDL measurement (mass/v olume) 37 mg/dL 40-60 Cholesterol in LDL [mass/volume] in serum or plasma by direct assay 136 mg/dL 1-129 Serum or plasma cholesterol in VLDL measurement (mass/ volume) 44 mg/dL 5-40 Blood manual differential performed dete ction - 02/11/17 04:15 Blood monocytes/100 leukocytes 6 % NRG Manual blood segmented neutrophils/100 leukocytes 74 % NRG Blood band neutrophils/100 leukocytes 7 % NRG Manual blood lymphocytes/100 leukocytes 13 % NRG Blood erythrocyte morphology finding identification NORMAL NRG Capillary blood glucose measurement by g lucometer (mass/volume) - 02/11/17 10:51 Capillary blood glucose measurement by glucometer (mas s/volume) 293 mg/dL 70-110 Capillary blood glucose measurement by g lucometer (mass/volume) - 02/11/17 16:40 Capillary blood glucose measurement by glucometer (mas s/volume) 228 mg/dL 70-110 Capillary blood glucose measurement by g lucometer (mass/volume) - 02/11/17 21:29 Capillary blood glucose measurement by glucometer (mas s/volume) 234 mg/dL 70-110 Complete blood count (CBC) with automate d white blood cell (WBC) differential - 02/12/17 04:20 Blood leukocytes automated count (number/volume) 20.8 10*3/uL 4.3-11.0 Blood erythrocytes automated count (number/volume) 4.01 10*6/uL 4.35-5.85 Venous blood hemoglobin measurement (mass/volume) 13.0 g/dL 13.3-17.7 Blood hematocrit (volume fraction) 38 % 40-54 Automated erythrocyte mean corpuscular volume 94 [ foz_us] 80-99 Automated erythrocyte mean corpuscular h emoglobin (mass per erythrocyte) 32 pg 25-34 Automated erythrocyte mean corpuscular h emoglobin concentration measurement (mass/volume) 34 g/dL 32-36 Automated erythrocyte distribution width ratio 12. 7 % 10.0- 14.5 Automated blood platelet count (count/volume) 256 10*3/uL [...] 10*3 1.0-4.0 Blood monocytes automated count (number/volume) 2. 0 10*3 0.0-1.0 Automated eosinophil count 0.0 10*3/uL 0 .0-0.3 Automated blood basophil count (count/volume) 0.0 10*3/uL 0.0-0.1 Comprehensive metabolic panel - 02/12/17 04:20 Serum or plasma sodium measurement (moles/volume) 139 mmol/L 135-145 Serum or plasma potassium measurement (moles/volume) 4.0 mmol/L 3.6-5.0 Serum or plasma chloride measurement (moles/volume) 106 mmol/L 98-107 Carbon dioxide 22 mmol/L 21-32 Serum or plasma anion gap determination (moles/volume) 11 mmol/L 5-14 Serum or plasma urea nitrogen measurement (mass/volume ) 25 mg/dL 7-18 Serum or plasma creatinine measurement (mass/volume) 0.98 mg/dL 0.60-1.30 Serum or plasma urea nitrogen/creatinine mass ratio 26 NRG Serum or plasma creatinine measurement w ith calculation of estimated glomerular filtration rate > NRG Serum or plasma glucose measurement (mass/volume) 159 mg/dL 70-105 Serum or plasma calcium measurement (mass/volume) 8.3 mg/dL 8.5-10.1 Serum or plasma total bilirubin measurement (mass/volu me) 0.4 mg/dL 0.1-1.0 Serum or plasma alkaline phosphatase trini surement (enzymatic activity/volume) 48 U/L 40-136 Serum or plasma aspartate aminotransfera se measurement (enzymatic activity/volume) 20 U/L 5-34 Serum or plasma alanine aminotransferase measurement (enzymatic activity/volume) 37 U/L 0-55 Serum or plasma protein measurement (mass/volume) 6.3 g/dL 6.4-8.2 Serum or plasma albumin measurement (mass/volume) 3.6 g/dL 3.2-4.5 Capillary blood glucose measurement by g lucometer (mass/volume) - 02/12/17 10:49 Capillary blood glucose measurement by glucometer (mas s/volume) 320 mg/dL 70-110 Capillary blood glucose measurement by g lucometer (mass/volume) - 02/12/17 16:25 Capillary blood glucose measurement by glucometer (mas s/volume) 132 mg/dL 70-110 Capillary blood glucose measurement by g lucometer (mass/volume) - 02/12/17 21:03 Capillary blood glucose measurement by glucometer (mas s/volume) 267 mg/dL 70-110 Complete blood count (CBC) with automate d white blood cell (WBC) differential - 02/13/17 04:23 Blood leukocytes automated count (number/volume) 16.8 10*3/uL 4.3-11.0 Blood erythrocytes automated count (number/volume) 4.27 10*6/uL 4.35-5.85 Venous blood hemoglobin measurement (mass/volume) 13.7 g/dL 13.3-17.7 Blood hematocrit (volume fraction) 40 % 40-54 Automated erythrocyte mean corpuscular volume 93 [ foz_us] 80-99 Automated erythrocyte mean corpuscular h emoglobin (mass per erythrocyte) 32 pg 25-34 Automated erythrocyte mean corpuscular h emoglobin concentration measurement (mass/volume) 34 g/dL 32-36 Automated erythrocyte distribution width ratio 12. 7 % 10.0- 14.5 Automated blood platelet count (count/volume) 248 10*3/uL [...] 10*3 1.0-4.0 Blood monocytes automated count (number/volume) 1. 7 10*3 0.0-1.0 Automated eosinophil count 0.0 10*3/uL 0 .0-0.3 Automated blood basophil count (count/volume) 0.1 10*3/uL 0.0-0.1 Comprehensive metabolic panel - 02/13/17 04:23 Serum or plasma sodium measurement (moles/volume) 140 mmol/L 135-145 Serum or plasma potassium measurement (moles/volume) 3.9 mmol/L 3.6-5.0 Serum or plasma chloride measurement (moles/volume) 107 mmol/L 98-107 Carbon dioxide 22 mmol/L 21-32 Serum or plasma anion gap determination (moles/volume) 11 mmol/L 5-14 Serum or plasma urea nitrogen measurement (mass/volume ) 22 mg/dL 7-18 Serum or plasma creatinine measurement (mass/volume) 0.94 mg/dL 0.60-1.30 Serum or plasma urea nitrogen/creatinine mass ratio 23 NRG Serum or plasma creatinine measurement w ith calculation of estimated glomerular filtration rate > NRG Serum or plasma glucose measurement (mass/volume) 168 mg/dL 70-105 Serum or plasma calcium measurement (mass/volume) 8.3 mg/dL 8.5-10.1 Serum or plasma total bilirubin measurement (mass/volu me) 0.4 mg/dL 0.1-1.0 Serum or plasma alkaline phosphatase trini surement (enzymatic activity/volume) 55 U/L 40-136 Serum or plasma aspartate aminotransfera se measurement (enzymatic activity/volume) 24 U/L 5-34 Serum or plasma alanine aminotransferase measurement (enzymatic activity/volume) 41 U/L 0-55 Serum or plasma protein measurement (mass/volume) 6.4 g/dL 6.4-8.2 Serum or plasma albumin measurement (mass/volume) 3.7 g/dL 3.2-4.5 Complete blood count (CBC) with automate d white blood cell (WBC) differential - 01/01/19 18:18 Blood leukocytes automated count (number/volume) 9.4 10*3/uL 4.3-11.0 Blood erythrocytes automated count (number/volume) 5.06 10*6/uL 4.35-5.85 Venous blood hemoglobin measurement (mass/volume) 16.4 g/dL 13.3-17.7 Blood hematocrit (volume fraction) 46 % 40-54 Automated erythrocyte mean corpuscular volume 91 [ foz_us] 80-99 Automated erythrocyte mean corpuscular h emoglobin (mass per erythrocyte) 32 pg 25-34 Automated erythrocyte mean corpuscular h emoglobin concentration measurement (mass/volume) 36 g/dL 32-36 Automated erythrocyte distribution width ratio 13. 2 % 10.0- 14.5 Automated blood platelet count (count/volume) 218 10*3/uL [...] 10*3 1.0-4.0 Blood monocytes automated count (number/volume) 1. 0 10*3 0.0-1.0 Automated eosinophil count 0.2 10*3/uL 0 .0-0.3 Automated blood basophil count (count/volume) 0.0 10*3/uL 0.0-0.1 PT panel in platelet poor plasma by coag ulation assay - 01/01/19 18:18 Prothrombin time (PT) in platelet poor plasma by coagu lation assay 12.9 s 12.2-14.7 INR in platelet poor plasma or blood by coagulation as say 1.0 0.8-1.4 Activated partial thromboplastin time (a PTT) in platelet poor plasma bycoagulation assay - 01/01/19 18:18 Activated partial thromboplastin time (a PTT) in platelet poor plasma bycoagulation assay 30 s 24-35 Comprehensive metabolic panel - 01/01/19 18:18 Serum or plasma sodium measurement (moles/volume) 143 mmol/L 135-145 Serum or plasma potassium measurement (moles/volume) 3.4 mmol/L 3.6-5.0 Serum or plasma chloride measurement (moles/volume) 106 mmol/L 98-107 Carbon dioxide 26 mmol/L 21-32 Serum or plasma anion gap determination (moles/volume) 11 mmol/L 5-14 Serum or plasma urea nitrogen measurement (mass/volume ) 18 mg/dL 7-18 Serum or plasma creatinine measurement (mass/volume) 1.08 mg/dL 0.60-1.30 Serum or plasma urea nitrogen/creatinine mass ratio 17 NRG Serum or plasma creatinine measurement w ith calculation of estimated glomerular filtration rate > NRG Serum or plasma glucose measurement (mass/volume) 113 mg/dL 70-105 Serum or plasma calcium measurement (mass/volume) 9.9 mg/dL 8.5-10.1 Serum or plasma total bilirubin measurement (mass/volu me) 0.4 mg/dL 0.1-1.0 Serum or plasma alkaline phosphatase trini surement (enzymatic activity/volume) 69 U/L 40-136 Serum or plasma aspartate aminotransfera se measurement (enzymatic activity/volume) 29 U/L 5-34 Serum or plasma alanine aminotransferase measurement (enzymatic activity/volume) 30 U/L 0-55 Serum or plasma protein measurement (mass/volume) 8.0 g/dL 6.4-8.2 Serum or plasma albumin measurement (mass/volume) 4.7 g/dL 3.2-4.5 Magnesium - 01/01/19 18:18 Magnesium 2.4 mg/dL 1.8-2.4 Serum or plasma creatine kinase measurem ent (enzymatic activity/volume) - 01/01/19 18:18 Serum or plasma creatine kinase measurem ent (enzymatic activity/volume) 405 U/L 30-200 Serum or plasma creatine kinase MB measu rement (enzymatic activity/volume) - 01/01/19 18:18 Serum or plasma creatine kinase MB measu rement (enzymatic activity/volume) 3.9 ng/mL <6.6 Serum or plasma troponin i.cardiac measu rement (mass/volume) - 01/01/19 18:18 Serum or plasma troponin i.cardiac measurement (mass/v olume) < ng/mL <0.028 Myoglobin, serum - 01/01/19 18:18 Myoglobin, serum 132.6 ng/mL 10.0-92.0 Serum or plasma amylase measurement (enz ymatic activity/volume) - 01/01/19 18:18 Serum or plasma amylase measurement (enzymatic activit y/volume) 45 U/L 25-125 Lipase - 01/01/19 18:18 Lipase 37 U/L 8-78 Serum or plasma lithium measurement (mol es/volume) - 01/01/19 18:18 BNP level 28.2 pg/mL <100.0 Complete blood count (CBC) with automate d white blood cell (WBC) differential - 01/02/19 03:20 Blood leukocytes automated count (number/volume) 11.0 10*3/uL 4.3-11.0 Blood erythrocytes automated count (number/volume) 4.62 10*6/uL 4.35-5.85 Venous blood hemoglobin measurement (mass/volume) 15.2 g/dL 13.3-17.7 Blood hematocrit (volume fraction) 43 % 40-54 Automated erythrocyte mean corpuscular volume 92 [ foz_us] 80-99 Automated erythrocyte mean corpuscular h emoglobin (mass per erythrocyte) 33 pg 25-34 Automated erythrocyte mean corpuscular h emoglobin concentration measurement (mass/volume) 36 g/dL 32-36 Automated erythrocyte distribution width ratio 13. 2 % 10.0- 14.5 Automated blood platelet count (count/volume) 217 10*3/uL 130-400 Automated blood platelet mean volume measurement 10.4 [foz_us] 7.4-10.4 Automated blood neutrophils/100 leukocytes 61 % 42-75 Automated blood lymphocytes/100 leukocytes 25 % 12-44 Blood monocytes/100 leukocytes 12 % 0-12 Automated blood eosinophils/100 leukocytes 2 % 0-10 Automated blood basophils/100 leukocytes 1 % 0-10 Blood neutrophils automated count (number/volume) 6.7 10*3 1.8-7.8 Blood lymphocytes automated count (number/volume) 2.7 10*3 1.0-4.0 Blood monocytes automated count (number/volume) 1. 3 10*3 0.0-1.0 Automated eosinophil count 0.2 10*3/uL 0 .0-0.3 Automated blood basophil count (count/volume) 0.1 10*3/uL 0.0-0.1 Comprehensive metabolic panel - 01/02/19 03:20 Serum or plasma sodium measurement (moles/volume) 141 mmol/L 135-145 Serum or plasma potassium measurement (moles/volume) 3.4 mmol/L 3.6-5.0 Serum or plasma chloride measurement (moles/volume) 107 mmol/L 98-107 Carbon dioxide 23 mmol/L 21-32 Serum or plasma anion gap determination (moles/volume) 11 mmol/L 5-14 Serum or plasma urea nitrogen measurement (mass/volume ) 17 mg/dL 7-18 Serum or plasma creatinine measurement (mass/volume) 0.96 mg/dL 0.60-1.30 Serum or plasma urea nitrogen/creatinine mass ratio 18 NRG Serum or plasma creatinine measurement w ith calculation of estimated glomerular filtration rate > NRG Serum or plasma glucose measurement (mass/volume) 113 mg/dL 70-105 Serum or plasma calcium measurement (mass/volume) 9.0 mg/dL 8.5-10.1 Serum or plasma total bilirubin measurement (mass/volu me) 0.5 mg/dL 0.1-1.0 Serum or plasma alkaline phosphatase trini surement (enzymatic activity/volume) 56 U/L 40-136 Serum or plasma aspartate aminotransfera se measurement (enzymatic activity/volume) 26 U/L 5-34 Serum or plasma alanine aminotransferase measurement (enzymatic activity/volume) 26 U/L 0-55 Serum or plasma protein measurement (mass/volume) 6.6 g/dL 6.4-8.2 Serum or plasma albumin measurement (mass/volume) 4.0 g/dL 3.2-4.5 CALCIUM CORRECTED 9.0 mg/dL 8.5-10.1 Lipid 1996 panel - 01/02/19 03:20 Serum or plasma triglyceride measurement (mass/volume) 235 mg/dL <150 Serum or plasma cholesterol measurement (mass/volume) 196 mg/dL < 200 Serum or plasma cholesterol in HDL measurement (mass/v olume) 38 mg/dL 40-60 Cholesterol in LDL [mass/volume] in serum or plasma by direct assay 137 mg/dL 1-129 Serum or plasma cholesterol in VLDL measurement (mass/ volume) 47 mg/dL 5-40 Serum or plasma troponin i.cardiac measu rement (mass/volume) - 01/02/19 03:20 Serum or plasma troponin i.cardiac measurement (mass/v olume) < ng/mL <0.028 Whole blood basic metabolic panel - 12/21 03/08 03:50 Serum or plasma sodium measurement (moles/volume) 139 mmol/L 135-145 Serum or plasma potassium measurement (moles/volume) 3.6 mmol/L 3.6-5.0 Serum or plasma chloride measurement (moles/volume) 107 mmol/L 98-107 Carbon dioxide 22 mmol/L 21-32 Serum or plasma anion gap determination (moles/volume) 10 mmol/L 5-14 Serum or plasma urea nitrogen measurement (mass/volume ) 17 mg/dL 7-18 Serum or plasma creatinine measurement (mass/volume) 0.96 mg/dL 0.60-1.30 Serum or plasma urea nitrogen/creatinine mass ratio 18 NRG Serum or plasma creatinine measurement w ith calculation of estimated glomerular filtration rate > NRG Serum or plasma glucose measurement (mass/volume) 116 mg/dL 70-105 Serum or plasma calcium measurement (mass/volume) 9.1 mg/dL 8.5-10.1 Magnesium - 01/03/19 03:50 Magnesium 2.5 mg/dL 1.8-2.4 THYROID STIMULATING HORMONE - 01/03/19 0 3:50 THYROID STIMULATING HORMONE 1.30 u[iU]/mL 0.35-4.94 Automated blood complete blood count (he mogram) panel - 01/08/19 09:20 Blood leukocytes automated count (number/volume) 8.4 10*3/uL 4.3-11.0 Blood erythrocytes automated count (number/volume) 4.76 10*6/uL 4.35-5.85 Venous blood hemoglobin measurement (mass/volume) 15.7 g/dL 13.3-17.7 Blood hematocrit (volume fraction) 44 % 40-54 Automated erythrocyte mean corpuscular volume 92 [ foz_us] 80-99 Automated erythrocyte mean corpuscular h emoglobin (mass per erythrocyte) 33 pg 25-34 Automated erythrocyte mean corpuscular h emoglobin concentration measurement (mass/volume) 36 g/dL 32-36 Automated erythrocyte distribution width ratio 13. 1 % 10.0- 14.5 Automated blood platelet count (count/volume) 227 10*3/uL 130-400 Automated blood platelet mean volume measurement 10.2 [foz_us] 7.4-10.4 PT panel in platelet poor plasma by coag ulation assay - 01/08/19 09:20 Prothrombin time (PT) in platelet poor plasma by coagu lation assay 13.4 s 12.2-14.7 INR in platelet poor plasma or blood by coagulation as say 1.0 0.8-1.4 Activated partial thromboplastin time (a PTT) in platelet poor plasma bycoagulation assay - 01/08/19 09:20 Activated partial thromboplastin time (a PTT) in platelet poor plasma bycoagulation assay 29 s 24-35 Comprehensive metabolic panel - 01/08/19 09:20 Serum or plasma sodium measurement (moles/volume) 142 mmol/L 135-145 Serum or plasma potassium measurement (moles/volume) 3.5 mmol/L 3.6-5.0 Serum or plasma chloride measurement (moles/volume) 105 mmol/L 98-107 Carbon dioxide 25 mmol/L 21-32 Serum or plasma anion gap determination (moles/volume) 12 mmol/L 5-14 Serum or plasma urea nitrogen measurement (mass/volume ) 13 mg/dL 7-18 Serum or plasma creatinine measurement (mass/volume) 1.10 mg/dL 0.60-1.30 Serum or plasma urea nitrogen/creatinine mass ratio 12 NRG Serum or plasma creatinine measurement w ith calculation of estimated glomerular filtration rate > NRG Serum or plasma glucose measurement (mass/volume) 127 mg/dL 70-105 Serum or plasma calcium measurement (mass/volume) 9.2 mg/dL 8.5-10.1 Serum or plasma total bilirubin measurement (mass/volu me) 0.7 mg/dL 0.1-1.0 Serum or plasma alkaline phosphatase trini surement (enzymatic activity/volume) 57 U/L 40-136 Serum or plasma aspartate aminotransfera se measurement (enzymatic activity/volume) 32 U/L 5-34 Serum or plasma alanine aminotransferase measurement (enzymatic activity/volume) 33 U/L 0-55 Serum or plasma protein measurement (mass/volume) 7.2 g/dL 6.4-8.2 Serum or plasma albumin measurement (mass/volume) 4.5 g/dL 3.2-4.5 CALCIUM CORRECTED 8.8 mg/dL 8.5-10.1 Lipid 1996 panel - 01/08/19 09:20 Serum or plasma triglyceride measurement (mass/volume) 150 mg/dL <150 Serum or plasma cholesterol measurement (mass/volume) 136 mg/dL < 200 Serum or plasma cholesterol in HDL measurement (mass/v olume) 38 mg/dL 40-60 Cholesterol in LDL [mass/volume] in serum or plasma by direct assay 82 mg/dL 1-129 Serum or plasma cholesterol in VLDL measurement (mass/ volume) 30 mg/dL 5-40 Methicillin resistant Staphylococcus aur eus (MRSA) screening culture - 01/08/19 09:20 Methicillin resistant Staphylococcus aureus (MRSA) scr eening culture NEG NRG Automated blood complete blood count (he mogram) panel - 01/09/19 03:05 Blood leukocytes automated count (number/volume) 10.2 10*3/uL 4.3-11.0 Blood erythrocytes automated count (number/volume) 4.32 10*6/uL 4.35-5.85 Venous blood hemoglobin measurement (mass/volume) 13.9 g/dL 13.3-17.7 Blood hematocrit (volume fraction) 40 % 40-54 Automated erythrocyte mean corpuscular volume 93 [ foz_us] 80-99 Automated erythrocyte mean corpuscular h emoglobin (mass per erythrocyte) 32 pg 25-34 Automated erythrocyte mean corpuscular h emoglobin concentration measurement (mass/volume) 35 g/dL 32-36 Automated erythrocyte distribution width ratio 12. 8 % 10.0- 14.5 Automated blood platelet count (count/volume) 193 10*3/uL 130-400 Automated blood platelet mean volume measurement 10.5 [foz_us] 7.4-10.4 Whole blood basic metabolic panel - 12/22 03:05 Serum or plasma sodium measurement (moles/volume) 139 mmol/L 135-145 Serum or plasma potassium measurement (moles/volume) 3.5 mmol/L 3.6-5.0 Serum or plasma chloride measurement (moles/volume) 106 mmol/L 98-107 Carbon dioxide 24 mmol/L 21-32 Serum or plasma anion gap determination (moles/volume) 9 mmol/L 5-14 Serum or plasma urea nitrogen measurement (mass/volume ) 15 mg/dL 7-18 Serum or plasma creatinine measurement (mass/volume) 0.92 mg/dL 0.60-1.30 Serum or plasma urea nitrogen/creatinine mass ratio 16 NRG Serum or plasma creatinine measurement w ith calculation of estimated glomerular filtration rate > NRG Serum or plasma glucose measurement (mass/volume) 85 mg/dL 70-105 Serum or plasma calcium measurement (mass/volume) 8.5 mg/dL 8.5-10.1 Blood Culture - 05/27/19 16:05 PRELIM CULTURE RESULTS Blood Culture Negativ e, No Growth Day 1 FINAL CULTURE RESULTS Blood Culture Negative , No Growth Day 5 MEDIA PLATED Blood Culture Media Position C45 CULTURE SOURCE left arm EKG - 05/27/19 18:45 EKG Complete MRSA Screen - 05/27/19 18:45 FINAL CULTURE RESULTS MRSA Negative Nasal Culture MEDIA PLATED Setup at 18:53 on 05/27/2019 Blood Culture - 05/27/19 18:45 PRELIM CULTURE RESULTS Blood Culture Negativ e, No Growth Day 1 FINAL CULTURE RESULTS Blood Culture Negative , No Growth Day 5 MEDIA PLATED Blood Culture Media Position C42 CULTURE SOURCE right arm Urinalysis - 05/27/19 19:30 Icotest N/A Negative Urine Volume Urine Volume Sufficient (10mL) Urine Yeast No Yeast present Urine-Appearance Slightly Cloudy Clear Urine-Bacteria Negative Urine-Bilirubin Negative Negative Urine-Blood Trace-intact Negative Urine-Color Yellow Colorless-[place]t. [place] ow Urine-Epithelial Cells 0-5/HPF Urine-Glucose Negative Negative Urine-Ketones Negative Negative Urine-Leukocytes Negative Negative Urine-Nitrite Negative Negative Urine-Other Urine Saved if Culture Need ed (48hrs from time of collection) Urine-pH 5.5 5-8.5 Urine-Protein 2+ Negative Urine-RBC 0-2/HPF Urine-Specific [place] 1.025 1.000-1 .030 Urine-WBC Rare/HPF Urobilinogen 0.2 0.2-1.0 Comprehensive Metabolic Panel - 05/28/19 05:47 Albumin 4.1 g/dL 3.6-5.1 ALP 56 U/L 35-130 ALT 41 U/L 6-45 Anion Gap 15 6-14 AST 19 U/L 2-40 BUN 18 mg/dL 5-25 Calcium 8.4 mg/dL 8.3-10.4 Chloride 106 mmol/L 95-114 CO2 23 mEq/L 22-33 Creat 0.90 mg/dL 0.50-1.50 eGFR 84 mL/min/1.73m2 >59 Globulin 2.5 g/dL 2.3-3.5 Glucose 131 mg/dL 70-110 Osmo 293 280-295 Potassium 4.2 mmol/L 3.5-5.3 Sodium 140 mmol/L 134-148 TBil 0.5 mg/dL 0.2-1.2 TP 6.6 g/dL 6.0-8.3 Comprehensive Metabolic Panel - 05/29/19 05:58 Albumin 3.9 g/dL 3.6-5.1 ALP 60 U/L 35-130 ALT 33 U/L 6-45 Anion Gap 14 6-14 AST 15 U/L 2-40 BUN 20 mg/dL 5-25 Calcium 9.2 mg/dL 8.3-10.4 Chloride 109 mmol/L 95-114 CO2 22 mEq/L 22-33 Creat 0.93 mg/dL 0.50-1.50 eGFR 81 mL/min/1.73m2 >59 Globulin 2.2 g/dL 2.3-3.5 Glucose 133 mg/dL 70-110 Osmo 295 280-295 Potassium 4.0 mmol/L 3.5-5.3 Sodium 141 mmol/L 134-148 TBil 0.5 mg/dL 0.2-1.2 TP 6.1 g/dL 6.0-8.3 Comprehensive Metabolic Panel - 05/30/19 05:10 Albumin 3.8 g/dL 3.6-5.1 ALP 51 U/L 35-130 ALT 29 U/L 6-45 Anion Gap 16 6-14 AST 13 U/L 2-40 BUN 21 mg/dL 5-25 Calcium 9.2 mg/dL 8.3-10.4 Chloride 106 mmol/L 95-114 CO2 24 mEq/L 22-33 Creat 1.07 mg/dL 0.50-1.50 eGFR 69 mL/min/1.73m2 >59 Globulin 2.1 g/dL 2.3-3.5 Glucose 121 mg/dL 70-110 Osmo 297 280-295 Potassium 4.2 mmol/L 3.5-5.3 Sodium 142 mmol/L 134-148 TBil 0.6 mg/dL 0.2-1.2 TP 5.9 g/dL 6.0-8.3 Coronavirus SARS-CoV-2 SO 2018 - 0 08:00 Coronavirus Ab [Units/volume] in Serum Negative Negative Encounters ACCT No. Visit Date/Time Discharge Status Pt. Type Provider Facility Loc./Unit Complaint [id number] 05/27/2019 15:47:00 05/30/2019 10:13: 00 DIS Inpatient Raimundo Cassidy enter MED-SURG [id number] 05/27/2019 16:20:00 Document Registration [id number] 05/25/2020 05:41:00 14:15:00 DIS Outpatient MIGUEL MCFARLAND, JUAN [facility] PREOP COLONOSCOPY [id number] 07/18/2019 20:07:00 06:00:00 DIS Outpatient CHRISTIN MCFARLAND, DIANNE Oliveira [facility] SLEEP DEBORAH G47.33 [id number] 01/25/2019 11:53:00 23:59:59 CLS Outpatient CASSIDY DO, RAIMUNDO [facility] RAD M54.40 [id number] 01/14/2019 09:55:00 23:59:59 CLS Outpatient CASSIDY DO, RAIMUNDO [facility] RAD BACK PAIN OF LUMBAR REG ION W/ SCIATICA [id number] 01/08/2019 08:57:00 09:00:00 DIS Outpatient STUART MCFARLAND FACC, MILENA URBANO CC DS [facility] CATH ANGINA,HTN, CAD,DEBORAH,SOB [id number] 01/01/2019 19:59:00 11:35:00 DIS Inpatient ANGE CHILDS RAIMUNDO [facility] 4TH CHEST PAIN,UNCONTROLLED HTN [id number] 10/06/2017 13:16:00 23:59:59 CLS Outpatient FARSHAD CHILDS YAMILKA F [facility] RAD RT KNEE PAIN [id number] 03/16/2017 11:53:00 017 23:59:59 CLS Preadmit LESLY SANTIAGO NEGOTIATOR [facility] RAD J40,G47.33,R06. 00,R93.8 [id number] 03/16/2017 11:51:00 017 23:59:59 CLS Preadmit LESLY SANTIAGO NEGOTIATOR [facility] RT J40,R06.00,J45. 909 [id number] 03/14/2017 08:26:00 017 23:59:59 CLS Outpatient REJI VAIL [facility] CARD I10 [id number] 02/11/2017 00:00:00 017 10:15:00 DIS Inpatient RAIMUNDO CASSIDY DO, V [facility] 4TH WHEEZING [id number] 02/09/2017 09:00:00 017 23:59:59 CLS Outpatient RAIMUNDO CASSIDY DO [facility] RAD ACUTE BRONCHITIS [id number] 06/15/2016 23:26:00 016 00:53:00 DIS Emergency LEEROY MANJIT CHILDS [facility] ER SHOOTING PAIN ON RT BETSY EDOWN INTO LEG [id number] 04/01/2014 12:11:00 014 23:59:59 CLS Outpatient KVNG BOLES [facility] QUICK L FOOT PAIN/INJ URY [id number] 05/27/2020 09:30:00 P EN Preadmit JUAN RIVERA MD [facility] [place] ENDO SCREENING [id number] 01/24/2019 12:02:00 Document Registration [id number] 01/24/2019 12:02:00 Document Registration [id number] 01/24/2019 12:02:00 Document Registration [id number] 01/24/2019 12:02:00 Document Registration [id number] 04/26/2012 00:00:00 Document Registration [id number] 03/27/2012 00:00:00 Document Registration [id number] 02/13/2012 08:08:00 Document Registration [id number] 01/28/2012 07:29:00 Document Registration [id number] 01/18/2012 06:00:00 Document Registration [id number] 01/17/2012 14:37:00 Document Registration [id number] 01/17/2012 09:40:00 Document Registration [id number] 01/09/2012 20:53:00 Document Registration [id number] 01/03/2012 08:30:00 Document Registration [id number] 06/27/2011 11:00:00 Document Registration [id number] 10/27/2010 07:39:00 Document Registration [id number] 10/09/2009 18:32:00 Document Registration [id number] 09/18/2007 14:24:00 Document Registration [id number] 12/25/2005 13:14:00 Document Registration
[2020-05-27] MEDS ORDERED: MIDAZOLAM 2 MG/2 ML (VERSED) VIAL ONE (09:05)
[2020-05-27] MEDS ORDERED: PROPOFOL INJECTION 50 ML IV ONE (09:05)
[2020-05-27] MEDS ORDERED: LIDOCAINE JELLY 2% 6 ML SYRINGE ONE (09:32)
--- NOTE | 2020-05-27 09:35 | Progress Note-Pre Operative ---
Pre-Operative Progress Note H&P Reviewed The H&P was reviewed, patient examined and no changes noted. Date Seen by Provider: May 27, 2020 Time Seen by Provider: 09:00 Date H&P Reviewed: May 27, 2020 Time H&P Reviewed: 09:00 Pre-Operative Diagnosis: screening o JUAN RIVERA MD May 27, 2020 09:35
--- NOTE | 2020-05-27 09:37 | Discharge Inst-Surgical ---
D/C Lap Instructions-MIGUEL Follow Up Activity as tolerated High Fiber Diet 25g or more per day Avoid Alcohol, Caffeine, Spicy Horse Pasture and Acid foods. Drink 64 fluid oz or more of fluids per day. Symptoms to Report: Fever over 101 degree F, Nausea/Vomiting If any problems/questions: Contact your physician or go to Emergency Room JUAN RIVERA MD May 27, 2020 09:37
[2020-05-27] MEDS ORDERED: ACETAMINOPHEN 325 MG TABLET PO PRN (09:45)
[2020-05-27] MEDS ORDERED: morphine INJ 10 MG/ML 1ML (SYR OR VIAL) IVP PRN ×2 (09:45)
[2020-05-27] MEDS ORDERED: HYDROcodone/APAP 5 MG/325 MG (LORTAB) TAB PO PRN (09:45)
[2020-05-27] MEDS ORDERED: ONDANSETRON 4 MG/2 ML (SDV) Z0FRAN IVP PRN (09:45)
--- NOTE | 2020-05-27 10:05 | Progress Note-Post Operative ---
Post-Operative Progess Note Surgeon (s)/Crystal Growing Technician (s) Surgeon JUAN RIVERA MD Crystal Growing Technician: none Pre-Operative Diagnosis screening colo Post-Operative Diagnosis mild sigmoid diverticulosis. Procedure & Operative Findings Date of Procedure 05/27/20 Procedure Performed/Findings colonoscopy Anesthesia Type mac Estimated Blood Loss Estimated blood loss (mL): minimal Specimens/Packing Specimens Removed none JUAN RIVERA MD May 27, 2020 10:05
--- NOTE | 2020-05-27 12:20 | Anesthesia-General Post-Op ---
MAC Patient Condition Mental Status/LOC: Same as Preop Cardiovascular: Satisfactory Nausea/Vomiting: Absent Respiratory: Satisfactory Pain: Controlled Complications: Absent Post Op Complications Complications None Follow Up Care/Instructions Patient Instructions None needed. Anesthesiology Discharge Order Discharge Order Patient was seen after the procedure and he was doing well, no complaints, stable vital signs, no apparent adverse anesthesia problems. ANTOLIN GOMEZ DO May 27, 2020 12:20
--- NOTE | 2020-05-27 14:31 | OPERATIVE REPORT ---
DATE OF SERVICE: 05/27/2020 ADMITTING PRIMARY CARE PHYSICIAN: Dr. Betzaida Adames. PREOPERATIVE DIAGNOSIS: Screening colonoscopy. POSTOPERATIVE DIAGNOSIS: Mild sigmoid diverticulosis. PROCEDURE: Colonoscopy. SURGEON: Juan Harden MD. ANESTHESIA: Monitored anesthesia care. ESTIMATED BLOOD LOSS: Minimal. FINDINGS: No significant hemorrhoids. Prostate gland was palpable and appeared normal. Mild sigmoid diverticulosis. No polyps identified. DISPOSITION: The patient tolerated the procedure well. INDICATIONS: The patient is a 70-year-old male who was referred over to us for screening colonoscopy. His last colonoscopy was 10 years ago and he believes this to be normal. He states that he is otherwise doing well and does not report any issues with diarrhea nor constipation as well as no red blood per rectum nor any dark tarry stools. He also does not report any family history of colon cancer. DESCRIPTION OF PROCEDURE: The patient was brought to the endoscopy suite, laid in the left lateral decubitus position. After adequate IV pain and sedated medications and monitored anesthesia care, a digital rectal examination was performed. No significant hemorrhoids were identified. Normal sphincter tone was felt and there were no palpable masses. Prostate gland was palpable and appeared normal. The endoscope was then intubated to anus and rectum gently insufflated. The endoscope was then advanced through the valves of [place] of the rectum with no polyps or any neoplasms identified. Through the sigmoid colon, a few isolated diverticula identified with no mucosal inflammatory change to indicate any active diverticulitis. The endoscope was then advanced to the remainder of the descending, transverse and ascending colon to the cecum. These segments were normal. There were no polyps or any neoplasms identified throughout the colon or rectum. The endoscope was then slowly withdrawn while taking a second look and suctioning of residual air with no additional findings. The patient tolerated the procedure well. We will recommend continued medical management with high fiber diet with at least 30 grams of fiber daily as well as significant amounts of water to promote soft stools on a daily basis. He does not need another colonoscopy for another 10 years if he is asymptomatic. Job ID: [id number] DocumentID: [id number] Dictated Date: 05/27/2020 10:00:46 Professional Wrestler Date: 05/27/2020 14:29:49 Dictated By: JUAN HARDEN MD
== END 2020-05-27 10:40 | disposition home or self-care (01) ==
LOC: ENDO 08:05
PROVIDERS: ATTEND Surgery
DX: Z12.11 Encounter for screening for malignant neoplasm of colon (principal); K57.30 Diverticulosis of large intestine without perforation or abscess without bleeding; I10 Essential (primary) hypertension; I25.10 Atherosclerotic heart disease of native coronary artery without angina pectoris; E78.5 Hyperlipidemia, unspecified; G47.33 Obstructive sleep apnea (adult) (pediatric); G62.9 Polyneuropathy, unspecified; Z79.82 Long term (current) use of aspirin; Z79.899 Other long term (current) drug therapy; Z95.5 Presence of coronary angioplasty implant and graft; Z90.49 Acquired absence of other specified parts of digestive tract
CPT/HCPCS: G0121

== ENCOUNTER → 2021-01-21 | Outpatient (CLI) | payer MEDICARE, OTHER ==
[~2021-01-21] MED LIST changes: +AMLO-250 PO; +AMLO-251 PO; -AMLO10TA7 PO; -AMLO5TAB9 PO; +ASPI-1238 PO; -ASPI-983 PO; -CETI10TA21 PO; +CETI10TA49 PO; -LISI-552 PO; +LISI20TA26 PO; -MONT10TA26 PO; +MONT10TA32 PO
== END ==
LOC: LABNPT 05:52
PROVIDERS: ATTEND Physical Medicine & Rehabilitation
DX: Z01.812 Encounter for preprocedural laboratory examination (principal); Z20.822 Contact with and (suspected) exposure to COVID-19
CPT/HCPCS: 87635

== ENCOUNTER 2022-09-12 14:55 | Emergency (ER) | payer MEDICARE, OTHER ==
[~2022-09-12] VITALS: Ht 177 cm; Wt 118.0 kg
[~2022-09-12 14:55] MED LIST changes: +GFCD10B PO; -GUAI473L29 PO; +MONT-40 PO; -MONT10TA32 PO; -TRIA1CAP4 PO; +TRIA1CAP84 PO
--- NOTE | 2022-09-12 15:29 | ED Back Pain ---
General Chief Complaint: Back Problems Stated Complaint: PINCHED NERVE IN BACK Nursing Triage Note: ARRIVED VIA AMB TO TRIAGE WITH COMPLAINTS OF BACK PAIN X2 DAYS. STATES HE HAS BEEN TAKING HYDROCODONE WHICH IS NOT HELPING. HAS AN APPT WITH DR PANDYA IN [place] IN OCT. Source of Information: Patient Exam Limitations: No Limitations History of Present Illness Date Seen by Provider: Sep 12, 2022 Time Seen by Provider: 15:25 Initial Comments 72-year-old male presents to the emergency department today with a chief complaint of worsening left shoulder blade pain over the last 12 hours that feels like "an ice pick". He states it is more than 10 out of 10 pain. He states he has had gradual onset of pain over the course of the last week. He has a history of multiple back and neck surgeries in the past most at [facility] with Dr. Nata Chang, neurosurgeon. He states he has been taking multiple doses of hydrocodone which are not helping him. He denies fevers, chills, cough or shortness of breath. He has a history of diabetes and hypertension and coronary artery disease. He states he is compliant with his daily medications. He states this pain feels different than his cardiac pain. He states the pain feels like it is inside his back. He states it is just superior and a little medial to the left scapula. Movement makes the pain much worse. He cannot lay flat due to the pain. No history of blood clots. No unusual painful swelling in his legs. It is notable that he has 2+ pitting edema in his legs and he states he normally wears compression stockings but is not wearing them today. All other review of systems reviewed and negative except as stated Timing/Duration: 1 Week Severity: Severe Pain/Injury Location: Back (upper thoracic left back) Modifying Factors: Worse With Movement Associated Symptoms: No muscle spasms, No fever, No numbness in legs/feet, No tingling in legs/feet, No sensory/motor loss, No lower back pain, No loss of bladder control, No loss of bowel control Allergies and Home Medications Allergies Coded Allergies: No Known Drug Allergies (Verified , 05/27/20) Patient Home Medication List Home Medication List Reviewed: Yes Amlodipine Besylate (Amlodipine Besylate) 5 Mg Tablet, 5 MG PO DAILY, (Reported) Entered as Reported by: SARA FELIPE on 01/02/19 09 Aspirin (Aspirin) 81 Mg Tab.chew, 81 MG PO DAILY Prescribed by: MILENA DAVIDSON on 01/09/19 0835 Atorvastatin Calcium (Atorvastatin Calcium) 20 Mg Tablet, 20 MG PO HS, (Reported) Entered as Reported by: SARA FELIPE on 01/08/19 09 Cetirizine HCl (Zyrtec) 10 Mg Tablet, 10 MG PO DAILY, (Reported) Entered as Reported by: SARA FELIPE on 01/08/19 09 Cyanocobalamin (Vitamin B-12) (Vitamin B-12) 1,000 Mcg Tablet, 1,000 MCG PO DAILY, (Reported) Entered as Reported by: SOBEIDA PORTILLO on 02/09/17 152 Diazepam (Diazepam) 2 Mg Tablet, 2 MG PO HS, (Reported) Entered as Reported by: SARA FELIPE on 01/02/19 09 Hydralazine HCl (Hydralazine HCl) 25 Mg Tablet, 25 MG PO BID, (Reported) Entered as Reported by: SARA FELIPE on 01/02/19948 Losartan Potassium (Losartan Potassium) 100 Mg Tablet, 100 MG PO DAILY, (Reported) Entered as Reported by: SARA FELIPE on 01/02/19 09 Metoprolol Succinate (Metoprolol Succinate) 100 Mg Tab.er.24h, 100 MG PO BID, (Reported) Entered as Reported by: SARA FELIPE on 01/08/19 09 Montelukast Sodium (Montelukast Sodium) 10 Mg Tablet, 10 MG PO HS, (Reported) Entered as Reported by: SOBEIDA PORTILLO on 02/09/17 152 Triamterene/Hydrochlorothiazid (Triamterene-Hctz 37.5-25 mg Tb) 1 Each Tablet, 1 EACH PO DAILY, (Reported) Entered as Reported by: RUDDY PARKS on 05/20/20 1329 Review of Systems Constitutional: see HPI EENTM: no symptoms reported Respiratory: no symptoms reported Cardiovascular: no symptoms reported Gastrointestinal: no symptoms reported Genitourinary: no symptoms reported Musculoskeletal: back pain Skin: no symptoms reported All Other Systems Reviewed Negative Unless Noted: Yes Past Proglvc-Tmpcuq-Okwptf Hx Patient Social History Tobacco Use?: No Substance use?: No Alcohol Use?: Yes Alcohol Frequency: Rarely Immunizations Up To Date First/Initial COVID19 Vaccinat: UNKNOWN COVID19 Vaccine Tong Setter: J&J Seasonal Allergies Seasonal Allergies: Yes Past Medical History Surgeries: Yes (STENTS X3, BACK X6, KIDNEY STONE, CATARACTS) Adenoidectomy, Coronary Stent, Eye Surgery, Gallbladder, Orthopedic, Tonsillectomy Respiratory: Yes Sleep Apnea Currently Using CPAP: Yes Currently Using BIPAP: No Cardiac: Yes (HEART CATH/STENTS X2 2010) Chronic Edema/Swelling, Coronary Artery Disease, High Cholesterol, Hypertension Neurological: Yes (BILATERAL PERIPHERAL NEUROPATHY) Neuropathy Reproductive Disorders: No Sexually Transmitted Disease: No HIV/AIDS: No Genitourinary: Yes Benign Prostatic Hyperpl, Kidney Stones Gastrointestinal: No Gall Bladder Disease Musculoskeletal: Yes Degenerate Disk Disease, Chronic Back Pain Endocrine: No HEENT: No Cataract Loss of Vision: Denies Hearing Impairment: Denies Cancer: No Psychosocial: No Integumentary: No Blood Disorders: No Adverse Reaction/Blood Tranf: No (N/A) Physical Exam Vital Signs Vital Signs - First Documented 09/12/22 15:07 Temp 36.2 Pulse 73 Resp 16 B/P (MAP) 208/117 (147) Pulse Ox 98 O2 Delivery Room Air Capillary Refill : Less Than 3 Seconds Height, Weight, BMI Height: 5'10.00" Weight: 182lbs. 0.0oz. 82.188071ms; 37.00 BMI Method:Stated General Appearance: WD/WN, Anxious, Moderate Distress HEENT: PERRL/EOMI Neck: Normal Inspection Cardiovascular: Regular Rate, Rhythm, Normal Peripheral Pulses (2+ radial; BP equal bilaterally) Respiratory: Chest Non Tender, Lungs Clear, Normal Breath Sounds, No Accessory Muscle Use, No Respiratory Distress Gastrointestinal: Normal Bowel Sounds, Non Tender, Soft Back: Normal Inspection, Other (tendernss to palpation left scapula just medial and superior. "not the same pain". no overlying rashes) Extremity: Normal Capillary Refill, Normal Inspection, Normal Range of Motion, Non Tender, No Calf Tenderness Neurologic/Psychiatric: Alert, Oriented x3, No Motor/Sensory Deficits, Normal Mood/Affect, authorization nurse II-XII Norm as Tested, Other (moveing all 4 extremities equally; ) Skin: Normal Color, Warm/Dry Progress/Results/Core Measures Results/Orders Lab Results Laboratory Tests Test 09/12/22 15:45 Range/Units White Blood Count 10.4 4.3-11.0 10^3/uL Red Blood Count 4.77 4.30-5.52 10^6/uL Hemoglobin 15.4 13.3-17.7 g/dL Hematocrit 45 40-54 % Mean Corpuscular Volume 93 80-99 fL Mean Corpuscular Hemoglobin 32 25-34 pg Mean Corpuscular Hemoglobin Concent 35 32-36 g/dL Red Cell Distribution Width 12.8 10.0-14.5 % Platelet Count 198 130-400 10^3/uL Mean Platelet Volume 10.9 9.0-12.2 fL Immature Granulocyte % (Auto) 1 % Neutrophils (%) (Auto) 61 42-75 % Lymphocytes (%) (Auto) 28 12-44 % Monocytes (%) (Auto) 9 0-12 % Eosinophils (%) (Auto) 2 0-10 % Basophils (%) (Auto) 0 0-10 % Neutrophils # (Auto) 6.3 1.8-7.8 X 10^3 Lymphocytes # (Auto) 2.9 1.0-4.0 X 10^3 Monocytes # (Auto) 0.9 0.0-1.0 X 10^3 Eosinophils # (Auto) 0.2 0.0-0.3 10^3/uL Basophils # (Auto) 0.0 0.0-0.1 10^3/uL Immature Granulocyte # (Auto) 0.1 0.0-0.1 10^3/uL Prothrombin Time 13.0 12.2-14.7 SEC INR Comment 0.9 0.8-1.4 Activated Partial Thromboplast Time 20 L 24-35 SEC Sodium Level 141 135-145 MMOL/L Potassium Level 4.1 3.6-5.0 MMOL/L Chloride Level 106 98-107 MMOL/L Carbon Dioxide Level 21 21-32 MMOL/L Anion Gap 14 5-14 MMOL/L Blood Urea Nitrogen 17 7-18 MG/DL Creatinine 1.25 0.60-1.30 MG/DL Estimat Glomerular Filtration Rate 62 BUN/Creatinine Ratio 14 Glucose Level 108 H 70-105 MG/DL Calcium Level 9.4 8.5-10.1 MG/DL Corrected Calcium 9.3 8.5-10.1 MG/DL Magnesium Level 2.1 1.6-2.4 MG/DL Total Bilirubin 0.8 0.1-1.0 MG/DL Aspartate Amino Transf (AST/SGOT) 45 H 5-34 U/L Alanine Aminotransferase (ALT/SGPT) 43 0-55 U/L Alkaline Phosphatase 53 40-136 U/L Myoglobin 187.5 H 10.0-92.0 NG/ML Troponin I < 0.028 <0.028 NG/ML Total Protein 7.8 6.4-8.2 GM/DL Albumin 4.1 3.2-4.5 GM/DL My Orders Orders - MEMO JAMISON MD Ekg Tracing (09/12/22 15:27) Cbc With Automated Diff (09/12/22:) Magnesium (09/12/22:) Chest 1 View, Ap/Pa Only (09/12/22:) Comprehensive Metabolic Panel (09/12/22:) Myoglobin Serum (09/12/22:) Protime With Inr (09/12/22:) Partial Thromboplastin Time (09/12/22:) O2 (09/12/22:) Monitor-Rhythm Ecg Trace Only (09/12/22 15:) Lipid Panel (09/13/22 06:00) Ed Iv/Invasive Line Start (09/12/22:28) Troponin I Venancio (09/12/22 15:28) Fentanyl Inj (Sublimaze Injection) (09/12/22 15:30) Ondansetron Injection (Zofran Injectio (09/12/22 15:30) Ns Iv 1000 Ml (Sodium Chloride 0.9%) (09/12/22 15:30) Ct Angio Chest W (09/12/22 16:52) Morphine Injection (Morphine Injection (09/12/22 16:52) Iohexol Injection (Omnipaque 350 Mg/Ml 1 (09/12/22 17:15) Received Contrast (Hold Metformin- Contr (09/12/22 17:15) Ns (Ivpb) (Sodium Chloride 0.9% Ivpb Bag (09/12/22 17:15) Oxycodone/Apap 7.5/325mg Tab (Percocet (09/12/22 18:30) Orphenadrine Inj (Ed Only) (Norflex Inje (09/12/22 18:30) Rx-Oxycodone/Apap 5-325 Mg (Rx-Percocet (09/12/22 18:30) Medications Given in ED Current Medications Medications Dose Ordered Sig/Bubba Route Start Time Stop Time Status Last Admin Dose Admin Fentanyl Citrate 50 mcg ONCE ONCE IVP 09/12/22 15:30 09/12/22 15:31 DC 09/12/22 16:46 50 MCG Iohexol 100 ml ONCE ONCE IV 09/12/22 17:15 09/12/22 17:16 DC 09/12/22 17:23 85 ML Ondansetron HCl 4 mg ONCE ONCE IVP 09/12/22 15:30 09/12/22 15:31 DC 09/12/22 16:46 4 MG Sodium Chloride 100 ml ONCE ONCE IV 09/12/22 17:15 09/12/22 17:16 DC 09/12/22 17:23 80 ML Vital Signs/I&O 09/12/22 15:07 Temp 36.2 Pulse 73 Resp 16 B/P (MAP) 208/117 (147) Pulse Ox 98 O2 Delivery Room Air Blood Pressure Mean: 147 Progress Progress Note : Time: 18:23 Progress Note Patient reevaluated, appears to be resting comfortably in the bed although he states it still feels like a "ice pick" in his left shoulder blade. When I started asking him about more symptoms and stated to him that he really did not have any concerning findings for an acute issue with a disc in his neck or upper back he states "I forgot to tell you that my left arm is numb and my hand feels weak". He states the symptoms started when he developed the pain a week ago. He tells me he does not have an appointment with his neurosurgeon until November 01. He assumes that he would be admitted for pain control. I advised him that he should call his neurosurgeon first thing in the morning to see if he can get his appointment moved forward. I am going to send him home with a prescription for Percocet and some muscle relaxers. He is a diabetic and I am somewhat hesitant to give him prednisone as he does not check his blood sugars at home. His vital signs are stable. CT angio of the chest does not reveal any acute pathology of the aorta, aneurysm or dissection. No pneumonia, no evidence of acute coronary syndrome. EKG is unremarkable. He will be given some Percocet here and a shot of Norflex prior to discharge. He is somewhat comfortable with going home. All questions are sought and answered Initial ECG Impression Date: Sep 12, 2022 Initial ECG Impression Time: 15:30 Initial ECG Rate: 72 Initial ECG Rhythm: Normal Sinus Initial ECG Intervals SC interval 222 QRS 138 QTC 452 Initial ECG Impression: Nonspecific Changes Comment Occasional premature supraventricular complexes, right bundle branch block, nonspecific ST-T wave changes, no ST segment elevation or depression is noted. First-degree AV block. Prolonged QT Diagnostic Imaging Comments [facility] [place], [place] NAME: NAUN BOBO [facility] REC#: [id number] PT STATUS: REG ER : 1950 PHYSICIAN: MEMO JAMISON MD ADMIT DATE: 09/12/22/ER Draft Date of Exam:09/12/22 CT ANGIO CHEST W PROCEDURE: CT angiography of the chest with contrast. TECHNIQUE: Multiple contiguous axial images were obtained through the chest after uneventful bolus administration of intravenous contrast. 3D reconstructed CTA MIP acquisitions were also performed. Auto Exposure Controls were utilized during the CT exam to meet ALARA standards for radiation dose reduction. INDICATION: 72-year-old male presents with back pain, chest pain for several days. COMPARISONS: 02/08/2017 FINDINGS: There is no axillary adenopathy. There is also no mediastinal or hilar adenopathy. Few shotty benign-appearing mediastinal nodes are seen. Cardiac contour is normal. Coronary calcifications are present. Thoracic aortic contour is also normal with no evidence of aneurysm or dissection. Few nonaneurysmal aortic calcifications are seen. There is a bovine origin of the left common carotid artery, a normal variation. Pulmonary outflow tract as well as the right and left pulmonary arteries, their segmental and subsegmental branches are patent with no evidence of intraluminal thrombus to suggest a pulmonary embolism. Lungs are clear with no consolidation, effusion or pneumothorax. Limited assessment of the abdomen shows no overall gross abnormalities. There is some beam Herman artifact from the spinal hardware in the thoracolumbar level which does limit assessment. There is moderate degenerative changes of the mid and lower thoracic spine with multiple anterior bridging osteophytes as well as endplate sclerosis. IMPRESSION: 1. No CT angiographic evidence for aortic aneurysm, dissection or pulmonary embolism. 2. Lungs are clear with no consolidation, effusion or pneumothorax. 3. There is degenerative changes in the thoracolumbar level with previous hardware fusion. 4. There are prominent coronary calcifications. Additional nonemergent findings as described above. Dictated on workstation # [id number] Dict: 09/12/221726 Trans: 09/12/221734 DAVE [id number] Interpreted by: HEIDY ALEJO MD Electronically signed by: [facility]: CT Comments [facility] [place] [place] NAME: NAUN BOBO [facility] REC#: [id number] PT STATUS: REG ER : 1950 PHYSICIAN: MEMO JAMISON MD ADMIT DATE: 09/12/22/ER Draft Date of Exam:09/12/22 CT ANGIO CHEST W PROCEDURE: CT angiography of the chest with contrast. TECHNIQUE: Multiple contiguous axial images were obtained through the chest after uneventful bolus administration of intravenous contrast. 3D reconstructed CTA MIP acquisitions were also performed. Auto Exposure Controls were utilized during the CT exam to meet ALARA standards for radiation dose reduction. INDICATION: 72-year-old male presents with back pain, chest pain for several days. COMPARISONS: 02/08/2017 FINDINGS: There is no axillary adenopathy. There is also no mediastinal or hilar adenopathy. Few shotty benign-appearing mediastinal nodes are seen. Cardiac contour is normal. Coronary calcifications are present. Thoracic aortic contour is also normal with no evidence of aneurysm or dissection. Few nonaneurysmal aortic calcifications are seen. There is a bovine origin of the left common carotid artery, a normal variation. Pulmonary outflow tract as well as the right and left pulmonary arteries, their segmental and subsegmental branches are patent with no evidence of intraluminal thrombus to suggest a pulmonary embolism. Lungs are clear with no consolidation, effusion or pneumothorax. Limited assessment of the abdomen shows no overall gross abnormalities. There is some beam Herman artifact from the spinal hardware in the thoracolumbar level which does limit assessment. There is moderate degenerative changes of the mid and lower thoracic spine with multiple anterior bridging osteophytes as well as endplate sclerosis. IMPRESSION: 1. No CT angiographic evidence for aortic aneurysm, dissection or pulmonary embolism. 2. Lungs are clear with no consolidation, effusion or pneumothorax. 3. There is degenerative changes in the thoracolumbar level with previous hardware fusion. 4. There are prominent coronary calcifications. Additional nonemergent findings as described above. Dictated on workstation # [id number] Dict: 09/12/227 Trans: 09/12/22 1735 [facility] [id number] Interpreted by: HEIDY ALEJO MD Electronically signed by: Departure Impression Primary Impression: Thoracic back pain Qualified Codes: M54.6 - Pain in thoracic spine Disposition: HOME, SELF-CARE Condition: Stable Departure-Patient Inst. Decision time for Depature: 18:29 Referrals: RAIMUNDO CASSIDY DO (PCP/Family) Primary Care Physician Patient Instructions: Upper Back Pain ED Add. Discharge Instructions: You might consider calling your primary care doctor to see if she will help manage your pain medications until you can get into see Dr. Chang in October if you cannot move your appointment forward. Take the Percocet 1 tablet every 6 hours as needed for pain. You should take stool softeners while you are taking narcotic pain medications. Watch your dose of Tylenol, do not exceed 3000 mg in a 24-hour period. Muscle relaxers, methocarbamol 1 tablet every 8 hours as needed for muscle spasms. You can use lidocaine patches to the area as well. If you have any new emergent, concerning symptoms please come back to the emergency room for reevaluation. Call your neurosurgeon's office in the morning to see if you can move your appointment with her to a sooner date. Scripts Methocarbamol (Methocarbamol) 500 Mg Tablet 1000 MG PO Q6-8HR for Back Pain, #20 TAB Prov: MEMO JAMISON MD 09/12/22 Oxycodone HCl/Acetaminophen (Percocet 5-325 mg Tablet) 1 Each Tablet 1 TAB PO Q6H PRN for PAIN-MODERATE (5-7) MDD 6 TABS, #12 TAB Prov: MEMO JAMISON MD 09/12/22 MEMO JAMISON MD Sep 12, 2022 15:29
[2022-09-12] MEDS ORDERED: fentaNYL INJ 100 MCG/2 ML AMP IVP ONE (15:30)
[2022-09-12] MEDS ORDERED: ONDANSETRON 4 MG/2 ML (SDV) Z0FRAN IVP ONE (15:30)
[2022-09-12] MEDS ORDERED: NS IV 1000 ML 1,000 ML IV SCH (15:30)
--- NOTE | 2022-09-12 15:46 | Diagnostic Imaging Report ---
INDICATION: Chest pain. Frontal chest obtained at 3:26 p.m. and compared to 01/01/2019. FINDINGS: Heart and mediastinal silhouette are normal in appearance. The lungs are clear. There is no pneumothorax or pleural fluid. IMPRESSION: No acute process in the chest. Dictated by: Dictated on workstation # [id number]
[2022-09-12 16:00] LABS: BASOPHILS % (AUTO) 0 % (0-10); EOSINOPHILS # (AUTO) 0.2 10^3/uL (0.0-0.3); EOSINOPHILS % (AUTO) 2 % (0-10); HEMATOCRIT 45 % (40-54); HEMOGLOBIN 15.4 g/dL (13.3-17.7); LYMPHOCYTES # (AUTO) 2.9 X 10^3 (1.0-4.0); LYMPHOCYTES % (AUTO) 28 % (12-44); MEAN CORPUSCULAR HEMOGLOBIN 32 pg (25-34); MEAN CORPUSCULAR HGB CONC 35 g/dL (32-36); MEAN CORPUSCULAR VOLUME 93 fL (80-99); MEAN PLATELET VOLUME 10.9 fL (9.0-12.2); MONOCYTES # (AUTO) 0.9 X 10^3 (0.0-1.0); MONOCYTES % (AUTO) 9 % (0-12); NEUTROPHILS # (AUTO) 6.3 X 10^3 (1.8-7.8); NEUTROPHILS % (AUTO) 61 % (42-75); PLATELET COUNT 198 10^3/uL (130-400); WHITE BLOOD COUNT 10.4 10^3/uL (4.3-11.0)
[2022-09-12 16:06] LABS: ALBUMIN 4.1 GM/DL (3.2-4.5); POTASSIUM 4.1 MMOL/L (3.6-5.0)
[2022-09-12 16:08] LABS: CALCIUM 9.4 MG/DL (8.5-10.1)
[2022-09-12 16:09] LABS: TOTAL PROTEIN 7.8 GM/DL (6.4-8.2)
[2022-09-12 16:11] LABS: BILIRUBIN,TOTAL 0.8 MG/DL (0.1-1.0)
[2022-09-12 16:12] LABS: CREATININE SERUM 1.25 MG/DL (0.60-1.30)
[2022-09-12 16:14] LABS: INR 0.9 (0.8-1.4)
[2022-09-12 16:15] LABS: MAGNESIUM 2.1 MG/DL (1.6-2.4)
[2022-09-12] MEDS ORDERED: morphine INJ 10 MG/ML 1ML (SYR OR VIAL) IVP STA (16:52)
[2022-09-12] MEDS ORDERED: IOHEXOL 350 MG/ML 100 ML (OMNIPAQUE 350) VIAL IV ONE (17:15)
[2022-09-12] MEDS ORDERED: HOLD METFORMIN - RECEIVED CONTRAST 20 ML VIAL IV SCH (17:15)
[2022-09-12] MEDS ORDERED: NS 100 ML (IVPB) BAG IV ONE (17:15)
--- NOTE | 2022-09-12 17:35 | Diagnostic Imaging Report ---
PROCEDURE: CT angiography of the chest with contrast. TECHNIQUE: Multiple contiguous axial images were obtained through the chest after uneventful bolus administration of intravenous contrast. 3D reconstructed CTA MIP acquisitions were also performed. Auto Exposure Controls were utilized during the CT exam to meet ALARA standards for radiation dose reduction. INDICATION: 72-year-old male presents with back pain, chest pain for several days. COMPARISONS: 02/08/2017 FINDINGS: There is no axillary adenopathy. There is also no mediastinal or hilar adenopathy. Few shotty benign-appearing mediastinal nodes are seen. Cardiac contour is normal. Coronary calcifications are present. Thoracic aortic contour is also normal with no evidence of aneurysm or dissection. Few nonaneurysmal aortic calcifications are seen. There is a bovine origin of the left common carotid artery, a normal variation. Pulmonary outflow tract as well as the right and left pulmonary arteries, their segmental and subsegmental branches are patent with no evidence of intraluminal thrombus to suggest a pulmonary embolism. Lungs are clear with no consolidation, effusion or pneumothorax. Limited assessment of the abdomen shows no overall gross abnormalities. There is some beam Herman artifact from the spinal hardware in the thoracolumbar level which does limit assessment. There is moderate degenerative changes of the mid and lower thoracic spine with multiple anterior bridging osteophytes as well as endplate sclerosis. IMPRESSION: 1. No CT angiographic evidence for aortic aneurysm, dissection or pulmonary embolism. 2. Lungs are clear with no consolidation, effusion or pneumothorax. 3. There is degenerative changes in the thoracolumbar level with previous hardware fusion. 4. There are prominent coronary calcifications. Additional nonemergent findings as described above. Dictated by: Dictated on workstation # [id number]
[2022-09-12] MEDS ORDERED: oxyCODONE/APAP 7.5-325 MG (PERCOCET 7.5) TABLET PO ONE (18:30)
[2022-09-12] MEDS ORDERED: RX-OXYCODONE/APAP 5-325 MG #4 TAB PK PO PRN (18:30)
[2022-09-12] MEDS ORDERED: ORPHENADRINE 60 MG/2 ML (NORFLEX) AMP (ED ONLY) IV ONE (18:30)
[2022-09-12] MEDS ORDERED: METH-731 PO (18:32)
[2022-09-12] MEDS ORDERED: OXYC1TAB87 PO (18:32)
[2022-09-12 18:42] VITALS: BP 209/99
== END 2022-09-12 18:44 | disposition home or self-care (01) ==
LOC: EDUNIT# 14:55 → ER 14:57
DX: M54.6 Pain in thoracic spine (principal); G47.30 Sleep apnea, unspecified; Z98.890 Other specified postprocedural states; Z99.89 Dependence on other enabling machines and devices; Z28.311 Partially vaccinated for COVID-19
CPT/HCPCS: 36415; 71045; 71275; 80053; 83735; 83874; 84484; 85025; 85610; 85730; 93005; 93041

== ENCOUNTER 2022-10-30 10:22 | Day surgery (SDC) | payer MEDICARE ==
[~2022-10-30] VITALS: Ht 178 cm; Wt 121.2 kg
[~2022-10-30 10:22] MED LIST changes: +METH-731 PO; +OXYC1TAB87 PO
--- NOTE | 2022-10-30 10:27 | ED Chest Pain ---
General Chief Complaint: Chest Pain Stated Complaint: CHEST PAIN Source: patient Exam Limitations: no limitations History of Present Illness Date Seen by Provider: Oct 30, 2022 Time Seen by Provider: 10:27 Initial Comments Patient is a 72-year-old male who presents to the emergency department with a chief complaint of chest pressure/heaviness. He states he did not sleep well last night because he had some vague pressure all night. At 6:00 this morning it seemed to intensify. He rates rated it at a "5". He states he felt a little nauseous. Was not short of breath. The pain did not radiate. He states it is currently a "3". He recently had back surgery at the end of September by Dr. Nata Chang from [facility]. He states he has been recovering well but about a week to 10 days ago had a urinary tract infection. He states those symptoms have improved. He denies any recent fevers, chills, URI symptoms or flulike symptoms. He is COVID and flu vaccinated. No problems with bowel or bladder. He has chronic numbness in his left arm due to previous neck surgery. He has a history of hypertension. He is not a diabetic. He is morbidly obese. He states the pain reminded him of when he had stents placed previously by Dr. Pryor. He states its been many years since he has seen Dr. Pryor. He does not take daily baby aspirin. He is not on any blood thinners. Patient states that he has chronic lower extremity swelling. He is not on a diuretic. Not more short of breath than usual and states no exercise intolerance in recent weeks. All other review of systems reviewed and negative except as stated. Timing/Duration: 12 hours Severity/Quality: moderate, tightness ("heaviness") Location: substernal Radiation: no radiation Activities at Onset: none Prior CP/Workup: cardiac cath (x3 stents) ASA po TRANSCRIPTION MANAGER: No Associated Symptoms: nausea/vomiting (mild) Allergies and Home Medications Allergies Coded Allergies: No Known Drug Allergies (Verified , 05/27/20) Patient Home Medication List Home Medication List Reviewed: Yes Amlodipine Besylate (Amlodipine Besylate) 5 Mg Tablet, 5 MG PO DAILY, (Reported) Entered as Reported by: SARA FELIPE on 01/02/19 0949 Last Action: Continued Atorvastatin Calcium (Atorvastatin Calcium) 20 Mg Tablet, 20 MG PO DAILY, (Reported) Entered as Reported by: SARA FELIPE on 01/08/19916 Last Action: Continued Cetirizine HCl (Zyrtec) 10 Mg Tablet, 10 MG PO DAILY, (Reported) Entered as Reported by: SARA FELIPE on 01/08/19924 Last Action: Converted Cyanocobalamin (Vitamin B-12) (Vitamin B-12) 1,000 Mcg Tablet, 1,000 MCG PO DAILY, (Reported) Entered as Reported by: SOBEIDA PORTILLO on 02/09/171519 Last Action: Continued Docusate Sodium (Docusate Sodium) 100 Mg Capsule, 100 MG PO HS, (Reported) Entered as Reported by: DONAL NAVARRO on 10/31/221156 Last Action: Continued Gabapentin (Neurontin) 300 Mg Capsule, 300 MG PO TID, (Reported) Entered as Reported by: DONAL NAVARRO on 10/31/221156 Last Action: Continued Hydralazine HCl (Hydralazine HCl) 50 Mg Tablet, 50 MG PO TID, (Reported) Entered as Reported by: DONAL NAVARRO on 10/31/221156 Last Action: Converted Hydrochlorothiazide (Hydrochlorothiazide) 25 Mg Tablet, 25 MG PO DAILY, (Reported) Entered as Reported by: DONAL NAVARRO on 10/31/221156 Last Action: Continued Levothyroxine Sodium (Levothyroxine Sodium) 50 Mcg Tablet, 50 MCG PO DAILY, (Reported) Entered as Reported by: DONAL NAVARRO on 10/31/221156 Last Action: Continued Losartan Potassium (Losartan Potassium) 50 Mg Tablet, 50 MG PO DAILY, (Reported) Entered as Reported by: DONAL NAVARRO on 10/31/221156 Last Action: Continued Metoprolol Succinate (Metoprolol Succinate) 100 Mg Tab.er.24h, 100 MG PO BID, (Reported) Entered as Reported by: SARA FELIEP on 01/08/19916 Last Action: Continued Montelukast Sodium (Montelukast Sodium) 10 Mg Tablet, 10 MG PO DAILY, (Reported) Entered as Reported by: SOBEIDA PORTILLO on 02/09/171519 Last Action: Continued Multivits,Ca,Min/Iron/FA/Lycop (Centrum Men's Tablet) 8 Mg Iron-200 Mcg-600 Mcg Tablet, 1 EACH PO DAILY, (Reported) Entered as Reported by: DONAL NAVARRO on 10/31/221156 Last Action: Converted Oxycodone HCl/Acetaminophen (Oxycodone-Acetaminophen 5-325) 5 Mg-325 Mg Tablet, 1-2 EA PO Q4H PRN for PAIN-MODERATE (5-7), (Reported) Entered as Reported by: DONAL NAVARRO on 10/31/221156 Last Action: Continued Discontinued Medications Aspirin (Aspirin) 81 Mg Tab.chew, 81 MG PO DAILY Discontinued Reason: No Longer Taking Prescribed by: MILENA PRYOR on 01/09/19 0835 Last Action: Discontinued Diazepam (Diazepam) 2 Mg Tablet, 2 MG PO HS, (Reported) Discontinued Reason: No Longer Taking Entered as Reported by: SARA FELIPE on 01/02/19948 Last Action: Discontinued Hydralazine HCl (Hydralazine HCl) 25 Mg Tablet, 25 MG PO BID, (Reported) Discontinued Reason: Duplicate Order Entered as Reported by: SARA FELIPE on 01/02/19948 Last Action: Discontinued Losartan Potassium (Losartan Potassium) 100 Mg Tablet, 100 MG PO DAILY, (Reported) Discontinued Reason: No Longer Taking Entered as Reported by: SARA FELIPE on 01/02/19948 Last Action: Discontinued Methocarbamol (Methocarbamol) 500 Mg Tablet, 1,000 MG PO Q6-8HR Discontinued Reason: No Longer Taking Prescribed by: MEMO JAMISON on 09/12/221831 Last Action: Discontinued Oxycodone HCl/Acetaminophen (Percocet 5-325 mg Tablet) 1 Each Tablet, 1 TAB PO Q6H PRN for PAIN-MODERATE (5-7) Discontinued Reason: Duplicate Order Prescribed by: MEMO JAMISON on 09/12/221831 Last Action: Discontinued Triamterene/Hydrochlorothiazid (Triamterene-Hctz 37.5-25 mg Tb) 1 Each Tablet, 1 EACH PO DAILY, (Reported) Discontinued Reason: No Longer Taking Entered as Reported by: RUDDY PARKS on 05/20/20 1329 Last Action: Discontinued Review of Systems Review of Systems Constitutional: see HPI EENTM: No Symptoms Reported Respiratory: No Symptoms Reported Cardiovascular: Chest Pain Gastrointestinal: Nausea Genitourinary: No Symptoms Reported Musculoskeletal: back pain (chronic) Skin: no symptoms reported Psychiatric/Neurological: No Symptoms Reported All Other Systems Reviewed Negative Unless Noted: Yes Past Zoayubs-Rbnjsm-Ptsblf Hx Immunizations Up To Date First/Initial COVID19 Vaccinat: UNKNOWN Seasonal Allergies Seasonal Allergies: Yes Past Medical History Surgeries: Yes (STENTS X3, BACK X6, KIDNEY STONE, CATARACTS) Adenoidectomy, Coronary Stent, Eye Surgery, Gallbladder, Orthopedic, Tonsillectomy Respiratory: Yes Sleep Apnea Currently Using CPAP: Yes Currently Using BIPAP: No Cardiac: Yes (HEART CATH/STENTS X2 2010) Chronic Edema/Swelling, Coronary Artery Disease, High Cholesterol, Hypertension Neurological: Yes (BILATERAL PERIPHERAL NEUROPATHY) Neuropathy Reproductive Disorders: No Sexually Transmitted Disease: No HIV/AIDS: No Genitourinary: Yes Benign Prostatic Hyperpl, Kidney Stones Gastrointestinal: No Gall Bladder Disease Musculoskeletal: Yes Degenerate Disk Disease, Chronic Back Pain Endocrine: No HEENT: No Cataract Loss of Vision: Denies Hearing Impairment: Denies Cancer: No Psychosocial: No Integumentary: No Blood Disorders: No Adverse Reaction/Blood Tranf: No (N/A) Physical Exam Vital Signs Vital Signs - First Documented 10/30/22 10:24 Temp 36.0 Pulse 67 Resp 20 B/P (MAP) 194/91 (125) Pulse Ox 98 O2 Delivery Room Air Capillary Refill : Height, Weight, BMI Height: 5'10.00" Weight: 182lbs. 0.0oz. 82.941710mi; 37.00 BMI Method:Stated General Appearance: No Apparent Distress, WD/WN, Obese HEENT: PERRL/EOMI, Pharynx Normal, Moist Mucous Membranes Neck: Normal Inspection Respiratory: Lungs Clear, Normal Breath Sounds, No Accessory Muscle Use, No Respiratory Distress Cardiovascular: Regular Rate, Rhythm, Normal Peripheral Pulses Gastrointestinal: Normal Bowel Sounds, Non Tender, Soft Extremity: Normal Range of Motion, Pedal Edema (2+ bilateral pitting edema LE's) Neurologic/Psychiatric: Alert, Oriented x3, No Motor/Sensory Deficits, Normal Mood/Affect Skin: Normal Color, Warm/Dry Progress/Results/Core Measures Results/Orders Lab Results Laboratory Tests Test 10/30/22 10:30 Range/Units White Blood Count 15.4 H 4.3-11.0 10^3/uL Red Blood Count 4.51 4.30-5.52 10^6/uL Hemoglobin 14.6 13.3-17.7 g/dL Hematocrit 43 40-54 % Mean Corpuscular Volume 94 80-99 fL Mean Corpuscular Hemoglobin 32 25-34 pg Mean Corpuscular Hemoglobin Concent 34 32-36 g/dL Red Cell Distribution Width 12.8 10.0-14.5 % Platelet Count 217 130-400 10^3/uL Mean Platelet Volume 10.4 9.0-12.2 fL Immature Granulocyte % (Auto) 1 % Neutrophils (%) (Auto) 60 42-75 % Lymphocytes (%) (Auto) 27 12-44 % Monocytes (%) (Auto) 9 0-12 % Eosinophils (%) (Auto) 3 0-10 % Basophils (%) (Auto) 0 0-10 % Neutrophils # (Auto) 9.2 H 1.8-7.8 10^3/uL Lymphocytes # (Auto) 4.1 H 1.0-4.0 10^3/uL Monocytes # (Auto) 1.4 H 0.0-1.0 10^3/uL Eosinophils # (Auto) 0.5 H 0.0-0.3 10^3/uL Basophils # (Auto) 0.1 0.0-0.1 10^3/uL Immature Granulocyte # (Auto) 0.1 0.0-0.1 10^3/uL Neutrophils % (Manual) 67 % Lymphocytes % (Manual) 24 % Monocytes % (Manual) 5 % Eosinophils % (Manual) 4 % Basophils % (Manual) 0 % Band Neutrophils 0 % Blood Morphology Comment NORMAL Prothrombin Time 12.2 12.2-14.7 SEC INR Comment 0.9 0.8-1.4 Activated Partial Thromboplast Time 27 24-35 SEC Sodium Level 139 135-145 MMOL/L Potassium Level 3.5 L 3.6-5.0 MMOL/L Chloride Level 104 98-107 MMOL/L Carbon Dioxide Level 21 21-32 MMOL/L Anion Gap 14 5-14 MMOL/L Blood Urea Nitrogen 23 H 7-18 MG/DL Creatinine 1.25 0.60-1.30 MG/DL Estimat Glomerular Filtration Rate 62 BUN/Creatinine Ratio 18 Glucose Level 125 H 70-105 MG/DL Calcium Level 9.3 8.5-10.1 MG/DL Corrected Calcium 9.1 8.5-10.1 MG/DL Magnesium Level 2.0 1.6-2.4 MG/DL Total Bilirubin 0.6 0.1-1.0 MG/DL Aspartate Amino Transf (AST/SGOT) 26 5-34 U/L Alanine Aminotransferase (ALT/SGPT) 25 0-55 U/L Alkaline Phosphatase 82 40-136 U/L Myoglobin 174.4 H 10.0-92.0 NG/ML Troponin I < 0.028 <0.028 NG/ML Total Protein 7.6 6.4-8.2 GM/DL Albumin 4.3 3.2-4.5 GM/DL My Orders Orders - MEMO JAMISON MD Ekg Tracing (10/30/22 10:24) Cbc With Automated Diff (10/30/22 10:35) Magnesium (10/30/22 10:35) Chest 1 View, Ap/Pa Only (10/30/22 10:35) Comprehensive Metabolic Panel (10/30/22 10:35) Myoglobin Serum (10/30/22 10:35) Protime With Inr (10/30/22 10:35) Partial Thromboplastin Time (10/30/22 10:35) O2 (10/30/22 10:35) Monitor-Rhythm Ecg Trace Only (10/30/22 10:35) Lipid Panel (10/31/22 06:00) Ed Iv/Invasive Line Start (10/30/22 10:35) Troponin I [place] (10/30/22 10:35) Aspirin Chewable Tablet (Baby Aspirin Ch (10/30/22 10:45) Manual Differential (10/30/22 10:30) Medications Given in ED Current Medications Medications Dose Ordered Sig/Bubba Route Start Time Stop Time Status Last Admin Dose Admin Aspirin 324 mg ONCE ONCE PO 10/30/22 10:45 10/30/22 10:46 DC 10/30/22 11:07 324 MG Vital Signs/I&O 10/30/22 10:24 Temp 36.0 Pulse 67 Resp 20 B/P (MAP) 194/91 (125) Pulse Ox 98 O2 Delivery Room Air Initial ECG Impression Date: Oct 30, 2022 Initial ECG Impression Time: 10:27 Initial ECG Rate: 69 Initial ECG Intervals CO interval 231 QRS 150 QTC 440 Comment No ectopy is noted on this twelve-lead EKG, he does have evidence of right bundle branch block, first-degree AV block with a CO interval of 231. No ST segment elevation or depression Departure Communication (Admissions) Time/Spoke to Admitting Phy: 11:[address] Cassidy Time/Spoke to Consulting Phy: 11:[address] Hernandez Impression Primary Impression: Chest pain Qualified Codes: R07.9 - Chest pain, unspecified Additional Impressions: History of coronary artery disease Morbid obesity Hypertension Qualified Codes: I10 - Essential (primary) hypertension Disposition: ADMITTED INPATIENT Condition: Stable Admissions Decision to Admit Reason: Admit from ER (General) Decision to Admit/Date: Oct 30, 2022 Time/Decision to Admit Time: 11:38 Departure-Patient Inst. Referrals: RAIMUNDO CASSIDY DO (PCP/Family) Primary Care Physician MEMO JAMISON MD Oct 30, 2022 10:27
[2022-10-30 10:42] LABS: BASOPHILS # (AUTO) 0.1 10^3/uL (0.0-0.1); BASOPHILS % (AUTO) 0 % (0-10); EOSINOPHILS # (AUTO) 0.5 10^3/uL (0.0-0.3); EOSINOPHILS % (AUTO) 3 % (0-10); HEMATOCRIT 43 % (40-54); HEMOGLOBIN 14.6 g/dL (13.3-17.7); LYMPHOCYTES # (AUTO) 4.1 10^3/uL (1.0-4.0); LYMPHOCYTES % (AUTO) 27 % (12-44); MEAN CORPUSCULAR HEMOGLOBIN 32 pg (25-34); MEAN CORPUSCULAR HGB CONC 34 g/dL (32-36); MEAN CORPUSCULAR VOLUME 94 fL (80-99); MEAN PLATELET VOLUME 10.4 fL (9.0-12.2); MONOCYTES # (AUTO) 1.4 10^3/uL (0.0-1.0); MONOCYTES % (AUTO) 9 % (0-12); NEUTROPHILS # (AUTO) 9.2 10^3/uL (1.8-7.8); NEUTROPHILS % (AUTO) 60 % (42-75); PLATELET COUNT 217 10^3/uL (130-400); WHITE BLOOD COUNT 15.4 10^3/uL (4.3-11.0)
[2022-10-30] MEDS ORDERED: ASPIRIN 81 MG CHEW (CHILDREN'S ASA) PO ONE (10:45)
[2022-10-30 10:55] LABS: INR 0.9 (0.8-1.4); PROTHROMBIN TIME PATIENT 12.2 SEC (12.2-14.7)
[2022-10-30 11:04] LABS: ALBUMIN 4.3 GM/DL (3.2-4.5); BILIRUBIN,TOTAL 0.6 MG/DL (0.1-1.0); CALCIUM 9.3 MG/DL (8.5-10.1); CREATININE SERUM 1.25 MG/DL (0.60-1.30); POTASSIUM 3.5 MMOL/L (3.6-5.0); TOTAL PROTEIN 7.6 GM/DL (6.4-8.2)
[2022-10-30 11:17] LABS: BAND NEUTROPHILS 0 %; BASOPHILS % (MANUAL) 0 %; EOSINOPHILS % (MANUAL) 4 %; LYMPHOCYTES % (MANUAL) 24 %; MONOCYTES % (MANUAL) 5 %; NEUTROPHILS % (MANUAL) 67 %; RBC MORPH NORMAL
--- NOTE | 2022-10-30 11:22 | Diagnostic Imaging Report ---
EXAMINATION: Chest, 1 view. HISTORY: Chest pain. COMPARISON: 09/12/2022. FINDINGS: The lung volumes are normal. No focal consolidation is seen. No large pleural effusion or pneumothorax is seen. The cardiomediastinal silhouette is normal in size and contour. No acute osseous abnormality is seen. IMPRESSION: No acute pleuroparenchymal process. Dictated by: Dictated on workstation # [id number]
[2022-10-30] MEDS ORDERED: CALCIUM CARBONATE 500 MG (TUMS) TAB.CHEW PO PRN (13:30)
[2022-10-30] MEDS ORDERED: morphine INJ 4 MG/ML 1 ML (VIAL/SYRINGE) IV PRN (13:30)
[2022-10-30] MEDS ORDERED: ANTACID SUSP 30 ML UDC (MYLANTA) PO PRN (13:30)
[2022-10-30] MEDS ORDERED: ACETAMINOPHEN 325 MG TABLET PO PRN (13:30)
[2022-10-30] MEDS ORDERED: amLODIPine 5 MG (NORVASC) TAB PO ONE (13:30)
[2022-10-30] MEDS ORDERED: ONDANSETRON 4 MG (ZOFRAN) ORAL DISSOLVE TAB PO PRN (13:30)
[2022-10-30] MEDS ORDERED: diphenhydrAMINE 50 MG/ML INJ (BENADRYL) IVP PRN (13:30)
[2022-10-30] MEDS ORDERED: polyethylene glycoL POWDER 17 GM (MIRALAX) PACK PO PRN (13:30)
[2022-10-30] MEDS ORDERED: diphenhydrAMINE 25 MG TAB (BENADRYL) PO PRN (13:30)
[2022-10-30] MEDS ORDERED: ALPRAZolam 0.5 MG (XANAX) TAB PO PRN (13:30)
[2022-10-30] MEDS ORDERED: MELATONIN 3 MG TABLET PO PRN (13:30)
[2022-10-30] MEDS ORDERED: LACTULOSE SYRUP 10GM/15ML (ENULOSE) 30ML UDC PO PRN (13:30)
[2022-10-30] MEDS ORDERED: BISACODYL 10 MG SUPP (DULCOLAX) PR PRN (13:30)
[2022-10-30] MEDS ORDERED: MILK OF MAGNESIA 400 MG/5 ML 30 ML UDC PO PRN (13:30)
[2022-10-30] MEDS ORDERED: ONDANSETRON 4 MG/2 ML (SDV) Z0FRAN IV PRN (13:30)
[2022-10-30] MEDS ORDERED: amLODIPine 5 MG (NORVASC) TAB ONE (13:35)
[2022-10-30 13:52] VITALS: BP 183/86
[2022-10-30] MEDS ORDERED: RT-ALBUTEROL SULF 2.5 MG/3 ML PRE-MIX VIAL INH PRN (14:00)
[2022-10-30] MEDS: hydrALAZINE (APRESOLINE) 25 MG TAB PO SCH ×2 (14:00→20:20)
[2022-10-30] MEDS: ENOXAPARIN 40 MG/0.4 ML (LOVENOX) SYR SC SCH (14:00)
[2022-10-30] MEDS: NITROGLYCERIN 2% OINT 1 GM UNIT DOSE PACKET TOP SCH ×2 (14:00→18:42)
[2022-10-30] MEDS: cloNIDine 0.1 MG (CATAPRES) TAB PO PRN (16:35)
[2022-10-30] MEDS: inSUlin ASPART (NovoLOG) 1 UNIT/0.01 ML (CHARGE PER UNIT) SC SCH ×2 (16:57→21:26)
[2022-10-30] MEDS: SENNOSIDES 8.6 MG (SENOKOT) TAB PO SCH (20:20)
[2022-10-30] MEDS: DOCUSATE SODIUM 100 MG (COLACE) CAP PO SCH (20:20)
--- NOTE | 2022-10-31 04:30 | Short Stay Summary ---
History of Present Illness History of Present Illness Reason for visit/HPI Chief complaint: Chest pain HPI: This is a 72-year-old white male clinic patient of mine who has a past medical history of severe hypertension hyperlipidemia and neuropathy with recent cervical spine surgery and noncompliance and follow-up with cardiology who pres ents with chest pain. Patient was found to have slightly elevated troponin and he will have a cardiac catheterization tomorrow. Malignant hypertension noted upon admission now it is much improved. Date of Admission Oct 30, 2022 at 12:26 Date of Discharge Pending Time Seen by Provider: 10:00 Attending Physician Betzaida Cassidy DO Admitting Physician Admitting Physician: Betzaida Cassidy DO Attending Physician: Betzaida Cassidy DO Consult Allergies and Home Medications Allergies Coded Allergies: No Known Drug Allergies (Verified , 05/27/20) Patient Home Medication List Home Medication List Reviewed: Yes Amlodipine Besylate (Amlodipine Besylate) 5 Mg Tablet, 5 MG PO DAILY, (Reported) Entered as Reported by: SARA FELIPE on 01/02/19 0949 Last Action: Continued Atorvastatin Calcium (Atorvastatin Calcium) 20 Mg Tablet, 20 MG PO DAILY, (Reported) Entered as Reported by: SARA FELIPE on 01/08/19 09 Last Action: Continued Cetirizine HCl (Zyrtec) 10 Mg Tablet, 10 MG PO DAILY, (Reported) Entered as Reported by: SARA FELIPE on 01/08/1925 Last Action: Converted Cyanocobalamin (Vitamin B-12) (Vitamin B-12) 1,000 Mcg Tablet, 1,000 MCG PO DAILY, (Reported) Entered as Reported by: SOBEIDA PORTILLO on 02/09/17 1520 Last Action: Continued Docusate Sodium (Docusate Sodium) 100 Mg Capsule, 100 MG PO HS, (Reported) Entered as Reported by: DONAL NAVARRO on 10/31/22 115 Last Action: Continued Gabapentin (Neurontin) 300 Mg Capsule, 300 MG PO TID, (Reported) Entered as Reported by: DONAL NAVARRO on 10/31/221156 Last Action: Continued Hydralazine HCl (Hydralazine HCl) 50 Mg Tablet, 50 MG PO TID, (Reported) Entered as Reported by: DONAL NAVARRO on 10/31/221156 Last Action: Converted Hydrochlorothiazide (Hydrochlorothiazide) 25 Mg Tablet, 25 MG PO DAILY, (Reported) Entered as Reported by: DONAL NAVARRO on 10/31/221156 Last Action: Continued Levothyroxine Sodium (Levothyroxine Sodium) 50 Mcg Tablet, 50 MCG PO DAILY, (Reported) Entered as Reported by: DONAL NAVARRO on 10/31/221156 Last Action: Continued Losartan Potassium (Losartan Potassium) 50 Mg Tablet, 50 MG PO DAILY, (Reported) Entered as Reported by: DONAL NAVARRO on 10/31/221156 Last Action: Continued Metoprolol Succinate (Metoprolol Succinate) 100 Mg Tab.er.24h, 100 MG PO BID, (Reported) Entered as Reported by: SARA FLEIPE on 01/08/19916 Last Action: Continued Montelukast Sodium (Montelukast Sodium) 10 Mg Tablet, 10 MG PO DAILY, (Reported) Entered as Reported by: SOBEIDA PORTILLO on 02/09/17 1520 Last Action: Continued Multivits,Ca,Min/Iron/FA/Lycop (Centrum Men's Tablet) 8 Mg Iron-200 Mcg-600 Mcg Tablet, 1 EACH PO DAILY, (Reported) Entered as Reported by: DONAL NAVARRO on 10/31/221156 Last Action: Converted Oxycodone HCl/Acetaminophen (Oxycodone-Acetaminophen 5-325) 5 Mg-325 Mg Tablet, 1-2 EA PO Q4H PRN for PAIN-MODERATE (5-7), (Reported) Entered as Reported by: DONAL NAVARRO on 10/31/221156 Last Action: Continued Discontinued Medications Aspirin (Aspirin) 81 Mg Tab.chew, 81 MG PO DAILY Discontinued Reason: No Longer Taking Prescribed by: MILENA DAVIDSON on 01/09/19834 Last Action: Discontinued Diazepam (Diazepam) 2 Mg Tablet, 2 MG PO HS, (Reported) Discontinued Reason: No Longer Taking Entered as Reported by: SARA FELIPE on 01/02/19948 Last Action: Discontinued Hydralazine HCl (Hydralazine HCl) 25 Mg Tablet, 25 MG PO BID, (Reported) Discontinued Reason: Duplicate Order Entered as Reported by: SARA FELIPE on 01/02/19948 Last Action: Discontinued Losartan Potassium (Losartan Potassium) 100 Mg Tablet, 100 MG PO DAILY, (Reported) Discontinued Reason: No Longer Taking Entered as Reported by: SARA FELIPE on 01/02/19 0949 Last Action: Discontinued Methocarbamol (Methocarbamol) 500 Mg Tablet, 1,000 MG PO Q6-8HR Discontinued Reason: No Longer Taking Prescribed by: MEMO JAMISON on 09/12/221831 Last Action: Discontinued Oxycodone HCl/Acetaminophen (Percocet 5-325 mg Tablet) 1 Each Tablet, 1 TAB PO Q6H PRN for PAIN-MODERATE (5-7) Discontinued Reason: Duplicate Order Prescribed by: MEMO JAMISON on 09/12/221831 Last Action: Discontinued Triamterene/Hydrochlorothiazid (Triamterene-Hctz 37.5-25 mg Tb) 1 Each Tablet, 1 EACH PO DAILY, (Reported) Discontinued Reason: No Longer Taking Entered as Reported by: RUDDY PARKS on 05/20/20 1329 Last Action: Discontinued Past Htjhbej-Lzeeao-Zgpacj Hx Patient Social History Marrital Status: Employed/Student: employed Alcohol Beverage of Choice: Wine Smoking Status: Former Smoker 2nd Hand Smoke Exposure: No Recent Hopitalizations: No Have you traveled recently?: No Alcohol Use?: No Immunizations Up To Date Date of Pneumonia Vaccine: Dec 21, 2018 Date of Influenza Vaccine: Sep 24, 2022 Seasonal Allergies Seasonal Allergies: Yes Surgeries Yes (STENTS X3, BACK X6, KIDNEY STONE, CATARACTS) Adenoidectomy, Coronary Stent, Eye Surgery, Gallbladder, Orthopedic, Tonsillectomy Respiratory Yes Pneumonia, Sleep Apnea Currently Using CPAP: Yes Currently Using BIPAP: No Cardiovascular Yes (HEART CATH/STENTS X2 2010) Chronic Edema/Swelling, Coronary Artery Disease, High Cholesterol, Hypertension Neurological Yes (BILATERAL PERIPHERAL NEUROPATHY) Neuropathy Reproductive System Hx Reproductive Disorders: No Sexually Transmitted Disease: No HIV/AIDS: No Genitourinary Yes Benign Prostatic Hyperpl, Kidney Stones Gastrointestinal No Gall Bladder Disease Musculoskeletal Yes Degenerate Disk Disease, Chronic Back Pain Endocrine History of Endocrine Disorders: No HEENT History of HEENT Disorders: No HEENT Disorders: Cataract Loss of Vision: Denies Hearing Impairment: Denies Cancer No Psychosocial History of Psychiatric Problem: No Integumentary History of Skin or Integumenta: No Blood Transfusions History of Blood Disorders: No Adverse Reaction to a Blood Tr: No (N/A) Review of Systems Constitutional: see HPI EENTM: no symptoms reported Respiratory: dyspnea on exertion Cardiovascular: chest pain Gastrointestinal: no symptoms reported Genitourinary: no symptoms reported Musculoskeletal: back pain, muscle pain, muscle stiffness, muscle cramps Skin: no symptoms reported Psychiatric/Neurological: No Symptoms Reported All Other Systems Reviewed Negative Unless Noted: Yes Physical Exam Vital Signs Vital Signs - First Documented 10/30/22 10/30/22 10/31/22 10:24 13:52 03:41 Temp 36.0 Pulse 67 Resp 20 B/P (MAP) 194/91 (125) Pulse Ox 98 O2 Delivery Room Air O2 Flow Rate 2.00 FiO2 21 Capillary Refill : Less Than 3 Seconds Height, Weight, BMI Height: 5'10.00" Weight: 182lbs. 0.0oz. 82.799132ou; 37.24 BMI Method:Stated General Appearance: No Apparent Distress, WD/WN, Chronically ill, Obese Eyes: Bilateral Eye Normal Inspection, Bilateral Eye PERRL, Bilateral Eye EOMI HEENT: PERRL/EOMI, Normal ENT Inspection, Pharynx Normal Neck: Full Range of Motion, Normal Inspection, Non Tender, Supple, Carotid Bruit Respiratory: Chest Non Tender, Lungs Clear, Normal Breath Sounds, No Accessory Muscle Use, No Respiratory Distress Cardiovascular: Regular Rate, Rhythm, No Edema, No Gallop, No JVD, No Murmur, Normal Peripheral Pulses Gastrointestinal: Normal Bowel Sounds, No Organomegaly, No Pulsatile Mass, Non Tender, Soft Back: Normal Inspection, No CVA Tenderness, No Vertebral Tenderness Extremity: Normal Capillary Refill, Normal Inspection, Normal Range of Motion, Non Tender, No Calf Tenderness, No Pedal Edema Neurologic/Psychiatric: Alert, Oriented x3, No Motor/Sensory Deficits, 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 Chang Hyperlipidemia DEBORAH on CPAP Obesity BMI 39 Neuropathy Restless leg syndrome Final Discharge Diagnosis: Chest pain Severe hypertensive urgency NSTEMI Noncompliant with cardiology follow-up Acute kidney injury Chronic back pain Recent cervical spine surgery by Dr. Chang Hyperlipidemia DEBORAH on CPAP Obesity BMI 39 Neuropathy Restless leg syndrome Conclusion Labs Laboratory Tests 10/30/22 10:30: White Blood Count 15.4H, Red Blood Count 4.51, Hemoglobin 14.6, Hematocrit 43, Mean Corpuscular Volume 94, Mean Corpuscular Hemoglobin 32, Mean Corpuscular Hemoglobin Concent 34, Red Cell Distribution Width 12.8, Platelet Count 217, Mean Platelet Volume 10.4, Immature Granulocyte % (Auto) 1, Neutrophils (%) (Auto) 60, Lymphocytes (%) (Auto) 27, Monocytes (%) (Auto) 9, Eosinophils (%) (Auto) 3, Basophils (%) (Auto) 0, Neutrophils # (Auto) 9.2H, Lymphocytes # (Auto) 4.1H, Monocytes # (Auto) 1.4H, Eosinophils # (Auto) 0.5H, Basophils # (Auto) 0.1, Immature Granulocyte # (Auto) 0.1, Neutrophils % (Manual) 67, Lymphocytes % (Manual) 24, Monocytes % (Manual) 5, Eosinophils % (Manual) 4, Ba sophils % (Manual) 0, Band Neutrophils 0, Blood Morphology Comment NORMAL, Prothrombin Time 12.2, INR Comment 0.9, Activated Partial Thromboplast Time 27, Sodium Level 139, Potassium Level 3.5L, Chloride Level 104, Carbon Dioxide Level 21, Anion Gap 14, Blood Urea Nitrogen 23H, Creatinine 1.25, Estimat Glomerular Filtration Rate 62, BUN/Creatinine Ratio 18, Glucose Level 125H, Calcium Level 9.3, Corrected Calcium 9.1, Magnesium Level 2.0, Total Bilirubin 0.6, Aspartate Amino Transf (AST/SGOT) 26, Alanine Aminotransferase (ALT/SGPT) 25, Alkaline Phosphatase 82, Myoglobin 174.4H, Troponin I < 0.028, Total Protein 7.6, Albumin 4.3 10/30/22 15:34: Glucometer 125H 10/30/22 18:10: Troponin I < 0.028 10/30/22 21:05: Glucometer 143H 10/30/22 23:45: Troponin I 0.048H Conclusion/Plan Cardiac cath tomorrow Blood pressure management BETZAIDA CASSIDY DO Oct 31, 2022 04:30
[2022-10-31] MEDS: inSUlin ASPART (NovoLOG) 1 UNIT/0.01 ML (CHARGE PER UNIT) SC SCH ×4 (05:20→21:02)
[2022-10-31] MEDS: NITROGLYCERIN 2% OINT 1 GM UNIT DOSE PACKET TOP SCH ×5 (05:25→23:31)
[2022-10-31 05:39] LABS: BASOPHILS # (AUTO) 0.1 10^3/uL (0.0-0.1); BASOPHILS % (AUTO) 1 % (0-10); EOSINOPHILS # (AUTO) 0.5 10^3/uL (0.0-0.3); EOSINOPHILS % (AUTO) 5 % (0-10); HEMATOCRIT 42 % (40-54); HEMOGLOBIN 14.5 g/dL (13.3-17.7); LYMPHOCYTES # (AUTO) 3.3 10^3/uL (1.0-4.0); LYMPHOCYTES % (AUTO) 33 % (12-44); MEAN CORPUSCULAR HEMOGLOBIN 32 pg (25-34); MEAN CORPUSCULAR HGB CONC 34 g/dL (32-36); MEAN CORPUSCULAR VOLUME 94 fL (80-99); MEAN PLATELET VOLUME 10.4 fL (9.0-12.2); MONOCYTES # (AUTO) 0.8 10^3/uL (0.0-1.0); MONOCYTES % (AUTO) 8 % (0-12); NEUTROPHILS # (AUTO) 5.3 10^3/uL (1.8-7.8); NEUTROPHILS % (AUTO) 53 % (42-75); PLATELET COUNT 194 10^3/uL (130-400); WHITE BLOOD COUNT 10.1 10^3/uL (4.3-11.0)
[2022-10-31 06:03] LABS: ALANINE AMINOTRANSFERASE 24 U/L (0-55); ALBUMIN 4.1 GM/DL (3.2-4.5); ALKALINE PHOSPHATASE 60 U/L (40-136); BILIRUBIN,TOTAL 0.4 MG/DL (0.1-1.0); BUN/CREATININE RATIO 16; CALCIUM 9.2 MG/DL (8.5-10.1); CARBON DIOXIDE 22 MMOL/L (21-32); CHLORIDE 106 MMOL/L (98-107); CREATININE SERUM 1.44 MG/DL (0.60-1.30); GFR ESTIMATED 52; GLUCOSE 134 MG/DL (70-105); POTASSIUM 4.1 MMOL/L (3.6-5.0); SODIUM 140 MMOL/L (135-145); TOTAL PROTEIN 7.4 GM/DL (6.4-8.2)
[2022-10-31 06:04] LABS: CHOLESTEROL 153 MG/DL (< 200); HDL CHOLESTEROL 41 MG/DL (40-60); TRIGLYCERIDES 299 MG/DL (<150); VLDL CHOLESTEROL 60 MG/DL (5-40)
--- NOTE | 2022-10-31 08:07 | Consultation-Cardiology ---
HPI-Cardiology Cardiology Consultation: Date of Consultation 10/31/22 Time Seen by a Provider: 08:15 Date of Admission 10-30-22 Attending Physician Betzaida Adames DO Admitting Physician Admitting Physician: Betzaida Adames DO Attending Physician: Betzaida Adames DO Consulting Physician Lucius Pryor MD HPI: Chief Complaint: Chest pain Mr. Bobo is a 72 yr old male admitted to [facility] from the ED with c/o CP. He reports he feels the chest discomfort he was having was similar to the discomfort he had prior to his last coronary intervention. He reports he developed mid-sternal chest pressure yesterday. He reports the discomfort lasted for several hours. He reports it resolved in the ED and has not re-occur red. He denies any radiation with the discomfort. He denies any SOB, palpitations or diaphoresis. He has chronic bilat LE swelling which is worse in the morning and gets better during the day. He reports he has back surgery in early September at [facility]. He does not take an ASA. He reports he is on multiple medications for his blood pressure. He has not been compliant with his CPAP in several years. Review of Systems-Cardiology Review of Systems Constitutional: No chills, No fever, No malaise Eyes: No vision change Ears/Nose/Throat: No epistaxis, No recent hearing loss Respiratory: As described under HPI Cardiovascular: As described under HPI Gastrointestinal: No constipation, No diarrhea, No nausea, No vomiting Genitourinary: No dysuria, No hematuria Musculoskeletal: back pain Skin: No rash on exposed areas, No ulcerations on exposed areas Psychiatric/Neurological: No anxiety, No depression, No seizure, No focal weakness, No syncope Hematologic: No bleeding abnormalities All Other Systems Reviewed Negative Unless Noted: Yes [id number] Hx Patient Social History Smoking Status: Former Smoker 2nd Hand Smoke Exposure: No Have you traveled recently?: No Alcohol Use?: No Immunizations Up To Date Date of Pneumonia Vaccine: Dec 21, 2018 Date of Influenza Vaccine: Sep 24, 2022 Past Medical History PMH As described under Assessment. Family Medical History Family Medical History: Does not report fam h/o early CAD or SCD Allergies and Home Medications Allergies Coded Allergies: No Known Drug Allergies (Verified , 05/27/20) Patient Home Medication List Amlodipine Besylate (Amlodipine Besylate) 5 Mg Tablet, 5 MG PO DAILY, (Reported) Entered as Reported by: SARA FELIPE on 01/02/19948 Last Action: Continued Atorvastatin Calcium (Atorvastatin Calcium) 20 Mg Tablet, 20 MG PO DAILY, (Reported) Entered as Reported by: SARA FELIPE on 01/08/19916 Last Action: Continued Cetirizine HCl (Zyrtec) 10 Mg Tablet, 10 MG PO DAILY, (Reported) Entered as Reported by: SARA FELIPE on 01/08/19924 Last Action: Converted Cyanocobalamin (Vitamin B-12) (Vitamin B-12) 1,000 Mcg Tablet, 1,000 MCG PO DAILY, (Reported) Entered as Reported by: SOBEIDA PORTILLO on 02/09/17 152 Last Action: Continued Docusate Sodium (Docusate Sodium) 100 Mg Capsule, 100 MG PO HS, (Reported) Entered as Reported by: DONAL NAVARRO on 10/31/221156 Last Action: Continued Gabapentin (Neurontin) 300 Mg Capsule, 300 MG PO TID, (Reported) Entered as Reported by: DONAL NAVARRO on 10/31/221156 Last Action: Continued Hydralazine HCl (Hydralazine HCl) 50 Mg Tablet, 50 MG PO TID, (Reported) Entered as Reported by: DONAL NAVARRO on 10/31/221156 Last Action: Converted Hydrochlorothiazide (Hydrochlorothiazide) 25 Mg Tablet, 25 MG PO DAILY, (Reported) Entered as Reported by: DONAL NAVARRO on 10/31/221156 Last Action: Continued Levothyroxine Sodium (Levothyroxine Sodium) 50 Mcg Tablet, 50 MCG PO DAILY, (Reported) Entered as Reported by: DONAL NAVARRO on 10/31/221156 Last Action: Continued Losartan Potassium (Losartan Potassium) 50 Mg Tablet, 50 MG PO DAILY, (Reported) Entered as Reported by: DONAL NAVARRO on 10/31/221156 Last Action: Continued Metoprolol Succinate (Metoprolol Succinate) 100 Mg Tab.er.24h, 100 MG PO BID, (Reported) Entered as Reported by: SARA FELIPE on 01/08/19916 Last Action: Continued Montelukast Sodium (Montelukast Sodium) 10 Mg Tablet, 10 MG PO DAILY, (Reported) Entered as Reported by: SOBEIDA PORTILLO on 02/09/17 1520 Last Action: Continued Multivits,Ca,Min/Iron/FA/Lycop (Centrum Men's Tablet) 8 Mg Iron-200 Mcg-600 Mcg Tablet, 1 EACH PO DAILY, (Reported) Entered as Reported by: DONAL NAVARRO on 10/31/221156 Last Action: Converted Oxycodone HCl/Acetaminophen (Oxycodone-Acetaminophen 5-325) 5 Mg-325 Mg Tablet, 1-2 EA PO Q4H PRN for PAIN-MODERATE (5-7), (Reported) Entered as Reported by: DONAL NAVARRO on 10/31/221156 Last Action: Continued Discontinued Medications Aspirin (Aspirin) 81 Mg Tab.chew, 81 MG PO DAILY Discontinued Reason: No Longer Taking Prescribed by: LUCIUS PRYOR on 01/09/19 0835 Last Action: Discontinued Diazepam (Diazepam) 2 Mg Tablet, 2 MG PO HS, (Reported) Discontinued Reason: No Longer Taking Entered as Reported by: SARA FELIPE on 01/02/19948 Last Action: Discontinued Hydralazine HCl (Hydralazine HCl) 25 Mg Tablet, 25 MG PO BID, (Reported) Discontinued Reason: Duplicate Order Entered as Reported by: SARA FELIPE on 01/02/19948 Last Action: Discontinued Losartan Potassium (Losartan Potassium) 100 Mg Tablet, 100 MG PO DAILY, (Reported) Discontinued Reason: No Longer Taking Entered as Reported by: SARA FELIPE on 01/02/19948 Last Action: Discontinued Methocarbamol (Methocarbamol) 500 Mg Tablet, 1,000 MG PO Q6-8HR Discontinued Reason: No Longer Taking Prescribed by: MEMO JAMISON on 09/12/221831 Last Action: Discontinued Oxycodone HCl/Acetaminophen (Percocet 5-325 mg Tablet) 1 Each Tablet, 1 TAB PO Q6H PRN for PAIN-MODERATE (5-7) Discontinued Reason: Duplicate Order Prescribed by: MEMO JAMISON on 09/12/221831 Last Action: Discontinued Triamterene/Hydrochlorothiazid (Triamterene-Hctz 37.5-25 mg Tb) 1 Each Tablet, 1 EACH PO DAILY, (Reported) Discontinued Reason: No Longer Taking Entered as Reported by: RUDDY PARKS on 05/20/20 1329 Last Action: Discontinued Physical Exam-Cardiology Physical Exam Vital Signs/I&O 10/31/22 10/31/22 10/31/22 11/01/22 20:00 23:29 23:44 00:40 Temp 36.4 Pulse 70 60 Resp 10 18 B/P (MAP) 166/89 (114) 145/73 (97) Pulse Ox 96 98 94 O2 Delivery Room Air Nasal Cannula Nasal Cannula O2 Flow Rate 2.00 2.00 11/01/22 11/01/22 01:00 04:00 Temp 36.7 Pulse 87 65 Resp 10 B/P (MAP) 145/68 (93) Pulse Ox 97 O2 Delivery Nasal Cannula O2 Flow Rate 2.00 11/01/22 00:00 Intake Total 1400 ml Output Total 1150 ml Balance 250 ml Capillary Refill : Less Than 3 Seconds Constitutional: AAO x 3, well-developed, well-nourished HEENT: PERRL, hearing is well preserved, oral hygience is good Neck: No carotid bruit; carotid pulses are 2 + bilaterally Respiratory: No accessory muscle use, No respiratory distress; chest expansion is symmetric, chest is bilaterally symmetric, lungs clear to auscultation Cardiovascular: regular rate-rhythm; No JVD; S1 and S2 Gastrointestinal: No tender; soft, round, audible bowel sounds Extremities: no lower extremity edema bilateral Neurologic/Psychiatric: grossly intact (moves all extremities) Skin: No rash on exposed areas, No ulcerations on exposed areas Data Review Labs Laboratory Tests 10/31/22 10:51: Glucometer 264H 10/31/22 12:22: Troponin I < 0.028 10/31/22 15:58: Glucometer 137H 10/31/22 18:07: Troponin I < 0.028 10/31/22 20:34: Glucometer 200H 10/31/22 23:35: Troponin I < 0.028 11/01/22 05:30: Troponin I < 0.028, White Blood Count 7.6, Red Blood Count 4.09L, Hemoglobin 13.3, Hematocrit 39L, Mean Corpuscular Volume 94, Mean Corpuscular Hemoglobin 33, Mean Corpuscular Hemoglobin Concent 35, Red Cell Distribution Width 12.8, Platelet Count 169, Mean Platelet Volume 10.4, Immature Granulocyte % (Auto) 1, Neutrophils (%) (Auto) 54, Lymphocytes (%) (Auto) 29, Monocytes (%) (Auto) 11, Eosinophils (%) (Auto) 5, Basophils (%) (Auto) 1, Neutrophils # (Auto) 4.1, Lymphocytes # (Auto) 2.2, Monocytes # (Auto) 0.8, Eosinophils # (Auto) 0.4H, Basophils # (Auto) 0.1, Immature Granulocyte # (Auto) 0.0, Sodium Level 139, Potassium Level 3.8, Chloride Level 105, Carbon Dioxide Level 23, Anion Gap 11, Blood Urea Nitrogen 22H, Creatinine 1.21, Estimat Glomerular Filtration Rate 64, BUN/Creatinine Ratio 18, Glucose Level 133H, Calcium Level 8.8, Corrected Calcium 9.0, Total Bilirubin 0.5, Aspartate Amino Transf (AST/SGOT) 25, Alanine Aminotransferase (ALT/SGPT) 26, Alkaline Phosphatase 55, Total Protein 6.7, Albumin 3.8 11/01/22 05:52: Glucometer 151H Radiology NAME: NAUN BOBO [facility] REC#: [id number] PT STATUS: REG ER : 1950 PHYSICIAN: MEMO JAMISON MD ADMIT DATE: 10/30/22/ER Signed Date of Exam:10/30/22 CHEST 1 VIEW, AP/PA ONLY EXAMINATION: Chest, 1 view. HISTORY: Chest pain. COMPARISON: 09/12/2022. FINDINGS: The lung volumes are normal. No focal consolidation is seen. No large pleural effusion or pneumothorax is seen. The cardiomediastinal silhouette is normal in size and contour. No acute osseous abnormality is seen. IMPRESSION: No acute pleuroparenchymal process. Dictated by: Dictated on workstation # [id number] Dict: 10/30/22 1113 Trans: 10/30/22 1124 [id number] Interpreted by: RACHEL RIOS DO Electronically signed by: RACHEL RIOS DO 10/30/22 1124 ECG Impression ECG Initial ECG Rhythm: Normal Sinus A/P-Cardiology Assessment/Admission Diagnosis Chest pain of undetermined etiology - no evidence of ACS Coronary artery disease. - Last card cath on 01/08/19: the left anterior descending artery had a 90% mid to distal vessel lesion to which successful balloon angioplasty was carried out, reducing the stenosis to less than 30%. The left anterior descending artery has a patent stent in its mid portion that is known to be Promus 3.0 x 12 mm (placed in 2009) and that does not exhibit any significant stent restenosis. The very distal left anterior descending artery has 70% to 80% stenosis but is not amenable to intervention because of small vessel caliber. The left circumflex artery has a patent stent in its mid portion that is known to be Promus 2.5 x 23 (placed in 2009) and this is widely patent and free of significant disease. The left circumflex artery has diffuse moderate disease. The right coronary artery had 70% proximal stenosis that was stented with Alpine Xience 3.0 x 12 mm stent. The mid right coronary artery has approximately 30 to 40% stenoses. LVEF 55% to 60%. LVEDP 18 mmHg Hypertension with hypertensive CVD Echo on 01/02/19: LVEF 60-65%, no RWMA, mild bharat mod conc LVH, mild diastolic dysfunction of LV, no significant valvular regurg or stenosis Chronic back and joint pain pain Hyperlipidemia, chronically treated with statin Hypothyroidism, managed by Dr Adames Chronic insomnia, managed by Dr Adames Surgeries: cholecystectomy, carpal tunnel surgery, and back fusion Obesity mass index of approximately 39 DEBORAH for which he is non-compliant with sleep apnea treatment Discussion and Recomendations Chest pain of undetermined etiology - no evidence of ACS - Echocardiogram today to eval structure and function - Has a known h/o CAD with coronary intervention in the past (has not been compliant with ASA) - advise further coronary eval with cardiac cath (he reports discomfort similar to what he had prior to his last coronary intervention in 2019) Hypertension - multi-drug regimen at home (BB, ARB, Hydralazine, HCTZ, calcium channel lyudmila) - resume home medications Non-compliant with sleep apnea tx - advise compliance - likely will need a sleep study as an out pt Monitor lab closely Further recs will be based on his hospital course We would like to thank medical services for this consult Clinical Quality Measures AMI/AHF: ASA po Prior to arrival: REJI Garcia Oct 31, 2022 08:07
[2022-10-31] MEDS: ASPIRIN 81 MG CHEW (CHILDREN'S ASA) PO SCH (08:48)
[2022-10-31] MEDS: hydrALAZINE (APRESOLINE) 25 MG TAB PO SCH ×2 (08:48→13:15)
[2022-10-31] MEDS: DOCUSATE SODIUM 100 MG (COLACE) CAP PO SCH (08:53)
[2022-10-31] MEDS: SENNOSIDES 8.6 MG (SENOKOT) TAB PO SCH ×2 (08:53→21:14)
[2022-10-31] MEDS ORDERED: amLODIPine 5 MG (NORVASC) TAB PO SCH (09:00)
[2022-10-31] MEDS ORDERED: MULT-1030 PO (11:57)
[2022-10-31] MEDS ORDERED: LEVO50TA6 PO (11:57)
[2022-10-31] MEDS ORDERED: HYDR-3924 PO (11:57)
[2022-10-31] MEDS ORDERED: HYDR25TA4 PO (11:57)
[2022-10-31] MEDS ORDERED: LOSA50TA63 PO (11:57)
[2022-10-31] MEDS ORDERED: OXYC1TAB11 PO (11:57)
[2022-10-31] MEDS ORDERED: GABA300C PO (11:57)
[2022-10-31] MEDS ORDERED: DOCU100C37 PO (11:57)
[2022-10-31] MEDS: ENOXAPARIN 40 MG/0.4 ML (LOVENOX) SYR SC SCH (13:15)
--- NOTE | 2022-10-31 15:09 | Consultation-Cardiology ---
HPI-Cardiology Cardiology Consultation: Date of Consultation 10/31/22 Time Seen by a Provider: 09:30 Date of Admission Attending Physician Betzaida Adames DO Admitting Physician Admitting Physician: Betzaida Adames DO Attending Physician: Betzaida Adames DO Consulting Physician MILENA DAVIDSON MD, MA, FACP, FACC, [facility] [place], CCDS Physician requesting consult: Dr Adames HPI: Chief Complaint: Chest pain Mr. Kenny is a 72 yr old male admitted to [facility] from the ED with c/o CP. He reports he feels the chest discomfort he was having was similar to the discomfort he had prior to his last coronary intervention. He reports he developed mid-sternal chest pressure yesterday. He reports the discomfort lasted for several hours. He reports it resolved in the ED and has not re- occurred. He denies any radiation with the discomfort. He denies any SOB, palpitations or diaphoresis. He has chronic bilat LE swelling which is worse in the morning and gets better during the day. He reports he has back surgery in early September at [facility]. He does not take an ASA. He reports he is on multiple medications for his blood pressure. He has not been compliant with his CPAP in several years. Review of Systems-Cardiology Review of Systems Constitutional: No chills, No fever, No malaise Eyes: No vision change Ears/Nose/Throat: No epistaxis, No recent hearing loss Respiratory: As described under HPI Cardiovascular: As described under HPI Gastrointestinal: No constipation, No diarrhea, No nausea, No vomiting Genitourinary: No dysuria, No hematuria Musculoskeletal: back pain Skin: No rash on exposed areas, No ulcerations on exposed areas Psychiatric/Neurological: No anxiety, No depression, No seizure, No focal weakness, No syncope Hematologic: No bleeding abnormalities All Other Systems Reviewed Negative Unless Noted: Yes DTL-Ihmpbv-Ermhiu Hx Patient Social History Smoking Status: Former Smoker 2nd Hand Smoke Exposure: No Have you traveled recently?: No Alcohol Use?: No Immunizations Up To Date Date of Pneumonia Vaccine: Dec 21, 2018 Date of Influenza Vaccine: Sep 24, 2022 Past Medical History PMH As described under Assessment. Family Medical History Family Medical History: Does not report fam h/o early CAD or SCD Allergies and Home Medications Allergies Coded Allergies: No Known Drug Allergies (Verified , 05/27/20) Patient Home Medication List Home Medication List Reviewed: Yes Amlodipine Besylate (Amlodipine Besylate) 5 Mg Tablet, 5 MG PO DAILY, (Reported) Entered as Reported by: SARA FELIPE on 01/02/19948 Last Action: Reviewed Atorvastatin Calcium (Atorvastatin Calcium) 20 Mg Tablet, 20 MG PO DAILY, (Reported) Entered as Reported by: SARA FELIPE on 01/08/19916 Last Action: Reviewed Cetirizine HCl (Zyrtec) 10 Mg Tablet, 10 MG PO DAILY, (Reported) Entered as Reported by: SARA FELIPE on 01/08/19924 Last Action: Reviewed Cyanocobalamin (Vitamin B-12) (Vitamin B-12) 1,000 Mcg Tablet, 1,000 MCG PO DAILY, (Reported) Entered as Reported by: SOBEIDA PORTILLO on 02/09/17 152 Last Action: Reviewed Docusate Sodium (Docusate Sodium) 100 Mg Capsule, 100 MG PO HS, (Reported) Entered as Reported by: DONAL NAVARRO on 10/31/221156 Last Action: Reviewed Gabapentin (Neurontin) 300 Mg Capsule, 300 MG PO TID, (Reported) Entered as Reported by: DONAL NAVARRO on 10/31/221156 Last Action: Reviewed Hydralazine HCl (Hydralazine HCl) 50 Mg Tablet, 50 MG PO TID, (Reported) Entered as Reported by: DONAL NAVARRO on 10/31/221156 Last Action: Reviewed Hydrochlorothiazide (Hydrochlorothiazide) 25 Mg Tablet, 25 MG PO DAILY, (Reported) Entered as Reported by: DONAL NAVARRO on 10/31/221156 Last Action: Reviewed Levothyroxine Sodium (Levothyroxine Sodium) 50 Mcg Tablet, 50 MCG PO DAILY, (Reported) Entered as Reported by: DONAL NAVARRO on 10/31/221156 Last Action: Reviewed Losartan Potassium (Losartan Potassium) 50 Mg Tablet, 50 MG PO DAILY, (Reported) Entered as Reported by: DONAL NAVARRO on 10/31/221156 Last Action: Reviewed Metoprolol Succinate (Metoprolol Succinate) 100 Mg Tab.er.24h, 100 MG PO BID, (Reported) Entered as Reported by: SARA FELIPE on 01/08/19916 Last Action: Reviewed Montelukast Sodium (Montelukast Sodium) 10 Mg Tablet, 10 MG PO DAILY, (Reported) Entered as Reported by: SOBEIDA PORTILLO on 02/09/17 1520 Last Action: Reviewed Multivits,Ca,Min/Iron/FA/Lycop (Centrum Men's Tablet) 8 Mg Iron-200 Mcg-600 Mcg Tablet, 1 EACH PO DAILY, (Reported) Entered as Reported by: DONAL NAVARRO on 10/31/221156 Last Action: Reviewed Oxycodone HCl/Acetaminophen (Oxycodone-Acetaminophen 5-325) 5 Mg-325 Mg Tablet, 1-2 EA PO Q4H PRN for PAIN-MODERATE (5-7), (Reported) Entered as Reported by: DONAL NAVARRO on 10/31/221156 Last Action: Reviewed Discontinued Medications Aspirin (Aspirin) 81 Mg Tab.chew, 81 MG PO DAILY Discontinued Reason: No Longer Taking Prescribed by: MILENA DAVIDSON on 01/09/19 0835 Last Action: Discontinued Diazepam (Diazepam) 2 Mg Tablet, 2 MG PO HS, (Reported) Discontinued Reason: No Longer Taking Entered as Reported by: SARA FELIPE on 01/02/19948 Last Action: Discontinued Hydralazine HCl (Hydralazine HCl) 25 Mg Tablet, 25 MG PO BID, (Reported) Discontinued Reason: Duplicate Order Entered as Reported by: SARA FELIPE on 01/02/19948 Last Action: Discontinued Losartan Potassium (Losartan Potassium) 100 Mg Tablet, 100 MG PO DAILY, (Reported) Discontinued Reason: No Longer Taking Entered as Reported by: SARA FELIPE on 01/02/19948 Last Action: Discontinued Methocarbamol (Methocarbamol) 500 Mg Tablet, 1,000 MG PO Q6-8HR Discontinued Reason: No Longer Taking Prescribed by: MEMO JAMISON on 09/12/221831 Last Action: Discontinued Oxycodone HCl/Acetaminophen (Percocet 5-325 mg Tablet) 1 Each Tablet, 1 TAB PO Q6H PRN for PAIN-MODERATE (5-7) Discontinued Reason: Duplicate Order Prescribed by: MEMO JAMISON on 09/12/221831 Last Action: Discontinued Triamterene/Hydrochlorothiazid (Triamterene-Hctz 37.5-25 mg Tb) 1 Each Tablet, 1 EACH PO DAILY, (Reported) Discontinued Reason: No Longer Taking Entered as Reported by: RUDDY PARKS on 05/20/20 1329 Last Action: Discontinued Physical Exam-Cardiology Physical Exam Vital Signs/I&O 10/31/22 10/31/22 10/31/22 10/31/22 03:41 04:00 07:24 07:49 Temp 36.4 Pulse 66 64 72 Resp 18 17 B/P (MAP) 154/78 (103) 149/77 (101) Pulse Ox 98 96 O2 Delivery Nasal Cannula Nasal Cannula Nasal Cannula O2 Flow Rate 2.00 2.00 2.00 10/31/22 10/31/22 10/31/22 10/31/22 08:00 08:00 11:49 12:53 Temp 36.5 36.5 Pulse 65 75 78 Resp 14 16 B/P (MAP) 147/80 (102) 178/73 (108) Pulse Ox 97 95 O2 Delivery Room Air Room Air Room Air 10/31/22 00:00 Intake Total 525 ml Balance 525 ml Capillary Refill : Less Than 3 Seconds Constitutional: AAO x 3, well-developed, well-nourished HEENT: PERRL, hearing is well preserved, oral hygience is good Neck: No carotid bruit; carotid pulses are 2 + bilaterally Respiratory: No accessory muscle use, No respiratory distress; chest expansion is symmetric, chest is bilaterally symmetric, lungs clear to auscultation Cardiovascular: regular rate-rhythm; No JVD; S1 and S2 Gastrointestinal: No tender; soft, round, audible bowel sounds Extremities: no lower extremity edema bilateral Neurologic/Psychiatric: grossly intact (moves all extremities) Skin: No rash on exposed areas, No ulcerations on exposed areas Data Review Labs Laboratory Tests 10/30/22 15:34: Glucometer 125H 10/30/22 18:10: Troponin I < 0.028 10/30/22 21:05: Glucometer 143H 10/30/22 23:45: Troponin I 0.048H 10/31/22 05:19: Glucometer 126H 10/31/22 05:25: White Blood Count 10.1, Red Blood Count 4.49, Hemoglobin 14.5, Hematocrit 42, Mean Corpuscular Volume 94, Mean Corpuscular Hemoglobin 32, Mean Corpuscular Hemoglobin Concent 34, Red Cell Distribution Width 13.0, Platelet Count 194, Mean Platelet Volume 10.4, Immature Granulocyte % (Auto) 1, Neutrophils (%) (Auto) 53, Lymphocytes (%) (Auto) 33, Monocytes (%) (Auto) 8, Eosinophils (%) (Auto) 5, Basophils (%) (Auto) 1, Neutrophils # (Auto) 5.3, Lymphocytes # (Auto) 3.3, Monocytes # (Auto) 0.8, Eosinophils # (Auto) 0.5H, Basophils # (Auto) 0.1, Immature Granulocyte # (Auto) 0.1, Sodium Level 140, Potassium Level 4.1, Chloride Level 106, Carbon Dioxide Level 22, Anion Gap 12, Blood Urea Nitrogen 2 3H, Creatinine 1.44H, Estimat Glomerular Filtration Rate 52, BUN/Creatinine Ratio 16, Glucose Level 134H, Calcium Level 9.2, Corrected Calcium 9.1, Total Bilirubin 0.4, Aspartate Amino Transf (AST/SGOT) 28, Alanine Aminotransferase (ALT/SGPT) 24, Alkaline Phosphatase 60, Troponin I < 0.028, Total Protein 7.4, Albumin 4.1, Triglycerides Level 299H, Cholesterol Level 153, LDL Cholesterol Direct 74, VLDL Cholesterol 60H, HDL Cholesterol 41 10/31/22 10:51: Glucometer 264H 10/31/22 12:22: Troponin I < 0.028 A/P-Cardiology Assessment/Admission Diagnosis Chest pain of undetermined etiology - no evidence of ACS Coronary artery disease. - Last card cath on 01/08/19: the left anterior descending artery had a 90% mid to distal vessel lesion to which successful balloon angioplasty was carried out, reducing the stenosis to less than 30%. The left anterior descending artery has a patent stent in its mid portion that is known to be Promus 3.0 x 12 mm (placed in 2009) and that does not exhibit any significant stent restenosis. The very distal left anterior descending artery has 70% to 80% stenosis but is not amenable to intervention because of small vessel caliber. The left circumflex artery has a patent stent in its mid portion that is known to be Promus 2.5 x 23 (placed in 2009) and this is widely patent and free of significant disease. The left circumflex artery has diffuse moderate disease. The right coronary artery had 70% proximal stenosis that was stented with [employer]age [employer] Xience 3.0 x 12 mm stent. The mid right coronary artery has approximately 30 to 40% stenoses. LVEF 55% to 60%. LVEDP 18 mmHg Hypertension with hypertensive CVD Echo on 01/02/19: LVEF 60-65%, no RWMA, mild bharat mod conc LVH, mild diastolic dysfunction of LV, no significant valvular regurg or stenosis Chronic back and joint pain pain Hyperlipidemia, chronically treated with statin Hypothyroidism, managed by Dr Adames Chronic insomnia, managed by Dr Adames Surgeries: cholecystectomy, carpal tunnel surgery, and back fusion Obesity mass index of approximately 39 DEBORAH for which he is non-compliant with sleep apnea treatment Discussion and Recomendations Chest pain of undetermined etiology - no evidence of ACS - Echocardiogram today to eval structure and function - Has a known h/o CAD with coronary intervention in the past (has not been compliant with ASA) - advise further coronary eval with cardiac cath (he reports discomfort similar to what he had prior to his last coronary intervention in ) Hypertension - multi-drug regimen at home (BB, ARB, Hydralazine, HCTZ, calcium channel lyudmila) - resume home medications Non-compliant with sleep apnea tx - advise compliance - likely will need a sleep study as an out pt Monitor lab closely Further recs will be based on his hospital course We would like to thank medical services for this consult Clinical Quality Measures AMI/AHF: ASA po Prior to arrival: MILENA Bray MD FACP FAC CCDS Oct 31, 2022 15:09
[2022-10-31] MEDS ORDERED: PATIENT MAY USE OWN MEDS, ALL MC SCH (15:30)
[2022-10-31] MEDS ORDERED: GABAPENTIN 300 MG (NEURONTIN) CAP PO SCH (15:30)
[2022-10-31 19:23] VITALS: BP 173/85
[2022-10-31] MEDS ORDERED: NON-FORMULARY MEDICATION 1 EA EA (Hydralazine HCl 50 MG) PO SCH (21:00)
[2022-10-31] MEDS ORDERED: DOCUSATE SODIUM 100 MG (COLACE) CAP PO SCH (21:00)
[2022-10-31] MEDS: GABAPENTIN 300 MG (NEURONTIN) CAP PO SCH (21:03)
[2022-10-31] MEDS: HYDRALAZINE 50 MG PO SCH (21:03)
[2022-10-31] MEDS: meTOprolol SUCCINATE 100 MG (TOPROL XL) TAB PO SCH (21:04)
[2022-10-31] MEDS: oxyCODONE/APAP 5/325MG (PERCOCET 5) TABLET PO PRN (21:14)
[2022-10-31 23:29] VITALS: BP 166/89
[2022-10-31] MEDS: cloNIDine 0.1 MG (CATAPRES) TAB PO PRN (23:31)
[2022-11-01] VITALS (17 sets, daily range): BP systolic 133–173; BP diastolic 68–87
[2022-11-01 05:40] LABS: BASOPHILS # (AUTO) 0.1 10^3/uL (0.0-0.1); BASOPHILS % (AUTO) 1 % (0-10); EOSINOPHILS # (AUTO) 0.4 10^3/uL (0.0-0.3); EOSINOPHILS % (AUTO) 5 % (0-10); HEMATOCRIT 39 % (40-54); HEMOGLOBIN 13.3 g/dL (13.3-17.7); LYMPHOCYTES # (AUTO) 2.2 10^3/uL (1.0-4.0); LYMPHOCYTES % (AUTO) 29 % (12-44); MEAN CORPUSCULAR HEMOGLOBIN 33 pg (25-34); MEAN CORPUSCULAR HGB CONC 35 g/dL (32-36); MEAN CORPUSCULAR VOLUME 94 fL (80-99); MEAN PLATELET VOLUME 10.4 fL (9.0-12.2); MONOCYTES # (AUTO) 0.8 10^3/uL (0.0-1.0); MONOCYTES % (AUTO) 11 % (0-12); NEUTROPHILS # (AUTO) 4.1 10^3/uL (1.8-7.8); NEUTROPHILS % (AUTO) 54 % (42-75); PLATELET COUNT 169 10^3/uL (130-400); WHITE BLOOD COUNT 7.6 10^3/uL (4.3-11.0)
[2022-11-01] MEDS: NS IV 1000 ML 1,000 ML IV SCH ×2 (05:44→15:45)
[2022-11-01] MEDS: NITROGLYCERIN 2% OINT 1 GM UNIT DOSE PACKET TOP SCH ×3 (05:44→18:30)
[2022-11-01] MEDS: inSUlin ASPART (NovoLOG) 1 UNIT/0.01 ML (CHARGE PER UNIT) SC SCH ×3 (05:57→16:27)
--- NOTE | 2022-11-01 06:05 | Progress Note ---
Subjective Date Seen by a Provider: Nov 01, 2022 Time Seen by a Provider: 10:00 Subjective/Events-last exam Getting ready for cath No major issues Checked meds and labs Review of Systems General: Fatigue, Malaise Cardiovascular: Chest Pain Objective Exam Last Set of Vital Signs Vital Signs Date Time Temp Pulse Resp B/P (MAP) Pulse Ox O2 Delivery O2 Flow Rate FiO2 11/01/22 04:00 36.7 65 10 145/68 (93) 97 Nasal Cannula 2.00 10/30/22 13:52 21 Capillary Refill : Less Than 3 Seconds I&O Intake and Output 11/01/22 00:00 Intake Total 2100 ml Output Total 2350 ml Balance -250 ml Intake Oral 2100 ml Output Urine Total 2350 ml # Bowel Movements 3 General: Alert, Oriented X3, Cooperative, No Acute Distress Lungs: Clear to Auscultation Heart: Regular Rate Psych/Mental Status: Mental Status NL, Mood NL Results Lab Laboratory Tests 10/31/22 10:51: Glucometer 264H 10/31/22 12:22: Troponin I < 0.028 10/31/22 15:58: Glucometer 137H 10/31/22 18:07: Troponin I < 0.028 10/31/22 20:34: Glucometer 200H 10/31/22 23:35: Troponin I < 0.028 11/01/22 05:30: White Blood Count 7.6, Red Blood Count 4.09L, Hemoglobin 13.3, Hematocrit 39L, Mean Corpuscular Volume 94, Mean Corpuscular Hemoglobin 33, Mean Corpuscular Hemoglobin Concent 35, Red Cell Distribution Width 12.8, Platelet Count 169, Mean Platelet Volume 10.4, Immature Granulocyte % (Auto) 1, Neutrophils (%) (Auto) 54, Lymphocytes (%) (Auto) 29, Monocytes (%) (Auto) 11, Eosinophils (%) (Auto) 5, Basophils (%) (Auto) 1, Neutrophils # (Auto) 4.1, Lymphocytes # (Auto) 2.2, Monocytes # (Auto) 0.8, Eosinophils # (Auto) 0.4H, Basophils # (Auto) 0.1, Immature Granulocyte # (Auto) 0.0 11/01/22 05:52: Glucometer 151H Assessment/Plan Assessment/Plan Assess & Plan/Chief Complaint Chest pain with history of coronary stents Severe hypertensive urgency NSTEMI Noncompliant with cardiology follow-up Acute kidney injury Chronic back pain Recent cervical spine surgery by Dr. Chang Hyperlipidemia DEBORAH on CPAP Obesity BMI 39 Neuropathy Restless leg syndrome Plan: Cardiac catheter today Clinical Quality Measures AMI/AHF: ASA po Prior to arrival: RAIMUNDO Lew DO Nov 01, 2022 06:05
[2022-11-01 06:15] LABS: ALANINE AMINOTRANSFERASE 26 U/L (0-55); ALBUMIN 3.8 GM/DL (3.2-4.5); ALKALINE PHOSPHATASE 55 U/L (40-136); BILIRUBIN,TOTAL 0.5 MG/DL (0.1-1.0); BUN/CREATININE RATIO 18; CALCIUM 8.8 MG/DL (8.5-10.1); CARBON DIOXIDE 23 MMOL/L (21-32); CHLORIDE 105 MMOL/L (98-107); CREATININE SERUM 1.21 MG/DL (0.60-1.30); GFR ESTIMATED 64; GLUCOSE 133 MG/DL (70-105); POTASSIUM 3.8 MMOL/L (3.6-5.0); SODIUM 139 MMOL/L (135-145); TOTAL PROTEIN 6.7 GM/DL (6.4-8.2)
[2022-11-01] MEDS ORDERED: LEVOTHYROXINE 50 MCG (LEVOTHROID) TAB PO SCH (06:30)
[2022-11-01] MEDS ORDERED: HEParin (CATH LAB) 2,000 ML IV ONE (06:56)
[2022-11-01] MEDS ORDERED: LIDOCAINE 1% INJ 30 ML (XYLOCAINE) VIAL ONE (06:56)
[2022-11-01] MEDS ORDERED: [UNRECOGNIZED DRUG - OTHER] PO SCH (07:00)
[2022-11-01] MEDS: GABAPENTIN 300 MG (NEURONTIN) CAP PO SCH ×2 (08:40→14:31)
[2022-11-01] MEDS: ASPIRIN 81 MG CHEW (CHILDREN'S ASA) PO SCH (08:40)
[2022-11-01] MEDS: meTOprolol SUCCINATE 100 MG (TOPROL XL) TAB PO SCH (08:43)
[2022-11-01] MEDS: HYDRALAZINE 50 MG PO SCH ×2 (08:43→14:32)
[2022-11-01] MEDS: SENNOSIDES 8.6 MG (SENOKOT) TAB PO SCH (08:47)
[2022-11-01] MEDS: oxyCODONE/APAP 5/325MG (PERCOCET 5) TABLET PO PRN ×2 (08:49→15:09)
[2022-11-01] MEDS ORDERED: amLODIPine 5 MG (NORVASC) TAB PO SCH (09:00)
[2022-11-01] MEDS ORDERED: MONTELUKAST 10 MG (SINGULAIR) TAB PO SCH (09:00)
[2022-11-01] MEDS ORDERED: CYANOCOBALAMIN 1,000 MCG (VITAMIN B-12) TABLET PO SCH (09:00)
[2022-11-01] MEDS ORDERED: LOSARTAN 50 MG (COZAAR) TAB PO SCH (09:00)
[2022-11-01] MEDS ORDERED: CETIRIZINE 10 MG TABLET PO SCH (09:00)
[2022-11-01] MEDS ORDERED: fentaNYL INJ 100 MCG/2 ML AMP ONE (13:25)
[2022-11-01] MEDS ORDERED: MIDAZOLAM 5 MG/5 ML (VERSED) VIAL ONE (13:25)
[2022-11-01] MEDS ORDERED: NS IV 1000 ML 1,000 ML IV SCH (14:30)
[2022-11-01] MEDS ORDERED: PATIENT MAY USE OWN MEDS, ALL PO SCH ×3 (14:30→21:00)
--- NOTE | 2022-11-01 14:30 | Progress Note - Cardiology ---
Cardiology SOAP Progress Note Subjective: No cp or palp or syncope since admission Chronic, moderate, exertional shortness of breath No swelling No n/v/d No focal weakness Objective: I&O/Vital Signs 11/01/22 11/01/22 11/01/22 11/01/22 04:00 07:00 07:52 08:00 Temp 36.7 36.5 Pulse 65 66 66 Resp 10 7 B/P (MAP) 145/68 (93) 146/76 (99) Pulse Ox 97 97 O2 Delivery Nasal Cannula Room Air O2 Flow Rate 2.00 11/01/22 11:34 Temp 36.2 Pulse 63 Resp 12 B/P (MAP) 167/84 (111) Pulse Ox 100 11/01/22 00:00 Intake Total 1400 ml Output Total 1150 ml Balance 250 ml Weight (Pounds): 182 Weight (Ounces): 0.0 Weight (Calculated Kilograms): 82.599597 Constitutional: AAO x 3, well-developed, well-nourished Respiratory: No accessory muscle use, No respiratory distress; chest expansion is symmetric, chest is bilaterally symmetric, lungs clear to auscultation Cardiovascular: regular rate-rhythm; No JVD; S1 and S2 Gastrointestional: No tender; soft, round, audible bowel sounds Extremities: no lower extremity edema bilateral Neurologic/Psychiatric: other (moves all limbs equally) Skin: No rash on exposed areas, No ulcerations on exposed areas Results/Procedures: Labs Laboratory Tests 10/31/22 15:58: Glucometer 137H 10/31/22 18:07: Troponin I < 0.028 10/31/22 20:34: Glucometer 200H 10/31/22 23:35: Troponin I < 0.028 11/01/22 05:30: White Blood Count 7.6, Red Blood Count 4.09L, Hemoglobin 13.3, Hematocrit 39L, Mean Corpuscular Volume 94, Mean Corpuscular Hemoglobin 33, Mean Corpuscular Hemoglobin Concent 35, Red Cell Distribution Width 12.8, Platelet Count 169, Mean Platelet Volume 10.4, Immature Granulocyte % (Auto) 1, Neutrophils (%) (Auto) 54, Lymphocytes (%) (Auto) 29, Monocytes (%) (Auto) 11, Eosinophils (%) (Auto) 5, Basophils (%) (Auto) 1, Neutrophils # (Auto) 4.1, Lymphocytes # (Auto) 2.2, Monocytes # (Auto) 0.8, Eosinophils # (Auto) 0.4H, Basophils # (Auto) 0.1, Immature Granulocyte # (Auto) 0.0, Sodium Level 139, Potassium Level 3.8, Chloride Level 105, Carbon Dioxide Level 23, Anion Gap 11, Blood Urea Nitrogen 22H, Creatinine 1.21, Estimat Glomerular Filtration Rate 64, BUN/Creatinine Ratio 18, Glucose Level 133H, Calcium Level 8.8, Corrected Calcium 9.0, Total Bilirubin 0.5, Aspartate Amino Transf (AST/SGOT) 25, Alanine Aminotransferase (A LT/SGPT) 26, Alkaline Phosphatase 55, Troponin I < 0.028, Total Protein 6.7, Albumin 3.8 11/01/22 05:52: Glucometer 151H 11/01/22 11:09: Glucometer 116H 11/01/22 12:09: Troponin I < 0.028 A/P: Assessment: Unstable angina Coronary artery disease. - Card cath on 11/01/22: 70-80% prox and mid LAD stenoses, 70-80% prox D1 stenosis, 60% ostial and mid LCX stenosis, 90% prox stenosis in a subbranch of OM1, up to 80-90% mid-RCA stenosis, LVEF 50-55%, LVEDP 11 mmHg. Patent stents in mid LAD known to be Promus 3.0 x 12 mm (placed in 2010). Patent stent in its mid-LCX that is known to be Promus 2.5 x 23 (placed in 2010) and this is widely patent and free of significant disease. Patent stent in mid-RCA that is known to be Alpine Xience 3.[address] in 2019. Hypertension with hypertensive CVD Echo on 01/02/19: LVEF 60-65%, no RWMA, mild bharat mod conc LVH, mild diastolic dysfunction of LV, no significant valvular regurg or stenosis Chronic back and joint pain pain Hyperlipidemia, chronically treated with statin Hypothyroidism, managed by Dr Adames Chronic insomnia, managed by Dr Adames Surgeries: cholecystectomy, carpal tunnel surgery, and back fusion Obesity mass index of approximately 38 DEBORAH: non-compliant with sleep apnea treatment Plan: * I discussed his cath findings in detail with him and recommended CABG. He understands and agrees * I called Dr Mendez of CV surg at [facility] and discussed the case with him. Dr Mendez has accepted in transfer for consideration of CABG * Continue cardiac regimen * Transfer arrangements are being made Clinical Quality Measures AMI/AHF: ASA po Prior to arrival: MILENA Bray MD FACP FAC CCDS Nov 01, 2022 14:30
--- NOTE | 2022-11-01 14:34 | Cardiology Discharge Summary ---
Diagnosis/Chief Complaint Date of Admission Oct 30, 2022 at 12:26 Date of Discharge 11/01/22 Final/Discharge Diagnosis Unstable angina Coronary artery disease. - Card cath on 11/01/22: 70-80% prox and mid LAD stenoses, 70-80% prox D1 stenosis, 60% ostial and mid LCX stenosis, 90% prox stenosis in a subbranch of OM1, up to 80-90% mid-RCA stenosis, LVEF 50-55%, LVEDP 11 mmHg. Patent stents in mid LAD known to be Promus 3.0 x 12 mm (placed in 2009). Patent stent in its mid-LCX that is known to be Promus 2.5 x 23 (placed in 2009) and this is widely patent and free of significant disease. Patent stent in mid-RCA that is known to be Alpine Xience 3.[address] in 2018. Hypertension with hypertensive CVD Echo on 01/02/19: LVEF 60-65%, no RWMA, mild bharat mod conc LVH, mild diastolic dysfunction of LV, no significant valvular regurg or stenosis Chronic back and joint pain pain Hyperlipidemia, chronically treated with statin Hypothyroidism, managed by Dr Adames Chronic insomnia, managed by Dr Adames Surgeries: cholecystectomy, carpal tunnel surgery, and back fusion Obesity mass index of approximately 38 DEBORAH: non-compliant with sleep apnea treatment Chief Complaint/HPI Chief Complaint/HPI Mr. Kenny is a 72 yr old male admitted to [facility] from the ED with c/o CP. He reports he feels the chest discomfort he was having was similar to the discomfort he had prior to his last coronary intervention. He reports he developed mid-sternal chest pressure yesterday. He reports the discomfort lasted for several hours. He reports it resolved in the ED and has not re- occurred. He denies any radiation with the discomfort. He denies any SOB, palpitations or diaphoresis. He has chronic bilat LE swelling which is worse in the morning and gets better during the day. He reports he has back surgery in early September at [facility]. He does not take an ASA. He reports he is on multiple medications for his blood pressure. He has not been compliant with his CPAP in several years. For hosp course and condition and discharge, please refer to our progress note of today's date Discharge Summary Hospital Course Pending Labs Laboratory Tests 11/01/22 11:09: Glucometer 116 11/01/22 12:09: Troponin I < 0.028 Discussion & Recommendations Home Medications Reviewed patient Home Medication Reconciliation performed by pharmacy medication reconciliations oil refinery process technician and/or nursing. Patients Allergies have been reviewed. Discharge Home Medications: Reviewed and agree with Discharge Medication list on patient's Discharge Instruction sheet Clinical Quality Measures AMI/AHF: ASA po Prior to arrival: MILENA Bray MD FACP FAC CCDS Nov 01, 2022 14:34
--- NOTE | 2022-11-01 15:21 | Cardiac Procedure Note-CS/ASA ---
Pre-Procedure Note Pre-Op Procedure Note Date of Available H&P: Oct 31, 2022 Date H&P Reviewed: Nov 01, 2022 Time H&P Reviewed: 11:00 History & Physical: H&P Reviewed, No changes noted Conscious Sedation Pre-Proced ASA Score 3 For ASA 3 and 4: Consider anesthesia and medical clearance. Also, for patients with a history of failed moderate sedation consider anesthesia. Airway Lungs Heart ASA score ASA 1: a normal healthy patient ASA 2: a patient with a mild systemic disease (mid diabetes, controlled hypertension, obesity ASA 3: a patient with a severe systemic disease that limits activity (angina, COPD, prior Myocardial infarction) ASA 4: a patient with an incapacitating disease that is a constant threat to life (CHF, renal failure) ASA 5: a moribund patient not expected to survive 24 hrs. (ruptured aneurysm) ASA 6: a declared brain- patient whose organs are being harvested. For emergent operations, add the letter E after the classification Mallampati Classification Grade 3 Sedation Plan Analgesia, Amnesia, Plan communicated to team members The patient is an appropriate candidate to undergo the planned procedure, sedation, and anesthesia. The patient immediately re-assessed prior to indication. MILENA DAVIDSON MD FACP FAC CCDS Nov 01, 2022 15:21
[2022-11-01] MEDS: ENOXAPARIN 40 MG/0.4 ML (LOVENOX) SYR SC SCH (16:16)
--- NOTE | 2022-11-01 17:36 | CARDIAC CATHETERIZATION ---
DATE OF SERVICE: 11/01/2022 CARDIAC CATHETERIZATION REPORT INDICATION: The patient is a 72-year-old gentleman, who is known to have coronary artery disease and has had coronary stenting to the left anterior descending, left circumflex, and the right coronary arteries in the past. He presents with chest discomfort that is reminiscent of his previous angina. Cardiac catheterization was carried out today after having obtained an informed consent. DESCRIPTION OF PROCEDURE: He was brought to the cardiac catheterization laboratory in a fasting state. Right groin was prepared and draped in the usual sterile fashion. A 1% lidocaine was used for local anesthesia. Modified Seldinger technique was used to advance a 5-Icelandic sheath in the right femoral artery. A 5-Icelandic JL4 catheter, left coronary angiography. A 5-Icelandic JR4 catheter, right coronary angiography. A 5-Icelandic pigtail catheter was used for left heart catheterization and left ventricular angiography. At the end of the procedure, angiography, the right femoral artery was carried out through the sheath and Mynx was used to achieve hemostasis. He tolerated the procedure well. HEMODYNAMICS: Left ventricular end-diastolic pressure, following coronary angiography was 11 mmHg. There was no significant pressure gradient on pullback across the aortic valve. Ascending aortic pressure was 165/81. LEFT VENTRICULAR ANGIOGRAPHY: Left ventricular angiography was carried out in the right anterior oblique projection. Global left ventricular systolic function was well preserved. Left ventricular ejection fraction 50% to 55%. CORONARY ANGIOGRAPHY: Diffuse coronary calcification involving the proximal portion of all coronary vessels seen. The left main coronary artery does not exhibit significant disease. Left anterior descending artery has a 70% to 80% proximal and mid vessel stenosis. A 70% to 80% proximal and mid vessel stenosis, and 70% to 80% mid to distal vessel stenosis. The first diagonal branch of the left anterior descending artery has a 70% to 80% proximal stenosis. The left circumflex artery has a 60% to 70% proximal stenosis and there is 90% stenosis in the subbranch of an obtuse marginal branch. This is a large subbranch. The right coronary artery is dominant. It has multiple stenoses of up to approximately 80% to 90% in its mid portions. Patent stents were seen in the mid left anterior descending, proximal left circumflex and the proximal right coronary arteries. CONCLUSION: 1. Multivessel coronary artery disease including 70% to 80% proximal and 70% to 80% mid vessel stenosis of the left anterior descending, 70% to 80% proximal stenosis of the first diagonal, 60% stenosis of the ostial and proximal left circumflex, 90% stenosis of the proximal portion of a large subbranch of an obtuse marginal, and up to 80% to 90% stenoses in the mid right coronary. The right coronary artery is dominant. 2. Patent stents are seen in the mid left anterior descending (Promus 3.0 x 12 placed in 2009), the mid left circumflex, (Promus 2.5 x 23 placed in 2009), and Alpine Xience 3.0 x 12 in the mid right coronary (placed in 12/2018). 3. Well preserved global left ventricular systolic function with ejection fraction 50% to 55%. 4. Normal left ventricular end-diastolic pressure (11 mmHg). DISCUSSION AND RECOMMENDATIONS: Based on results of the study, coronary artery bypass surgery appears to be the best treatment option. We have spoken with Dr. Mendez of the cardiovascular surgical service at [facility], who is kindly accepted the patient in transfer. Arrangements are being made at the time of this dictation. Job ID: [id number] DocumentID: [id number] Dictated Date: 11/01/2022 14:12:31 Certified Histologic Technician Date: 11/01/2022 17:34:00 Dictated By: MILENA DAVIDSON MD; GRADY; NEELAP; NEELAC; ORION
--- NOTE | 2022-11-01 20:08 | Discharge Summary ---
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 Patient was found to have slightly elevated troponin and he will have a cardiac catheterization tomorrow. Malignant hypertension noted upon admission now it is much improved. Discharge Summary Discharge Physical Examination Allergies: Coded Allergies: No Known Drug Allergies (Verified , 05/27/20) Vitals & I&Os Vital Signs Date Time Temp Pulse Resp B/P (MAP) Pulse Ox O2 Delivery O2 Flow Rate FiO2 11/01/22 20:09 36.6 11/01/22 19:57 70 13 173/83 96 Room Air 11/01/22 19:26 2.00 10/30/22 13:52 21 Hospital Course Was the Problem List Reviewed?: Yes Short course after he was admitted for chest pain with elevated troponin underwent cardiac catheterization which revealed multivessel disease and patient was transferred to [facility] (last 24 hrs) Laboratory Tests 10/30/22 10:30: White Blood Count 15.4H, Red Blood Count 4.51, Hemoglobin 14.6, Hematocrit 43, Mean Corpuscular Volume 94, Mean Corpuscular Hemoglobin 32, Mean Corpuscular Hemoglobin Concent 34, Red Cell Distribution Width 12.8, Platelet Count 217, Mean Platelet Volume 10.4, Immature Granulocyte % (Auto) 1, Neutrophils (%) (Auto) 60, Lymphocytes (%) (Auto) 27, Monocytes (%) (Auto) 9, Eosinophils (%) (Auto) 3, Basophils (%) (Auto) 0, Neutrophils # (Auto) 9.2H, Lymphocytes # (Auto) 4.1H, Monocytes # (Auto) 1.4H, Eosinophils # (Auto) 0.5H, Basophils # (Auto) 0.1, Immature Granulocyte # (Auto) 0.1, Neutrophils % (Manual) 67, Lymphocytes % (Manual) 24, Monocytes % (Manual) 5, Eosinophils % (Manual) 4, Basophils % (Manual) 0, Band Neutrophils 0, Blood Morphology Comment NORMAL, Prothrombin Time 12.2, INR Comment 0.9, Activated Partial Thromboplast Time 27, Sodium Level 139, Potassium Level 3.5L, Chloride Level 104, Carbon Dioxide Level 21, Anion Gap 14, Blood Urea Nitrogen 23H, Creatinine 1.25, Estimat Glomerular Filtration Rate 62, BUN/Creatinine Ratio 18, Glucose Level 125H, Calcium Level 9.3, Corrected Calcium 9.1, Magnesium Level 2.0, Total Bilirubin 0.6, Aspartate Amino Transf (AST/SGOT) 26, Alanine Aminotransferase (ALT/SGPT) 25, Alkaline Phosphatase 82, Myoglobin 174.4H, Troponin I < 0.028, Total Protein 7.6, Albumin 4.3 10/30/22 15:34: Glucometer 125H 10/30/22 18:10: Troponin I < 0.028 10/30/22 21:05: Glucometer 143H 10/30/22 23:45: Troponin I 0.048H 10/31/22 05:19: Glucometer 126H 10/31/22 05:25: Troponin I < 0.028, White Blood Count 10.1, Red Blood Count 4.49, Hemoglobin 14.5, Hematocrit 42, Mean Corpuscular Volume 94, Mean Corpuscular Hemoglobin 32, Mean Corpuscular Hemoglobin Concent 34, Red Cell Distribution Width 13.0, Platelet Count 194, Mean Platelet Volume 10.4, Immature Granulocyte % (Auto) 1, Neutrophils (%) (Auto) 53, Lymphocytes (%) (Auto) 33, Monocytes (%) (Auto) 8, Eosinophils (%) (Auto) 5, Basophils (%) (Auto) 1, Neutrophils # (Auto) 5.3, Lymphocytes # (Auto) 3.3, Monocytes # (Auto) 0.8, Eosinophils # (Auto) 0.5H, Basophils # (Auto) 0.1, Immature Granulocyte # (Auto) 0.1, Sodium Level 140, Potassium Level 4.1, Chloride Level 106, Carbon Dioxide Level 22, Anion Gap 12, Blood Urea Nitrogen 23H, Creatinine 1.44H, Estimat Glomerular Filtration Rate 52, BUN/Creatinine Ratio 16, Glucose Level 134H, Calcium Level 9.2, Corrected Calcium 9.1, Total Bilirubin 0.4, Aspartate Amino Transf (AST/SGOT) 28, Alanine Aminotransferase (ALT/SGPT) 24, Alkaline Phosphatase 60, Total Protein 7.4, Albumin 4.1, Triglycerides Level 299H, Cholesterol Level 153, LDL Cholesterol Direct 74, VLDL Cholesterol 60H, HDL Cholesterol 41 10/31/22 10:51: Glucometer 264H 10/31/22 12:22: Troponin I < 0.028 10/31/22 15:58: Glucometer 137H 10/31/22 18:07: Troponin I < 0.028 10/31/22 20:34: Glucometer 200H 10/31/22 23:35: Troponin I < 0.028 11/01/22 05:30: Troponin I < 0.028, White Blood Count 7.6, Red Blood Count 4.09L, Hemoglobin 13.3, Hematocrit 39L, Mean Corpuscular Volume 94, Mean Corpuscular Hemoglobin 33, Mean Corpuscular Hemoglobin Concent 35, Red Cell Distribution Width 12.8, Platelet Count 169, Mean Platelet Volume 10.4, Immature Granulocyte % (Auto) 1, Neutrophils (%) (Auto) 54, Lymphocytes (%) (Auto) 29, Monocytes (%) (Auto) 11, Eosinophils (%) (Auto) 5, Basophils (%) (Auto) 1, Neutrophils # (Auto) 4.1, Lymphocytes # (Auto) 2.2, Monocytes # (Auto) 0.8, Eosinophils # (Auto) 0.4H, Basophils # (Auto) 0.1, Immature Granulocyte # (Auto) 0.0, Sodium Level 139, Potassium Level 3.8, Chloride Level 105, Carbon Dioxide Level 23, Anion Gap 11, Blood Urea Nitrogen 22H, Creatinine 1.21, Estimat Glomerular Filtration Rate 64, BUN/Creatinine Ratio 18, Glucose Level 133H, Calcium Level 8.8, Corrected Calcium 9.0, Total Bilirubin 0.5, Aspartate Amino Transf (AST/SGOT) 25, Alanine Aminotransferase (ALT/SGPT) 26, Alkaline Phosphatase 55, Total Protein 6.7, Albumin 3.8 11/01/22 05:52: Glucometer 151H 11/01/22 11:09: Glucometer 116H 11/01/22 12:09: Troponin I < 0.028 11/01/22 15:48: Glucometer 86 11/01/22 17:50: Troponin I < 0.028 11/01/22 19:34: Glucometer 167H Pending Labs Laboratory Tests 10/30/22 10:30: White Blood Count 15.4, Red Blood Count 4.51, Hemoglobin 14.6, Hematocrit 43, Mean Corpuscular Volume 94, Mean Corpuscular Hemoglobin 32, Mean Corpuscular Hemoglobin Concent 34, Red Cell Distribution Width 12.8, Platelet Count 217, Mean Platelet Volume 10.4, Immature Granulocyte % (Auto) 1, Neutrophils (%) (Auto) 60, Lymphocytes (%) (Auto) 27, Monocytes (%) (Auto) 9, Eosinophils (%) (Auto) 3, Basophils (%) (Auto) 0, Neutrophils # (Auto) 9.2, Lymphocytes # (Auto) 4.1, Monocytes # (Auto) 1.4, Eosinophils # (Auto) 0.5, Basophils # (Auto) 0.1, Immature Granulocyte # (Auto) 0.1, Neutrophils % (Manual) 67, Lymphocytes % (Manual) 24, Monocytes % (Manual) 5, Eosinophils % (Manual) 4, Basophils % (Manual) 0, Band Neutrophils 0, Blood Morphology Comment NORMAL, Prothrombin Time 12.2, INR Comment 0.9, Activated Partial Thromboplast Time 27, Sodium Level 139, Potassium Level 3.5, Chloride Level 104, Carbon Dioxide Level 21, Anion Gap 14, Blood Urea Nitrogen 23, Creatinine 1.25, Estimat Glomerular Filtration Rate 62, BUN/Creatinine Ratio 18, Glucose Level 125, Calcium Level 9.3, Corrected Calcium 9.1, Magnesium Level 2.0, Total Bilirubin 0.6, Aspartate Amino Transf (AST/SGOT) 26, Alanine Aminotransferase (ALT/SGPT) 25, Alkaline Phosphatase 82, Myoglobin 174.4, Troponin I < 0.028, Total Protein 7.6, Albumin 4.3 10/30/22 15:34: Glucometer 125 10/30/22 18:10: Troponin I < 0.028 10/30/22 21:05: Glucometer 143 10/30/22 23:45: Troponin I 0.048 10/31/22 05:19: Glucometer 126 10/31/22 05:25: Troponin I < 0.028, White Blood Count 10.1, Red Blood Count 4.49, Hemoglobin 14.5, Hematocrit 42, Mean Corpuscular Volume 94, Mean Corpuscular Hemoglobin 32, Mean Corpuscular Hemoglobin Concent 34, Red Cell Distribution Width 13.0, Platelet Count 194, Mean Platelet Volume 10.4, Immature Granulocyte % (Auto) 1, Neutrophils (%) (Auto) 53, Lymphocytes (%) (Auto) 33, Monocytes (%) (Auto) 8, Eosinophils (%) (Auto) 5, Basophils (%) (Auto) 1, Neutrophils # (Auto) 5.3, Lymphocytes # (Auto) 3.3, Monocytes # (Auto) 0.8, Eosinophils # (Auto) 0.5, Basophils # (Auto) 0.1, Immature Granulocyte # (Auto) 0.1, Sodium Level 140, Potassium Level 4.1, Chloride Level 106, Carbon Dioxide Level 22, Anion Gap 12, Blood Urea Nitrogen 23, Creatinine 1.44, Estimat Glomerular Filtration Rate 52, BUN/Creatinine Ratio 16, Glucose Level 134, Calcium Level 9.2, Corrected Calcium 9.1, Total Bilirubin 0.4, Aspartate Amino Transf (AST/SGOT) 28, Alanine Aminotransferase (ALT/SGPT) 24, Alkaline Phosphatase 60, Total Protein 7.4, Albumin 4.1, Triglycerides Level 299, Cholesterol Level 153, LDL Cholesterol Direct 74, VLDL Cholesterol 60, HDL Cholesterol 41 10/31/22 10:51: Glucometer 264 10/31/22 12:22: Troponin I < 0.028 10/31/22 15:58: Glucometer 137 10/31/22 18:07: Troponin I < 0.028 10/31/22 20:34: Glucometer 200 10/31/22 23:35: Troponin I < 0.028 11/01/22 05:30: Troponin I < 0.028, White Blood Count 7.6, Red Blood Count 4.09, Hemoglobin 13.3, Hematocrit 39, Mean Corpuscular Volume 94, Mean Corpuscular Hemoglobin 33, Mean Corpuscular Hemoglobin Concent 35, Red Cell Distribution Width 12.8, Platelet Count 169, Mean Platelet Volume 10.4, Immature Granulocyte % (Auto) 1, Neutrophils (%) (Auto) 54, Lymphocytes (%) (Auto) 29, Monocytes (%) (Auto) 11, Eosinophils (%) (Auto) 5, Basophils (%) (Auto) 1, Neutrophils # (Auto) 4.1, Lymphocytes # (Auto) 2.2, Monocytes # (Auto) 0.8, Eosinophils # (Auto) 0.4, Basophils # (Auto) 0.1, Immature Granulocyte # (Auto) 0.0, Sodium Level 139, Potassium Level 3.8, Chloride Level 105, Carbon Dioxide Level 23, Anion Gap 11, Blood Urea Nitrogen 22, Creatinine 1.21, Estimat Glomerular Filtration Rate 64, BUN/Creatinine Ratio 18, Glucose Level 133, Calcium Level 8.8, Corrected Calcium 9.0, Total Bilirubin 0.5, Aspartate Amino Transf (AST/SGOT) 25, Alanine Aminotransferase (ALT/SGPT) 26, Alkaline Phosphatase 55, Total Protein 6.7, Albumin 3.8 11/01/22 05:52: Glucometer 151 11/01/22 11:09: Glucometer 116 11/01/22 12:09: Troponin I < 0.028 11/01/22 15:48: Glucometer 86 11/01/22 17:50: Troponin I < 0.028 11/01/22 19:34: Glucometer 167 Discharge Home Medications: Active Scripts Active Reported Docusate Sodium 100 Mg Capsule 100 Mg PO HS Oxycodone-Acetaminophen 5-325 (Oxycodone HCl/Acetaminophen) 5 Mg-325 Mg Tablet 1-2 Ea PO Q4H PRN Neurontin (Gabapentin) 300 Mg Capsule 300 Mg PO TID Losartan Potassium 50 Mg Tablet 50 Mg PO DAILY Hydrochlorothiazide 25 Mg Tablet 25 Mg PO DAILY Levothyroxine Sodium 50 Mcg Tablet 50 Mcg PO DAILY Hydralazine HCl 50 Mg Tablet 50 Mg PO TID Zyrtec (Cetirizine HCl) 10 Mg Tablet 10 Mg PO DAILY Metoprolol Succinate 100 Mg Tab.er.24h 100 Mg PO BID Atorvastatin Calcium 20 Mg Tablet 20 Mg PO DAILY Amlodipine Besylate 5 Mg Tablet 5 Mg PO DAILY Montelukast Sodium 10 Mg Tablet 10 Mg PO DAILY Vitamin B-12 (Cyanocobalamin (Vitamin B-12)) 1,000 Mcg Tablet 1,000 Mcg PO DAILY Instructions to patient/family Please see electronic discharge instructions given to patient. Clinical Quality Measures AMI/AHF: ASA po Prior to arrival: RAIMUNDO Lew DO Nov 01, 2022 20:08
== END 2022-11-01 20:36 | disposition short-term general hospital (02) ==
LOC: EDUNIT# 10:22 → ER 10:23 → UNDOADMOB 12:26 → CSD 12:26 → CATH 13:15 → CSD 10-31 12:49 → CATH 11-01 20:36 → UNDODISOB 11-01 20:36
PROVIDERS: ATTEND Internal Medicine
DX: I25.110 Atherosclerotic heart disease of native coronary artery with unstable angina pectoris (principal); I10 Essential (primary) hypertension; E78.5 Hyperlipidemia, unspecified; E03.9 Hypothyroidism, unspecified; E66.9 Obesity, unspecified; Z68.38 Body mass index [BMI] 38.0-38.9, adult; G47.33 Obstructive sleep apnea (adult) (pediatric); G89.29 Other chronic pain; Z87.891 Personal history of nicotine dependence; Z79.899 Other long term (current) drug therapy; Z79.82 Long term (current) use of aspirin; Z90.49 Acquired absence of other specified parts of digestive tract
CPT/HCPCS: 71045; 80053 ×3; 80061; 82947 ×3; 83735; 83874; 84484 ×3; 85007; 85025 ×2; 85027; 85610; 85730; 93005; 93041; 93458; 94760; 96372 ×3; 96375; 99284; C1760; C1894; C8929; G0378; 36415; 93306

== ENCOUNTER → 2022-12-15 | Outpatient (CLI) | payer MEDICARE ==
[~2022-12-15] MED LIST changes: +DOCU100C37 PO; +GABA300C PO; +HYDR-3924 PO; +HYDR25TA4 PO; +LEVO50TA6 PO; +LOSA50TA63 PO; +MULT-1030 PO; +OXYC1TAB11 PO
== END ==
LOC: CARD 13:07
PROVIDERS: ATTEND Internal Medicine Cardiovascular Disease
DX: I51.7 Cardiomegaly (principal); I35.8 Other nonrheumatic aortic valve disorders
CPT/HCPCS: 93306

== ENCOUNTER 2023-01-04 10:12 | Outpatient (RCR) | payer MEDICARE | END 2023-01-17 | disposition home or self-care (01) | PROVIDERS: ATTEND Nurse Practitioner | DX: M54.12 Radiculopathy, cervical region (principal); R53.1 Weakness; R26.89 Other abnormalities of gait and mobility ==

== ENCOUNTER 2023-07-11 22:56 | Emergency (ER) | payer MEDICARE ==
[~2023-07-11 22:56] MED LIST changes: -LOSA100T57 PO; +LOSA100T58 PO
--- NOTE | 2023-07-11 23:18 | ED Back Pain ---
General Chief Complaint: General Problems/Pain Stated Complaint: BACK/HIPS/LEG PAIN Source of Information: Family History of Present Illness Date Seen by Provider: Jul 11, 2023 Time Seen by Provider: 23:17 Initial Comments Patient is a 73-year-old male who presents to the emergency room with a chief complaint of left lower back pain/buttock pain. Onset severely this morning. He is recently status post back surgery on June 14 at [facility]. His daughter states that initially he had pain like this right after surgery however over the last 2 weeks he has been doing fairly well. This morning it started up again severely. His last dose of oxycodone was around 7:30 PM. He denies any problems with constipation. Last bowel movement was today. No issues with urination, no hematuria. The pain does not radiate from his abdomen into his groin. He points to the low posterior left buttock as the source of his pain. He states he has a little discomfort in his scrotum. Denies weakness, numbness or tingling in his legs. No fevers or chills. No recent falls. His daughter states that he is taking his pain medication on a scheduled basis. He does have significant neuropathy and is on gabapentin 600 mg 6 times a day. Timing/Duration: 12 Hours Severity: Severe Pain/Injury Location: Other (left buttock) Radiation: Other (groin) Associated Symptoms: denies symptoms Allergies and Home Medications Allergies Coded Allergies: No Known Drug Allergies (Verified , 05/27/20) Patient Home Medication List Home Medication List Reviewed: Yes Amlodipine Besylate (Amlodipine Besylate) 5 Mg Tablet, 5 MG PO DAILY, (Reported) Entered as Reported by: SARA FELIPE on 01/02/19 0949 Atorvastatin Calcium (Atorvastatin Calcium) 20 Mg Tablet, 20 MG PO DAILY, (Reported) Entered as Reported by: SARA FELIPE on 01/08/19 0917 Cetirizine HCl (Zyrtec) 10 Mg Tablet, 10 MG PO DAILY, (Reported) Entered as Reported by: SARA FELIPE on 01/08/19 09 Cyanocobalamin (Vitamin B-12) (Vitamin B-12) 1,000 Mcg Tablet, 1,000 MCG PO DAILY, (Reported) Entered as Reported by: SOBEIDA PORTILLO on 02/09/17 1520 Docusate Sodium (Docusate Sodium) 100 Mg Capsule, 100 MG PO HS, (Reported) Entered as Reported by: DONAL NAVARRO on 10/31/221156 Gabapentin (Neurontin) 300 Mg Capsule, 300 MG PO TID, (Reported) Entered as Reported by: DONAL NAVARRO on 10/31/221156 Hydralazine HCl (Hydralazine HCl) 50 Mg Tablet, 50 MG PO TID, (Reported) Entered as Reported by: DONAL NAVARRO on 10/31/221156 Hydrochlorothiazide (Hydrochlorothiazide) 25 Mg Tablet, 25 MG PO DAILY, (Reported) Entered as Reported by: DONAL NAVARRO on 10/31/221156 Levothyroxine Sodium (Levothyroxine Sodium) 50 Mcg Tablet, 50 MCG PO DAILY, (Reported) Entered as Reported by: DONAL NAVARRO on 10/31/221156 Losartan Potassium (Losartan Potassium) 50 Mg Tablet, 50 MG PO DAILY, (Reported) Entered as Reported by: DONAL NAVARRO on 10/31/221156 Metoprolol Succinate (Metoprolol Succinate) 100 Mg Tab.er.24h, 100 MG PO BID, (Reported) Entered as Reported by: SARA FELIPE on 01/08/19 0917 Montelukast Sodium (Montelukast Sodium) 10 Mg Tablet, 10 MG PO DAILY, (Reported) Entered as Reported by: SOBEIDA PORTILLO on 02/09/17 1520 Multivits,Ca,Min/Iron/FA/Lycop (Centrum Men's Tablet) 8 Mg Iron-200 Mcg-600 Mcg Tablet, 1 EACH PO DAILY, (Reported) Entered as Reported by: DONAL NAVARRO on 10/31/221156 Oxycodone HCl/Acetaminophen (Oxycodone-Acetaminophen 5-325) 5 Mg-325 Mg Tablet, 1-2 EA PO Q4H PRN for PAIN-MODERATE (5-7), (Reported) Entered as Reported by: DONAL NAVARRO on 10/31/221156 Prednisone (Prednisone) 10 Mg Tab.ds.pk, 10 MG PO DAILY Prescribed by: MEMO JAMISON on 07/12/23 0208 Review of Systems Constitutional: see HPI EENTM: no symptoms reported Respiratory: no symptoms reported Cardiovascular: no symptoms reported Gastrointestinal: nausea, vomiting (x1 today (daughter thinks due to the pain)) Genitourinary: no symptoms reported Musculoskeletal: back pain (low left back/buttock pain) Skin: no symptoms reported Psychiatric/Neurological: No Symptoms Reported All Other Systems Reviewed Negative Unless Noted: Yes Past Glvpxru-Zsjimv-Ixsavi Hx Patient Social History Tobacco Use?: No Substance use?: No Alcohol Use?: No Pt feels they are or have been: No Immunizations Up To Date First/Initial COVID19 Vaccinat: YES Second COVID19 Vaccination [place]: YES Third COVID19 Vaccination Date: YES Seasonal Allergies Seasonal Allergies: Yes Past Medical History Surgery/Hospitalization HX: 3 STENTS, 7 BACK SURGERIES, CAD, NEUROPATHY IN FEET, TONSILS, CARPEL TUNNEL BOTH SIDES, CALLBLADDER, CATARACT SURGERY BOTH EYES, KIDNEY STONES, LOWER BACK FUSION Surgeries: Yes (STENTS X3, BACK X6, KIDNEY STONE, CATARACTS) Adenoidectomy, Coronary Stent, Eye Surgery, Gallbladder, Orthopedic, Tonsillectomy Respiratory: Yes Sleep Apnea Currently Using CPAP: Yes Currently Using BIPAP: No Cardiac: Yes (HEART CATH/STENTS X2 2010) Chronic Edema/Swelling, Coronary Artery Disease, High Cholesterol, Hypertension Neurological: Yes (BILATERAL PERIPHERAL NEUROPATHY) Neuropathy Reproductive Disorders: No Sexually Transmitted Disease: No HIV/AIDS: No Genitourinary: Yes Benign Prostatic Hyperpl, Kidney Stones Gastrointestinal: No Gall Bladder Disease Musculoskeletal: Yes Degenerate Disk Disease, Chronic Back Pain Endocrine: No HEENT: No Cataract Loss of Vision: Denies Hearing Impairment: Denies Cancer: No Psychosocial: No Integumentary: No Blood Disorders: No Adverse Reaction/Blood Tranf: No (N/A) Physical Exam Vital Signs Vital Signs - First Documented 07/11/23 23:08 Temp 36.8 Pulse 86 Resp 18 B/P (MAP) 117/69 (85) Pulse Ox 98 O2 Delivery Room Air Capillary Refill : Height, Weight, BMI Height: 5'10.00" Weight: 182lbs. 0.0oz. [id number]; 39.38 BMI Method:Stated General Appearance: WD/WN, Anxious, Moderate Distress (crying and moaning) HEENT: PERRL/EOMI Neck: Normal Inspection Cardiovascular: Regular Rate, Rhythm Respiratory: Lungs Clear, Normal Breath Sounds, No Accessory Muscle Use, No Respiratory Distress Gastrointestinal: Non Tender, Soft; No Distended, No Guarding, No Rebound, No Tenderness Back: Normal Inspection, Other (recent midline back incision evaluated - healing well - no erythema, swelling, drainage. No tenderness to the incision. he has some tenderness low lwft sciatic area. No overlying erythema there either.) Extremity: Normal Range of Motion Neurologic/Psychiatric: Alert, Oriented x3, No Motor/Sensory Deficits, Depressed Affect, Sensory Deficit (chronic in feet due to neuropathy) Skin: Normal Color, Warm/Dry Progress/Results/Core Measures Results/Orders Lab Results Laboratory Tests Test 07/12/23 00:22 Range/Units White Blood Count 9.3 4.3-11.0 10^3/uL Red Blood Count 3.22 L 4.30-5.52 10^6/uL Hemoglobin 10.5 L 13.3-17.7 g/dL Hematocrit 31 L 40-54 % Mean Corpuscular Volume 98 80-99 fL Mean Corpuscular Hemoglobin 33 25-34 pg Mean Corpuscular Hemoglobin Concent 33 32-36 g/dL Red Cell Distribution Width 12.4 10.0-14.5 % Platelet Count 348 130-400 10^3/uL Mean Platelet Volume 9.9 9.0-12.2 fL Immature Granulocyte % (Auto) 0 % Neutrophils (%) (Auto) 58 42-75 % Lymphocytes (%) (Auto) 25 12-44 % Monocytes (%) (Auto) 11 0-12 % Eosinophils (%) (Auto) 6 0-10 % Basophils (%) (Auto) 0 0-10 % Neutrophils # (Auto) 5.4 1.8-7.8 10^3/uL Lymphocytes # (Auto) 2.3 1.0-4.0 10^3/uL Monocytes # (Auto) 1.0 0.0-1.0 10^3/uL Eosinophils # (Auto) 0.5 H 0.0-0.3 10^3/uL Basophils # (Auto) 0.0 0.0-0.1 10^3/uL Immature Granulocyte # (Auto) 0.0 0.0-0.1 10^3/uL Erythrocyte Sedimentation Rate > 140 H 0-30 MM/HR Sodium Level 139 135-145 MMOL/L Potassium Level 4.0 3.6-5.0 MMOL/L Chloride Level 103 98-107 MMOL/L Carbon Dioxide Level 22 21-32 MMOL/L Anion Gap 14 5-14 MMOL/L Blood Urea Nitrogen 26 H 7-18 MG/DL Creatinine 1.33 H 0.60-1.30 MG/DL Estimat Glomerular Filtration Rate 57 BUN/Creatinine Ratio 20 Glucose Level 91 70-105 MG/DL Calcium Level 10.3 H 8.5-10.1 MG/DL C-Reactive Protein High Sensitivity 6.04 H 0.00-0.50 MG/DL My Orders Orders - MEMO JAMISON MD Morphine Injection (Morphine Injection (07/11/23 23:33) Ns Iv 1000 Ml (Sodium Chloride 0.9%) (07/11/23 23:33) Lidocaine 4% Patch (Salonpas 4% Patch) (07/11/23 23:33) Ondansetron Injection (Zofran Injectio (07/11/23 23:45) Cbc With Automated Diff (07/12/23 00:18) Basic Metabolic Panel (07/12/23 00:18) Ua Culture If Indicated (07/12/23 00:18) Ct Lumbar Spine Wo (07/12/23 00:18) Ketamine Syringe (Ketamine Syringe) (07/12/23 00:30) Hs C Reactive Protein (07/12/23 00:24) Erythrocyte Sedimentation Rate (07/12/23 00:24) Ns (Ivpb) 100 Ml (Sodium Chloride 0.9% 1 (07/12/23 00:23) Dexamethasone Injection (Decadron Injec (07/12/23 02:00) Fentanyl Injection (Fentanyl Injection (07/12/23 02:00) Fentanyl Injection (Fentanyl Injection (07/12/23 02:15) Medications Given in ED Current Medications Medications Dose Ordered Sig/Bubba Route Start Time Stop Time Status Last Admin Dose Admin Dexamethasone Sodium Phosphate 8 mg ONCE ONCE IV 07/12/23 02:00 07/12/23 02:02 DC 07/12/23 01:52 8 MG Fentanyl Citrate 50 mcg ONCE ONCE IVP 07/12/23 02:00 07/12/23 02:02 DC 07/12/23 01:53 50 MCG Fentanyl Citrate 50 mcg ONCE ONCE IVP 07/12/23 02:15 07/12/23 02:16 07/12/23 02:08 50 MCG Ketamine HCl 25 mg ONCE ONCE IV 07/12/23 00:30 07/12/23 00:31 DC 07/12/23 00:28 25 MG Ondansetron HCl 4 mg ONCE ONCE IVP 07/11/23 23:45 07/11/23 23:46 DC 07/11/23 23:50 4 MG Sodium Chloride 100 ml @ ud STK-MED ONCE .ROUTE 07/12/23 00:23 07/12/23 00:27 DC 07/12/23 00:29 196 MLS/HR Vital Signs/I&O 07/11/23 23:08 Temp 36.8 Pulse 86 Resp 18 B/P (MAP) 117/69 (85) Pulse Ox 98 O2 Delivery Room Air Progress Progress Note #1: Time: 00:13 Progress Note Patient seen and evaluated by me. Evaluation today includes physical exam. Pertinent physical exam findings well-developed well-nourished male in moderate to severe distress, lying propped on his right side moaning and crying. He has significant neuropathy in his feet therefore sensory evaluation is compromised. He has normal dorsiflexion of both feet, normal plantarflexion. He has tenderness to palpation in the low left sciatic region of his left buttock. No overlying erythema, rashes. No swelling, no fluctuance, no masses. Differential diagnosis based on history and physical exam acute sciatica Patient is treated in the emergency department with 5 mg of IV morphine, 4 mg IV Zofran, a lidocaine patch is placed to the area as well. IV fluids are hung as his lips are very dry. We will reassess once the medications have time to work. 0021 Absolutely no improvement in his pain - continues to cry and moan and states that the pain is now in left thigh and right hip. Will do dose of 25mg of ketamine in 100cc NS over 30 minutes. Adding basic labs, CBC, BMP, UA and CT lumbar spine. Discussed plan of care with daughter at the bedside. She states she is incapable of handling this at home. Will get these studies done and discuss with Dr Cassidy. Progress Note #2: Time: 01:59 Progress Note Reviewed labs, normal CBC. Sed rate is greater than 140; CRP is elevated. Chem reveals chronic kidney disease, normal electrolytes. He has no fever, no percussive tenderness to the spine. No elevated WBC ct - suspect elevated inflammatory markers as a result of recent surgery. Low clinical suspicion for osteomyelitis. He did not get any significant relief from IV morphine. I did place a lidocaine patch and also gave him 35mg of IV ketamine over about 30 minutes - the ketamine gave him some relief. When it worse off he had return of pain. I then gave him 2 doses of IV fentanyl 50mcg which seemed to help more than the morphine. I recc to the daughter to discuss a fentanyl patch with their [facility] team in the morning. I advised her I would cloud his fims to for their review as well.. I did independently review the CT and saw no significant concerns. Told the patient's daughter I would let her know this morning if there were any concerns on radiologists read this morning. Patient was assisted to the wheelchair. Diagnostic Imaging Diagonstic Imaging: CT Comments CT lumbar spine - independently reviewed and interpreted by me - significant hardware, no obvious abnormalities (interpretation complicated by artifact related to hardware). Departure Communication (Admissions) Time/Spoke to Consulting Phy: 01:[address] Cassidy - does not think it would be appropriate to admit him here. Impression Primary Impression: Intractable low back pain Disposition: HOME, SELF-CARE Condition: Stable Departure-Patient Inst. Decision time for Depature: 02:02 Referrals: RAIMUNDO CASSIDY DO (PCP/Family) Primary Care Physician Patient Instructions: Low Back Pain ED Add. Discharge Instructions: Continue his pain medications as scheduled. Alternate Heat and Ice to his low back/left hip. Steroid (prednisone) - starting tomorrow - as a taper. If he develops a fever, concerning weakness, incontinence or any other concerning symptoms, please return to the Emergency Department for re- evaluation. Please follow up with his surgical team tomorrow. I have clouded the images of his CT scan to FEL[facility] hanley. Scripts Prednisone (Prednisone) 10 Mg Tab.ds.pk 10 MG PO DAILY, #42 EA Take 6 tabs(60mg)daily,decrease by 1 tab(10mg)every other day. Prov: MEMO JAMISON MD 07/12/23 Copy Copies To 1: RAIMUNDO CASSIDY KATHRYN M MD Jul 11, 2023 23:17
[2023-07-11] MEDS ORDERED: LIDOCAINE 4% PATCH TOP STA (23:33)
[2023-07-11] MEDS ORDERED: morphine INJ 10 MG/ML 1ML (SYR OR VIAL) IVP STA (23:33)
[2023-07-11] MEDS ORDERED: NS IV 1000 ML 1,000 ML IV STA (23:33)
[2023-07-11] MEDS ORDERED: ONDANSETRON INJECTION 4 MG/2 ML (SDV) IVP ONE (23:45)
[2023-07-12] MEDS ORDERED: NS (IVPB) 100 ML 100 ML ONE (00:23)
[2023-07-12 00:28] LABS: BASOPHILS % (AUTO) 0 % (0-10); EOSINOPHILS # (AUTO) 0.5 10^3/uL (0.0-0.3); EOSINOPHILS % (AUTO) 6 % (0-10); HEMATOCRIT 31 % (40-54); HEMOGLOBIN 10.5 g/dL (13.3-17.7); LYMPHOCYTES # (AUTO) 2.3 10^3/uL (1.0-4.0); LYMPHOCYTES % (AUTO) 25 % (12-44); MEAN CORPUSCULAR HEMOGLOBIN 33 pg (25-34); MEAN CORPUSCULAR HGB CONC 33 g/dL (32-36); MEAN CORPUSCULAR VOLUME 98 fL (80-99); MEAN PLATELET VOLUME 9.9 fL (9.0-12.2); MONOCYTES % (AUTO) 11 % (0-12); NEUTROPHILS # (AUTO) 5.4 10^3/uL (1.8-7.8); NEUTROPHILS % (AUTO) 58 % (42-75); PLATELET COUNT 348 10^3/uL (130-400); WHITE BLOOD COUNT 9.3 10^3/uL (4.3-11.0)
[2023-07-12] MEDS ORDERED: KETAMINE 50 MG/5 ML SYRINGE IV ONE (00:30)
[2023-07-12 00:37] LABS: CALCIUM 10.3 MG/DL (8.5-10.1); CREATININE SERUM 1.33 MG/DL (0.60-1.30)
[2023-07-12] MEDS ORDERED: LIDOCAINE 4% PATCH TOP STA (01:59)
[2023-07-12] MEDS ORDERED: fentaNYL INJECTION 100 MCG/2 ML VIAL IVP ONE ×2 (02:00→02:15)
[2023-07-12] MEDS ORDERED: dexAMETHasone INJ 4 MG/ML SDV IV ONE (02:00)
[2023-07-12] MEDS ORDERED: PRED10TA22 PO (02:08)
[2023-07-12 02:25] VITALS: BP 90/57
--- NOTE | 2023-07-12 07:41 | Diagnostic Imaging Report ---
Procedure: CT lumbar spine without contrast. Technique: Multiple contiguous axial images were obtained through the lumbar spine without the use of intravenous contrast. Sagittal and coronal reformations were then performed. Auto Exposure Controls were utilized during the CT exam to meet ALARA standards for radiation dose reduction. Date: July 12, 2023 Indication: 73-year-old male, low back pain. Comparison: Lumbar spine radiograph January 25, 2019. MR lumbar spine January 14, 2019. Findings: There is posterior spinal fusion hardware with superior extent extending to the level of T9. There are fixation screws extending into the sacrum and iliac bones bilaterally. There is hardware related artifact. There is quantum mottle artifact also present. The posterior spinal rods and fixation screws appear intact without identified adjacent lucency. There is evidence of prior fixation screws at the levels of L3 and L4 which are not currently present. There is disc spacer material and anterior spinal fusion hardware at L4-L5 and L5-S1. There is mild widening of both sacroiliac joints. There is no identified acute fracture. There is no cortical or aggressive bone destruction. CT is limited for assessment of disc pathology as well as additional non-bony causes of pathology in the spinal canal. There are laminectomy changes of L1, L2, L3, L4, and L5. There is a large nonobstructing right renal stone. There are atherosclerotic calcifications. Impression: 1. Extensive spinal hardware without identified complication. 2. No identified acute osseous abnormality. 3. Limitations of the exam relating to hardware related artifact and quantum mottle artifact. Dictated by: Dictated on workstation # [id number]
== END 2023-07-12 02:22 | disposition home or self-care (01) ==
LOC: EDUNIT# 22:56 → ER 22:59
DX: M54.50 Low back pain, unspecified (principal); I12.9 Hypertensive chronic kidney disease with stage 1 through stage 4 chronic kidney disease, or unspecified chronic kidney disease; N18.9 Chronic kidney disease, unspecified; G47.30 Sleep apnea, unspecified; Z99.89 Dependence on other enabling machines and devices
CPT/HCPCS: 36415; 72131; 80048; 85025; 85652; 86141